=== PATIENT | female | born 2000 | race Caucasian/White ===

== ENCOUNTER 2023-05-13 13:10 | Outpatient (OUT) | payer BC, OTHER, SELFPAY ==
--- NOTE | 2023-05-13 13:11 | US_ITS ---
[address] [address] Patient Name: MARICARMEN NOLAN MRN: [id number] date: 2000 Sex: F Assigned Patient Location: [place] Current Patient Location: US Accession/Order Number: [id number] Exam Date: 05/13/2023 13:15 Report Date: 05/13/2023 14:08 At the request of: JHONNY HUBER Procedure: US OB transvaginal EXAMINATION: US OB transvaginal HISTORY: MISSED MENSES COMPARISON: No relevant comparison available. FINDINGS: Giraldo intrauterine gestation Gestational sac: 4.0 cm, 9 weeks 2 days CRL: 2.87 cm, 9 weeks 5 days Yolk sac: 0.46 cm Heart rate: 189 bpm Cervix: Closed, 4.2 cm The uterus is normal, retroverted The right ovary is normal. The left ovary is not visualized Clinical age: 9 weeks 3 days Clinical ABI: 12/13/2023 Ultrasound age: 9 weeks 5 days Ultrasound ABI: 12/11/2023 US/US OB transvaginal IMPRESSION: Viable giraldo intrauterine gestation measuring 9 weeks 5 days Electronically authenticated by: LAZARO FORRESTER Date: 05/13/2023 14:08
== END 2023-05-13 13:11 | disposition home or self-care (01) ==
PROVIDERS: PCP Student in an Organized Health Care Education/Training Program; Visit Provider Obstetrics & Gynecology
DX: Z34.91 Encounter for supervision of normal pregnancy, unspecified, first trimester (principal); Z3A.09 9 weeks gestation of pregnancy; N92.6 Irregular menstruation, unspecified
CPT/HCPCS: 76817

== ENCOUNTER 2023-05-31 13:23 | Outpatient (OUT) | payer BC, OTHER, SELFPAY ==
--- OUTSIDE RECORDS SUMMARY | 2023-05-31 13:28 | XMS_ITS | CCD ---
Author Name Unknown Address [address] [place] [address] Organization [facility] Care Team Providers Care Tool Polisher Name Role Phone CECILE, DR BARRY Admitting Unavailable CECILE, DR BARRY Attending Unavailable MITZY, DR LAZARO Nieves Consulting Unavailable REQUEST, DR FERNANDES LISTED Primary Care Unavaila ble CECILE, DR BARRY Consulting Unavailable CECILE, DR BARRY Admitting Unavailable CECILE, DR BARRY Attending Unavailable GÓMEZ, DR MILAN A Primary Care Unavailable CECILE, DR BARRY Consulting Unavailable CECILE, DR BARRY Admitting Unavailable CECILE, DR BARRY Attending Unavailable REQUEST, DR NONE LISTED Primary Care Unavaila ble CECILE, DR BARRY Consulting Unavailable ZIEBER, DR PATRICK Soni Consulting Unavailable CECILE, DR BARRY Admitting Unavailable CECILE, DR BARRY Attending Unavailable GÓMEZ, DR MILAN A Primary Care Unavailable CECILE, DR BARRY Consulting Unavailable CECILE, DR BARRY Admitting Unavailable CECILE, DR BARRY Attending Unavailable GÓMEZ, DR MILAN A Primary Care Unavailable CECILE, DR BARRY Consulting Unavailable CECILE, DR BARRY Admitting Unavailable CECILE, DR BARRY Attending Unavailable DALIA, DR MILAN A Primary Care Unavailable CECILE, DR BARRY Consulting Unavailable GÓMEZ, DR MILAN A Primary Care Unavailable CECILE, DR BARRY Admitting Unavailable CECILE, DR BARRY Attending Unavailable MITZY, DR LAZARO Nieves Consulting Unavailable CECILE, DR BARRY Consulting Unavailable HAY, DR BRUNNER Consulting Unavailable AGUBOSIM, RAVIN Consulting Unavailable CECILE, DR BARRY Admitting Unavailable CECILE, DR BARRY Attending Unavailable GÓMEZ, DR MILAN A Primary Care Unavailable CECILE, DR BARRY Consulting Unavailable JOSE CASTILLO Consulting Unavailable NARDINPATRICK [place] Consulting Unavailable JOYCELYN TORRES Consulting Unavaila ble CECILE, JHONNY Attending Unavailable Allergies Allergy Classification Reported Allergen(s) Allergy Type Date of Onset Reaction(s) Facility (1 source) Adhesive bandage Drug allergy (disorder) 08-21-2021 [facility] Repository Problems Active Problems Problem Classification Problem Date Documented Da te Episodic/Chronic Menstrual disorders (4 sources) Irregular menstruation, unspecified; Translations: [IRREGULAR MENSTRUATION UNSPECIFIED] Onset: 08-07-2021 Chronic Other female genital disorders (3 sources) Abnormal uterine and vaginal bleeding, unspecified; Translations: [ABNORMAL UTERINE VAGINAL BLEED UNS] Onset: 08-26-2021 Chronic Unclassified (1 source) CONTACT W/AND (SUSP) EXPOS COVID-19; Translations: [CONTACT W/AND (SUSP) EXPOS COVID-19] Onset: 10-17-2021 Past or Other Problems Problem Classification Problem Date Documented Date Episodic/Chronic Acute posthemorrhagic anemia (1 source) Acute posthemorrhagic anemia; Translations: [ACUTE POSTHEMORRHAGIC ANEMIA] Onset: 10-17-2021 Episodic Immunizations and screening for infectious disease (1 source) Contact with and (suspected) exposure to infections with a predominantly sexual mode of transmission; Translations: [CONTCT W EXPOS INFECT SEXUAL TRNSMS] Onset: 08-12-2021 Episodic Other complications of (4 sources) Missed ; Translations: [MISSED ] Onset: 08-22-2021 Episodic Other complications of (4 sources) with inconclusive viability, not applicable or unspecified; Translations: [PREG INCONCLUS VIABIL NA/UNS] Onset: 08-19-2021 Episodic Other liver diseases (4 sources) Unspecified jaundice; Translations: [UNSPECIFIED JAUNDICE] Onset: 08-29-2021 Episodic Other and delivery including normal (5 sources) Encounter for supervision of other normal , first trimester; Translations: [Encounter for supervision of normal , unspecified, first trimester] Onset: 08-05-2021 Episodic Other screening for suspected conditions (not mental disorders or infectious disease) (1 source) Encounter for screening for diabetes mellitus; Translations: [ENCOUNTER FOR SCREENING FOR DM] Onset: 08-12-2021 Episodic Postabortion complications (1 source) Delayed or excessive hemorrhage following ectopic and molar ; Translations: [DELAY/EXCESS HEM FLW ECTOP MOLAR PG] Onset: 10-17-2021 Episodic Residual codes; unclassified (1 source) 12 weeks gestation of ; Translations: [12 WEEKS GESTATION OF ] Onset: 10-01-2021 Episodic Residual codes; unclassified (1 source) 9 weeks gestation of ; Translations: [9 WEEKS GESTATION OF ] Onset: 08-05-2021 Episodic Results Test Name Value Interpretation Reference Range Facility FRESH FROZ PLASMAon 09-02-19 [facility] Unit Blood Type A Po s Unit Number [id number] Status Information Transfused Product ID FFP Product Code [id number] [facility] Comment on above: Performed By: #### R UBIGG #### [facility] [address] [place] [address] Dr. Amy Whitaker PRBC LEUKOREDUCEDon 09-02-19 ABO and Rh group Nom (Bld) Cross Match Result Compatible Unit Blood Type A Pos Unit Number [id number] Status Information Transfused Product ID Red Blood Cells Product Code [id number] Cross Match Result Compatible Unit Blood Type A Pos Unit Number [id number] Status Information Transfused Product ID Red Blood Cells Product Code [id number] [facility] Comment on above: Performed By: #### P RBC #### [facility] [address] [place] [address] Dr. Amy Whitaker PRBC LEUKOREDUCED Cross Match Result Compatible Unit Blood Type A Pos Unit Number [id number] Status Information Transfused Product ID Red Blood Cells Product Code [id number] [facility] Comment on above: Performed By: #### R UBIGG #### [facility] [address] [place] [address] Dr. Amy Whitaker BUNon 08-29-2021 Urea nitrogen [Mass/Vol] 10.0 mg/dL Normal 7.0-18.0 [facility] Comment on above: Performed By: #### R UBIGG #### [facility] [address] [place] [address] Dr. Amy Whitaker CBC AUTO DIFFon 08-29-2021 BASO # 0.0 103/ul Normal 0.0-0.1 [facility] Comment on above: Performed By: #### P T, PTT #### [facility] [address] [place] [address] Dr. Amy Whitaker Basophils/100 WBC (Bld) 0.6 % Normal 0.2-2.0 [facility] Comment on above: Performed By: #### P T, PTT #### [facility] [address] [place] [address] Dr. Amy Whitaker EO # 0.1 103/ul Normal 0.0-0.7 [facility] Comment on above: Performed By: #### P T, PTT #### [facility] [address] [place] [address] Dr. Amy Whitaker Eosinophils/100 WBC (Bld) 0.8 % Critically low 0.9-7.0 [facility] Comment on above: Performed By: #### P T, PTT #### [facility] [address] [place] [address] Dr. Amy Whitaker Erythrocyte distribution width (RBC) [Ratio] 13.6 % Normal 11.0-15.0 [facility] Comment on above: Performed By: #### P T, PTT #### [facility] [address] [place] [address] Dr. Amy Whitaker Hematocrit (Bld) [Volume fraction] 40.1 % Normal 36.0-48.0 [facility] Comment on above: Performed By: #### P T, PTT #### [facility] [address] [place] [address] Dr. Amy Whitaker Hemoglobin (Bld) [Mass/Vol] 13.0 g/dL Normal 12.0-16.0 [facility] Comment on above: Performed By: #### P T, PTT #### [facility] [address] [place] [address] Dr. Amy Whitaker IG # 0.03 10e3/ul Normal 0.00-0.03 [facility] Comment on above: Performed By: #### P T, PTT #### [facility] [address] [place] [address] Dr. Amy Whitaker IG % 0.4 % Normal 0.0-0.5 [facility] Comment on above: Performed By: #### P T, PTT #### [facility] [address] [place] [address] Dr. Amy Whitaker LYMPH # 1.9 103/ul Normal 1.2-3.8 [facility] Comment on above: Performed By: #### P T, PTT #### [facility] [address] [place] [address] Dr. Amy Whitaker Lymphocytes/100 WBC (Bld) 26.1 % Normal 20.5-60.0 [facility] Comment on above: Performed By: #### P T, PTT #### [facility] [address] [place] [address] Dr. Amy Whitaker MANUAL DIFF REQ NO Normal [facility] Comment on above: Performed By: #### P T, PTT #### [facility] [address] [place] [address] Dr. Amy Whitaker MCH (RBC) [Entitic mass] 29.5 pg Normal 26.7-34.0 [facility] Comment on above: Performed By: #### P T, PTT #### [facility] [address] [place] [address] Dr. Amy Whitaker MCHC (RBC) [Mass/Vol] 32.4 g/dL Normal 29.9-35.2 [facility] Comment on above: Performed By: #### P T, PTT #### [facility] [address] [place] [address] Dr. Amy Whitaker MCV (RBC) [Entitic vol] 90.9 fL Normal 81.0-99.0 [facility] Comment on above: Performed By: #### P T, PTT #### [facility] [address] [place] [address] Dr. Amy Whitaker MONO # 0.7 103/ul Normal 0.3-0.8 [facility] Comment on above: Performed By: #### P T, PTT #### [facility] [address] [place] [address] Dr. Amy Whitaker Monocytes/100 WBC (Bld) 9.4 % Normal 1.7-12.0 [facility] Comment on above: Performed By: #### P T, PTT #### [facility] [address] [place] [address] Dr. Amy Whitaker NEUT # 4.5 103/ul Normal 1.4-6.5 [facility] Comment on above: Performed By: #### P T, PTT #### [facility] [address] [place] [address] Dr. Amy Whitaker Neutrophils/100 WBC (Bld) 62.7 % Normal 43.0-75.0 [facility] Comment on above: Performed By: #### P T, PTT #### [facility] [address] [place] [address] Dr. Amy Whitaker Platelet mean volume (Bld) [Entitic vol] 9.7 fL Normal 9.5-13.5 [facility] Comment on above: Performed By: #### P T, PTT #### [facility] [address] [place] [address] Dr. Amy Whitaker PLT 308 103/ul Normal 150-450 [facility] Comment on above: Performed By: #### P T, PTT #### [facility] [address] [place] [address] Dr. Amy Whitaker RBC 4.41 106/ul Normal 4.20-5.40 [facility] Comment on above: Performed By: #### P T, PTT #### [facility] [address] [place] [address] Dr. Amy Whitaker WBC 7.2 103/ul Normal 4.0-11.0 [facility] Comment on above: Performed By: #### P T, PTT #### [facility] [address] [place] [address] Dr. Amy Whitaker CREATININEon 08-29-2021 Creatinine [Mass/Vol] 0.73 mg/dL Normal 0.55-1.02 [facility] Comment on above: Performed By: #### R UBIGG #### [facility] [address] [place] [address] Dr. Amy Whitaker EGFR-AF FINNISH >60 Normal >=60 [facility] Comment on above: Performed By: #### R UBIGG #### [facility] [address] [place] [address] Dr. Amy Whitaker EGFR-NON AF FINNISH >60 Normal >=60 [facility] Comment on above: Performed By: #### R UBIGG #### [facility] [address] [place] [address] Dr. Amy MASSEYOTon 08-29-2021 AST [Catalytic activity/Vol] 14 U/L Critically low 15-37 [facility] Comment on above: Performed By: #### R UBIGG #### [facility] [address] [place] [address] Dr. Amy Whitaker SGPTon 08-29-2021 ALT [Catalytic activity/Vol] 20 U/L Normal 14-59 [facility] Comment on above: Performed By: #### R UBIGG #### [facility] [address] [place] [address] Dr. Amy Whitaker CBC AUTO DIFFon 08-27-2021 BASO # 0.0 103/ul Normal 0.0-0.1 [facility] Comment on above: Performed By: #### C BC #### [facility] [address] [place] [address] Dr. Amy Whitaker Basophils/100 WBC (Bld) 0.2 % Normal 0.2-2.0 [facility] Comment on above: Performed By: #### C BC #### [facility] [address] [place] [address] Dr. Amy Whitaker EO # 0.0 103/ul Normal 0.0-0.7 [facility] Comment on above: Performed By: #### C BC #### [facility] [address] [place] [address] Dr. Amy Whitaker Eosinophils/100 WBC (Bld) 0.0 % Critically low 0.9-7.0 [facility] Comment on above: Performed By: #### C BC #### [facility] [address] [place] [address] Dr. Amy Whitaker Erythrocyte distribution width (RBC) [Ratio] 13.9 % Normal 11.0-15.0 [facility] Comment on above: Performed By: #### C BC #### [facility] [address] [place] [address] Dr. Amy Whitaker Hematocrit (Bld) [Volume fraction] 34.3 % Critically low 36.0-48.0 [facility] Comment on above: Performed By: #### C BC #### [facility] [address] [place] [address] Dr. Amy Whitaker Hemoglobin (Bld) [Mass/Vol] 11.2 g/dL Critically low 12.0-16.0 [facility] Comment on above: Result Comment: rece ived blood Performed By: #### C BC #### [facility] [address] [place] [address] Dr. Amy Whitaker IG # 0.02 10e3/ul Normal 0.00-0.03 [facility] Comment on above: Performed By: #### C BC #### [facility] [address] [place] [address] Dr. Amy Whitaker IG % 0.3 % Normal 0.0-0.5 [facility] Comment on above: Performed By: #### C BC #### [facility] [address] [place] [address] Dr. Amy Whitaker LYMPH # 0.8 103/ul Critically low 1.2-3.8 [facility] Comment on above: Performed By: #### C BC #### [facility] [address] [place] [address] Dr. Amy Whitaker Lymphocytes/100 WBC (Bld) 13.5 % Critically low 20.5-60.0 [facility] Comment on above: Performed By: #### C BC #### [facility] [address] [place] [address] Dr. Amy Whitaker MANUAL DIFF REQ NO Normal [facility] Comment on above: Performed By: #### C BC #### [facility] [address] [place] [address] Dr. Amy Whitaker MCH (RBC) [Entitic mass] 29.7 pg Normal 26.7-34.0 [facility] Comment on above: Performed By: #### C BC #### [facility] [address] [address] [address] Amy Whitaker MCHC (RBC) [Mass/Vol] 32.7 g/dL Normal 29.9-35.2 [facility] Comment on above: Performed By: #### C BC #### [facility] [address] [address] [address] Amy Whitaker MCV (RBC) [Entitic vol] 91.0 fL Normal 81.0-99.0 [facility] Comment on above: Performed By: #### C BC #### [facility] [address] [address] [address] Amy Whitaker MONO # 0.4 103/ul Normal 0.3-0.8 [facility] Comment on above: Performed By: #### C BC #### [facility] [address] [place] [address] Dr. Amy Whitaker Monocytes/100 WBC (Bld) 6.9 % Normal 1.7-12.0 [facility] Comment on above: Performed By: #### C BC #### [facility] [address] [place] [address] Dr. Amy Whitaker NEUT # 4.6 103/ul Normal 1.4-6.5 [facility] Comment on above: Performed By: #### C BC #### [facility] [address] [place] [address] Dr. Amy Whitaker Neutrophils/100 WBC (Bld) 79.1 % Critically high 43.0-75.0 [facility] Comment on above: Performed By: #### C BC #### [facility] [address] [address] [address] Amy Whitaker Platelet mean volume (Bld) [Entitic vol] 10.9 fL Normal 9.5-13.5 [facility] Comment on above: Performed By: #### C BC #### [facility] [address] [address] [address] Amy Whitaker PLT 174 103/ul Normal 150-450 [facility] Comment on above: Performed By: #### C BC #### [facility] [address] [address] [address] Amy Whitaker RBC 3.77 106/ul Critically low 4.20-5.40 [facility] Comment on above: Performed By: #### C BC #### [facility] [address] [address] [address] Amy Whitaker WBC 5.8 103/ul Normal 4.0-11.0 [facility] Comment on above: Performed By: #### C BC #### [facility] [address] [place] [address] Dr. Amy Whitaker CBC AUTO DIFFon 08-26-2021 BASO # 0.0 103/ul Normal 0.0-0.1 [facility] Comment on above: Performed By: #### C BC #### [facility] [address] [place] [address] Dr. Amy Whitaker Basophils/100 WBC (Bld) 0.2 % Normal 0.2-2.0 [facility] Comment on above: Performed By: #### C BC #### [facility] [address] [place] [address] Dr. Amy Whitaker EO # 0.0 103/ul Normal 0.0-0.7 [facility] Comment on above: Performed By: #### C BC #### [facility] [address] [place] [address] Dr. Amy Whitaker Eosinophils/100 WBC (Bld) 0.7 % Critically low 0.9-7.0 [facility] Comment on above: Performed By: #### C BC #### [facility] [address] [place] [address] Dr. Amy Whitaker Erythrocyte distribution width (RBC) [Ratio] 13.2 % Normal 11.0-15.0 [facility] Comment on above: Performed By: #### C BC #### [facility] [address] [place] [address] Dr. Amy Whitaker Hematocrit (Bld) [Volume fraction] 23.5 % Critically low 36.0-48.0 [facility] Comment on above: Performed By: #### C BC #### [facility] [address] [address] [address] Amy Whitaker Hemoglobin (Bld) [Mass/Vol] 7.7 g/dL Critically low 12.0-16.0 [facility] Comment on above: Performed By: #### C BC #### [facility] [address] [address] [address] Amy Whitaker IG # 0.02 10e3/ul Normal 0.00-0.03 [facility] Comment on above: Performed By: #### C BC #### [facility] [address] [place] [address] Dr. Amy Whitaker IG % 0.4 % Normal 0.0-0.5 [facility] Comment on above: Performed By: #### C BC #### [facility] [address] [place] [address] Dr. Amy Whitaker LYMPH # 1.0 103/ul Critically low 1.2-3.8 [facility] Comment on above: Performed By: #### C BC #### [facility] [address] [place] [address] Dr. Amy Whitaker Lymphocytes/100 WBC (Bld) 21.6 % Normal 20.5-60.0 [facility] Comment on above: Performed By: #### C BC #### [facility] [address] [place] [address] Dr. Amy Whitaker MANUAL DIFF REQ NO Normal [facility] Comment on above: Performed By: #### C BC #### [facility] [address] [place] [address] Dr. Amy Whitaker MCH (RBC) [Entitic mass] 30.0 pg Normal 26.7-34.0 [facility] Comment on above: Performed By: #### C BC #### [facility] [address] [place] [address] Dr. Amy Whitaker MCHC (RBC) [Mass/Vol] 32.8 g/dL Normal 29.9-35.2 [facility] Comment on above: Performed By: #### C BC #### [facility] [address] [address] [address] Amy Whitaker MCV (RBC) [Entitic vol] 91.4 fL Normal 81.0-99.0 [facility] Comment on above: Performed By: #### C BC #### [facility] [address] [address] [address] Amy Whitaker MONO # 0.4 103/ul Normal 0.3-0.8 [facility] Comment on above: Performed By: #### C BC #### [facility] [address] [address] [address] Amy Whitaker Monocytes/100 WBC (Bld) 7.8 % Normal 1.7-12.0 [facility] Comment on above: Performed By: #### C BC #### [facility] [address] [place] [address] Dr. Amy Whitaker NEUT # 3.1 103/ul Normal 1.4-6.5 [facility] Comment on above: Performed By: #### C BC #### [facility] [address] [place] [address] Dr. Amy Whitaker Neutrophils/100 WBC (Bld) 69.3 % Normal 43.0-75.0 [facility] Comment on above: Performed By: #### C BC #### [facility] [address] [place] [address] Dr. Amy Whitaker Platelet mean volume (Bld) [Entitic vol] 9.7 fL Normal 9.5-13.5 [facility] Comment on above: Performed By: #### C BC #### [facility] [address] [place] [address] Dr. Amy Whitaker PLT 154 103/ul Normal 150-450 [facility] Comment on above: Performed By: #### C BC #### [facility] [address] [address] [address] Amy Whitaker RBC 2.57 106/ul Critically low 4.20-5.40 [facility] Comment on above: Performed By: #### C BC #### [facility] [address] [place] [address] Dr. Amy Whitaker WBC 4.5 103/ul Normal 4.0-11.0 [facility] Comment on above: Performed By: #### C BC #### [facility] [address] [place] [address] Dr. Amy Whitaker CULTURE URINEon 08-26-2021 CULTURE URINE Culture Observations : NO GROWTH. Normal [facility] Comment on above: Performed By: #### U RCX #### [facility] [address] [place] [address] Dr. Amy Whitaker Covid-19 PCR ([facility]on 08-02 SARS-CoV-2 (COVID-19) RNA SHANNON+probe Ql (Unsp spec) Not detected Normal NOT DETECTED [facility] Comment on above: Result Comment: When diagnostic testing is negative, the possibility of a false negative should be considered in the context of a patient's recent exposures and the presence of clinical signs and symptoms consistent with SARS-CoV-2. This test is not yet approved or cleared by the [place] FDA. When there are no FDA-approved or cleared tests available, and other criteria are met, FDA can make tests available under an emergency access mechanism called an Emergency Use Authorization (EUA). The EUA for this test is supported by the [place] of Health and Human Service's declaration that circumstances exist to justify the emergency use of in vitro diagnostics for the detection and/or diagnosis of the virus that causes COVID-19. This EUA will remain in effect for the duration of the COVID-19 declaration justifying emergency of IVDs, unless it is terminated or revoked by the FDA (after which the test may no longer be used). Performed By: #### P T, PTT #### [facility] [address] [place] [address] Dr. Amy Whitaker ER URINE PROFILEon Bilirubin Ql (U) SMALL Abnormal NEGATIVE [facility] Comment on above: Performed By: #### P T, PTT #### [facility] [address] [place] [address] Dr. Amy Whitaker Clarity (U) SL CLOUDY Abnormal CLEAR [facility] Comment on above: Performed By: #### P T, PTT #### [facility] [address] [place] [address] Dr. Amy Whitaker Color (U) RED Abnormal YELLOW [facility] Comment on above: Performed By: #### P T, PTT #### [facility] [address] [place] [address] Dr. Amy SERRATO A micrscopic examination will be performed if indicated. Normal [facility] Comment on above: Performed By: #### P T, PTT #### [facility] [address] [place] [address] Dr. Amy Whitaker Glucose Ql (U) Negative Normal NEGATIVE [facility] Comment on above: Performed By: #### P T, PTT #### [facility] [address] [place] [address] Dr. Amy Whitaker Hemoglobin Ql (U) LARGE Abnormal NEGATIVE [facility] Comment on above: Performed By: #### P T, PTT #### [facility] [address] [place] [address] Dr. Amy Whitaker Ketones Ql (U) TRACE Abnormal NEGATIVE [facility] Comment on above: Performed By: #### P T, PTT #### [facility] [address] [place] [address] Dr. Amy Whitaker LEUKOCYTES LARGE Abnormal NEGATIVE [facility] Comment on above: Performed By: #### P T, PTT #### [facility] [address] [place] [address] Dr. Amy Whitaker Nitrite Ql (U) Positive Abnormal NEGATIVE [facility] Comment on above: Performed By: #### P T, PTT #### [facility] [address] [place] [address] Dr. Amy Whitaker pH (U) 8.0 [pH] Normal 5-9 [facility] Comment on above: Performed By: #### P T, PTT #### [facility] [address] [place] [address] Dr. Amy Whitaker Protein (U) [Mass/Vol] 100 mg/dL Abnormal NEGATIVE/ TRACE [facility] Comment on above: Performed By: #### P T, PTT #### [facility] [address] [place] [address] Dr. Amy Whitaker SPEC GRAVITY 1.015 Normal 1.005-<=1.025 [facility] Comment on above: Performed By: #### P T, PTT #### [facility] [address] [place] [address] Dr. Amy Whitaker UR MICRO IND INDICATED Normal [facility] Comment on above: Performed By: #### P T, PTT #### [facility] [address] [place] [address] Dr. Amy Whitaker Urobilinogen Qn (U) 1.0 {Neelima'U}/dL Normal 0.2 - 1. 0 [facility] Comment on above: Performed By: #### P T, PTT #### [facility] [address] [place] [address] Dr. Amy Whitaker PREG HCG QUALon 08-26-2021 , QUAL Positive Abnormal NEGATIVE [facility] Comment on above: Performed By: #### P REG #### [facility] [address] [place] [address] Dr. Amy Whitaker PROF 14(COMP METB)on 022 Albumin [Mass/Vol] 3.4 g/dL Normal 3.4-5.0 [facility] Comment on above: Performed By: #### P T, PTT #### [facility] [address] [place] [address] Dr. Amy Whitaker Albumin/Globulin [Mass ratio] 1.2 {ratio} Normal [facility] Comment on above: Performed By: #### P T, PTT #### [facility] [address] [place] [address] Dr. Amy Whitaker ALP [Catalytic activity/Vol] 47 U/L Normal 46-116 [facility] Comment on above: Performed By: #### P T, PTT #### [facility] [address] [place] [address] Dr. Amy Whitaker ALT [Catalytic activity/Vol] 14 U/L Normal 14-59 [facility] Comment on above: Performed By: #### P T, PTT #### [facility] [address] [address] [address] Amy Whitaker Anion gap [Moles/Vol] 10.8 mmol/L Normal [facility] Comment on above: Performed By: #### P T, PTT #### [facility] [address] [address] [address] Amy Whitaker AST [Catalytic activity/Vol] 9 U/L Critically low 15-37 [facility] Comment on above: Performed By: #### P T, PTT #### [facility] [address] [address] [address] Amy Whitaker Bilirubin [Mass/Vol] 0.7 mg/dL Normal 0.2-1.0 [facility] Comment on above: Performed By: #### P T, PTT #### [facility] [address] [place] [address] Dr. Amy Whitaker Calcium [Mass/Vol] 7.9 mg/dL Critically low 8.5-10.1 [facility] Comment on above: Performed By: #### P T, PTT #### [facility] [address] [address] [address] Amy Whitaker Chloride [Moles/Vol] 105 mmol/L Normal 98-107 [facility] Comment on above: Performed By: #### P T, PTT #### [facility] [address] [place] [address] Dr. Amy Whitaker CO2 [Moles/Vol] 27.0 mmol/L Normal 21.0-32.0 [facility] Comment on above: Performed By: #### P T, PTT #### [facility] [address] [address] [address] Amy Whitaker Creatinine [Mass/Vol] 0.51 mg/dL Critically low 0.55-1.02 [facility] Comment on above: Performed By: #### P T, PTT #### [facility] [address] [address] [address] Amy Whitaker EGFR-AF FINNISH >60 Normal >=60 [facility] Comment on above: Performed By: #### P T, PTT #### [facility] [address] [address] [address] mAy Whitaker EGFR-NON AF FINNISH >60 Normal >=60 [facility] Comment on above: Performed By: #### P T, PTT #### [facility] [address] [address] [address] Amy Whitaker Globulin (S) [Mass/Vol] 2.8 g/dL Normal [facility] Comment on above: Performed By: #### P T, PTT #### [facility] [address] [address] [address] Amy Whitaker Glucose [Mass/Vol] 98 mg/dL Normal 74-106 [facility] Comment on above: Performed By: #### P T, PTT #### [facility] [address] [place] [address] Dr. Amy Whitaker Potassium [Moles/Vol] 3.8 mmol/L Normal 3.5-5.1 [facility] Comment on above: Performed By: #### P T, PTT #### [facility] [address] [place] [address] Dr. Amy Whitaker Protein [Mass/Vol] 6.2 g/dL Normal 6.1-8.2 [facility] Comment on above: Performed By: #### P T, PTT #### [facility] [address] [place] [address] Dr. Amy Whitaker Sodium [Moles/Vol] 139 mmol/L Normal 136-145 [facility] Comment on above: Performed By: #### P T, PTT #### [facility] [address] [place] [address] Dr. Amy Whitaker Urea nitrogen [Mass/Vol] 7.0 mg/dL Normal 7.0-18.0 [facility] Comment on above: Performed By: #### P T, PTT #### [facility] [address] [place] [address] Dr. Amy Whitaker Urea nitrogen/Creatinine [Mass ratio] 13.7 mg/mg Normal [facility] Comment on above: Performed By: #### P T, PTT #### [facility] [address] [place] [address] Dr. Amy Whitaker PROTIMEon 08-26-2021 INR Coag (PPP) [Relative time] 1.01 {INR} Normal [facility] Comment on above: Performed By: #### P T, PTT #### [facility] [address] [place] [address] Dr. Amy Whitaker INR GUIDELINES SEE BELOW Normal [facility] Comment on above: Result Comment: DIVINA RED INR: 2.0 - 3.0 CONDITIONS NOT LISTED BELOW 2.5 - 3.5 FOR PROSTHETIC HEART VALVE REPLACEMENT 2.5 - 3.5 RECURRENT THROMBOSIS Performed By: #### P T, PTT #### [facility] [address] [place] [address] Dr. Amy Whitaker PT Coag (PPP) [Time] 10.9 s Normal 9.0-11.6 [facility] Comment on above: Performed By: #### P T, PTT #### [facility] [address] [place] [address] Dr. Amy Whitaker PTTon 08-26-2021 aPTT Coag (Bld) [Time] 23.4 s Normal 22.3-36.2 [facility] Comment on above: Performed By: #### P T, PTT #### [facility] [address] [place] [address] Dr. Amy Whitaker TYPE AND SCREENon 08-26-2021 TYPE AND SCREEN Negative Normal [facility] Comment on above: Performed By: #### T NS #### [facility] [address] [place] [address] Dr. Amy Whitaker URINE MICROSCOPIC ONLYon BACTERIA TRACE Abnormal NONE SEEN [facility] Comment on above: Performed By: #### P T, PTT #### [facility] [address] [place] [address] Dr. Amy Whitaker Bacteria identified Cx Nom (U) INDICATED Normal [facility] Comment on above: Performed By: #### P T, PTT #### [facility] [address] [place] [address] Dr. Amy Whitaker CAST NONE SEEN Normal NONE SEEN [facility] Comment on above: Performed By: #### P T, PTT #### [facility] [address] [place] [address] Dr. Amy Whitaker Crystals LM Nom (Urine sed) NONE SEEN Normal NONE SEEN [facility] Comment on above: Performed By: #### P T, PTT #### [facility] [address] [place] [address] Dr. Amy Whitaker Epithelial cells LM Ql (Urine sed) NONE SEEN Normal NONE SEEN /RARE [facility] Comment on above: Performed By: #### P T, PTT #### [facility] [address] [place] [address] Dr. Amy Whitaker MUCOUS NONE SEEN Normal NONE SEEN [facility] Comment on above: Performed By: #### P T, PTT #### [facility] [address] [place] [address] Dr. Amy Whitaker RBC (U) [#/Vol] /uL Abnormal 0-2 [facility] Comment on above: Performed By: #### P T, PTT #### [facility] [address] [place] [address] Dr. Amy Whitaker WBC 0-2 Abnormal NONE SEEN [facility] Comment on above: Performed By: #### P T, PTT #### [facility] [address] [place] [address] Dr. Amy Whitaker US PELVISon 08-26-2021 US PELVIS EXAMINATION: US PELVIS HISTORY: Abnormal vaginal bleeding COMPARISON: 08/22/2021 FINDINGS: The uterus is enlarged in size measuring 12.3 x 8.7 x 7.5 cm. Heterogeneous myometrium. These findings are consistent with the patient's state. The uterus is anteflexed. The endometrium is heterogeneous and hyperechogenic in appearance with no significant vascularity on color ultrasound. The endometrium measures 5.8 cm thick. The right ovary is normal in appearance measuring 2.6 x 1.6 x 1.7 cm. Normal color and Doppler flow. The left ovary is normal in appearance measuring 3.2 x 2.2 x 1.6 cm. Normal color and Doppler flow. Small amount of left-sided periadnexal free fluid, nonspecific IMPRESSION: Thickened heterogeneous hyperechogenic appearance of the endometrial cavity. Hemorrhage is favored. No ultrasound findings to suggest retained products of conception Electronically authenticated by: LAZARO FORRESTER Date: 2021-08-26 13:18 Normal [facility] US PELVISon 08-23-2021 US PELVIS EXAM: US PELVIS HISTORY: Fetus OR affected by spontaneous . Patient status post dilation and curettage. COMPARISON: Pelvic ultrasound TECHNIQUE: Transabdominal sonographic evaluation of the pelvis. FINDINGS: Preprocedural survey ultrasound images redemonstrate a single intrauterine gestation and placenta. Postprocedural images demonstrate heterogeneously hypoechoic debris expanding the endometrial canal, with absence of intrauterine gestation. Linear hyperechoic focus along the deep margin of the uterus, of uncertain etiology, and may be procedure related or artifactual. IMPRESSION: Limited pelvic ultrasound demonstrates absence of intrauterine gestation post dilation and curettage. No residual products are identified. Residual hypoechoic debris within the endometrial canal may represent blood products versus procedure related fluid. Electronically authenticated by: PATRICK VICENTE Date: 2021-08-23 12:13 Normal [facility] CBC AUTO DIFFon 08-22-2021 BASO # 0.0 103/ul Normal 0.0-0.1 [facility] Comment on above: Performed By: #### P T, PTT #### [facility] [address] [place] [address] Dr. Amy Whitaker Basophils/100 WBC (Bld) 0.4 % Normal 0.2-2.0 [facility] Comment on above: Performed By: #### P T, PTT #### [facility] [address] [place] [address] Dr. Amy Whitaker EO # 0.1 103/ul Normal 0.0-0.7 [facility] Comment on above: Performed By: #### P T, PTT #### [facility] [address] [place] [address] Dr. Amy Whitaker Eosinophils/100 WBC (Bld) 0.8 % Critically low 0.9-7.0 [facility] Comment on above: Performed By: #### P T, PTT #### [facility] [address] [place] [address] Dr. Amy Whitaker Erythrocyte distribution width (RBC) [Ratio] 12.4 % Normal 11.0-15.0 [facility] Comment on above: Performed By: #### P T, PTT #### [facility] [address] [place] [address] Dr. Amy Whitaker Hematocrit (Bld) [Volume fraction] 37.4 % Normal 36.0-48.0 [facility] Comment on above: Performed By: #### P T, PTT #### [facility] [address] [place] [address] Dr. Amy Whitaker Hemoglobin (Bld) [Mass/Vol] 12.6 g/dL Normal 12.0-16.0 [facility] Comment on above: Performed By: #### P T, PTT #### [facility] [address] [place] [address] Dr. Amy Whitaker IG # 0.04 10e3/ul Critically high 0.00-0.03 [facility] Comment on above: Performed By: #### P T, PTT #### [facility] [address] [place] [address] Dr. Amy Whitaker IG % 0.5 % Normal 0.0-0.5 [facility] Comment on above: Performed By: #### P T, PTT #### [facility] [address] [place] [address] Dr. Amy Whitaker LYMPH # 2.0 103/ul Normal 1.2-3.8 [facility] Comment on above: Performed By: #### P T, PTT #### [facility] [address] [place] [address] Dr. Amy Whitaker Lymphocytes/100 WBC (Bld) 27.2 % Normal 20.5-60.0 [facility] Comment on above: Performed By: #### P T, PTT #### [facility] [address] [place] [address] Dr. Amy Whitaker MANUAL DIFF REQ NO Normal [facility] Comment on above: Performed By: #### P T, PTT #### [facility] [address] [place] [address] Dr. Amy Whitaker MCH (RBC) [Entitic mass] 29.4 pg Normal 26.7-34.0 [facility] Comment on above: Performed By: #### P T, PTT #### [facility] [address] [place] [address] Dr. Amy Whitaker MCHC (RBC) [Mass/Vol] 33.7 g/dL Normal 29.9-35.2 [facility] Comment on above: Performed By: #### P T, PTT #### [facility] [address] [place] [address] Dr. Amy Whitaker MCV (RBC) [Entitic vol] 87.4 fL Normal 81.0-99.0 [facility] Comment on above: Performed By: #### P T, PTT #### [facility] [address] [place] [address] Dr. Amy Whitaker MONO # 0.7 103/ul Normal 0.3-0.8 [facility] Comment on above: Performed By: #### P T, PTT #### [facility] [address] [place] [address] Dr. Amy Whitaker Monocytes/100 WBC (Bld) 9.7 % Normal 1.7-12.0 [facility] Comment on above: Performed By: #### P T, PTT #### [facility] [address] [place] [address] Dr. Amy Whitaker NEUT # 4.6 103/ul Normal 1.4-6.5 [facility] Comment on above: Performed By: #### P T, PTT #### [facility] [address] [place] [address] Dr. Amy Whitaker Neutrophils/100 WBC (Bld) 61.4 % Normal 43.0-75.0 [facility] Comment on above: Performed By: #### P T, PTT #### [facility] [address] [place] [address] Dr. Amy Whitaker Platelet mean volume (Bld) [Entitic vol] 10.1 fL Normal 9.5-13.5 [facility] Comment on above: Performed By: #### P T, PTT #### [facility] [address] [address] [address] Amy Whitaker PLT 222 103/ul Normal 150-450 [facility] Comment on above: Performed By: #### P T, PTT #### [facility] [address] [address] [address] Amy Whitaker RBC 4.28 106/ul Normal 4.20-5.40 [facility] Comment on above: Performed By: #### P T, PTT #### [facility] [address] [address] [address] Amy Whitaker WBC 7.5 103/ul Normal 4.0-11.0 [facility] Comment on above: Performed By: #### P T, PTT #### [facility] [address] [place] [address] Dr. Amy Whitaker FIBRINOGENon 08-22-2021 FIBRINOGEN 261.0 mg/dl Normal 200.0-400.0 [facility] Comment on above: Performed By: #### P T, PTT #### [facility] [address] [place] [address] Dr. Amy Whitaker PREG QUANT HCGon 08-22-2021 HCG QUANT [id number] mIU/mL Normal [facility] Comment on above: Performed By: #### P REGQNT #### [facility] [address] [place] [address] Dr. Amy Whitaker HCG RANGE SEE BELOW Normal [facility] Comment on above: Result Comment: 5-50 0-1 WEEK 40-300 1-2 WEEKS 100-1,000 2-3 WEEKS 500-6,000 3-4 WEEKS 5,000-200,000 1-2 MONTHS 10,000-100,000 2-3 MONTHS 3,000-50,000 2ND TRIMESTER 1,000-50,000 3RD TRIMESTER Performed By: #### P REGQNT #### [facility] [address] [place] [address] Dr. Amy Whitaker PROTIMEon 08-22-2021 INR Coag (PPP) [Relative time] 1.06 {INR} Normal [facility] Comment on above: Performed By: #### P T, PTT #### [facility] [address] [place] [address] Dr. Amy Whitaker INR GUIDELINES SEE BELOW Normal [facility] Comment on above: Result Comment: DIV[place] RED INR: 2.0 - 3.0 CONDITIONS NOT LISTED BELOW 2.5 - 3.5 FOR PROSTHETIC HEART VALVE REPLACEMENT 2.5 - 3.5 RECURRENT THROMBOSIS Performed By: #### P T, PTT #### [facility] [address] [place] [address] Dr. Amy Whitaker PT Coag (PPP) [Time] 11.4 s Normal 9.0-11.6 [facility] Comment on above: Performed By: #### P T, PTT #### [facility] [address] [place] [address] Dr. Amy Whitaker PTTon 08-22-2021 aPTT Coag (Bld) [Time] 25.6 s Normal 22.3-36.2 [facility] Comment on above: Performed By: #### P T, PTT #### [facility] [address] [place] [address] Dr. Amy Whitaker Covid-19 PCR ([facility])on 08-02 SARS-CoV-2 (COVID-19) RNA SHANNON+probe Ql (Unsp spec) Not detected Normal NOT DETECTED [facility] Comment on above: Result Comment: When diagnostic testing is negative, the possibility of a false negative should be considered in the context of a patient's recent exposures and the presence of clinical signs and symptoms consistent with SARS-CoV-2. This test is not yet approved or cleared by the [place] FDA. When there are no FDA-approved or cleared tests available, and other criteria are met, FDA can make tests available under an emergency access mechanism called an Emergency Use Authorization (EUA). The EUA for this test is supported by the [place] of Health and Human Service's declaration that circumstances exist to justify the emergency use of in vitro diagnostics for the detection and/or diagnosis of the virus that causes COVID-19. This EUA will remain in effect for the duration of the COVID-19 declaration justifying emergency of IVDs, unless it is terminated or revoked by the FDA (after which the test may no longer be used). Performed By: #### P T, PTT #### [facility] [address] [address] [address] Amy Whitaker US PREG TVon 08-19-2021 US PREG TV EXAMINATION: US PREG TV HISTORY: Uncertain viability of COMPARISON: Ultrasound transvaginal 08/01/2021 FINDINGS: GESTATIONAL SAC: Present. POLE: Present with what appears to be encapsulated fluid or subcutaneous edema surrounding the head and neck. YOLK SAC: Not seen. CARDIAC: Absent. UTERUS: Normal size and appearance. OVARIES: Right: Not seen. Left: Normal. CERVIX: 4.4 cm in length and closed. CUL-DE-SAC: Normal. OTHER: None. AGE BY LMP: 12 weeks, 0 days ABI BY LMP: 03/03/2022 AGE BY US CRL: 10 weeks, 5 days ABI BY US CRL: 03/12/2022 IMPRESSION: 1. Intrauterine with no detectable heart rate and suspected cystic hygroma. Dr. Duggan was notified of these findings at the time of imaging by the correctional security officer. Electronically authenticated by: PATRICK KRAUSE Date: 2021-08-19 17:18 Normal [facility] HEP B SURFACE ANTIGEN SCREEN on 08-08-2021 HBsAg Screen Negative Normal Negative [facility] Comment on above: Performed By: #### P T, PTT #### [facility] [address] [address] [address] Amy Whitaker HEPATITIS C VIRUS AB W/ REFL EX QUANTon 08-08-2021 HCV AB <0.1 Normal 0.0-0.9 [facility] Comment on above: Performed By: #### P T, PTT #### [facility] [address] [address] [address] Amy Whitaker Interpretation: Comment Normal [facility] Comment on above: Result Comment: Nega tive Not infected with HCV, unless recent infection is suspected or other evidence exists to indicate HCV infection. Performed By: #### P T, PTT #### [facility] [address] [address] [address] Amy Whitaker HIV 1 AND 2 WITH REFLEXon HIV Screen 4th Generation wRfx Non-Reactive Normal Non Reactive [facility] Comment on above: Result Comment: HIV Negative HIV-1/HIV-2 antibodies and HIV-1 p24 antigen were NOT detected. There is no laboratory evidence of HIV infection. Performed By: #### P T, PTT #### [facility] [address] [place] [address] Dr. Amy Whitaker RPR QUANTon 08-08-2021 Rapid Plasma Reagin, Quant Non-Reactive Normal NonRea<1:1 [facility] [facility] Comment on above: Result Comment: Plea se Note: This test does not meet current guidelines for screening and diagnosis of syphilis. This test is intended for following treatment response in patients being treated for syphilis infection. To screen for syphilis infection, a reflex cascade that includes both RPR and a treponema-specific assay should be utilized, such as Treponema pallidum (Syphilis) Screening [place] (487130) or Rapid Plasma Reagin (RPR) Test With Reflex to Quantitative RPR and Confirmatory Treponema pallidum Antibodies (488483). Performed By: #### P T, PTT #### [facility] [address] [place] [address] Dr. Amy Whitaker RUBELLA AB IGGon 08-08-2021 Rubella Antibodies, IgG 1.68 index Normal Immune >0.99 [facility] Comment on above: Result Comment: Non- immune <0.90 Equivocal 0.90 - 0.99 Immune >0.99 Performed By: #### R UBIGG #### [facility] [address] [address] [address] Amy Whitaker CBC AUTO DIFFon 08-07-2021 BASO # 0.0 103/ul Normal 0.0-0.1 [facility] Comment on above: Performed By: #### P T, PTT #### [facility] [address] [place] [address] Dr. Amy Whitaker Basophils/100 WBC (Bld) 0.3 % Normal 0.2-2.0 [facility] Comment on above: Performed By: #### P T, PTT #### [facility] [address] [place] [address] Dr. Amy Whitaker EO # 0.0 103/ul Normal 0.0-0.7 [facility] Comment on above: Performed By: #### P T, PTT #### [facility] [address] [place] [address] Dr. Amy Whitaker Eosinophils/100 WBC (Bld) 0.3 % Critically low 0.9-7.0 [facility] Comment on above: Performed By: #### P T, PTT #### [facility] [address] [place] [address] Dr. Amy Whitaker Erythrocyte distribution width (RBC) [Ratio] 12.2 % Normal 11.0-15.0 [facility] Comment on above: Performed By: #### P T, PTT #### [facility] [address] [place] [address] Dr. Amy Whitaker Hematocrit (Bld) [Volume fraction] 38.5 % Normal 36.0-48.0 [facility] Comment on above: Performed By: #### P T, PTT #### [facility] [address] [place] [address] Dr. Amy Whitaker Hemoglobin (Bld) [Mass/Vol] 13.0 g/dL Normal 12.0-16.0 [facility] Comment on above: Performed By: #### P T, PTT #### [facility] [address] [place] [address] Dr. Amy Whitaker IG # 0.02 10e3/ul Normal 0.00-0.03 [facility] Comment on above: Performed By: #### P T, PTT #### [facility] [address] [place] [address] Dr. Amy Whitaker IG % 0.3 % Normal 0.0-0.5 [facility] Comment on above: Performed By: #### P T, PTT #### [facility] [address] [place] [address] Dr. Amy Whitaker LYMPH # 1.6 103/ul Normal 1.2-3.8 [facility] Comment on above: Performed By: #### P T, PTT #### [facility] [address] [place] [address] Dr. Amy Whitaker Lymphocytes/100 WBC (Bld) 20.2 % Critically low 20.5-60.0 [facility] Comment on above: Performed By: #### P T, PTT #### [facility] [address] [place] [address] Dr. Amy Whitaker MANUAL DIFF REQ NO Normal [facility] Comment on above: Performed By: #### P T, PTT #### [facility] [address] [place] [address] Dr. Amy Whitaker MCH (RBC) [Entitic mass] 29.3 pg Normal 26.7-34.0 [facility] Comment on above: Performed By: #### P T, PTT #### [facility] [address] [place] [address] Dr. Amy Whitaker MCHC (RBC) [Mass/Vol] 33.8 g/dL Normal 29.9-35.2 [facility] Comment on above: Performed By: #### P T, PTT #### [facility] [address] [place] [address] Dr. Amy Whitaker MCV (RBC) [Entitic vol] 86.7 fL Normal 81.0-99.0 [facility] Comment on above: Performed By: #### P T, PTT #### [facility] [address] [place] [address] Dr. Amy Whitaker MONO # 0.6 103/ul Normal 0.3-0.8 [facility] Comment on above: Performed By: #### P T, PTT #### [facility] [address] [place] [address] Dr. Amy Whitaker Monocytes/100 WBC (Bld) 8.0 % Normal 1.7-12.0 [facility] Comment on above: Performed By: #### P T, PTT #### [facility] [address] [place] [address] Dr. Amy Whitaker NEUT # 5.5 103/ul Normal 1.4-6.5 [facility] Comment on above: Performed By: #### P T, PTT #### [facility] [address] [address] [address] Amy Whitaker Neutrophils/100 WBC (Bld) 70.9 % Normal 43.0-75.0 [facility] Comment on above: Performed By: #### P T, PTT #### [facility] [address] [address] [address] Amy Whitaker Platelet mean volume (Bld) [Entitic vol] 10.1 fL Normal 9.5-13.5 [facility] Comment on above: Performed By: #### P T, PTT #### [facility] [address] [place] [address] Dr. Amy Whitaker PLT 217 103/ul Normal 150-450 [facility] Comment on above: Performed By: #### P T, PTT #### [facility] [address] [place] [address] Dr. Amy Whitaker RBC 4.44 106/ul Normal 4.20-5.40 [facility] Comment on above: Performed By: #### P T, PTT #### [facility] [address] [place] [address] Dr. Amy Whitaker WBC 7.7 103/ul Normal 4.0-11.0 [facility] Comment on above: Performed By: #### P T, PTT #### [facility] [address] [place] [address] Dr. Amy Whitaker CULTURE URINEon 08-07-2021 CULTURE URINE Culture Observations : MODERATE GROWTH OF MIXED GENITAL DINA. NO POTENTIAL PATHOGENS SEEN. Normal [facility] Comment on above: Performed By: #### R UBIGG #### [facility] [address] [place] [address] Dr. Amy Whitaker GLYCOHEMOGLOBIN A1Con 2021 ADA RECOMMENDATION ADA THERAPEUTIC TARGET 6.0 - 7.0 ACTION SUGGESTED > 7.0 Normal [facility] Comment on above: Performed By: #### C BC #### [facility] [address] [place] [address] Dr. Amy Whitaker Glucose [Mass/Vol] 108 mg/dL Normal [facility] Comment on above: Performed By: #### C BC #### [facility] [address] [address] [address] Amy Whitaker HbA1c (Bld) [Mass fraction] 5.4 % Normal <=6.0 [facility] Comment on above: Performed By: #### C BC #### [facility] [address] [address] [address] Amy Whitaker JONAS BOX TEST PT SEND OUTo n 08-07-2021 SENT TO REF LAB 08/07/2021 Normal [facility] Comment on above: Performed By: #### C BC #### [facility] [address] [address] [address] Amy Whitaker TYPE AND SCREENon 08-07-2021 TYPE AND SCREEN Negative Normal [facility] Comment on above: Performed By: #### T NS #### [facility] [address] [address] [address] Amy Whitaker US PREG TVon 08-01-2021 US PREG TV EXAMINATION: US PREG TV HISTORY: Missed period COMPARISON: No relevant comparison available. FINDINGS: Transvaginal images Giraldo intrauterine gestation Gestational sac: 3.56 cm, 8 weeks 5 days CRL: 2.35 cm, 9 weeks 0 days Yolk sac: 0.51 cm Heart rate: 182 bpm Cervix: Closed, 3.5 cm. Clinical age: 9 weeks 3 days Clinical ABI: 03/03/2022 Ultrasound age: 9 weeks 0 days Ultrasound ABI: 03/06/2022 IMPRESSION: Viable giraldo intrauterine gestation measuring 9 weeks 0 days Electronically authenticated by: LAZARO FORRESTER Date: 2021-08-01 16:12 Normal [facility] Encounters Encounter Date Encounter Type Care Provider Facility Start: 05-13-2023 End: 05-13-2023 ambulatory JHONNY DUGGAN Not Available Start: 03-15-2023 End: 03-15-2023 ambulatory JHONNY DUGGAN Not Available Start: 08-29-2021 End: 08-30-[address] JHONNY DUGGAN Facility:[facility] Start: 08-26-2021 End: 08-27-[address] BJORN GÓMEZ Facility:[facility] Start: 08-22-2021 Encounter for preprocedural laboratory examination DR JHONNY DUGGAN [facility] Start: 08-22-2021 End: 08-22-[address] JHONNY DUGGAN Facility:[facility] Start: 08-21-2021 End: 08-22-[address] JHONNY DUGGAN Facility:[facility] Start: 08-21-2021 End: 08-22-2021 Encounter for preprocedural laboratory examination DR JHONNY DUGGAN Facility:[facility] Start: 08-19-2021 End: 08-20-[address] JHONNY DUGGAN Facility:[facility] Start: 08-07-2021 End: 08-08-[address] JHONNY DUGGAN Facility:[facility] Start: 08-01-2021 End: 08-02-[address] JHONNY DUGGAN Facility:[facility] Payers Date Payer Category Payer Unknown [id number] 2022 Unknown [id number] 2022 Medicaid [id number] 2001 Unknown [id number] 2.16.84 [id number] 2001 Unknown [id number] 2.16.84 [id number] 2001 Unknown [id number] 2.16.84 [id number] 2001 Unknown [id number] 2.16.84 [id number] 2001 Unknown [id number] 2.16.84 [id number] 2001 Unknown [id number] 2.16.84 [id number] 2001 Unknown [id number] 2.16.84 [id number] 2001 Unknown [id number] 2.16.84 [id number] 2001 Unknown [id number] [id number]. [id number] 1959 Self-pay 1959 Unknown [id number] 1959 Unknown [id number] Unknown [id number] 2.16.84 [id number] Clinical Note 08-26-2021 Note Date & Type Note Facility 08-26-2021 Note EXAMINATION: US PELV IS HISTORY: Surgical procedure COMPARISON: 08/27/20192009 7:00 PM FINDINGS: Intraprocedural images from the [facility] Initial images demonstrate heterogeneous distended appearance of the endometrial cavity which measures up to 5.7 x 8.2 cm on axial image #4 Subsequent images demonstrate evacuation of the contents with anechoic appearance of the endometrial cavity measuring 4.0 x 1.4 cm on axial image 21 Final images 125 through 142 demonstrate no significant fluid or soft tissue within the endometrial cavity IMPRESSION: Intraprocedural images from a [facility] Electronically authenticated by: LAZARO FORRESTER Date: 2021-08-26 17:54 [facility] Discharge summary note 08-26-2021 Note Date & Type Note Facility 08-26-2021 Note DISCHARGE SUMMARY DISCHARGE DATE: 09/08/2021 HISTORY: Patient is a 21-year-old female who presented to the ER with vaginal bleeding, status post suction D AND C over one week ago. Ultrasound was performed which showed significant blood products in the patient's uterus; however, no evidence of retained products could be seen. Patient's hemoglobin had subsequently dropped. At that point, due to the nature of her bleeding and acute blood loss anemia, it was decided to take patient back to the OR for a suction D AND C, removal of clots, after patient was transfused with two units of blood products. HOSPITAL COURSE: As expected. Please see chart for full details. LABORATORY DATA: Please see chart. COMPLICATIONS: None. DISCHARGE CONDITION: Stable. CONSULTATION: Anesthesia. DISCHARGE INSTRUCTIONS: 1.Diet: Regular. 2.Medications: a. Motrin 800 one p.o. every 8 hours p.r.n. pain. b.Methergine 0.2 oral t.i.d. for three days. 3.Followup in one week. Restrictions: Pelvic rest for 6 weeks. No heavy lifting. May drive when pain free and no longer on narcotics. [facility] Signed and Approved by: DR JHONNY DUGGAN . 09/16/2021 10:47:00 [facility] Clinical Note 08-26-2021 Note Date & Type Note Facility 08-26-2021 Note The [place], [place] NAME: MARICARMEN NOLAN DATE OF : MEDICAL REC#: [id number] [facility]ILING HOUSE HAND[id number] DATE: 08/26/2021 11:13:00 PROFILE GRINDER TECHNICIAN DATE: 09/11/2021 21:00 DICTATING PHYSICIAN: JHONNY DUGGAN DICTATION DATE: 09/08/2021 08:00 OPERATIVE NOTE OPERATION DATE: 09/08/2021 PROCEDURE: Suction D AND C. PREOPERATIVE DIAGNOSIS: Vaginal bleeding, status post prior D AND C for missed . POSTOPERATIVE DIAGNOSIS: Vaginal bleeding, status post prior D AND C for missed . ANESTHESIA: General. SURGEON: Jhonny Duggan D.O. PICKING MACHINE OPERATOR: None. FINDINGS: No products of conception found. Cavity appeared to have significant amount of blood products. SPECIMEN: Blood products. BLOOD LOSS: 300 mL. PROCEDURE: The patient was taken back to the OR where she was given general anesthesia without difficulty. She was then placed in dorsal lithotomy position, prepped and draped in the normal sterile fashion. A weighted speculum was placed in the patient's vagina and the anterior lip of the cervix was identified and grasped with a single-tooth tenaculum. The patient was then gently dilated using Hegar dilators after we had sounded roughly to 11 cm. The suction curette was then tested. The suction curette was then placed in the patient's uterus and blood products were removed using an 8-[place] suction curette. Excellent hemostasis was noted. The patient tolerated the procedure well. Sponge, lap, and needle counts were correct x 2. All instruments were then removed from the patient's vagina. The patient was taken to the Recovery Room in stable condition. ?? Electronically Authenticated and Edited by: Jhonny Duggan DO on 09/16/2021 10:14 AM EDT [facility] Signed and Approved by: DR JHONNY DUGGAN . 09/16/2021 10:14:00 [facility] Clinical Note 08-22-2021 Note Date & Type Note Facility 08-22-2021 Note OPERATIVE NOTE OPERATION DATE:08/22/2021 PROCEDURE: Suction D AND C. PREOPERATIVE DIAGNOSIS: Missed POSTOPERATIVE DIAGNOSIS: Missed . ANESTHESIA: General. SURGEON: Jhonny Duggan D.O. PICKING MACHINE OPERATOR: None. BLOOD LOSS: 200 mL. URINE OUTPUT: Yellow and clear. FINDINGS: Products of conception. SPECIMEN: Products of conception. PROCEDURE NOTE: The patient was taken back to the OR where she was given general anesthesia without difficulty. She was then placed in dorsal lithotomy position, prepped and draped in the normal sterile fashion. A weighted speculum was placed in the patient's vagina and the anterior lip of the cervix was identified and grasped with a single-tooth tenaculum. The patient was then gently dilated using Hegar dilators after we had sounded roughly to 11 cm. The patient did have a suction device and after the suction device was tested, it was then placed in the patient's uterus and products of conception were removed using 9 cm suction curette. The patient tolerated the procedure well. Sponge, lap, and needle counts were correct x 2. All instruments were then removed from the patient's vagina. The patient was taken to the Recovery Room in stable condition. [facility] Signed and Approved by: DR JHONNY DUGGAN . 08/31/2021 19:44:00 [facility] Summary Purpose Family History No Family History Records FoundNo Family History Records Found Advance Directives No Advanced Directives Records FoundNo Advanced Directives Records Found Additional Source Comments INFORMATION SOURCE (unrecogn ized section and content) DATE CREATED AUTHOR 03/17/[address] [facility] DATE CREATED AUTHOR AUTHOR'S ORGANIZ ATION 05/14/2023 [facility] FOR RECORDS PERTAINING TO PATIENTS WHO ARE OR HAVE BEEN ENROLLED IN A CHEMICAL DEPENDENCY/SUBSTANCEABUSE PROGRAM, SOME INFORMATION MAY BE OMITTED. This clinical summary was aggregated from multiple sources. Caution should be exercised in using it in the provision of clinical care. This summary normalizes information from multiple sources, and as a consequence, information in this document may materially change the coding, format and clinical context of patient data. In addition, data may be omitted in some cases. CLINICAL DECISIONS SHOULD BE BASED ON THE PRIMARY CLINICAL RECORDS. [facility] [employer] [facility]. provides no warranty or guarantee of the accuracy or completeness of information in this document.
[2023-05-31 14:08] LABS: Basophils Percent Auto 0.2 % (0.2-2.0); Eosinophils Percent Auto 0.4 % (0.9-7.0); Hematocrit 35.7 % (36.0-48.0); Immature Granulocytes Abs Auto 0.03 10^3/uL (0.00-0.03); Immature Granulocytes Pct Auto 0.4 % (0.0-0.5); Lymphocytes Percent Auto 24.3 % (20.5-60.0); Mean Corpuscular HGB Conc 33.6 g/dL (29.9-35.2); Mean Corpuscular Hemoglobin 30.1 pg (26.7-34.0); Mean Corpuscular Volume 89.5 fL (81.0-99.0); Mean Platelet Volume 10.4 fL (9.5-13.5); Monocytes Absolute Auto 0.6 10^3/uL (0.3-0.8); Monocytes Percent Auto 7.4 % (1.7-12.0); Neutrophils Absolute Auto 5.6 10^3/uL (1.4-6.5); Neutrophils Percent Auto 67.3 % (43.0-75.0); Platelet Count 225 10^3/uL (150-450); Red Blood Count 3.99 10^6/uL (4.20-5.40); Red Cell Distribution Width 12.2 % (11.0-15.0); White Blood Count 8.3 10^3/uL (4.0-11.0)
[2023-05-31 15:07] LABS: Estimated Average Glucose 97 mg/dL
[2023-06-01 04:08] LABS: Rubella Antibodies, IgG 1.24 index (Immune >0.99)
[2023-06-01 05:08] LABS: HCV Ab Non Reactive (Non Reactive); HIV Ab/p24 Ag Screen Non Reactive (Non Reactive)
[2023-06-01 06:10] LABS: HBsAg Screen Negative (Negative)
[2023-06-01 12:09] LABS: Rapid Plasma Reagin, Quant Non Reactive titer (NonRea<1:1)
== END 2023-05-31 13:24 | disposition home or self-care (01) ==
PROVIDERS: PCP Student in an Organized Health Care Education/Training Program; Visit Provider Obstetrics & Gynecology
DX: N92.6 Irregular menstruation, unspecified (principal)
CPT/HCPCS: 36415; 83036; 85025; 86592; 86762; 86803; 86850; 86900; 86901; 87086; 87340; 87389

== ENCOUNTER 2023-06-15 15:48 | Outpatient (OUT) | payer BC, OTHER, SELFPAY ==
--- OUTSIDE RECORDS SUMMARY | 2023-06-15 15:58 | XMS_ITS | CCD ---
Author Name Unknown Address [address] [place] [address] Organization [facility] Care Team Providers Care Appeals Officer Name Role Phone CECILE, DR BARRY Admitting [...] CECILE, DR BARRY Attending Unavailable REQUEST, DR DOM LISTED Primary Care Unavaila ble CECILE, DR [...] Care Unavailable CECILE, DR BARRY Consulting Unavailable GMÓEZ, DR MILAN A Primary Care Unavailable CECILE, DR BARRY Admitting Unavailable CECILE, DR BARRY Attending Unavailable MITZY, DR LAZARO Nieves Consulting Unavailable CECILE, DR BARRY Consulting Unavailable HAY, DR BRUNNER Consulting Unavailable AGUBOSILuba, RAVIN Consulting Unavailable CECILE, DR BARRY Admitting Unavailable CECILE, DR BARRY Attending Unavailable GÓMEZ, DR MILAN A Primary Care Unavailable CECILE, DR BARRY Consulting Unavailable JOSE CASTILLO Consulting Unavailable PATRICK VICENTE Consulting Unavailable JOYCELYN TORRES Consulting Unavaila ble CECILE, JHONNY Attending Unavailable Allergies Allergy Classification Reported Allergen(s) Allergy Type Date of Onset Reaction(s) Facility (1 source) Adhesive bandage Drug allergy (disorder) 08-21-2021 [facility] Repository Problems Active Problems Problem Classification [...] Blood Type A Po s Unit Number [id number] Status Information Transfused Product ID FFP Product Code [id number] Normal [facility] Comment on above: Performed By: #### R UBIGG #### [facility] [address] [place] [address] Dr. Amy Whitaker PRBC LEUKOREDUCEDon 09-02-19 ABO and Rh group Nom (Bld) Cross Match Result Compatible Unit Blood Type A Pos Unit Number [id number] Status Information Transfused Product ID Red Blood Cells Product Code [id number] Cross Match Result Compatible Unit Blood Type A Pos Unit Number [id number] Status Information Transfused Product ID Red Blood Cells Product Code [id number] [facility] Comment on above: Performed By: #### P RBC #### [facility] [address] [place] [address] Dr. Amy Whitaker PRBC LEUKOREDUCED Cross Match Result Compatible Unit Blood Type A Pos Unit Number [id number] Status Information Transfused Product ID Red Blood Cells Product Code [id number] [facility] Comment on above: Performed By: #### R UBIGG #### [facility] [address] [place] [address] Dr. Amy Whitaker BUNon 08-29-2021 Urea nitrogen [Mass/Vol] 10.0 mg/dL Normal 7.0-18.0 [facility] Comment on above: Performed By: #### R UBIGG #### [facility] [address] [place] [address] Dr. Amy Whitaker CBC AUTO DIFFon 08-29-2021 BASO # 0.0 103/ul Normal 0.0-0.1 [facility] Comment on above: Performed By: #### P T, PTT #### [facility] [address] [place] [address] Dr. Amy Whitaker Basophils/100 WBC (Bld) 0.6 % Normal 0.2-2.0 [facility] Comment on above: Performed By: #### P T, PTT #### [facility] [address] [place] [address] Dr. Amy Whitaker EO # 0.1 103/ul Normal 0.0-0.7 [facility] Comment on above: Performed By: #### P T, PTT #### [facility] [address] [place] [address] Dr. Amy Whitaker Eosinophils/100 WBC (Bld) 0.8 % Critically low 0.9-7.0 [facility] Comment on above: Performed By: #### P T, PTT #### [facility] [address] [place] [address] Dr. Amy Whitaker Erythrocyte distribution width (RBC) [Ratio] 13.6 % Normal 11.0-15.0 [facility] Comment on above: Performed By: #### P T, PTT #### [facility] [address] [place] [address] Dr. Amy Whitaker Hematocrit (Bld) [Volume fraction] 40.1 % Normal 36.0-48.0 [facility] Comment on above: Performed By: #### P T, PTT #### [facility] [address] [place] [address] Dr. Amy Whitaker Hemoglobin (Bld) [Mass/Vol] 13.0 g/dL Normal 12.0-16.0 [facility] Comment on above: Performed By: #### P T, PTT #### [facility] [address] [place] [address] Dr. Amy Whitaker IG # 0.03 10e3/ul Normal 0.00-0.03 [facility] Comment on above: Performed By: #### P T, PTT #### [facility] [address] [place] [address] Dr. Amy Whitaker IG % 0.4 % Normal 0.0-0.5 [facility] Comment on above: Performed By: #### P T, PTT #### [facility] [address] [place] [address] Dr. Amy Whitaker LYMPH # 1.9 103/ul Normal 1.2-3.8 [facility] Comment on above: Performed By: #### P T, PTT #### [facility] [address] [place] [address] Dr. Amy Whitaker Lymphocytes/100 WBC (Bld) 26.1 % Normal 20.5-60.0 [facility] Comment on above: Performed By: #### P T, PTT #### [facility] [address] [place] [address] Dr. Amy Whitaker MANUAL DIFF REQ NO Normal [facility] Comment on above: Performed By: #### P T, PTT #### [facility] [address] [place] [address] Dr. Amy Whitaker MCH (RBC) [Entitic mass] 29.5 pg Normal 26.7-34.0 [facility] Comment on above: Performed By: #### P T, PTT #### [facility] [address] [place] [address] Dr. Amy Whitaker MCHC (RBC) [Mass/Vol] 32.4 g/dL Normal 29.9-35.2 [facility] Comment on above: Performed By: #### P T, PTT #### [facility] [address] [place] [address] Dr. Amy Whitaker MCV (RBC) [Entitic vol] 90.9 fL Normal 81.0-99.0 [facility] Comment on above: Performed By: #### P T, PTT #### [facility] [address] [place] [address] Dr. Amy Whitaker MONO # 0.7 103/ul Normal 0.3-0.8 [facility] Comment on above: Performed By: #### P T, PTT #### [facility] [address] [place] [address] Dr. Amy Whitaker Monocytes/100 WBC (Bld) 9.4 % Normal 1.7-12.0 [facility] Comment on above: Performed By: #### P T, PTT #### [facility] [address] [address] [address] Amy Whitaker NEUT # 4.5 103/ul Normal 1.4-6.5 [facility] Comment on above: Performed By: #### P T, PTT #### [facility] [address] [address] [address] Amy Whitaker Neutrophils/100 WBC (Bld) 62.7 % Normal 43.0-75.0 [facility] Comment on above: Performed By: #### P T, PTT #### [facility] [address] [place] [address] Dr. Amy Whitaker Platelet mean volume (Bld) [Entitic vol] 9.7 fL Normal 9.5-13.5 [facility] Comment on above: Performed By: #### P T, PTT #### [facility] [address] [place] [address] Dr. Amy Whitaker PLT 308 103/ul Normal 150-450 [facility] Comment on above: Performed By: #### P T, PTT #### [facility] [address] [place] [address] Dr. Amy Whitaker RBC 4.41 106/ul Normal 4.20-5.40 [facility] Comment on above: Performed By: #### P T, PTT #### [facility] [address] [place] [address] Dr. Amy Whitaker WBC 7.2 103/ul Normal 4.0-11.0 [facility] Comment on above: Performed By: #### P T, PTT #### [facility] [address] [place] [address] Dr. Amy Whitaker CREATININEon 08-29-2021 Creatinine [Mass/Vol] 0.73 mg/dL Normal 0.55-1.02 [facility] Comment on above: Performed By: #### R UBIGG #### [facility] [address] [place] [address] Dr. Amy Whitaker EGFR-AF IRISH >60 Normal >=60 [facility] Comment on above: Performed By: #### R UBIGG #### [facility] [address] [place] [address] Dr. Amy Whitaker EGFR-NON AF IRISH >60 Normal >=60 [facility] Comment on above: Performed By: #### R UBIGG #### [facility] [address] [place] [address] Dr. Amy MASSEYOTon 08-29-2021 AST [Catalytic activity/Vol] 14 U/L Critically low 15-37 [facility] Comment on above: Performed By: #### R UBIGG #### [facility] [address] [place] [address] Dr. Amy Whitaker SGPTon 08-29-2021 ALT [Catalytic activity/Vol] 20 U/L Normal 14-59 [facility] Comment on above: Performed By: #### R UBIGG #### [facility] [address] [place] [address] Dr. Amy Whitaker CBC AUTO DIFFon 08-27-2021 BASO # 0.0 103/ul Normal 0.0-0.1 [facility] Comment on above: Performed By: #### C BC #### [facility] [address] [place] [address] Dr. Amy Whitaker Basophils/100 WBC (Bld) 0.2 % Normal 0.2-2.0 [facility] Comment on above: Performed By: #### C BC #### [facility] [address] [place] [address] Dr. Amy Whitaker EO # 0.0 103/ul Normal 0.0-0.7 [facility] Comment on above: Performed By: #### C BC #### [facility] [address] [place] [address] Dr. Amy Whitaker Eosinophils/100 WBC (Bld) 0.0 % Critically low 0.9-7.0 [facility] Comment on above: Performed By: #### C BC #### [facility] [address] [place] [address] Dr. Amy Whitaker Erythrocyte distribution width (RBC) [Ratio] 13.9 % Normal 11.0-15.0 [facility] Comment on above: Performed By: #### C BC #### [facility] [address] [place] [address] Dr. Amy Whitaker Hematocrit (Bld) [Volume fraction] 34.3 % Critically low 36.0-48.0 [facility] Comment on above: Performed By: #### C BC #### [facility] [address] [place] [address] Dr. Amy Whitaker Hemoglobin (Bld) [Mass/Vol] 11.2 g/dL Critically low 12.0-16.0 [facility] Comment on above: Result Comment: rece ived blood Performed By: #### C BC #### [facility] [address] [place] [address] Dr. Amy Whitaker IG # 0.02 10e3/ul Normal 0.00-0.03 [facility] Comment on above: Performed By: #### C BC #### [facility] [address] [place] [address] Dr. Amy Whitaker IG % 0.3 % Normal 0.0-0.5 [facility] Comment on above: Performed By: #### C BC #### [facility] [address] [place] [address] Dr. Amy Whitaker LYMPH # 0.8 103/ul Critically low 1.2-3.8 [facility] Comment on above: Performed By: #### C BC #### [facility] [address] [place] [address] Dr. Amy Whitaker Lymphocytes/100 WBC (Bld) 13.5 % Critically low 20.5-60.0 [facility] Comment on above: Performed By: #### C BC #### [facility] [address] [place] [address] Dr. Amy Whitaker MANUAL DIFF REQ NO Normal [facility] Comment on above: Performed By: #### C BC #### [facility] [address] [place] [address] Dr. Amy Whitaker MCH (RBC) [Entitic mass] 29.7 pg Normal 26.7-34.0 [facility] Comment on above: Performed By: #### C BC #### [facility] [address] [address] [address] Amy Whitaker MCHC (RBC) [Mass/Vol] 32.7 g/dL Normal 29.9-35.2 [facility] Comment on above: Performed By: #### C BC #### [facility] [address] [address] [address] Amy Whitaker MCV (RBC) [Entitic vol] 91.0 fL Normal 81.0-99.0 [facility] Comment on above: Performed By: #### C BC #### [facility] [address] [place] [address] Dr. Amy Whitaker MONO # 0.4 103/ul Normal 0.3-0.8 [facility] Comment on above: Performed By: #### C BC #### [facility] [address] [place] [address] Dr. Amy Whitaker Monocytes/100 WBC (Bld) 6.9 % Normal 1.7-12.0 [facility] Comment on above: Performed By: #### C BC #### [facility] [address] [place] [address] Dr. Amy Whitaker NEUT # 4.6 103/ul Normal 1.4-6.5 [facility] Comment on above: Performed By: #### C BC #### [facility] [address] [place] [address] Dr. Amy Whitaker Neutrophils/100 WBC (Bld) 79.1 % Critically high 43.0-75.0 [facility] Comment on above: Performed By: #### C BC #### [facility] [address] [address] [address] Amy Whitaker Platelet mean volume (Bld) [Entitic vol] 10.9 fL Normal 9.5-13.5 [facility] Comment on above: Performed By: #### C BC #### [facility] [address] [address] [address] Amy Whitaker PLT 174 103/ul Normal 150-450 [facility] Comment on above: Performed By: #### C BC #### [facility] [address] [address] [address] Amy Whitaker RBC 3.77 106/ul Critically low 4.20-5.40 [facility] Comment on above: Performed By: #### C BC #### [facility] [address] [address] [address] Amy Whitaker WBC 5.8 103/ul Normal 4.0-11.0 [facility] Comment on above: Performed By: #### C BC #### [facility] [address] [place] [address] Dr. Amy Whitaker CBC AUTO DIFFon 08-26-2021 BASO # 0.0 103/ul Normal 0.0-0.1 [facility] Comment on above: Performed By: #### C BC #### [facility] [address] [place] [address] Dr. Amy Whitaker Basophils/100 WBC (Bld) 0.2 % Normal 0.2-2.0 [facility] Comment on above: Performed By: #### C BC #### [facility] [address] [place] [address] Dr. Amy Whitaker EO # 0.0 103/ul Normal 0.0-0.7 [facility] Comment on above: Performed By: #### C BC #### [facility] [address] [place] [address] Dr. Amy Whitaker Eosinophils/100 WBC (Bld) 0.7 % Critically low 0.9-7.0 [facility] Comment on above: Performed By: #### C BC #### [facility] [address] [place] [address] Dr. Amy Whitaker Erythrocyte distribution width (RBC) [Ratio] 13.2 % Normal 11.0-15.0 [facility] Comment on above: Performed By: #### C BC #### [facility] [address] [place] [address] Dr. Amy Whitaker Hematocrit (Bld) [Volume fraction] 23.5 % Critically low 36.0-48.0 [facility] Comment on above: Performed By: #### C BC #### [facility] [address] [address] [address] Amy Whitaker Hemoglobin (Bld) [Mass/Vol] 7.7 g/dL Critically low 12.0-16.0 [facility] Comment on above: Performed By: #### C BC #### [facility] [address] [address] [address] Amy Whitaker IG # 0.02 10e3/ul Normal 0.00-0.03 [facility] Comment on above: Performed By: #### C BC #### [facility] [address] [address] [address] Amy Whitaker IG % 0.4 % Normal 0.0-0.5 [facility] Comment on above: Performed By: #### C BC #### [facility] [address] [place] [address] Dr. Amy Whitaker LYMPH # 1.0 103/ul Critically low 1.2-3.8 [facility] Comment on above: Performed By: #### C BC #### [facility] [address] [place] [address] Dr. Amy Whitaker Lymphocytes/100 WBC (Bld) 21.6 % Normal 20.5-60.0 [facility] Comment on above: Performed By: #### C BC #### [facility] [address] [place] [address] Dr. Amy Whitaker MANUAL DIFF REQ NO Normal [facility] Comment on above: Performed By: #### C BC #### [facility] [address] [address] [address] Amy Whitaker MCH (RBC) [Entitic mass] 30.0 pg Normal 26.7-34.0 [facility] Comment on above: Performed By: #### C BC #### [facility] [address] [address] [address] Amy Whitaker MCHC (RBC) [Mass/Vol] 32.8 g/dL Normal 29.9-35.2 [facility] Comment on above: Performed By: #### C BC #### [facility] [address] [address] [address] Amy Whitaker MCV (RBC) [Entitic vol] 91.4 fL Normal 81.0-99.0 [facility] Comment on above: Performed By: #### C BC #### [facility] [address] [address] [address] Amy Whitaker MONO # 0.4 103/ul Normal 0.3-0.8 [facility] Comment on above: Performed By: #### C BC #### [facility] [address] [address] [address] Amy Whitaker Monocytes/100 WBC (Bld) 7.8 % Normal 1.7-12.0 [facility] Comment on above: Performed By: #### C BC #### [facility] [address] [place] [address] Dr. Amy Whitaker NEUT # 3.1 103/ul Normal 1.4-6.5 [facility] Comment on above: Performed By: #### C BC #### [facility] [address] [place] [address] Dr. Amy Whitaker Neutrophils/100 WBC (Bld) 69.3 % Normal 43.0-75.0 [facility] Comment on above: Performed By: #### C BC #### [facility] [address] [address] [address] Amy Whitaker Platelet mean volume (Bld) [Entitic vol] 9.7 fL Normal 9.5-13.5 [facility] Comment on above: Performed By: #### C BC #### [facility] [address] [place] [address] Dr. Amy Whitaker PLT 154 103/ul Normal 150-450 [facility] Comment on above: Performed By: #### C BC #### [facility] [address] [address] [address] Amy Whitaker RBC 2.57 106/ul Critically low 4.20-5.40 [facility] Comment on above: Performed By: #### C BC #### [facility] [address] [place] [address] Dr. Amy Whitaker WBC 4.5 103/ul Normal 4.0-11.0 [facility] Comment on above: Performed By: #### C BC #### [facility] [address] [place] [address] Dr. Amy Whitaker CULTURE URINEon 08-26-2021 CULTURE URINE Culture Observations : NO GROWTH. Normal [facility] Comment on above: Performed By: #### U RCX #### [facility] [address] [place] [address] Dr. Amy Whitaker Covid-19 PCR ([facility])on 08-02 SARS-CoV-2 (COVID-19) RNA SHANNON+probe Ql (Unsp spec) Not detected Normal NOT DETECTED [facility] Comment on above: Result Comment: When [...] for this test is supported by the [place] [employer] and Human Service's declaration that [...] Performed By: #### P T, PTT #### [facility] [address] [place] [address] Dr. Amy Whitaker ER URINE PROFILEon Bilirubin Ql (U) SMALL Abnormal NEGATIVE [facility] Comment on above: Performed By: #### P T, PTT #### [facility] [address] [place] [address] Dr. Amy Whitaker Clarity (U) SL CLOUDY Abnormal CLEAR [facility] Comment on above: Performed By: #### P T, PTT #### [facility] [address] [place] [address] Dr. Amy Whitaker Color (U) RED Abnormal YELLOW [facility] Comment on above: Performed By: #### P T, PTT #### [facility] [address] [place] [address] Dr. Amy SERRATO A micrscopic examination will be performed if indicated. Normal [facility] Comment on above: Performed By: #### P T, PTT #### [facility] [address] [place] [address] Dr. Amy Whitaker Glucose Ql (U) Negative Normal NEGATIVE [facility] Comment on above: Performed By: #### P T, PTT #### [facility] [address] [place] [address] Dr. Amy Whitaker Hemoglobin Ql (U) LARGE Abnormal NEGATIVE [facility] Comment on above: Performed By: #### P T, PTT #### [facility] [address] [place] [address] Dr. Amy Whitaker Ketones Ql (U) TRACE Abnormal NEGATIVE [facility] Comment on above: Performed By: #### P T, PTT #### [facility] [address] [place] [address] Dr. Amy Whitaker LEUKOCYTES LARGE Abnormal NEGATIVE [facility] Comment on above: Performed By: #### P T, PTT #### [facility] [address] [place] [address] Dr. Amy Whitaker Nitrite Ql (U) Positive Abnormal NEGATIVE [facility] Comment on above: Performed By: #### P T, PTT #### [facility] [address] [place] [address] Dr. Amy Whitaker pH (U) 8.0 [pH] Normal 5-9 [facility] Comment on above: Performed By: #### P T, PTT #### [facility] [address] [place] [address] Dr. Amy Whitaker Protein (U) [Mass/Vol] 100 mg/dL Abnormal NEGATIVE/ TRACE [facility] Comment on above: Performed By: #### P T, PTT #### [facility] [address] [place] [address] Dr. Amy Whitaker SPEC GRAVITY 1.015 Normal 1.005-<=1.025 [facility] Comment on above: Performed By: #### P T, PTT #### [facility] [address] [place] [address] Dr. Amy Whitaker UR MICRO IND INDICATED Normal [facility] Comment on above: Performed By: #### P T, PTT #### [facility] [facility] [address] [place] [address] Dr. Amy Whitaker Urobilinogen Qn (U) 1.0 {Neelima'U}/dL Normal 0.2 - 1. 0 [facility] Comment on above: Performed By: #### P T, PTT #### [facility] [address] [place] [address] Dr. Amy Whitaker PREG HCG QUALon 08-26-2021 , QUAL Positive Abnormal NEGATIVE [facility] Comment on above: Performed By: #### P REG #### [facility] [address] [place] [address] Dr. Amy Whitaker PROF 14(COMP METB)on 022 Albumin [Mass/Vol] 3.4 g/dL Normal 3.4-5.0 [facility] Comment on above: Performed By: #### P T, PTT #### [facility] [address] [place] [address] Dr. Amy Whitaker Albumin/Globulin [Mass ratio] 1.2 {ratio} Normal [facility] Comment on above: Performed By: #### P T, PTT #### [facility] [address] [place] [address] Dr. Amy Whitaker ALP [Catalytic activity/Vol] 47 U/L Normal 46-116 [facility] Comment on above: Performed By: #### P T, PTT #### [facility] [address] [place] [address] Dr. Amy Whitaker ALT [Catalytic activity/Vol] 14 U/L Normal 14-59 [facility] Comment on above: Performed By: #### P T, PTT #### [facility] [address] [address] [address] Amy Whitaker Anion gap [Moles/Vol] 10.8 mmol/L Normal [facility] Comment on above: Performed By: #### P T, PTT #### [facility] [address] [address] [address] Amy Whitaker AST [Catalytic activity/Vol] 9 U/L Critically low 15-37 [facility] Comment on above: Performed By: #### P T, PTT #### [facility] [address] [address] [address] Amy Whitaker Bilirubin [Mass/Vol] 0.7 mg/dL Normal 0.2-1.0 [facility] Comment on above: Performed By: #### P T, PTT #### [facility] [address] [address] [address] Amy Whitaker Calcium [Mass/Vol] 7.9 mg/dL Critically low 8.5-10.1 [facility] Comment on above: Performed By: #### P T, PTT #### [facility] [address] [address] [address] Amy Whitaker Chloride [Moles/Vol] 105 mmol/L Normal 98-107 [facility] Comment on above: Performed By: #### P T, PTT #### [facility] [address] [address] [address] Amy Whitaker CO2 [Moles/Vol] 27.0 mmol/L Normal 21.0-32.0 [facility] Comment on above: Performed By: #### P T, PTT #### [facility] [address] [address] [address] Amy Whitaker Creatinine [Mass/Vol] 0.51 mg/dL Critically low 0.55-1.02 [facility] Comment on above: Performed By: #### P T, PTT #### [facility] [address] [address] [address] Amy Whitaker EGFR-AF IRISH >60 Normal >=60 [facility] Comment on above: Performed By: #### P T, PTT #### [facility] [address] [address] [address] Amy Whitaker EGFR-NON AF IRISH >60 Normal >=60 [facility] Comment on above: Performed By: #### P T, PTT #### [facility] [address] [address] [address] Amy Whitaker Globulin (S) [Mass/Vol] 2.8 g/dL Normal [facility] Comment on above: Performed By: #### P T, PTT #### [facility] [address] [address] [address] Amy Whitaker Glucose [Mass/Vol] 98 mg/dL Normal 74-106 [facility] Comment on above: Performed By: #### P T, PTT #### [facility] [address] [place] [address] Dr. Amy Whitaker Potassium [Moles/Vol] 3.8 mmol/L Normal 3.5-5.1 [facility] Comment on above: Performed By: #### P T, PTT #### [facility] [address] [place] [address] Dr. Amy Whitaker Protein [Mass/Vol] 6.2 g/dL Normal 6.1-8.2 [facility] Comment on above: Performed By: #### P T, PTT #### [facility] [address] [place] [address] Dr. Amy Whitaker Sodium [Moles/Vol] 139 mmol/L Normal 136-145 [facility] Comment on above: Performed By: #### P T, PTT #### [facility] [address] [place] [address] Dr. Amy Whitaker Urea nitrogen [Mass/Vol] 7.0 mg/dL Normal 7.0-18.0 [facility] Comment on above: Performed By: #### P T, PTT #### [facility] [address] [place] [address] Dr. Amy Whitaker Urea nitrogen/Creatinine [Mass ratio] 13.7 mg/mg Normal [facility] Comment on above: Performed By: #### P T, PTT #### [facility] [address] [place] [address] Dr. Amy Whitaker PROTIMEon 08-26-2021 INR Coag (PPP) [Relative time] 1.01 {INR} Normal [facility] Comment on above: Performed By: #### P T, PTT #### [facility] [address] [place] [address] Dr. Amy Whitaker INR GUIDELINES SEE BELOW Normal [facility] Comment on above: Result Comment: DIVINA RED INR: 2.0 - 3.0 CONDITIONS NOT LISTED BELOW 2.5 - 3.5 FOR PROSTHETIC HEART VALVE REPLACEMENT 2.5 - 3.5 RECURRENT THROMBOSIS Performed By: #### P T, PTT #### [facility] [address] [place] [address] Dr. Amy Whitaker PT Coag (PPP) [Time] 10.9 s Normal 9.0-11.6 [facility] Comment on above: Performed By: #### P T, PTT #### [facility] [address] [place] [address] Dr. Amy Whitaker PTTon 08-26-2021 aPTT Coag (Bld) [Time] 23.4 s Normal 22.3-36.2 [facility] Comment on above: Performed By: #### P T, PTT #### [facility] [address] [place] [address] Dr. Amy Whitaker TYPE AND SCREENon 08-26-2021 TYPE AND SCREEN Negative Normal [facility] Comment on above: Performed By: #### T NS #### [facility] [address] [place] [address] Dr. Amy Whitaker URINE MICROSCOPIC ONLYon BACTERIA TRACE Abnormal NONE SEEN [facility] Comment on above: Performed By: #### P T, PTT #### [facility] [address] [place] [address] Dr. Amy Whitaker Bacteria identified Cx Nom (U) INDICATED Normal [facility] Comment on above: Performed By: #### P T, PTT #### [facility] [address] [place] [address] Dr. Amy Whitaker CAST NONE SEEN Normal NONE SEEN [facility] Comment on above: Performed By: #### P T, PTT #### [facility] [address] [place] [address] Dr. Amy Whitaker Crystals LM Nom (Urine sed) NONE SEEN Normal NONE SEEN [facility] Comment on above: Performed By: #### P T, PTT #### [facility] [address] [place] [address] Dr. Amy Whitaker Epithelial cells LM Ql (Urine sed) NONE SEEN Normal NONE SEEN /RARE [facility] Comment on above: Performed By: #### P T, PTT #### [facility] [address] [place] [address] Dr. Amy Whitaker MUCOUS NONE SEEN Normal NONE SEEN [facility] Comment on above: Performed By: #### P T, PTT #### [facility] [address] [place] [address] Dr. Amy Whitaker RBC (U) [#/Vol] /uL Abnormal 0-2 [facility] Comment on above: Performed By: #### P T, PTT #### [facility] [address] [place] [address] Dr. Aym Whitaker WBC 0-2 Abnormal NONE SEEN [facility] Comment on above: Performed By: #### P T, PTT #### [facility] [address] [place] [address] Dr. Amy Whitaker US PELVISon 08-26-2021 US [...] LAZARO FORRESTER Date: 2021-08-26 13:18 Normal [facility] US PELVISon 08-23-2021 US PELVIS EXAM: [...] PATRICK VICENTE Date: 2021-08-23 12:13 Normal [facility] CBC AUTO DIFFon 08-22-2021 BASO # 0.0 103/ul Normal 0.0-0.1 [facility] Comment on above: Performed By: #### P T, PTT #### [facility] [address] [place] [address] Dr. Amy Whitaker Basophils/100 WBC (Bld) 0.4 % Normal 0.2-2.0 [facility] Comment on above: Performed By: #### P T, PTT #### [facility] [address] [place] [address] Dr. Amy Whitaker EO # 0.1 103/ul Normal 0.0-0.7 [facility] Comment on above: Performed By: #### P T, PTT #### [facility] [address] [place] [address] Dr. Amy Whitaker Eosinophils/100 WBC (Bld) 0.8 % Critically low 0.9-7.0 [facility] Comment on above: Performed By: #### P T, PTT #### [facility] [address] [address] [address] Amy Whitaker Erythrocyte distribution width (RBC) [Ratio] 12.4 % Normal 11.0-15.0 [facility] Comment on above: Performed By: #### P T, PTT #### [facility] [address] [place] [address] Dr. Amy Whitaker Hematocrit (Bld) [Volume fraction] 37.4 % Normal 36.0-48.0 [facility] Comment on above: Performed By: #### P T, PTT #### [facility] [address] [place] [address] Dr. Amy Whitaker Hemoglobin (Bld) [Mass/Vol] 12.6 g/dL Normal 12.0-16.0 [facility] Comment on above: Performed By: #### P T, PTT #### [facility] [address] [place] [address] Dr. Amy Whitaker IG # 0.04 10e3/ul Critically high 0.00-0.03 [facility] Comment on above: Performed By: #### P T, PTT #### [facility] [address] [place] [address] Dr. Amy Whitaker IG % 0.5 % Normal 0.0-0.5 [facility] Comment on above: Performed By: #### P T, PTT #### [facility] [address] [place] [address] Dr. Amy Whitaker LYMPH # 2.0 103/ul Normal 1.2-3.8 [facility] Comment on above: Performed By: #### P T, PTT #### [facility] [address] [place] [address] Dr. Amy Whitaker Lymphocytes/100 WBC (Bld) 27.2 % Normal 20.5-60.0 [facility] Comment on above: Performed By: #### P T, PTT #### [facility] [address] [place] [address] Dr. Amy Whitaker MANUAL DIFF REQ NO Normal [facility] Comment on above: Performed By: #### P T, PTT #### [facility] [address] [place] [address] Dr. Amy Whitaker MCH (RBC) [Entitic mass] 29.4 pg Normal 26.7-34.0 [facility] Comment on above: Performed By: #### P T, PTT #### [facility] [address] [place] [address] Dr. Amy Whitaker MCHC (RBC) [Mass/Vol] 33.7 g/dL Normal 29.9-35.2 [facility] Comment on above: Performed By: #### P T, PTT #### [facility] [address] [place] [address] Dr. Amy Whitaker MCV (RBC) [Entitic vol] 87.4 fL Normal 81.0-99.0 [facility] Comment on above: Performed By: #### P T, PTT #### [facility] [address] [place] [address] Dr. Amy Whitaker MONO # 0.7 103/ul Normal 0.3-0.8 [facility] Comment on above: Performed By: #### P T, PTT #### [facility] [address] [place] [address] Dr. Amy Whitaker Monocytes/100 WBC (Bld) 9.7 % Normal 1.7-12.0 [facility] Comment on above: Performed By: #### P T, PTT #### [facility] [address] [place] [address] Dr. Amy Whitaker NEUT # 4.6 103/ul Normal 1.4-6.5 [facility] Comment on above: Performed By: #### P T, PTT #### [facility] [address] [place] [address] Dr. Amy Whitaker Neutrophils/100 WBC (Bld) 61.4 % Normal 43.0-75.0 [facility] Comment on above: Performed By: #### P T, PTT #### [facility] [address] [place] [address] Dr. Amy Whitaker Platelet mean volume (Bld) [Entitic vol] 10.1 fL Normal 9.5-13.5 [facility] Comment on above: Performed By: #### P T, PTT #### [facility] [address] [address] [address] Amy Whitaker PLT 222 103/ul Normal 150-450 [facility] Comment on above: Performed By: #### P T, PTT #### [facility] [address] [address] [address] Amy Whitaker RBC 4.28 106/ul Normal 4.20-5.40 [facility] Comment on above: Performed By: #### P T, PTT #### [facility] [address] [address] [address] Amy Whitaker WBC 7.5 103/ul Normal 4.0-11.0 [facility] Comment on above: Performed By: #### P T, PTT #### [facility] [address] [place] [address] Dr. Amy Whitaker FIBRINOGENon 08-22-2021 FIBRINOGEN 261.0 mg/dl Normal 200.0-400.0 [facility] Comment on above: Performed By: #### P T, PTT #### [facility] [address] [place] [address] Dr. Amy Whitaker PREG QUANT HCGon 08-22-2021 HCG QUANT [id number] mIU/mL Normal [facility] Comment on above: Performed By: #### P REGQNT #### [facility] [address] [place] [address] Dr. Amy Whitaker HCG RANGE SEE BELOW Normal [facility] Comment on above: Result Comment: 5-50 0-1 WEEK 40-300 1-2 WEEKS 100-1,000 2-3 WEEKS 500-6,000 3-4 WEEKS 5,000-200,000 1-2 MONTHS 10,000-100,000 2-3 MONTHS 3,000-50,000 2ND TRIMESTER 1,000-50,000 3RD TRIMESTER Performed By: #### P REGQNT #### [facility] [address] [place] [address] Dr. Amy Whitaker PROTIMEon 08-22-2021 INR Coag (PPP) [Relative time] 1.06 {INR} Normal [facility] Comment on above: Performed By: #### P T, PTT #### [facility] [address] [place] [address] Dr. Amy Whitaker INR GUIDELINES SEE BELOW Normal [facility] Comment on above: Result Comment: DIVINA RED INR: 2.0 - 3.0 CONDITIONS NOT LISTED BELOW 2.5 - 3.5 FOR PROSTHETIC HEART VALVE REPLACEMENT 2.5 - 3.5 RECURRENT THROMBOSIS Performed By: #### P T, PTT #### [facility] [address] [place] [address] Dr. Amy Whitaker PT Coag (PPP) [Time] 11.4 s Normal 9.0-11.6 [facility] Comment on above: Performed By: #### P T, PTT #### [facility] [address] [place] [address] Dr. Amy Whitaker PTTon 08-22-2021 aPTT Coag (Bld) [Time] 25.6 s Normal 22.3-36.2 [facility] Comment on above: Performed By: #### P T, PTT #### [facility] [address] [place] [address] Dr. Amy Whitaker Covid-19 PCR ([facility])on 08-02 SARS-CoV-2 (COVID-19) RNA SHANNON+probe Ql (Unsp spec) Not detected Normal NOT DETECTED [facility] Comment on above: Result Comment: When [...] for this test is supported by the [place] of [employer] and Human Service's declaration that [...] Performed By: #### P T, PTT #### [facility] [address] [address] [address] Amy Whitaker US PREG TVon 08-19-2021 [...] at the time of imaging by the team primary care physician. Electronically authenticated by: PATRICK KRAUSE Date: 2021-08-19 17:18 Normal [facility] HEP B SURFACE ANTIGEN SCREEN on 08-08-2021 HBsAg Screen Negative Normal Negative [facility] Comment on above: Performed By: #### P T, PTT #### [facility] [address] [address] [address] Amy Whitaker HEPATITIS C VIRUS AB W/ REFL EX QUANTon 08-08-2021 HCV AB <0.1 Normal 0.0-0.9 [facility] Comment on above: Performed By: #### P T, PTT #### [facility] [address] [address] [address] Amy Whitaker Interpretation: Comment Normal [facility] Comment on above: Result Comment: Nega tive Not infected with HCV, unless recent infection is suspected or other evidence exists to indicate HCV infection. Performed By: #### P T, PTT #### [facility] [address] [address] [address] Amy Whitaker HIV 1 AND 2 WITH REFLEXon HIV Screen 4th Generation wRfx Non-Reactive Normal Non Reactive [facility] Comment on above: Result Comment: HIV Negative HIV-1/HIV-2 antibodies and HIV-1 p24 antigen were NOT detected. There is no laboratory evidence of HIV infection. Performed By: #### P T, PTT #### [facility] [address] [place] [address] Dr. Amy Whitaker RPR QUANTon 08-08-2021 Rapid Plasma Reagin, Quant Non-Reactive Normal NonRea<1:1 [facility] Comment on above: Result Comment: Plea se Note: This test does not meet current guidelines for screening and diagnosis of syphilis. This test is intended for following treatment response in patients being treated for syphilis infection. To screen for syphilis infection, a reflex cascade that includes both RPR and a treponema-specific assay should be utilized, such as Treponema pallidum (Syphilis) Screening [place] (226431) or Rapid Plasma Reagin (RPR) Test With Reflex to Quantitative RPR and Confirmatory Treponema pallidum Antibodies (195323). Performed By: #### P T, PTT #### [facility] [address] [place] [address] Dr. Amy Whitaker RUBELLA AB IGGon 08-08-2021 Rubella Antibodies, IgG 1.68 index Normal Immune >0.99 [facility] Comment on above: Result Comment: Non- immune <0.90 Equivocal 0.90 - 0.99 Immune >0.99 Performed By: #### R UBIGG #### [facility] [address] [address] [address] Amy Whitaker CBC AUTO DIFFon 08-07-2021 BASO # 0.0 103/ul Normal 0.0-0.1 [facility] Comment on above: Performed By: #### P T, PTT #### [facility] [address] [place] [address] Dr. Amy Whitaker Basophils/100 WBC (Bld) 0.3 % Normal 0.2-2.0 [facility] Comment on above: Performed By: #### P T, PTT #### [facility] [address] [place] [address] Dr. Amy Whitaker EO # 0.0 103/ul Normal 0.0-0.7 [facility] Comment on above: Performed By: #### P T, PTT #### [facility] [address] [place] [address] Dr. Amy Whitaker Eosinophils/100 WBC (Bld) 0.3 % Critically low 0.9-7.0 [facility] Comment on above: Performed By: #### P T, PTT #### [facility] [address] [place] [address] Dr. Amy Whitaker Erythrocyte distribution width (RBC) [Ratio] 12.2 % Normal 11.0-15.0 [facility] Comment on above: Performed By: #### P T, PTT #### [facility] [address] [place] [address] Dr. Amy Whitaker Hematocrit (Bld) [Volume fraction] 38.5 % Normal 36.0-48.0 [facility] Comment on above: Performed By: #### P T, PTT #### [facility] [address] [place] [address] Dr. Amy Whitaker Hemoglobin (Bld) [Mass/Vol] 13.0 g/dL Normal 12.0-16.0 [facility] Comment on above: Performed By: #### P T, PTT #### [facility] [address] [place] [address] Dr. Amy Whitaker IG # 0.02 10e3/ul Normal 0.00-0.03 [facility] Comment on above: Performed By: #### P T, PTT #### [facility] [address] [place] [address] Dr. Amy Whitaker IG % 0.3 % Normal 0.0-0.5 [facility] Comment on above: Performed By: #### P T, PTT #### [facility] [address] [place] [address] Dr. Amy Whitaker LYMPH # 1.6 103/ul Normal 1.2-3.8 [facility] Comment on above: Performed By: #### P T, PTT #### [facility] [address] [place] [address] Dr. Amy Whitaker Lymphocytes/100 WBC (Bld) 20.2 % Critically low 20.5-60.0 [facility] Comment on above: Performed By: #### P T, PTT #### [facility] [address] [place] [address] Dr. Amy Whitaker MANUAL DIFF REQ NO Normal [facility] Comment on above: Performed By: #### P T, PTT #### [facility] [address] [place] [address] Dr. Amy Whitaker MCH (RBC) [Entitic mass] 29.3 pg Normal 26.7-34.0 [facility] Comment on above: Performed By: #### P T, PTT #### [facility] [address] [place] [address] Dr. Amy Whitaker MCHC (RBC) [Mass/Vol] 33.8 g/dL Normal 29.9-35.2 [facility] Comment on above: Performed By: #### P T, PTT #### [facility] [address] [place] [address] Dr. Amy Whitaker MCV (RBC) [Entitic vol] 86.7 fL Normal 81.0-99.0 [facility] Comment on above: Performed By: #### P T, PTT #### [facility] [address] [place] [address] Dr. Amy Whitaker MONO # 0.6 103/ul Normal 0.3-0.8 [facility] Comment on above: Performed By: #### P T, PTT #### [facility] [address] [place] [address] Dr. Amy Whitaker Monocytes/100 WBC (Bld) 8.0 % Normal 1.7-12.0 [facility] Comment on above: Performed By: #### P T, PTT #### [facility] [address] [place] [address] Dr. Amy Whitaker NEUT # 5.5 103/ul Normal 1.4-6.5 [facility] Comment on above: Performed By: #### P T, PTT #### [facility] [address] [address] [address] Amy Whitaker Neutrophils/100 WBC (Bld) 70.9 % Normal 43.0-75.0 [facility] Comment on above: Performed By: #### P T, PTT #### [facility] [address] [address] [address] Amy Whitaker Platelet mean volume (Bld) [Entitic vol] 10.1 fL Normal 9.5-13.5 [facility] Comment on above: Performed By: #### P T, PTT #### [facility] [address] [address] [address] Amy Whitaker PLT 217 103/ul Normal 150-450 [facility] Comment on above: Performed By: #### P T, PTT #### [facility] [address] [place] [address] Dr. Amy Whitaker RBC 4.44 106/ul Normal 4.20-5.40 [facility] Comment on above: Performed By: #### P T, PTT #### [facility] [address] [place] [address] Dr. Amy Whitaker WBC 7.7 103/ul Normal 4.0-11.0 [facility] Comment on above: Performed By: #### P T, PTT #### [facility] [address] [place] [address] Dr. Amy Whitaker CULTURE URINEon 08-07-2021 CULTURE URINE Culture Observations : MODERATE GROWTH OF MIXED GENITAL DINA. NO POTENTIAL PATHOGENS SEEN. Normal [facility] Comment on above: Performed By: #### R UBIGG #### [facility] [address] [place] [address] Dr. Amy Whitaker GLYCOHEMOGLOBIN A1Con 2021 ADA RECOMMENDATION ADA THERAPEUTIC TARGET 6.0 - 7.0 ACTION SUGGESTED > 7.0 Normal [facility] Comment on above: Performed By: #### C BC #### [facility] [address] [place] [address] Dr. Amy Whitaker Glucose [Mass/Vol] 108 mg/dL Normal [facility] Comment on above: Performed By: #### C BC #### [facility] [address] [address] [address] Amy Whitaker HbA1c (Bld) [Mass fraction] 5.4 % Normal <=6.0 [facility] Comment on above: Performed By: #### C BC #### [facility] [address] [address] [address] Amy Whitaker JONAS BOX TEST PT SEND OUTo n 08-07-2021 SENT TO REF LAB 08/07/2021 Normal [facility] Comment on above: Performed By: #### C BC #### [facility] [address] [address] [address] Amy Whitaker TYPE AND SCREENon 08-07-2021 TYPE AND SCREEN Negative Normal [facility] Comment on above: Performed By: #### T NS #### [facility] [address] [address] [address] Amy Whitaker US PREG TVon 08-01-2021 [...] by: LAZARO FORRESTER Date: 2021-08-01 16:12 Normal [facility] Encounters Encounter Date Encounter Type Care Provider Facility Start: 05-13-2023 End: 05-13-2023 ambulatory JHONNY DUGGAN Not Available Start: 03-15-2023 End: 03-15-2023 ambulatory JHONNY DUGGAN Not Available Start: 08-29-2021 End: 08-30-[address] JHONNY DUGGAN Facility:[facility] Start: 08-26-2021 End: 08-27-[address] BJORN GÓMEZ Facility:[facility] Start: 08-22-2021 Encounter for preprocedural laboratory examination DR JHONNY DUGGAN [facility] Start: 08-22-2021 End: 08-22-2021 ambulatory [...] Facility:[facility] Payers Date Payer Category Payer Unknown [id number] 2022 Unknown [id number] 2022 Medicaid [id number] 2001 Unknown [id number] 2.16.84 [id number] 2001 Unknown [id number] 2.16.84 [id number] 2001 Unknown [id number] 2.16.84 [id number] 2001 Unknown [id number] 2.16.84 [id number] 2001 Unknown [id number] 2.16.84 [id number] 2001 Unknown [id number] 2.16.84 [id number] 2001 Unknown [id number] 2.16.84 [id number] 2001 Unknown [id number] 2.16.84 [id number] 2001 Unknown [id number] 2.16.840. [id number] 1959 Self-pay 1959 Unknown [id number] 1959 Unknown [id number] Unknown [id number] 2.16.84 [id number] Clinical Note 08-26-2021 Note Date & Type Note Facility 08-26-2021 Note EXAMINATION: US PELV IS HISTORY: Surgical procedure COMPARISON: 08/27/20192009 7:00 PM FINDINGS: Intraprocedural images from the [facility] Initial images demonstrate heterogeneous distended appearance of [...] endometrial cavity IMPRESSION: Intraprocedural images from a [facility] Electronically authenticated by: LAZARO FORRESTER Date: 2021-08-26 17:54 [facility] Discharge summary note 08-26-2021 Note Date [...] pain free and no longer on narcotics. [facility] Signed and Approved by: DR JHONNY DUGGAN . 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 PREOPERATIVE DIAGNOSIS: Vaginal bleeding, status post prior D AND C for missed . POSTOPERATIVE DIAGNOSIS: Vaginal bleeding, status post prior D AND C for missed . ANESTHESIA: General. SURGEON: Jhonny Duggan D.O. FURNITURE DELIVERY DRIVER: None. FINDINGS: No products of conception found. [...] and blood products were removed using an 8-Sudanese suction curette. Excellent hemostasis was noted. The patient tolerated the procedure well. Sponge, lap, and needle counts were correct x 2. All instruments were then removed from the patient's vagina. The patient was taken to the Recovery Room in stable condition. ?? Electronically Authenticated and Edited by: Jhonny Duggan DO on 09/16/2021 10:14 AM EDT [facility] Signed and Approved by: DR JHONNY DUGGAN . 09/16/2021 10:14:00 [facility] Clinical Note 08-22-2021 Note Date & Type Note Facility 08-22-2021 Note OPERATIVE NOTE OPERATION DATE:08/22/2021 PROCEDURE: Suction D AND C. PREOPERATIVE DIAGNOSIS: Missed POSTOPERATIVE DIAGNOSIS: Missed . ANESTHESIA: General. SURGEON: Jhonny Duggan D.O. FURNITURE DELIVERY DRIVER: None. BLOOD LOSS: 200 mL. URINE OUTPUT: [...] to the Recovery Room in stable condition. [facility] Signed and Approved by: DR JHONNY DUGGAN . 08/31/2021 19:44:00 [facility] Summary Purpose Family History No Family History Records FoundNo Family History Records Found Advance Directives No Advanced Directives Records FoundNo Advanced Directives Records Found Additional Source Comments INFORMATION SOURCE (unrecogn ized section and content) DATE CREATED AUTHOR 03/17/2022 [facility] DATE CREATED AUTHOR AUTHOR'S ORGANIZ ATION 05/14/2023 [facility] FOR RECORDS PERTAINING TO PATIENTS WHO [...] BE BASED ON THE PRIMARY CLINICAL RECORDS. [employer] [facility]. provides no warranty or guarantee of the accuracy or completeness of information in this document.
== END 2023-06-15 15:49 | disposition home or self-care (01) ==
LOC: LAB 15:50
PROVIDERS: PCP Student in an Organized Health Care Education/Training Program; Visit Provider Obstetrics & Gynecology
DX: Z34.80 Encounter for supervision of other normal pregnancy, unspecified trimester (principal)
CPT/HCPCS: 36415

== ENCOUNTER 2023-06-15 21:24 | Outpatient (REF) | payer BC, OTHER, SELFPAY ==
--- OUTSIDE RECORDS SUMMARY | 2023-06-15 21:28 | XMS_ITS | CCD ---
Author Name Unknown Address [address] [place] [address] Organization [facility] Care Team Providers Care Risk Advisor Name Role Phone CECILE, DR BARRY Admitting Unavailable CECILE, DR BARRY Attending Unavailable MIZTY, DR LAZARO [employer] Unavailable REQUEST, DR [...] Adhesive bandage Drug allergy (disorder) 08-21-2021 [facility] Repository Problems Active Problems Problem Classification [...] Blood Type A Po s Unit Number [id number] Status Information Transfused Product ID FFP Product Code [id number] Normal [facility] Comment on above: Performed By: #### R UBIGG #### [facility] [address] [place] [address] Dr. Amy Whitaker PRBC LEUKOREDUCEDon 09-02-19 ABO and Rh group Nom (Bld) Cross Match Result Compatible Unit Blood Type A Pos Unit Number [id number] Status Information Transfused Product ID Red Blood Cells Product Code [id number] Cross Match Result Compatible Unit Blood Type A Pos Unit Number [id number] Status Information Transfused Product ID Red Blood Cells Product Code [id number] [facility] Comment on above: Performed By: #### P RBC #### [facility] [address] [place] [address] Dr. Amy Whitaker PRBC LEUKOREDUCED Cross Match Result Compatible Unit Blood Type A Pos Unit Number [id number] Status Information Transfused Product ID Red Blood Cells Product Code [id number] [facility] Comment on above: Performed By: #### R UBIGG #### [facility] [address] [place] [address] Dr. Amy Whitaker BUNon 08-29-2021 Urea nitrogen [Mass/Vol] 10.0 mg/dL Normal 7.0-18.0 [facility] Comment on above: Performed By: #### R UBIGG #### [facility] [address] [place] [address] Dr. Amy Whitaker CBC AUTO DIFFon 08-29-2021 BASO # 0.0 103/ul Normal 0.0-0.1 [facility] Comment on above: Performed By: #### P T, PTT #### [facility] [address] [place] [address] Dr. Amy Whitaker Basophils/100 WBC (Bld) 0.6 % Normal 0.2-2.0 [facility] Comment on above: Performed By: #### P T, PTT #### [facility] [address] [place] [address] Dr. Amy Whitaker EO # 0.1 103/ul Normal 0.0-0.7 [facility] Comment on above: Performed By: #### P T, PTT #### [facility] [address] [place] [address] Dr. Amy Whitaker Eosinophils/100 WBC (Bld) 0.8 % Critically low 0.9-7.0 [facility] Comment on above: Performed By: #### P T, PTT #### [facility] [address] [place] [address] Dr. Amy Whitaker Erythrocyte distribution width (RBC) [Ratio] 13.6 % Normal 11.0-15.0 [facility] Comment on above: Performed By: #### P T, PTT #### [facility] [address] [place] [address] Dr. Amy Whitaker Hematocrit (Bld) [Volume fraction] 40.1 % Normal 36.0-48.0 [facility] Comment on above: Performed By: #### P T, PTT #### [facility] [address] [place] [address] Dr. Amy Whitaker Hemoglobin (Bld) [Mass/Vol] 13.0 g/dL Normal 12.0-16.0 [facility] Comment on above: Performed By: #### P T, PTT #### [facility] [address] [place] [address] Dr. Amy Whitaker IG # 0.03 10e3/ul Normal 0.00-0.03 [facility] Comment on above: Performed By: #### P T, PTT #### [facility] [address] [place] [address] Dr. Amy Whitaker IG % 0.4 % Normal 0.0-0.5 [facility] Comment on above: Performed By: #### P T, PTT #### [facility] [address] [place] [address] Dr. Amy Whitaker LYMPH # 1.9 103/ul Normal 1.2-3.8 [facility] Comment on above: Performed By: #### P T, PTT #### [facility] [address] [place] [address] Dr. Amy Whitaker Lymphocytes/100 WBC (Bld) 26.1 % Normal 20.5-60.0 [facility] Comment on above: Performed By: #### P T, PTT #### [facility] [address] [place] [address] Dr. Amy Whitaker MANUAL DIFF REQ NO Normal [facility] Comment on above: Performed By: #### P T, PTT #### [facility] [address] [place] [address] Dr. Amy Whitaker MCH (RBC) [Entitic mass] 29.5 pg Normal 26.7-34.0 [facility] Comment on above: Performed By: #### P T, PTT #### [facility] [address] [place] [address] Dr. Amy Whitaker MCHC (RBC) [Mass/Vol] 32.4 g/dL Normal 29.9-35.2 [facility] Comment on above: Performed By: #### P T, PTT #### [facility] [address] [place] [address] Dr. Amy Whitaker MCV (RBC) [Entitic vol] 90.9 fL Normal 81.0-99.0 [facility] Comment on above: Performed By: #### P T, PTT #### [facility] [address] [place] [address] Dr. Amy Whitaker MONO # 0.7 103/ul Normal 0.3-0.8 [facility] Comment on above: Performed By: #### P T, PTT #### [facility] [address] [place] [address] Dr. Amy Whitaker Monocytes/100 WBC (Bld) 9.4 % Normal 1.7-12.0 [facility] Comment on above: Performed By: #### P T, PTT #### [facility] [address] [address] [address] Amy Whitaker NEUT # 4.5 103/ul Normal 1.4-6.5 [facility] Comment on above: Performed By: #### P T, PTT #### [facility] [address] [address] [address] Amy Whitaker Neutrophils/100 WBC (Bld) 62.7 % Normal 43.0-75.0 [facility] Comment on above: Performed By: #### P T, PTT #### [facility] [address] [place] [address] Dr. Amy Whitaker Platelet mean volume (Bld) [Entitic vol] 9.7 fL Normal 9.5-13.5 [facility] Comment on above: Performed By: #### P T, PTT #### [facility] [address] [place] [address] Dr. Amy Whitaker PLT 308 103/ul Normal 150-450 [facility] Comment on above: Performed By: #### P T, PTT #### [facility] [address] [place] [address] Dr. Amy Whitaker RBC 4.41 106/ul Normal 4.20-5.40 [facility] Comment on above: Performed By: #### P T, PTT #### [facility] [address] [place] [address] Dr. Amy Whitaker WBC 7.2 103/ul Normal 4.0-11.0 [facility] Comment on above: Performed By: #### P T, PTT #### [facility] [address] [place] [address] Dr. Amy Whitaker CREATININEon 08-29-2021 Creatinine [Mass/Vol] 0.73 mg/dL Normal 0.55-1.02 [facility] Comment on above: Performed By: #### R UBIGG #### [facility] [address] [place] [address] Dr. Amy Whitaker EGFR-AF SAMMARINESE >60 Normal >=60 [facility] Comment on above: Performed By: #### R UBIGG #### [facility] [address] [place] [address] Dr. Amy Whitaker EGFR-NON AF SAMMARINESE >60 Normal >=60 [facility] Comment on above: Performed By: #### R UBIGG #### [facility] [address] [place] [address] Dr. Amy MASSEYOTon 08-29-2021 AST [Catalytic activity/Vol] 14 U/L Critically low 15-37 [facility] Comment on above: Performed By: #### R UBIGG #### [facility] [address] [place] [address] Dr. Amy Whitaker SGPTon 08-29-2021 ALT [Catalytic activity/Vol] 20 U/L Normal 14-59 [facility] Comment on above: Performed By: #### R UBIGG #### [facility] [address] [place] [address] Dr. Amy Whitaker CBC AUTO DIFFon 08-27-2021 BASO # 0.0 103/ul Normal 0.0-0.1 [facility] Comment on above: Performed By: #### C BC #### [facility] [address] [place] [address] Dr. Amy Whitaker Basophils/100 WBC (Bld) 0.2 % Normal 0.2-2.0 [facility] Comment on above: Performed By: #### C BC #### [facility] [address] [place] [address] Dr. Amy Whitaker EO # 0.0 103/ul Normal 0.0-0.7 [facility] Comment on above: Performed By: #### C BC #### [facility] [address] [place] [address] Dr. Amy Whitaker Eosinophils/100 WBC (Bld) 0.0 % Critically low 0.9-7.0 [facility] Comment on above: Performed By: #### C BC #### [facility] [address] [place] [address] Dr. Amy Whitaker Erythrocyte distribution width (RBC) [Ratio] 13.9 % Normal 11.0-15.0 [facility] Comment on above: Performed By: #### C BC #### [facility] [address] [place] [address] Dr. Amy Whitaker Hematocrit (Bld) [Volume fraction] 34.3 % Critically low 36.0-48.0 [facility] Comment on above: Performed By: #### C BC #### [facility] [address] [place] [address] Dr. Amy Whitaker Hemoglobin (Bld) [Mass/Vol] 11.2 g/dL Critically low 12.0-16.0 [facility] Comment on above: Result Comment: rece ived blood Performed By: #### C BC #### [facility] [address] [place] [address] Dr. Amy Whitaker IG # 0.02 10e3/ul Normal 0.00-0.03 [facility] Comment on above: Performed By: #### C BC #### [facility] [address] [place] [address] Dr. Amy Whitaker IG % 0.3 % Normal 0.0-0.5 [facility] Comment on above: Performed By: #### C BC #### [facility] [address] [place] [address] Dr. Amy Whitaker LYMPH # 0.8 103/ul Critically low 1.2-3.8 [facility] Comment on above: Performed By: #### C BC #### [facility] [address] [place] [address] Dr. Amy Whitaker Lymphocytes/100 WBC (Bld) 13.5 % Critically low 20.5-60.0 [facility] Comment on above: Performed By: #### C BC #### [facility] [address] [place] [address] Dr. Amy Whitaker MANUAL DIFF REQ NO Normal [facility] Comment on above: Performed By: #### C BC #### [facility] [address] [place] [address] Dr. Amy Whitaker MCH (RBC) [Entitic mass] 29.7 pg Normal 26.7-34.0 [facility] Comment on above: Performed By: #### C BC #### [facility] [address] [address] [address] Amy Whitaker MCHC (RBC) [Mass/Vol] 32.7 g/dL Normal 29.9-35.2 [facility] Comment on above: Performed By: #### C BC #### [facility] [address] [address] [address] Amy Whitaker MCV (RBC) [Entitic vol] 91.0 fL Normal 81.0-99.0 [facility] Comment on above: Performed By: #### C BC #### [facility] [address] [place] [address] Dr. Amy Whitaker MONO # 0.4 103/ul Normal 0.3-0.8 [facility] Comment on above: Performed By: #### C BC #### [facility] [address] [place] [address] Dr. Amy Whitaker Monocytes/100 WBC (Bld) 6.9 % Normal 1.7-12.0 [facility] Comment on above: Performed By: #### C BC #### [facility] [address] [place] [address] Dr. Amy Whitaker NEUT # 4.6 103/ul Normal 1.4-6.5 [facility] Comment on above: Performed By: #### C BC #### [facility] [address] [place] [address] Dr. Amy Whitaker Neutrophils/100 WBC (Bld) 79.1 % Critically high 43.0-75.0 [facility] Comment on above: Performed By: #### C BC #### [facility] [address] [address] [address] Amy Whitaker Platelet mean volume (Bld) [Entitic vol] 10.9 fL Normal 9.5-13.5 [facility] Comment on above: Performed By: #### C BC #### [facility] [address] [address] [address] Amy Whitaker PLT 174 103/ul Normal 150-450 [facility] Comment on above: Performed By: #### C BC #### [facility] [address] [address] [address] Amy Whitaker RBC 3.77 106/ul Critically low 4.20-5.40 [facility] Comment on above: Performed By: #### C BC #### [facility] [address] [address] [address] Amy Whitaker WBC 5.8 103/ul Normal 4.0-11.0 [facility] Comment on above: Performed By: #### C BC #### [facility] [address] [place] [address] Dr. Amy Whitaker CBC AUTO DIFFon 08-26-2021 BASO # 0.0 103/ul Normal 0.0-0.1 [facility] Comment on above: Performed By: #### C BC #### [facility] [address] [place] [address] Dr. Amy Whitaker Basophils/100 WBC (Bld) 0.2 % Normal 0.2-2.0 [facility] Comment on above: Performed By: #### C BC #### [facility] [address] [place] [address] Dr. Amy Whitaker EO # 0.0 103/ul Normal 0.0-0.7 [facility] Comment on above: Performed By: #### C BC #### [facility] [address] [place] [address] Dr. Amy Whitaker Eosinophils/100 WBC (Bld) 0.7 % Critically low 0.9-7.0 [facility] Comment on above: Performed By: #### C BC #### [facility] [address] [place] [address] Dr. Amy Whitaker Erythrocyte distribution width (RBC) [Ratio] 13.2 % Normal 11.0-15.0 [facility] Comment on above: Performed By: #### C BC #### [facility] [address] [place] [address] Dr. Amy Whitaker Hematocrit (Bld) [Volume fraction] 23.5 % Critically low 36.0-48.0 [facility] Comment on above: Performed By: #### C BC #### [facility] [address] [address] [address] Amy Whitaker Hemoglobin (Bld) [Mass/Vol] 7.7 g/dL Critically low 12.0-16.0 [facility] Comment on above: Performed By: #### C BC #### [facility] [address] [address] [address] Amy Whitaker IG # 0.02 10e3/ul Normal 0.00-0.03 [facility] Comment on above: Performed By: #### C BC #### [facility] [address] [address] [address] Amy Whitaker IG % 0.4 % Normal 0.0-0.5 [facility] Comment on above: Performed By: #### C BC #### [facility] [address] [place] [address] Dr. Amy Whitaker LYMPH # 1.0 103/ul Critically low 1.2-3.8 [facility] Comment on above: Performed By: #### C BC #### [facility] [address] [place] [address] Dr. Amy Whitaker Lymphocytes/100 WBC (Bld) 21.6 % Normal 20.5-60.0 [facility] Comment on above: Performed By: #### C BC #### [facility] [address] [place] [address] Dr. Amy Whitaker MANUAL DIFF REQ NO Normal [facility] Comment on above: Performed By: #### C BC #### [facility] [address] [address] [address] Amy Whitaker MCH (RBC) [Entitic mass] 30.0 pg Normal 26.7-34.0 [facility] Comment on above: Performed By: #### C BC #### [facility] [address] [address] [address] Amy Whitaker MCHC (RBC) [Mass/Vol] 32.8 g/dL Normal 29.9-35.2 [facility] Comment on above: Performed By: #### C BC #### [facility] [address] [address] [address] Amy Whitaker MCV (RBC) [Entitic vol] 91.4 fL Normal 81.0-99.0 [facility] Comment on above: Performed By: #### C BC #### [facility] [address] [address] [address] Amy Whitaker MONO # 0.4 103/ul Normal 0.3-0.8 [facility] Comment on above: Performed By: #### C BC #### [facility] [address] [address] [address] Amy Whitaker Monocytes/100 WBC (Bld) 7.8 % Normal 1.7-12.0 [facility] Comment on above: Performed By: #### C BC #### [facility] [address] [place] [address] Dr. Amy Whitaker NEUT # 3.1 103/ul Normal 1.4-6.5 [facility] Comment on above: Performed By: #### C BC #### [facility] [address] [place] [address] Dr. Amy Whitaker Neutrophils/100 WBC (Bld) 69.3 % Normal 43.0-75.0 [facility] Comment on above: Performed By: #### C BC #### [facility] [address] [address] [address] Amy Whitaker Platelet mean volume (Bld) [Entitic vol] 9.7 fL Normal 9.5-13.5 [facility] Comment on above: Performed By: #### C BC #### [facility] [address] [place] [address] Dr. Amy Whitaker PLT 154 103/ul Normal 150-450 [facility] Comment on above: Performed By: #### C BC #### [facility] [address] [address] [address] Amy Whitaker RBC 2.57 106/ul Critically low 4.20-5.40 [facility] Comment on above: Performed By: #### C BC #### [facility] [address] [place] [address] Dr. Amy Whitaker WBC 4.5 103/ul Normal 4.0-11.0 [facility] Comment on above: Performed By: #### C BC #### [facility] [address] [place] [address] Dr. Amy Whitaker CULTURE URINEon 08-26-2021 CULTURE URINE Culture Observations : NO GROWTH. Normal [facility] Comment on above: Performed By: #### U RCX #### [facility] [address] [place] [address] Dr. Amy Whitaker Covid-19 PCR ([facility])on 08-02 SARS-CoV-2 (COVID-19) RNA SHANNON+probe Ql (Unsp spec) Not detected Normal NOT DETECTED [facility] Comment on above: Result Comment: When [...] for this test is supported by the [place] of [employer] and Human Service's declaration that [...] Performed By: #### P T, PTT #### [facility] [address] [place] [address] Dr. Amy Whitaker ER URINE PROFILEon Bilirubin Ql (U) SMALL Abnormal NEGATIVE [facility] Comment on above: Performed By: #### P T, PTT #### [facility] [address] [place] [address] Dr. Amy Whitaker Clarity (U) SL CLOUDY Abnormal CLEAR [facility] Comment on above: Performed By: #### P T, PTT #### [facility] [address] [place] [address] Dr. Amy Whitaker Color (U) RED Abnormal YELLOW [facility] Comment on above: Performed By: #### P T, PTT #### [facility] [address] [place] [address] Dr. Amy SERRATO A micrscopic examination will be performed if indicated. Normal [facility] Comment on above: Performed By: #### P T, PTT #### [facility] [address] [place] [address] Dr. Amy Whitaker Glucose Ql (U) Negative Normal NEGATIVE [facility] Comment on above: Performed By: #### P T, PTT #### [facility] [address] [place] [address] Dr. Amy Whitaker Hemoglobin Ql (U) LARGE Abnormal NEGATIVE [facility] Comment on above: Performed By: #### P T, PTT #### [facility] [address] [place] [address] Dr. Amy Whitaker Ketones Ql (U) TRACE Abnormal NEGATIVE [facility] Comment on above: Performed By: #### P T, PTT #### [facility] [address] [place] [address] Dr. Amy Whitaker LEUKOCYTES LARGE Abnormal NEGATIVE [facility] Comment on above: Performed By: #### P T, PTT #### [facility] [address] [place] [address] Dr. Amy Whitaker Nitrite Ql (U) Positive Abnormal NEGATIVE [facility] Comment on above: Performed By: #### P T, PTT #### [facility] [address] [place] [address] Dr. Amy Whitaker pH (U) 8.0 [pH] Normal 5-9 [facility] Comment on above: Performed By: #### P T, PTT #### [facility] [address] [place] [address] Dr. Amy Whitaker Protein (U) [Mass/Vol] 100 mg/dL Abnormal NEGATIVE/ TRACE [facility] Comment on above: Performed By: #### P T, PTT #### [facility] [address] [place] [address] Dr. Amy Whitaker SPEC GRAVITY 1.015 Normal 1.005-<=1.025 [facility] Comment on above: Performed By: #### P T, PTT #### [facility] [address] [place] [address] Dr. Amy Whitaker UR MICRO IND INDICATED Normal [facility] Comment on above: Performed By: #### P T, PTT #### [facility] [address] [place] [address] Dr. Amy Whitaker Urobilinogen Qn (U) 1.0 {Neelima'U}/dL Normal 0.2 - 1. 0 [facility] Comment on above: Performed By: #### P T, PTT #### [facility] [address] [place] [address] Dr. Amy Whitaker PREG HCG QUALon 08-26-2021 , QUAL Positive Abnormal NEGATIVE [facility] Comment on above: Performed By: #### P REG #### [facility] [address] [place] [address] Dr. Amy Whitaker PROF 14(COMP METB)on 022 Albumin [Mass/Vol] 3.4 g/dL Normal 3.4-5.0 [facility] Comment on above: Performed By: #### P T, PTT #### [facility] [address] [place] [address] Dr. Amy Whitaker Albumin/Globulin [Mass ratio] 1.2 {ratio} Normal [facility] Comment on above: Performed By: #### P T, PTT #### [facility] [address] [place] [address] Dr. Amy Whitaker ALP [Catalytic activity/Vol] 47 U/L Normal 46-116 [facility] Comment on above: Performed By: #### P T, PTT #### [facility] [address] [place] [address] Dr. Amy Whitaker ALT [Catalytic activity/Vol] 14 U/L Normal 14-59 [facility] Comment on above: Performed By: #### P T, PTT #### [facility] [address] [address] [address] Amy Whitaker Anion gap [Moles/Vol] 10.8 mmol/L Normal [facility] Comment on above: Performed By: #### P T, PTT #### [facility] [address] [address] [address] Amy Whitaker AST [Catalytic activity/Vol] 9 U/L Critically low 15-37 [facility] Comment on above: Performed By: #### P T, PTT #### [facility] [address] [address] [address] Amy Whitaker Bilirubin [Mass/Vol] 0.7 mg/dL Normal 0.2-1.0 [facility] Comment on above: Performed By: #### P T, PTT #### [facility] [address] [address] [address] Amy Whitaker Calcium [Mass/Vol] 7.9 mg/dL Critically low 8.5-10.1 [facility] Comment on above: Performed By: #### P T, PTT #### [facility] [address] [address] [address] Amy Whitaker Chloride [Moles/Vol] 105 mmol/L Normal 98-107 [facility] Comment on above: Performed By: #### P T, PTT #### [facility] [address] [address] [address] Amy Whitaker CO2 [Moles/Vol] 27.0 mmol/L Normal 21.0-32.0 [facility] Comment on above: Performed By: #### P T, PTT #### [facility] [address] [address] [address] Amy Whitaker Creatinine [Mass/Vol] 0.51 mg/dL Critically low 0.55-1.02 [facility] Comment on above: Performed By: #### P T, PTT #### [facility] [address] [address] [address] Amy Whitaker EGFR-AF SAMMARINESE >60 Normal >=60 [facility] Comment on above: Performed By: #### P T, PTT #### [facility] [address] [address] [address] Amy Whitaker EGFR-NON AF SAMMARINESE >60 Normal >=60 [facility] Comment on above: Performed By: #### P T, PTT #### [facility] [address] [address] [address] Amy Whitaker Globulin (S) [Mass/Vol] 2.8 g/dL Normal [facility] Comment on above: Performed By: #### P T, PTT #### [facility] [address] [address] [address] Amy Whitaker Glucose [Mass/Vol] 98 mg/dL Normal 74-106 [facility] Comment on above: Performed By: #### P T, PTT #### [facility] [address] [place] [address] Dr. Amy Whitaker Potassium [Moles/Vol] 3.8 mmol/L Normal 3.5-5.1 [facility] Comment on above: Performed By: #### P T, PTT #### [facility] [address] [place] [address] Dr. Amy Whitaker Protein [Mass/Vol] 6.2 g/dL Normal 6.1-8.2 [facility] Comment on above: Performed By: #### P T, PTT #### [facility] [address] [place] [address] Dr. Amy Whitaker Sodium [Moles/Vol] 139 mmol/L Normal 136-145 [facility] Comment on above: Performed By: #### P T, PTT #### [facility] [address] [place] [address] Dr. Amy Whitaker Urea nitrogen [Mass/Vol] 7.0 mg/dL Normal 7.0-18.0 [facility] Comment on above: Performed By: #### P T, PTT #### [facility] [address] [place] [address] Dr. Amy Whitaker Urea nitrogen/Creatinine [Mass ratio] 13.7 mg/mg Normal [facility] Comment on above: Performed By: #### P T, PTT #### [facility] [address] [place] [address] Dr. Amy Whitaker PROTIMEon 08-26-2021 INR Coag (PPP) [Relative time] 1.01 {INR} Normal [facility] Comment on above: Performed By: #### P T, PTT #### [facility] [address] [place] [address] Dr. Amy Whitaker INR GUIDELINES SEE BELOW Normal The [facility] Comment on above: Result Comment: DIVINA RED INR: 2.0 - 3.0 CONDITIONS NOT LISTED BELOW 2.5 - 3.5 FOR PROSTHETIC HEART VALVE REPLACEMENT 2.5 - 3.5 RECURRENT THROMBOSIS Performed By: #### P T, PTT #### [facility] [address] [place] [address] Dr. Amy Whitaker PT Coag (PPP) [Time] 10.9 s Normal 9.0-11.6 [facility] Comment on above: Performed By: #### P T, PTT #### [facility] [address] [place] [address] Dr. Amy Whitaker PTTon 08-26-2021 aPTT Coag (Bld) [Time] 23.4 s Normal 22.3-36.2 [facility] Comment on above: Performed By: #### P T, PTT #### [facility] [address] [place] [address] Dr. Amy Whitaker TYPE AND SCREENon 08-26-2021 TYPE AND SCREEN Negative Normal [facility] Comment on above: Performed By: #### T NS #### [facility] [address] [place] [address] Dr. Amy Whitaker URINE MICROSCOPIC ONLYon BACTERIA TRACE Abnormal NONE SEEN [facility] Comment on above: Performed By: #### P T, PTT #### [facility] [address] [place] [address] Dr. Amy Whitaker Bacteria identified Cx Nom (U) INDICATED Normal [facility] Comment on above: Performed By: #### P T, PTT #### [facility] [address] [place] [address] Dr. Amy Whitaker CAST NONE SEEN Normal NONE SEEN [facility] Comment on above: Performed By: #### P T, PTT #### [facility] [address] [place] [address] Dr. Amy Whitaker Crystals LM Nom (Urine sed) NONE SEEN Normal NONE SEEN [facility] Comment on above: Performed By: #### P T, PTT #### [facility] [address] [place] [address] Dr. Amy Whitaker Epithelial cells LM Ql (Urine sed) NONE SEEN Normal NONE SEEN /RARE [facility] Comment on above: Performed By: #### P T, PTT #### [facility] [address] [place] [address] Dr. Amy Whitaker MUCOUS NONE SEEN Normal NONE SEEN [facility] Comment on above: Performed By: #### P T, PTT #### [facility] [address] [place] [address] Dr. Amy Whitaker RBC (U) [#/Vol] /uL Abnormal 0-2 [facility] Comment on above: Performed By: #### P T, PTT #### [facility] [address] [place] [address] Dr. Amy Whitaker WBC 0-2 Abnormal NONE SEEN [facility] Comment on above: Performed By: #### P T, PTT #### [facility] [address] [place] [address] Dr. Amy Whitaker US PELVISon 08-26-2021 US [...] LAZARO FORRESTER Date: 2021-08-26 13:18 Normal [facility] US PELVISon 08-23-2021 US PELVIS EXAM: [...] PATRICK VICENTE Date: 2021-08-23 12:13 Normal [facility] CBC AUTO DIFFon 08-22-2021 BASO # 0.0 103/ul Normal 0.0-0.1 [facility] Comment on above: Performed By: #### P T, PTT #### [facility] [address] [place] [address] Dr. Amy Whitaker Basophils/100 WBC (Bld) 0.4 % Normal 0.2-2.0 [facility] Comment on above: Performed By: #### P T, PTT #### [facility] [address] [place] [address] Dr. Amy Whitaker EO # 0.1 103/ul Normal 0.0-0.7 [facility] Comment on above: Performed By: #### P T, PTT #### [facility] [address] [place] [address] Dr. Amy Whitaker Eosinophils/100 WBC (Bld) 0.8 % Critically low 0.9-7.0 [facility] Comment on above: Performed By: #### P T, PTT #### [facility] [address] [address] [address] Amy Whitaker Erythrocyte distribution width (RBC) [Ratio] 12.4 % Normal 11.0-15.0 [facility] Comment on above: Performed By: #### P T, PTT #### [facility] [address] [place] [address] Dr. Amy Whitaker Hematocrit (Bld) [Volume fraction] 37.4 % Normal 36.0-48.0 [facility] Comment on above: Performed By: #### P T, PTT #### [facility] [address] [place] [address] Dr. Amy Whitaker Hemoglobin (Bld) [Mass/Vol] 12.6 g/dL Normal 12.0-16.0 [facility] Comment on above: Performed By: #### P T, PTT #### [facility] [address] [place] [address] Dr. Amy Whitaker IG # 0.04 10e3/ul Critically high 0.00-0.03 [facility] Comment on above: Performed By: #### P T, PTT #### [facility] [address] [place] [address] Dr. Amy Whitaker IG % 0.5 % Normal 0.0-0.5 [facility] Comment on above: Performed By: #### P T, PTT #### [facility] [address] [place] [address] Dr. Amy Whitaker LYMPH # 2.0 103/ul Normal 1.2-3.8 [facility] Comment on above: Performed By: #### P T, PTT #### [facility] [address] [place] [address] Dr. Amy Whitaker Lymphocytes/100 WBC (Bld) 27.2 % Normal 20.5-60.0 [facility] Comment on above: Performed By: #### P T, PTT #### [facility] [address] [place] [address] Dr. Amy Whitaker MANUAL DIFF REQ NO Normal [facility] Comment on above: Performed By: #### P T, PTT #### [facility] [address] [place] [address] Dr. Amy Whitaker MCH (RBC) [Entitic mass] 29.4 pg Normal 26.7-34.0 [facility] Comment on above: Performed By: #### P T, PTT #### [facility] [address] [place] [address] Dr. Amy Whitaker MCHC (RBC) [Mass/Vol] 33.7 g/dL Normal 29.9-35.2 [facility] Comment on above: Performed By: #### P T, PTT #### [facility] [address] [place] [address] Dr. Amy Whitaker MCV (RBC) [Entitic vol] 87.4 fL Normal 81.0-99.0 [facility] Comment on above: Performed By: #### P T, PTT #### [facility] [address] [place] [address] Dr. Amy Whitaker MONO # 0.7 103/ul Normal 0.3-0.8 [facility] Comment on above: Performed By: #### P T, PTT #### [facility] [address] [place] [address] Dr. Amy Whitaker Monocytes/100 WBC (Bld) 9.7 % Normal 1.7-12.0 [facility] Comment on above: Performed By: #### P T, PTT #### [facility] [address] [place] [address] Dr. Amy Whitaker NEUT # 4.6 103/ul Normal 1.4-6.5 [facility] Comment on above: Performed By: #### P T, PTT #### [facility] [address] [place] [address] Dr. Amy Whitaker Neutrophils/100 WBC (Bld) 61.4 % Normal 43.0-75.0 [facility] Comment on above: Performed By: #### P T, PTT #### [facility] [address] [place] [address] Dr. Amy Whitaker Platelet mean volume (Bld) [Entitic vol] 10.1 fL Normal 9.5-13.5 [facility] Comment on above: Performed By: #### P T, PTT #### [facility] [address] [address] [address] Amy Whitaker PLT 222 103/ul Normal 150-450 [facility] Comment on above: Performed By: #### P T, PTT #### [facility] [address] [address] [address] Amy Whitaker RBC 4.28 106/ul Normal 4.20-5.40 [facility] Comment on above: Performed By: #### P T, PTT #### [facility] [address] [address] [address] Amy Whitaker WBC 7.5 103/ul Normal 4.0-11.0 [facility] Comment on above: Performed By: #### P T, PTT #### [facility] [address] [place] [address] Dr. Amy Whitaker FIBRINOGENon 08-22-2021 FIBRINOGEN 261.0 mg/dl Normal 200.0-400.0 [facility] Comment on above: Performed By: #### P T, PTT #### [facility] [address] [place] [address] Dr. Amy Whitaker PREG QUANT HCGon 08-22-2021 HCG QUANT 101722 mIU/mL Normal The [facility] Comment on above: Performed By: #### P REGQNT #### [facility] [address] [place] [address] Dr. Amy Whitaker HCG RANGE SEE BELOW Normal [facility] Comment on above: Result Comment: 5-50 0-1 WEEK 40-300 1-2 WEEKS 100-1,000 2-3 WEEKS 500-6,000 3-4 WEEKS 5,000-200,000 1-2 MONTHS 10,000-100,000 2-3 MONTHS 3,000-50,000 2ND TRIMESTER 1,000-50,000 3RD TRIMESTER Performed By: #### P REGQNT #### [facility] [address] [place] [address] Dr. Amy Whitaker PROTIMEon 08-22-2021 INR Coag (PPP) [Relative time] 1.06 {INR} Normal [facility] Comment on above: Performed By: #### P T, PTT #### [facility] [address] [place] [address] Dr. Amy Whitaker INR GUIDELINES SEE BELOW Normal [facility] Comment on above: Result Comment: DIVINA RED INR: 2.0 - 3.0 CONDITIONS NOT LISTED BELOW 2.5 - 3.5 FOR PROSTHETIC HEART VALVE REPLACEMENT 2.5 - 3.5 RECURRENT THROMBOSIS Performed By: #### P T, PTT #### [facility] [address] [place] [address] Dr. Amy Whitaker PT Coag (PPP) [Time] 11.4 s Normal 9.0-11.6 [facility] Comment on above: Performed By: #### P T, PTT #### [facility] [address] [place] [address] Dr. Amy Whitaker PTTon 08-22-2021 aPTT Coag (Bld) [Time] 25.6 s Normal 22.3-36.2 [facility] Comment on above: Performed By: #### P T, PTT #### [facility] [address] [place] [address] Dr. Amy Whitaker Covid-19 PCR ([facility])on 08-02 SARS-CoV-2 (COVID-19) RNA SHANNON+probe Ql (Unsp spec) Not detected Normal NOT DETECTED [facility] Comment on above: Result Comment: When [...] for this test is supported by the [place] of Health and Human Service's declaration that [...] Performed By: #### P T, PTT #### [facility] [address] [address] [address] Amy Whitaker US PREG TVon 08-19-2021 [...] at the time of imaging by the barrel brander. Electronically authenticated by: PATRICK KRAUSE Date: 2021-08-19 17:18 Normal [facility] HEP B SURFACE ANTIGEN SCREEN on 08-08-2021 HBsAg Screen Negative Normal Negative [facility] Comment on above: Performed By: #### P T, PTT #### [facility] [address] [address] [address] Amy Whitaker HEPATITIS C VIRUS AB W/ REFL EX QUANTon 08-08-2021 HCV AB <0.1 Normal 0.0-0.9 [facility] Comment on above: Performed By: #### P T, PTT #### [facility] [address] [address] [address] Amy Whitaker Interpretation: Comment Normal [facility] Comment on above: Result Comment: Nega tive Not infected with HCV, unless recent infection is suspected or other evidence exists to indicate HCV infection. Performed By: #### P T, PTT #### [facility] [address] [address] [address] Amy Whitaker HIV 1 AND 2 WITH REFLEXon HIV Screen 4th Generation wRfx Non-Reactive Normal Non Reactive [facility] Comment on above: Result Comment: HIV Negative HIV-1/HIV-2 antibodies and HIV-1 p24 antigen were NOT detected. There is no laboratory evidence of HIV infection. Performed By: #### P T, PTT #### [facility] [address] [place] [address] Dr. Amy Whitaker RPR QUANTon 08-08-2021 Rapid Plasma Reagin, Quant Non-Reactive Normal NonRea<1:1 [facility] Comment on above: Result Comment: Plea se Note: This test does not meet current guidelines for screening and diagnosis of syphilis. This test is intended for following treatment response in patients being treated for syphilis infection. To screen for syphilis infection, a reflex cascade that includes both RPR and a treponema-specific assay should be utilized, such as Treponema pallidum (Syphilis) Screening [place] (884344) or Rapid Plasma Reagin (RPR) Test With Reflex to Quantitative RPR and Confirmatory Treponema pallidum Antibodies (123897). Performed By: #### P T, PTT #### [facility] [address] [place] [address] Dr. Amy Whitaker RUBELLA AB IGGon 08-08-2021 Rubella Antibodies, IgG 1.68 index Normal Immune >0.99 [facility] Comment on above: Result Comment: Non- immune <0.90 Equivocal 0.90 - 0.99 Immune >0.99 Performed By: #### R UBIGG #### [facility] [address] [address] [address] Amy Whitaker CBC AUTO DIFFon 08-07-2021 BASO # 0.0 103/ul Normal 0.0-0.1 [facility] Comment on above: Performed By: #### P T, PTT #### [facility] [address] [place] [address] Dr. Amy Whitaker Basophils/100 WBC (Bld) 0.3 % Normal 0.2-2.0 [facility] Comment on above: Performed By: #### P T, PTT #### [facility] [address] [place] [address] Dr. Amy Whitaker EO # 0.0 103/ul Normal 0.0-0.7 [facility] Comment on above: Performed By: #### P T, PTT #### [facility] [address] [place] [address] Dr. Amy Whitaker Eosinophils/100 WBC (Bld) 0.3 % Critically low 0.9-7.0 [facility] Comment on above: Performed By: #### P T, PTT #### [facility] [address] [place] [address] Dr. Amy Whitaker Erythrocyte distribution width (RBC) [Ratio] 12.2 % Normal 11.0-15.0 [facility] Comment on above: Performed By: #### P T, PTT #### [facility] [address] [place] [address] Dr. Amy Whitaker Hematocrit (Bld) [Volume fraction] 38.5 % Normal 36.0-48.0 [facility] Comment on above: Performed By: #### P T, PTT #### [facility] [address] [place] [address] Dr. Amy Whitaker Hemoglobin (Bld) [Mass/Vol] 13.0 g/dL Normal 12.0-16.0 [facility] Comment on above: Performed By: #### P T, PTT #### [facility] [address] [place] [address] Dr. Amy Whitaker IG # 0.02 10e3/ul Normal 0.00-0.03 [facility] Comment on above: Performed By: #### P T, PTT #### [facility] [address] [place] [address] Dr. Amy Whitaker IG % 0.3 % Normal 0.0-0.5 [facility] Comment on above: Performed By: #### P T, PTT #### [facility] [address] [place] [address] Dr. Amy Whitaker LYMPH # 1.6 103/ul Normal 1.2-3.8 [facility] Comment on above: Performed By: #### P T, PTT #### [facility] [address] [place] [address] Dr. Amy Whitaker Lymphocytes/100 WBC (Bld) 20.2 % Critically low 20.5-60.0 [facility] Comment on above: Performed By: #### P T, PTT #### [facility] [address] [place] [address] Dr. Amy Whitaker MANUAL DIFF REQ NO Normal [facility] Comment on above: Performed By: #### P T, PTT #### [facility] [address] [place] [address] Dr. Amy Whitaker MCH (RBC) [Entitic mass] 29.3 pg Normal 26.7-34.0 [facility] Comment on above: Performed By: #### P T, PTT #### [facility] [address] [place] [address] Dr. Amy Whitaker MCHC (RBC) [Mass/Vol] 33.8 g/dL Normal 29.9-35.2 [facility] Comment on above: Performed By: #### P T, PTT #### [facility] [address] [place] [address] Dr. Amy Whitaker MCV (RBC) [Entitic vol] 86.7 fL Normal 81.0-99.0 [facility] Comment on above: Performed By: #### P T, PTT #### [facility] [address] [place] [address] Dr. Amy Whitaker MONO # 0.6 103/ul Normal 0.3-0.8 [facility] Comment on above: Performed By: #### P T, PTT #### [facility] [address] [place] [address] Dr. Amy Whitaker Monocytes/100 WBC (Bld) 8.0 % Normal 1.7-12.0 [facility] Comment on above: Performed By: #### P T, PTT #### [facility] [address] [place] [address] Dr. Amy Whitaker NEUT # 5.5 103/ul Normal 1.4-6.5 [facility] Comment on above: Performed By: #### P T, PTT #### [facility] [address] [address] [address] Amy Whitaker Neutrophils/100 WBC (Bld) 70.9 % Normal 43.0-75.0 [facility] Comment on above: Performed By: #### P T, PTT #### [facility] [address] [address] [address] Amy Whitaker Platelet mean volume (Bld) [Entitic vol] 10.1 fL Normal 9.5-13.5 [facility] Comment on above: Performed By: #### P T, PTT #### [facility] [address] [address] [address] Amy Whitaker PLT 217 103/ul Normal 150-450 [facility] Comment on above: Performed By: #### P T, PTT #### [facility] [address] [place] [address] Dr. Amy Whitaker RBC 4.44 106/ul Normal 4.20-5.40 [facility] Comment on above: Performed By: #### P T, PTT #### [facility] [address] [place] [address] Dr. Amy Whitaker WBC 7.7 103/ul Normal 4.0-11.0 [facility] Comment on above: Performed By: #### P T, PTT #### [facility] [address] [place] [address] Dr. Amy Whitaker CULTURE URINEon 08-07-2021 CULTURE URINE Culture Observations : MODERATE GROWTH OF MIXED GENITAL DINA. NO POTENTIAL PATHOGENS SEEN. Normal [facility] Comment on above: Performed By: #### R UBIGG #### [facility] [address] [place] [address] Dr. Amy Whitaker GLYCOHEMOGLOBIN A1Con 2021 ADA RECOMMENDATION ADA THERAPEUTIC TARGET 6.0 - 7.0 ACTION SUGGESTED > 7.0 Normal [facility] Comment on above: Performed By: #### C BC #### [facility] [address] [place] [address] Dr. Amy Whitaker Glucose [Mass/Vol] 108 mg/dL Normal [facility] Comment on above: Performed By: #### C BC #### [facility] [address] [address] [address] Amy Whitaker HbA1c (Bld) [Mass fraction] 5.4 % Normal <=6.0 [facility] Comment on above: Performed By: #### C BC #### [facility] [address] [address] [address] Amy Whitaker JONAS BOX TEST PT SEND OUTo n 08-07-2021 SENT TO REF LAB 08/07/2021 Normal [facility] Comment on above: Performed By: #### C BC #### [facility] [address] [address] [address] Amy Whitaker TYPE AND SCREENon 08-07-2021 TYPE AND SCREEN Negative Normal [facility] Comment on above: Performed By: #### T NS #### [facility] [address] [address] [address] Amy Whitaker US PREG TVon 08-01-2021 [...] by: LAZARO FORRESTER Date: 2021-08-01 16:12 Normal [facility] Encounters Encounter Date Encounter Type Care Provider Facility Start: 05-13-2023 End: 05-13-2023 ambulatory JHONNY DUGGAN Not Available Start: 03-15-2023 End: 03-15-2023 ambulatory JHONNY DUGGAN Not Available Start: 08-29-2021 End: 08-30-[address] JHONNY DUGGAN Facility:[facility] Start: 08-26-2021 End: 08-27-[address] BJORN GÓMEZ Facility:[facility] Start: 08-22-2021 Encounter for preprocedural laboratory examination DR JHONNY DUGGAN [facility] Start: 08-22-2021 End: 08-22-2021 ambulatory [...] Facility:[facility] Payers Date Payer Category Payer Unknown [id number] 2022 Unknown [id number] 2022 Medicaid [id number] 2001 Unknown [id number] 2.16.84 [id number] 2001 Unknown [id number] 2.16.84 [id number] 2001 Unknown [id number] 2.16.84 [id number] 2001 Unknown [id number] 2.16.84 [id number] 2001 Unknown [id number] 2.16.84 [id number] 2001 Unknown [id number] 2.16.84 [id number] 2001 Unknown [id number] 2.16.84 [id number] 2001 Unknown [id number] 2.16.84 [id number] 2001 Unknown [id number] [id number]. [id number] 1959 Self-pay 1959 Unknown [id number] 1959 Unknown [id number] Unknown [id number] 2.16.84 [id number] Clinical Note 08-26-2021 Note Date & Type Note Facility 08-26-2021 Note EXAMINATION: US PELV IS HISTORY: Surgical procedure COMPARISON: 08/27/20192009 7:00 PM FINDINGS: Intraprocedural images from the [facility] Initial images demonstrate heterogeneous distended appearance of [...] endometrial cavity IMPRESSION: Intraprocedural images from a [facility] Electronically authenticated by: LAZARO FORRESTER Date: 2021-08-26 17:54 [facility] Discharge summary note 08-26-2021 Note Date [...] pain free and no longer on narcotics. [facility] Signed and Approved by: DR JHONNY DUGGAN . 09/16/2021 10:47:00 [facility] Clinical Note 08-26-2021 Note Date & Type Note Facility 08-26-2021 Note [facility] [place], [place] NAME: MARICARMEN NOLAN DATE OF : MEDICAL REC#: [id number] MANAGER PROTEIN[facility] [address] [facility] DATE: 08/26/2021 11:13:00 SLIP COVER SEWER DATE: 09/11/2021 21:00 DICTATING PHYSICIAN: JHONNY DUGGAN DICTATION DATE: 09/08/2021 08:00 OPERATIVE NOTE OPERATION DATE: 09/08/2021 PROCEDURE: Suction D AND C. PREOPERATIVE DIAGNOSIS: Vaginal bleeding, status post prior D AND C for missed . POSTOPERATIVE DIAGNOSIS: Vaginal bleeding, status post prior D AND C for missed . ANESTHESIA: General. SURGEON: Jhonny Duggan D.O. POLICY MANAGER: None. FINDINGS: No products of conception found. [...] and blood products were removed using an 8-Greek suction curette. Excellent hemostasis was noted. The patient tolerated the procedure well. Sponge, lap, and needle counts were correct x 2. All instruments were then removed from the patient's vagina. The patient was taken to the Recovery Room in stable condition. ?? Electronically Authenticated and Edited by: Jhonny Duggan DO on 09/16/2021 10:14 AM EDT [facility] Signed and Approved by: DR JHONNY DUGGAN . 09/16/2021 10:14:00 [facility] Clinical Note 08-22-2021 Note Date & Type Note Facility 08-22-2021 Note OPERATIVE NOTE OPERATION DATE:08/22/2021 PROCEDURE: Suction D AND C. PREOPERATIVE DIAGNOSIS: Missed POSTOPERATIVE DIAGNOSIS: Missed . ANESTHESIA: General. SURGEON: Jhonny Duggan D.O. POLICY MANAGER: None. BLOOD LOSS: 200 mL. URINE OUTPUT: [...] to the Recovery Room in stable condition. [facility] Signed and Approved by: DR JHONNY DUGGAN . 08/31/2021 19:44:00 [facility] Summary Purpose Family History No Family History Records FoundNo Family History Records Found Advance Directives No Advanced Directives Records FoundNo Advanced Directives Records Found Additional Source Comments INFORMATION SOURCE (unrecogn ized section and content) DATE CREATED AUTHOR 03/17/2022 [facility] DATE CREATED AUTHOR AUTHOR'S ORGANIZ ATION 05/14/2023 [facility] FOR RECORDS PERTAINING TO PATIENTS WHO [...] BE BASED ON THE PRIMARY CLINICAL RECORDS. [employer] [facility]. provides no warranty or guarantee of the accuracy or completeness of information in this document.
[2023-06-21 17:07] LABS: Age Gdln ACOG Testing Note (.); IGP, rfx Aptima HPV ASCU Note (.)
== END 2023-06-15 21:25 | disposition home or self-care (01) ==
LOC: LAB 21:24
PROVIDERS: PCP Student in an Organized Health Care Education/Training Program; Visit Provider Obstetrics & Gynecology
DX: Z01.419 Encounter for gynecological examination (general) (routine) without abnormal findings (principal)
CPT/HCPCS: G0145

== ENCOUNTER 2023-07-29 14:47 | Outpatient (OUT) | payer BC, OTHER, SELFPAY ==
--- NOTE | 2023-07-29 14:50 | US_ITS ---
[address] [address] Patient Name: MARICARMEN NOLAN MRN: [id number] date: 2000 Sex: F Assigned Patient Location: [facility] Current Patient Location: [facility] Accession/Order Number: [id number] Exam Date: 07/29/2023 14:50 Report Date: 07/29/2023 15:57 At the request of: JHONNY HUBER Procedure: US OB cervical length EXAMINATION: US OB anatomy, US OB cervical length HISTORY: ANATOMY COMPARISON: No relevant comparison available. TECHNIQUE: Transabdominal sonographic examination was performed for obstetrical and evaluation. FINDINGS: Number: 1 Heart Rate: 144.0 bpm H.B. /min Amniotic Fluid Volume: Subjectively normal position: Breech presentation, longitudinal lie Placental Location: Anterior. Grade 1. Placental edge is 6.7 cm from the internal os Cervix Length: 4.1 cm , closed Normal anatomy: Lateral ventricles, cerebellum, posterior fossa, nose, lips, orbits, four-chamber heart, RVOT, LVOT, diaphragm, stomach, kidneys, abdominal cord insertion, bladder, umbilical arteries, three-vessel cord, spine, extremities BIOMETRY: BPD: 5.0 cm 21 weeks 1 days , 77% HC: 18.4 cm 20 weeks 6 days, 59% AC: 16.6 cm 21 weeks 4 days, 81% FL: 3.4 cm 20 weeks 4 days , 48% EFW:401.8 grams; 14 ounces, 83% FL/AC: 20.4 FL/BPD: 67.6 HC/AC: 1.1 GESTATIONAL AGE: Age by EDC: 20 weeks 3 days Age by current US: 21 weeks 0 days ABI by current US: 12/09/2023 ABI by EDC: 12/13/2023 US/US OB cervical length IMPRESSION: Normal anatomy scan Closed cervix measuring 4.1 cm normal *Reference: [employer] Practice Guideline for the performance of Obstetric Ultrasound Examinations, January 31, 2007. Electronically authenticated by: LAZARO FORRESTER Date: 07/29/2023 15:57
--- NOTE | 2023-07-29 14:50 | US_ITS ---
[address] [address] Patient Name: MARICARMEN NOLAN MRN: [id number] date: 2000 Sex: F Assigned Patient Location: [facility] Current Patient Location: [facility] Accession/Order Number: [id number] Exam Date: 07/29/2023 14:50 Report Date: 07/29/2023 15:57 At the request of: JHONNY HUBER Procedure: US OB anatomy EXAMINATION: US OB anatomy, US OB cervical length HISTORY: ANATOMY COMPARISON: No relevant comparison available. TECHNIQUE: Transabdominal sonographic examination was performed for obstetrical and evaluation. FINDINGS: Number: 1 Heart Rate: 144.0 bpm H.B. /min Amniotic Fluid Volume: Subjectively normal position: Breech presentation, longitudinal lie Placental Location: Anterior. Grade 1. Placental edge is 6.7 cm from the internal os Cervix Length: 4.1 cm , closed Normal anatomy: Lateral ventricles, cerebellum, posterior fossa, nose, lips, orbits, four-chamber heart, RVOT, LVOT, diaphragm, stomach, kidneys, abdominal cord insertion, bladder, umbilical arteries, three-vessel cord, spine, extremities BIOMETRY: BPD: 5.0 cm 21 weeks 1 days , 77% HC: 18.4 cm 20 weeks 6 days, 59% AC: 16.6 cm 21 weeks 4 days, 81% FL: 3.4 cm 20 weeks 4 days , 48% EFW:401.8 grams; 14 ounces, 83% FL/AC: 20.4 FL/BPD: 67.6 HC/AC: 1.1 GESTATIONAL AGE: Age by EDC: 20 weeks 3 days Age by current US: 21 weeks 0 days ABI by current US: 12/09/2023 ABI by EDC: 12/13/2023 US/US OB anatomy IMPRESSION: Normal anatomy scan Closed cervix measuring 4.1 cm normal *Reference: [facility] Practice Guideline for the performance of Obstetric Ultrasound Examinations, January 31, 2007. Electronically authenticated by: LAZARO FORRESTER Date: 07/29/2023 15:57
== END 2023-07-29 14:48 | disposition home or self-care (01) ==
LOC: NOMS 14:47
PROVIDERS: PCP Student in an Organized Health Care Education/Training Program; Visit Provider Obstetrics & Gynecology
DX: Z36.89 Encounter for other specified antenatal screening (principal); Z3A.21 21 weeks gestation of pregnancy
CPT/HCPCS: 76805; 76817

== ENCOUNTER 2023-09-13 14:30 | Outpatient (OUT) | payer BC, OTHER, SELFPAY ==
[2023-09-13 15:49] LABS: Estimated Average Glucose 94 mg/dL; Glycohemoglobin A1C 4.9 % (4.5-6.2)
== END 2023-09-13 14:31 | disposition home or self-care (01) ==
LOC: LAB 14:31
PROVIDERS: PCP Student in an Organized Health Care Education/Training Program; Visit Provider Physician Assistant
DX: Z34.93 Encounter for supervision of normal pregnancy, unspecified, third trimester (principal); Z3A.27 27 weeks gestation of pregnancy
CPT/HCPCS: 36415; 83036

== ENCOUNTER 2023-10-26 11:00 | Outpatient (OUT) | payer BC, OTHER, SELFPAY ==
--- NOTE | 2023-10-26 11:02 | US_ITS ---
[address] [address] Patient Name: MARICARMEN NOLAN MRN: [id number] date: 2000 Sex: F Assigned Patient Location: [facility] Current Patient Location: [facility] Accession/Order Number: [id number] Exam Date: 10/26/2023 11:02 Report Date: 10/26/2023 11:37 At the request of: KARISHMA PIERRE Procedure: US OB growth EXAMINATION: US OB growth HISTORY: LARGE FOR GESTATIONAL AGE COMPARISON: 07/29/2023 FINDINGS: Heart Rate: 138 bpm Amniotic Fluid Volume: 10.7 cm. Largest fluid pocket 3.7 cm Number: 1 Position: Cephalic presentation, longitudinal lie BIOMETRY: BPD: 8.37 cm cm; 236 Day; 60.80 %% HC: 31.51 cm cm; 248 Day; 71.40 %% AC: 31.37 cm cm; 247 Day; 95.50 %% FL: 6.68 cm cm; 241 Day; 71.80 %% EFW: 2446.18 g; 5 lbs. 10 oz. 89.40 % FL/AC: 21.29 FL/BPD: 79.81 HC/AC: 1 GESTATIONAL AGE: Age by EDC: 33 weeks 1 day ABI by EDC: 2023-12-13 Age by US: 34 weeks 5 days ABI by US: 2023-12-02 US/US OB growth IMPRESSION: Normal interval growth Electronically authenticated by: LAZARO FORRESTER Date: 10/26/2023 11:37
--- OUTSIDE RECORDS SUMMARY | 2023-10-26 11:07 | XMS_ITS | CCD ---
Author Organization [facility] Care Team Providers Care Warp Hauler Name Role Phone URBAN, DR BARRY Admitting Unavailable URBAN, DR BARRY Attending Unavailable MITZY, DR LAZARO Nieves Consulting Unavailable REQUEST, NONE LISTED Primary Care Unavaila ble URBAN, DR BARRY Consulting Unavailable URBAN, DR BARRY Admitting Unavailable URBAN, DR BARRY Attending Unavailable GÓMEZ, DR MILAN A Primary Care Unavailable URBAN, DR BARRY Consulting Unavailable URBAN, DR BARRY Admitting Unavailable URBAN, DR BARRY Attending Unavailable REQUEST, DR NONE LISTED Primary Care Unavaila ble URBAN, DR BARRY Consulting Unavailable ZIEBER, DR PATRICK Soni Consulting Unavailable URBAN, DR BARRY Admitting Unavailable URBAN, DR BARRY Attending Unavailable GÓMEZ, DR MILAN A Primary Care Unavailable URBAN, DR BARRY Consulting Unavailable URBAN, DR BARRY Admitting Unavailable URBAN, DR BARRY Attending Unavailable GÓMEZ, DR MILAN A Primary Care Unavailable URBAN, DR BARRY Consulting Unavailable URBAN, DR BARRY Admitting Unavailable URBAN, DR BARRY Attending Unavailable DALIA, DR BJORN Ospina Primary Care Unavailable URBAN, DR BARRY Consulting Unavailable DALIA, DR BJORN Ospina Primary Care Unavailable URBAN, DR BARRY Admitting Unavailable URBAN, DR BARRY Attending Unavailable MITZY, DR LAZARO Nieves Consulting Unavailable URBAN, DR BARRY Consulting Unavailable HAY, DR BRUNNER Consulting Unavailable AGUBOSIMRAVIN Consulting Unavailable URBAN, DR BARRY Admitting Unavailable URBAN, DR BARRY Attending Unavailable GÓMEZ, DR MILAN A Primary Care Unavailable URBAN, DR BARRY Consulting Unavailable JOSE CASTILLO Consulting Unavailable PATRICK VICENTE Consulting Unavailable JOYCELYN TORRES Consulting Unavaila vinny Duff MD, Catrachita Verduzco Primary Care Provider JHONNY DUGGAN Attending Unavailable ELHAM PIERRE Attending Unavailable URBAN, JHONNY Attending Unavailable ELHAM PIERRE Attending Unavailable JHONNY DUGGAN Attending Unavailable JHONNY DUGGAN Attending Unavailable JHONNY DUGGAN Attending Unavailable Allergies Allergy Classification Reported Allergen(s) Allergy Type Date of Onset Reaction(s) Facility (1 source) Adhesive bandage Drug allergy (disorder) 08-21-2021 The [facility] Repository Problems Active Problems Problem Classification Problem Date Documented Date Episodic/Chronic Immunizations and screening for infectious disease (3 sources) Contact with and (suspected) exposure to infections with a predominantly sexual mode of transmission; Translations: [Exposure to sexually transmissible disorder] Onset: 08-12-2021 06-07-2023 Episodic Menstrual disorders (4 sources) Irregular menstruation, unspecified; Translations: [IRREGULAR MENSTRUATION UNSPECIFIED] Onset: 08-07-2021 Chronic Other female genital disorders (3 sources) Abnormal uterine and vaginal bleeding, unspecified; Translations: [ABNORMAL UTERINE VAGINAL BLEED UNS] Onset: 08-26-2021 Chronic Other female genital disorders (2 sources) Vaginal discharge; Translations: [Other specified noninflammatory disorders of vagina] 06-07-2023 Episodic Other and delivery including normal (7 sources) Encounter for supervision of other normal , first trimester; Translations: [Encounter for supervision of normal , unspecified, first trimester] Onset: 08-05-2021 Episodic Unclassified (1 source) CONTACT W/AND (SUSP) EXPOS COVID-19; Translations: [CONTACT W/AND (SUSP) EXPOS COVID-19] Onset: 10-17-2021 Unclassified (3 sources) OB Reminders Onset: 05-28-2023 05-28-2023 Past or Other Problems Problem Classification Problem Date Documented Date Episodic/Chronic Acute posthemorrhagic anemia (1 source) Acute posthemorrhagic anemia; Translations: [ACUTE POSTHEMORRHAGIC ANEMIA] Onset: 10-17-2021 Episodic Other complications of (4 sources) Missed ; Translations: [MISSED ] Onset: 08-22-2021 Episodic Other complications of (4 sources) with inconclusive viability, not applicable or unspecified; Translations: [PREG INCONCLUS VIABIL NA/UNS] Onset: 08-19-2021 Episodic Other liver diseases (4 sources) Unspecified jaundice; Translations: [UNSPECIFIED JAUNDICE] Onset: 08-29-2021 Episodic Other screening for suspected conditions (not [...] WEEKS GESTATION OF ] Onset: 08-05-2021 Episodic NEGATED: Highlighted row has been ruled out!Unclassified (3 sources) No known active problems 03-02-2023 Results Test Name Value Interpretation Reference Range Facility [facility] BOX TEST SENT OUTon 06-03 BOX TEST SENT OUT 06/15/23 [facility] e Urinalysis macro (dipstick) panel (U)on 06-15-2023 Bilirubin, UA Negative Negative - 4(70) +++ mg/dL [facility] Blood, UA Negative Negative - 50 Alexander/mcL [facility] Clarity, UA Clear [facility] re Color, UA Yellow [facility] e Glucose, UA Negative Negative - 1999(110) ++++ mg/dL [facility] Interpretation and review of laboratory results Abnormal [facility] Ketones, UA Negative Negative - 160(16) ++++ mg/dL [facility] Leukocytes, UA Trace Negative - 500+++ Shawn/mcL [facility] Nitrite, UA Negative Negative - Positive [facility] pH, UA 7.0 5 - 9 [facility] e Protein, UA Negative Negative - 1999(20) ++++ mg/dL [facility] Spec Grav, UA 1.015 1 - 1.03 [facility] Urobilinogen, UA 0.2 0.2 - 12 mg/dL [facility] Health[facility] e FRESH FROZ PLASMAon 09-02-19 22 FRESH FROZ PLASMA Unit Blood Type A Pos Unit Number [id number] Status Information Transfused Product ID FFP Product Code [id number] [facility] Comment on above: Performed By: #### R UBIGG #### [facility] [address] [place] [address] Dr. Amy Whitaker PRBC LEUKOREDUCEDon 09-02-19 ABO and Rh group Nom (Bld) Cross Match Result Compatible Unit Blood Type A Pos Unit Number [id number] Status Information Transfused Product ID Red Blood Cells Product Code [id number] Cross Match Result Compatible Unit Blood Type A Pos Unit Number [id number] Status Information Transfused Product ID Red Blood Cells Product Code [id number] Normal [facility] Comment on above: Performed By: #### P RBC #### [facility] [address] [place] [address] Dr. Amy Whitaker PRBC LEUKOREDUCED Cross Match Result Compatible Unit Blood Type A Pos Unit Number [id number] Status Information Transfused Product ID Red Blood Cells Product Code [id number] Normal [facility] Comment on above: Performed By: #### R UBIGG #### [facility] [address] [place] [address] Dr. Amy Whitaker BUNon 08-29-2021 Urea nitrogen [Mass/Vol] 10.0 mg/dL Normal 7.0-18.0 [facility] Comment on above: Performed By: #### R UBIGG #### [facility] [address] [place] [address] Dr. Amy Whitaker CBC AUTO DIFFon 08-29-2021 BASO # 0.0 103/ul Normal 0.0-0.1 [facility] Comment on above: Performed By: #### P T, PTT #### [facility] [address] [place] [address] Dr. Amy Whitaker Basophils/100 WBC (Bld) 0.6 % Normal 0.2-2.0 [facility] Comment on above: Performed By: #### P T, PTT #### [facility] [address] [place] [address] Dr. Amy Whitaker EO # 0.1 103/ul Normal 0.0-0.7 [facility] Comment on above: Performed By: #### P T, PTT #### [facility] [address] [place] [address] Dr. Amy Whitaker Eosinophils/100 WBC (Bld) 0.8 % Critically low 0.9-7.0 [facility] Comment on above: Performed By: #### P T, PTT #### [facility] [address] [place] [address] Dr. Amy Whitaker Erythrocyte distribution width (RBC) [Ratio] 13.6 % Normal 11.0-15.0 [facility] Comment on above: Performed By: #### P T, PTT #### [facility] [address] [place] [address] Dr. Amy Whitaker Hematocrit (Bld) [Volume fraction] 40.1 % Normal 36.0-48.0 [facility] Comment on above: Performed By: #### P T, PTT #### [facility] [address] [place] [address] Dr. Amy Whitaker Hemoglobin (Bld) [Mass/Vol] 13.0 g/dL Normal 12.0-16.0 [facility] Comment on above: Performed By: #### P T, PTT #### [facility] [address] [place] [address] Dr. Amy Whitaker IG # 0.03 10e3/ul Normal 0.00-0.03 [facility] Comment on above: Performed By: #### P T, PTT #### [facility] [address] [place] [address] Dr. Amy Whitaker IG % 0.4 % Normal 0.0-0.5 [facility] Comment on above: Performed By: #### P T, PTT #### [facility] [address] [place] [address] Dr. Amy Whitaker LYMPH # 1.9 103/ul Normal 1.2-3.8 [facility] Comment on above: Performed By: #### P T, PTT #### [facility] [address] [place] [address] Dr. Amy Whitaker Lymphocytes/100 WBC (Bld) 26.1 % Normal 20.5-60.0 [facility] Comment on above: Performed By: #### P T, PTT #### [facility] [address] [place] [address] Dr. Amy Whitaker MANUAL DIFF REQ NO Normal [facility] Comment on above: Performed By: #### P T, PTT #### [facility] [address] [place] [address] Dr. Amy Whitaker MCH (RBC) [Entitic mass] 29.5 pg Normal 26.7-34.0 [facility] Comment on above: Performed By: #### P T, PTT #### [facility] [address] [place] [address] Dr. Amy Whitaker MCHC (RBC) [Mass/Vol] 32.4 g/dL Normal 29.9-35.2 [facility] Comment on above: Performed By: #### P T, PTT #### [facility] [address] [place] [address] Dr. Amy Whitaker MCV (RBC) [Entitic vol] 90.9 fL Normal 81.0-99.0 [facility] Comment on above: Performed By: #### P T, PTT #### [facility] [address] [place] [address] Dr. Amy Whitaker MONO # 0.7 103/ul Normal 0.3-0.8 [facility] Comment on above: Performed By: #### P T, PTT #### [facility] [address] [place] [address] Dr. Amy Whitaker Monocytes/100 WBC (Bld) 9.4 % Normal 1.7-12.0 [facility] Comment on above: Performed By: #### P T, PTT #### [facility] [address] [place] [address] Dr. Amy Whitaker NEUT # 4.5 103/ul Normal 1.4-6.5 [facility] Comment on above: Performed By: #### P T, PTT #### [facility] [address] [place] [address] Dr. Amy Whitaker Neutrophils/100 WBC (Bld) 62.7 % Normal 43.0-75.0 [facility] Comment on above: Performed By: #### P T, PTT #### [facility] [address] [address] [address] Amy Whitaker Platelet mean volume (Bld) [Entitic vol] 9.7 fL Normal 9.5-13.5 [facility] Comment on above: Performed By: #### P T, PTT #### [facility] [address] [place] [address] Dr. Amy Whitaker PLT 308 103/ul Normal 150-450 [facility] Comment on above: Performed By: #### P T, PTT #### [facility] [address] [place] [address] Dr. Amy Whitaker RBC 4.41 106/ul Normal 4.20-5.40 [facility] Comment on above: Performed By: #### P T, PTT #### [facility] [address] [place] [address] Dr. Amy Whitaker WBC 7.2 103/ul Normal 4.0-11.0 [facility] Comment on above: Performed By: #### P T, PTT #### [facility] [address] [place] [address] Dr. Amy Whitaker CREATININEon 08-29-2021 Creatinine [Mass/Vol] 0.73 mg/dL Normal 0.55-1.02 [facility] Comment on above: Performed By: #### R UBIGG #### [facility] [address] [place] [address] Dr. Amy Whitaker EGFR-AF KITTITIAN >60 Normal >=60 [facility] Comment on above: Performed By: #### R UBIGG #### [facility] [address] [place] [address] Dr. Amy Whitaker EGFR-NON AF KITTITIAN >60 Normal >=60 [facility] Comment on above: Performed By: #### R UBIGG #### [facility] [address] [place] [address] Dr. Amy Whitaker SGOTon 08-29-2021 AST [Catalytic activity/Vol] 14 U/L Critically low 15-37 The [facility] Comment on above: Performed By: #### R UBIGG #### [facility] [address] [place] [address] Dr. Amy Whitaker SGPTon 08-29-2021 ALT [Catalytic activity/Vol] 20 U/L Normal 14-59 [facility] Comment on above: Performed By: #### R UBIGG #### [facility] [address] [place] [address] Dr. Amy Whitaker CBC AUTO DIFFon 08-27-2021 BASO # 0.0 103/ul Normal 0.0-0.1 [facility] Comment on above: Performed By: #### C BC #### [facility] [address] [place] [address] Dr. Amy Whitaker Basophils/100 WBC (Bld) 0.2 % Normal 0.2-2.0 [facility] Comment on above: Performed By: #### C BC #### [facility] [address] [place] [address] Dr. Amy Whitaker EO # 0.0 103/ul Normal 0.0-0.7 [facility] Comment on above: Performed By: #### C BC #### [facility] [address] [place] [address] Dr. Amy Whitaker Eosinophils/100 WBC (Bld) 0.0 % Critically low 0.9-7.0 [facility] Comment on above: Performed By: #### C BC #### [facility] [address] [place] [address] Dr. Amy Whitaker Erythrocyte distribution width (RBC) [Ratio] 13.9 % Normal 11.0-15.0 [facility] Comment on above: Performed By: #### C BC #### [facility] [address] [place] [address] Dr. Amy Whitaker Hematocrit (Bld) [Volume fraction] 34.3 % Critically low 36.0-48.0 [facility] Comment on above: Performed By: #### C BC #### [facility] [address] [place] [address] Dr. Amy Whitaker Hemoglobin (Bld) [Mass/Vol] 11.2 g/dL Critically low 12.0-16.0 [facility] Comment on above: Result Comment: rece ived blood Performed By: #### C BC #### [facility] [address] [place] [address] Dr. Amy Whitaker IG # 0.02 10e3/ul Normal 0.00-0.03 [facility] Comment on above: Performed By: #### C BC #### [facility] [address] [place] [address] Dr. Amy Whitaker IG % 0.3 % Normal 0.0-0.5 [facility] Comment on above: Performed By: #### C BC #### [facility] [address] [place] [address] Dr. Amy Whitaker LYMPH # 0.8 103/ul Critically low 1.2-3.8 [facility] Comment on above: Performed By: #### C BC #### [facility] [address] [place] [address] Dr. Amy Whitaker Lymphocytes/100 WBC (Bld) 13.5 % Critically low 20.5-60.0 [facility] Comment on above: Performed By: #### C BC #### [facility] [address] [place] [address] Dr. Amy Whitaker MANUAL DIFF REQ NO Normal [facility] Comment on above: Performed By: #### C BC #### [facility] [address] [place] [address] Dr. Amy Whitaker MCH (RBC) [Entitic mass] 29.7 pg Normal 26.7-34.0 [facility] Comment on above: Performed By: #### C BC #### [facility] [address] [place] [address] Dr. Amy Whitaker MCHC (RBC) [Mass/Vol] 32.7 g/dL Normal 29.9-35.2 [facility] Comment on above: Performed By: #### C BC #### [facility] [address] [place] [address] Dr. Amy Whitaker MCV (RBC) [Entitic vol] 91.0 fL Normal 81.0-99.0 [facility] Comment on above: Performed By: #### C BC #### [facility] [address] [place] [address] Dr. Amy Whitaker MONO # 0.4 103/ul Normal 0.3-0.8 [facility] Comment on above: Performed By: #### C BC #### [facility] [address] [place] [address] Dr. Amy Whitaker Monocytes/100 WBC (Bld) 6.9 % Normal 1.7-12.0 [facility] Comment on above: Performed By: #### C BC #### [facility] [address] [place] [address] Dr. Amy Whitaker NEUT # 4.6 103/ul Normal 1.4-6.5 [facility] Comment on above: Performed By: #### C BC #### [facility] [address] [place] [address] Dr. Amy Whitaker Neutrophils/100 WBC (Bld) 79.1 % Critically high 43.0-75.0 [facility] Comment on above: Performed By: #### C BC #### [facility] [address] [place] [address] Dr. Amy Whitaker Platelet mean volume (Bld) [Entitic vol] 10.9 fL Normal 9.5-13.5 [facility] Comment on above: Performed By: #### C BC #### [facility] [address] [place] [address] Dr. Amy Whitaker PLT 174 103/ul Normal 150-450 [facility] Comment on above: Performed By: #### C BC #### [facility] [address] [place] [address] Dr. Amy Whitaker RBC 3.77 106/ul Critically low 4.20-5.40 [facility] Comment on above: Performed By: #### C BC #### [facility] [address] [place] [address] Dr. Amy Whitaker WBC 5.8 103/ul Normal 4.0-11.0 [facility] Comment on above: Performed By: #### C BC #### [facility] [address] [place] [address] Dr. Amy Whitaker CBC AUTO DIFFon 08-26-2021 BASO # 0.0 103/ul Normal 0.0-0.1 [facility] Comment on above: Performed By: #### C BC #### [facility] [address] [place] [address] Dr. Amy Whitaker Basophils/100 WBC (Bld) 0.2 % Normal 0.2-2.0 [facility] Comment on above: Performed By: #### C BC #### [facility] [address] [place] [address] Dr. Amy Whitaker EO # 0.0 103/ul Normal 0.0-0.7 [facility] Comment on above: Performed By: #### C BC #### [facility] [address] [place] [address] Dr. Amy Whitaker Eosinophils/100 WBC (Bld) 0.7 % Critically low 0.9-7.0 [facility] Comment on above: Performed By: #### C BC #### [facility] [address] [place] [address] Dr. Amy Whitaker Erythrocyte distribution width (RBC) [Ratio] 13.2 % Normal 11.0-15.0 [facility] Comment on above: Performed By: #### C BC #### [facility] [address] [place] [address] Dr. Amy Whitaker Hematocrit (Bld) [Volume fraction] 23.5 % Critically low 36.0-48.0 [facility] Comment on above: Performed By: #### C BC #### [facility] [address] [place] [address] Dr. Amy Whitaker Hemoglobin (Bld) [Mass/Vol] 7.7 g/dL Critically low 12.0-16.0 [facility] Comment on above: Performed By: #### C BC #### [facility] [address] [place] [address] Dr. Amy Whitaker IG # 0.02 10e3/ul Normal 0.00-0.03 [facility] Comment on above: Performed By: #### C BC #### [facility] [address] [place] [address] Dr. Amy Whitaker IG % 0.4 % Normal 0.0-0.5 [facility] Comment on above: Performed By: #### C BC #### [facility] [address] [place] [address] Dr. Amy Whitaker LYMPH # 1.0 103/ul Critically low 1.2-3.8 [facility] Comment on above: Performed By: #### C BC #### [facility] [address] [place] [address] Dr. Amy Whitaker Lymphocytes/100 WBC (Bld) 21.6 % Normal 20.5-60.0 [facility] Comment on above: Performed By: #### C BC #### [facility] [address] [place] [address] Dr. Amy Whitaker MANUAL DIFF REQ NO Normal [facility] Comment on above: Performed By: #### C BC #### [facility] [address] [place] [address] Dr. Amy Whitaker MCH (RBC) [Entitic mass] 30.0 pg Normal 26.7-34.0 [facility] Comment on above: Performed By: #### C BC #### [facility] [address] [place] [address] Dr. Amy Whitaker MCHC (RBC) [Mass/Vol] 32.8 g/dL Normal 29.9-35.2 [facility] Comment on above: Performed By: #### C BC #### [facility] [address] [place] [address] Dr. Amy Whitaker MCV (RBC) [Entitic vol] 91.4 fL Normal 81.0-99.0 [facility] Comment on above: Performed By: #### C BC #### [facility] [address] [place] [address] Dr. Amy Whitaker MONO # 0.4 103/ul Normal 0.3-0.8 [facility] Comment on above: Performed By: #### C BC #### [facility] [address] [address] [address] Amy Whitaker Monocytes/100 WBC (Bld) 7.8 % Normal 1.7-12.0 [facility] Comment on above: Performed By: #### C BC #### [facility] [address] [address] [address] Amy Whitaker NEUT # 3.1 103/ul Normal 1.4-6.5 [facility] Comment on above: Performed By: #### C BC #### [facility] [address] [address] [address] Amy Whitaker Neutrophils/100 WBC (Bld) 69.3 % Normal 43.0-75.0 [facility] Comment on above: Performed By: #### C BC #### [facility] [address] [place] [address] Dr. Amy Whitaker Platelet mean volume (Bld) [Entitic vol] 9.7 fL Normal 9.5-13.5 [facility] Comment on above: Performed By: #### C BC #### [facility] [address] [place] [address] Dr. Amy Whitaker PLT 154 103/ul Normal 150-450 [facility] Comment on above: Performed By: #### C BC #### [facility] [address] [place] [address] Dr. Amy Whitaker RBC 2.57 106/ul Critically low 4.20-5.40 [facility] Comment on above: Performed By: #### C BC #### [facility] [address] [place] [address] Dr. Amy Whitaker WBC 4.5 103/ul Normal 4.0-11.0 [facility] Comment on above: Performed By: #### C BC #### [facility] [address] [place] [address] Dr. Amy Whitaker CULTURE URINEon 08-26-2021 CULTURE URINE Culture Observations: NO GROWTH. Normal [facility] Comment on above: Performed By: #### U RCX #### [facility] [address] [place] [address] Dr. Amy Whitaker Covid-19 PCR (CVDTB)on 08-02 SARS-CoV-2 (COVID-19) RNA SHANNON+probe Ql (Unsp spec) Not detected Normal NOT DETECTED [facility] Comment on above: Result Comment: When diagnostic [...] for this test is supported by the Painter [employer] of Health and Human Service's declaration that [...] Performed By: #### P T, PTT #### [facility] [address] [place] [address] Dr. Amy Whitaker ER URINE PROFILEon Bilirubin Ql (U) SMALL Abnormal NEGATIVE [facility] Comment on above: Performed By: #### P T, PTT #### [facility] [address] [place] [address] Dr. Amy Whitaker Clarity (U) SL CLOUDY Abnormal CLEAR [facility] Comment on above: Performed By: #### P T, PTT #### [facility] [address] [place] [address] Dr. Amy Whitaker Color (U) RED Abnormal YELLOW The [facility] Comment on above: Performed By: #### P T, PTT #### [facility] [address] [place] [address] Dr. Amy Whitaker ERUAHD A micrscopic examination will be performed if indicated. Normal The [facility] Comment on above: Performed By: #### P T, PTT #### [facility] [address] [place] [address] Dr. Amy Whitaker Glucose Ql (U) Negative Normal NEGATIVE The [facility] Comment on above: Performed By: #### P T, PTT #### [facility] [address] [place] [address] Dr. Amy Whitaker Hemoglobin Ql (U) LARGE Abnormal NEGATIVE The [facility] Comment on above: Performed By: #### P T, PTT #### [facility] [address] [place] [address] Dr. Amy Whitaker Ketones Ql (U) TRACE Abnormal NEGATIVE The [facility] Comment on above: Performed By: #### P T, PTT #### [facility] [address] [place] [address] Dr. Amy Whitaker LEUKOCYTES LARGE Abnormal NEGATIVE [facility] Comment on above: Performed By: #### P T, PTT #### [facility] [address] [place] [address] Dr. Amy Whitaker Nitrite Ql (U) Positive Abnormal NEGATIVE The [facility] Comment on above: Performed By: #### P T, PTT #### [facility] [address] [place] [address] Dr. Amy Whitaker pH (U) 8.0 [pH] Normal 5-9 [facility] Comment on above: Performed By: #### P T, PTT #### [facility] [address] [place] [address] Dr. Amy Whitaker Protein (U) [Mass/Vol] 100 mg/dL Abnormal NEGATIVE/ TRACE The [facility] Comment on above: Performed By: #### P T, PTT #### [facility] [address] [place] [address] Dr. Amy Whitaker SPEC GRAVITY 1.015 Normal 1.005-<=1.025 The [facility] Comment on above: Performed By: #### P T, PTT #### [facility] [address] [place] [address] Dr. Amy Whitaker UR MICRO IND INDICATED Normal [facility] Comment on above: Performed By: #### P T, PTT #### [facility] [address] [place] [address] Dr. Amy Whitaker Urobilinogen Qn (U) 1.0 {Neelima'U}/dL Normal 0.2 - 1. 0 [facility] Comment on above: Performed By: #### P T, PTT #### [facility] [address] [place] [address] Dr. Amy Whitaker PREG HCG QUALon 08-26-2021 , QUAL Positive Abnormal NEGATIVE [facility] Comment on above: Performed By: #### P REG #### [facility] [address] [place] [address] Dr. Amy Whitaker PROF 14(COMP METB)on 022 Albumin [Mass/Vol] 3.4 g/dL Normal 3.4-5.0 [facility] Comment on above: Performed By: #### P T, PTT #### [facility] [address] [place] [address] Dr. Amy Whitaker Albumin/Globulin [Mass ratio] 1.2 {ratio} Normal [facility] Comment on above: Performed By: #### P T, PTT #### [facility] [address] [place] [address] Dr. Amy Whitaker ALP [Catalytic activity/Vol] 47 U/L Normal 46-116 [facility] Comment on above: Performed By: #### P T, PTT #### [facility] [address] [place] [address] Dr. Amy Whitaker ALT [Catalytic activity/Vol] 14 U/L Normal 14-59 [facility] Comment on above: Performed By: #### P T, PTT #### [facility] [address] [place] [address] Dr. Amy Whitaker Anion gap [Moles/Vol] 10.8 mmol/L Normal [facility] Comment on above: Performed By: #### P T, PTT #### [facility] [address] [place] [address] Dr. Amy Whitaker AST [Catalytic activity/Vol] 9 U/L Critically low 15-37 [facility] Comment on above: Performed By: #### P T, PTT #### [facility] [address] [address] [address] Amy Whitaker Bilirubin [Mass/Vol] 0.7 mg/dL Normal 0.2-1.0 [facility] Comment on above: Performed By: #### P T, PTT #### [facility] [address] [place] [address] Dr. Amy Whitaker Calcium [Mass/Vol] 7.9 mg/dL Critically low 8.5-10.1 Th e [facility] Comment on above: Performed By: #### P T, PTT #### [facility] [address] [place] [address] Dr. Amy Whitaker Chloride [Moles/Vol] 105 mmol/L Normal 98-107 [facility] Comment on above: Performed By: #### P T, PTT #### [facility] [address] [place] [address] Dr. Amy Whitaker CO2 [Moles/Vol] 27.0 mmol/L Normal 21.0-32.0 [facility] Comment on above: Performed By: #### P T, PTT #### [facility] [address] [place] [address] Dr. Amy Whitaker Creatinine [Mass/Vol] 0.51 mg/dL Critically low 0.55-1.02 [facility] Comment on above: Performed By: #### P T, PTT #### [facility] [address] [place] [address] Dr. Amy Whitaker EGFR-AF KITTITIAN >60 Normal >=60 The [facility] Comment on above: Performed By: #### P T, PTT #### [facility] [address] [place] [address] Dr. Amy Whitaker EGFR-NON AF KITTITIAN >60 Normal >=60 [facility] Comment on above: Performed By: #### P T, PTT #### [facility] [address] [place] [address] Dr. Amy Whitaker Globulin (S) [Mass/Vol] 2.8 g/dL Normal [facility] Comment on above: Performed By: #### P T, PTT #### [facility] [address] [address] [address] Amy Whitaker Glucose [Mass/Vol] 98 mg/dL Normal 74-106 [facility] Comment on above: Performed By: #### P T, PTT #### [facility] [address] [address] [address] Amy Whitaker Potassium [Moles/Vol] 3.8 mmol/L Normal 3.5-5.1 [facility] Comment on above: Performed By: #### P T, PTT #### [facility] [address] [address] [address] Amy Whitaker Protein [Mass/Vol] 6.2 g/dL Normal 6.1-8.2 [facility] Comment on above: Performed By: #### P T, PTT #### [facility] [address] [address] [address] Amy Whitakre Sodium [Moles/Vol] 139 mmol/L Normal 136-145 [facility] Comment on above: Performed By: #### P T, PTT #### [facility] [address] [address] [address] Amy Whitaker Urea nitrogen [Mass/Vol] 7.0 mg/dL Normal 7.0-18.0 [facility] Comment on above: Performed By: #### P T, PTT #### [facility] [address] [address] [address] Amy Whitaker Urea nitrogen/Creatinine [Mass ratio] 13.7 mg/mg Normal [facility] Comment on above: Performed By: #### P T, PTT #### [facility] [address] [address] [address] Amy Whitaker PROTIMEon 08-26-2021 INR Coag (PPP) [Relative time] 1.01 {INR} Normal [facility] Comment on above: Performed By: #### P T, PTT #### [facility] [address] [address] [address] Amy Whitaker INR GUIDELINES SEE BELOW Normal [facility] Comment on above: Result Comment: DIVINA RED INR: 2.0 - 3.0 CONDITIONS NOT LISTED BELOW 2.5 - 3.5 FOR PROSTHETIC HEART VALVE REPLACEMENT 2.5 - 3.5 RECURRENT THROMBOSIS Performed By: #### P T, PTT #### [facility] [address] [place] [address] Dr. Amy Whitaker PT Coag (PPP) [Time] 10.9 s Normal 9.0-11.6 The [facility] Comment on above: Performed By: #### P T, PTT #### [facility] [address] [place] [address] Dr. Amy Whitaker PTTon 08-26-2021 aPTT Coag (Bld) [Time] 23.4 s Normal 22.3-36.2 The [facility] Comment on above: Performed By: #### P T, PTT #### [facility] [address] [place] [address] Dr. Amy Whitaker TYPE AND SCREENon 08-26-2021 TYPE AND SCREEN Negative Normal The [facility] Comment on above: Performed By: #### T NS #### [facility] [address] [place] [address] Dr. Amy Whitaker URINE MICROSCOPIC ONLYon BACTERIA TRACE Abnormal NONE SEEN The [facility] Comment on above: Performed By: #### P T, PTT #### [facility] [address] [place] [address] Dr. Amy Whitaker Bacteria identified Cx Nom (U) INDICATED Normal The [facility] Comment on above: Performed By: #### P T, PTT #### [facility] [address] [place] [address] Dr. Amy Whitaker CAST NONE SEEN Normal NONE SEEN [facility] Comment on above: Performed By: #### P T, PTT #### [facility] [address] [place] [address] Dr. Amy Whitaker Crystals LM Nom (Urine sed) NONE SEEN Normal NONE SEEN The [facility] Comment on above: Performed By: #### P T, PTT #### [facility] [address] [place] [address] Dr. Amy Whitaker Epithelial cells LM Ql (Urine sed) NONE SEEN Normal NONE SEEN /RARE The [facility] Comment on above: Performed By: #### P T, PTT #### [facility] [address] [place] [address] Dr. Amy Whitaker MUCOUS NONE SEEN Normal NONE SEEN The [facility] Comment on above: Performed By: #### P T, PTT #### [facility] [address] [place] [address] Dr. Amy Whitaker RBC (U) [#/Vol] /uL Abnormal 0-2 [facility] Comment on above: Performed By: #### P T, PTT #### [facility] [address] [place] [address] Dr. Amy Whitaker WBC 0-2 Abnormal NONE SEEN The [facility] Comment on above: Performed By: #### P T, PTT #### [facility] [address] [place] [address] Dr. Amy Whitaker US PELVISon 08-26-2021 US [...] LAZARO FORRESTER Date: 2021-08-26 13:18 Normal The [facility] US PELVISon 08-23-2021 US PELVIS EXAM: US [...] PATRICK VICENTE Date: 2021-08-23 12:13 Normal The [facility] CBC AUTO DIFFon 08-22-2021 BASO # 0.0 103/ul Normal 0.0-0.1 The [facility] Comment on above: Performed By: #### P T, PTT #### [facility] [address] [address] [address] Amy Whitaker Basophils/100 WBC (Bld) 0.4 % Normal 0.2-2.0 [facility] Comment on above: Performed By: #### P T, PTT #### [facility] [address] [address] [address] Amy Whitaker EO # 0.1 103/ul Normal 0.0-0.7 The [facility] Comment on above: Performed By: #### P T, PTT #### [facility] [address] [address] [address] Amy Whitaker Eosinophils/100 WBC (Bld) 0.8 % Critically low 0.9-7.0 The [facility] Comment on above: Performed By: #### P T, PTT #### [facility] [address] [address] [address] Amy Whitaker Erythrocyte distribution width (RBC) [Ratio] 12.4 % Normal 11.0-15.0 The [facility] Comment on above: Performed By: #### P T, PTT #### [facility] [address] [address] [address] Amy Whitaker Hematocrit (Bld) [Volume fraction] 37.4 % Normal 36.0-48.0 [facility] Comment on above: Performed By: #### P T, PTT #### [facility] [address] [address] [address] Amy Whitaker Hemoglobin (Bld) [Mass/Vol] 12.6 g/dL Normal 12.0-16.0 [facility] Comment on above: Performed By: #### P T, PTT #### [facility] [address] [address] [address] Amy Whitaker IG # 0.04 10e3/ul Critically high 0.00-0.03 [facility] Comment on above: Performed By: #### P T, PTT #### [facility] [address] [address] [address] Amy Whitaker IG % 0.5 % Normal 0.0-0.5 [facility] Comment on above: Performed By: #### P T, PTT #### [facility] [address] [place] [address] Dr. Amy Whitaker LYMPH # 2.0 103/ul Normal 1.2-3.8 [facility] Comment on above: Performed By: #### P T, PTT #### [facility] [address] [address] [address] Amy Whitaker Lymphocytes/100 WBC (Bld) 27.2 % Normal 20.5-60.0 [facility] Comment on above: Performed By: #### P T, PTT #### [facility] [address] [address] [address] Amy Whitaker MANUAL DIFF REQ NO Normal [facility] Comment on above: Performed By: #### P T, PTT #### [facility] [address] [address] [address] Amy Whitaker MCH (RBC) [Entitic mass] 29.4 pg Normal 26.7-34.0 [facility] Comment on above: Performed By: #### P T, PTT #### [facility] [address] [address] [address] Amy Whitaker MCHC (RBC) [Mass/Vol] 33.7 g/dL Normal 29.9-35.2 [facility] Comment on above: Performed By: #### P T, PTT #### [facility] [address] [address] [address] Amy Whitaker MCV (RBC) [Entitic vol] 87.4 fL Normal 81.0-99.0 [facility] Comment on above: Performed By: #### P T, PTT #### [facility] [address] [place] [address] Dr. Amy Whitaker MONO # 0.7 103/ul Normal 0.3-0.8 [facility] Comment on above: Performed By: #### P T, PTT #### [facility] [address] [place] [address] Dr. Amy Whitaker Monocytes/100 WBC (Bld) 9.7 % Normal 1.7-12.0 [facility] Comment on above: Performed By: #### P T, PTT #### [facility] [address] [place] [address] Dr. Amy Whitaker NEUT # 4.6 103/ul Normal 1.4-6.5 [facility] Comment on above: Performed By: #### P T, PTT #### [facility] [address] [place] [address] Dr. Amy Whitaker Neutrophils/100 WBC (Bld) 61.4 % Normal 43.0-75.0 [facility] Comment on above: Performed By: #### P T, PTT #### [facility] [address] [place] [address] Dr. Amy Whitaker Platelet mean volume (Bld) [Entitic vol] 10.1 fL Normal 9.5-13.5 The [facility] Comment on above: Performed By: #### P T, PTT #### [facility] [address] [place] [address] Dr. Amy Whitaker PLT 222 103/ul Normal 150-450 The [facility] Comment on above: Performed By: #### P T, PTT #### [facility] [address] [place] [address] Dr. Amy Whitaker RBC 4.28 106/ul Normal 4.20-5.40 The [facility] Comment on above: Performed By: #### P T, PTT #### [facility] [address] [address] [address] Amy Whitaker WBC 7.5 103/ul Normal 4.0-11.0 [facility] Comment on above: Performed By: #### P T, PTT #### [facility] [address] [place] [address] Dr. Amy Whitaker FIBRINOGENon 08-22-2021 FIBRINOGEN 261.0 mg/dl Normal 200.0-400.0 [facility] Comment on above: Performed By: #### P T, PTT #### [facility] [address] [place] [address] Dr. Amy Whitaker PREG QUANT HCGon 08-22-2021 HCG QUANT [id number] mIU/mL Normal [facility] Comment on above: Performed By: #### P REGQNT #### [facility] [address] [place] [address] Dr. Amy Whitaker HCG RANGE SEE BELOW Normal [facility] Comment on above: Result Comment: 5-50 0-1 WEEK 40-300 1-2 WEEKS 100-1,000 2-3 WEEKS 500-6,000 3-4 WEEKS 5,000-200,000 1-2 MONTHS 10,000-100,000 2-3 MONTHS 3,000-50,000 2ND TRIMESTER 1,000-50,000 3RD TRIMESTER Performed By: #### P REGQNT #### [facility] [address] [place] [address] Dr. Amy Whitaker PROTIMEon 08-22-2021 INR Coag (PPP) [Relative time] 1.06 {INR} Normal [facility] Comment on above: Performed By: #### P T, PTT #### [facility] [address] [place] [address] Dr. Amy Whitaker INR GUIDELINES SEE BELOW Normal The [facility] Comment on above: Result Comment: DIVINA RED INR: 2.0 - 3.0 CONDITIONS NOT LISTED BELOW 2.5 - 3.5 FOR PROSTHETIC HEART VALVE REPLACEMENT 2.5 - 3.5 RECURRENT THROMBOSIS Performed By: #### P T, PTT #### [facility] [address] [address] [address] Amy Whitaker PT Coag (PPP) [Time] 11.4 s Normal 9.0-11.6 The [facility] Comment on above: Performed By: #### P T, PTT #### [facility] [address] [address] [address] Amy Whitaker PTTon 08-22-2021 aPTT Coag (Bld) [Time] 25.6 s Normal 22.3-36.2 The [facility] Comment on above: Performed By: #### P T, PTT #### [facility] [address] [place] [address] Dr. Amy Whitaker Covid-19 PCR ([facility])on 08-02 SARS-CoV-2 (COVID-19) RNA SHANNON+probe Ql (Unsp spec) Not detected Normal NOT DETECTED The [facility] Comment on above: Result Comment: When diagnostic [...] for this test is supported by the Painter Decorator of Health and Human Service's declaration that [...] Performed By: #### P T, PTT #### [facility] [address] [place] [address] Dr. Amy Whitaker US PREG TVon 08-19-2021 [...] at the time of imaging by the clay puddler. Electronically authenticated by: PATIRCK KRAUSE Date: 2021-08-19 17:18 Normal The [facility] HEP B SURFACE ANTIGEN SCREEN on 08-08-2021 HBsAg Screen Negative Normal Negative The [facility] Comment on above: Performed By: #### P T, PTT #### [facility] [address] [place] [address] Dr. Amy Whitaker HEPATITIS C VIRUS AB W/ REFL EX QUANTon 08-08-2021 HCV AB <0.1 Normal 0.0-0.9 [facility] Comment on above: Performed By: #### P T, PTT #### [facility] [address] [place] [address] Dr. Amy Whitaker Interpretation: Comment Normal The [facility] Comment on above: Result Comment: Nega tive Not infected with HCV, unless recent infection is suspected or other evidence exists to indicate HCV infection. Performed By: #### P T, PTT #### [facility] [address] [place] [address] Dr. Amy Whitaker HIV 1 AND 2 WITH REFLEXon HIV Screen 4th Generation wRfx Non-Reactive Normal Non Reactive The [facility] Comment on above: Result Comment: HIV Negative HIV-1/HIV-2 antibodies and HIV-1 p24 antigen were NOT detected. There is no laboratory evidence of HIV infection. Performed By: #### P T, PTT #### [facility] [address] [place] [address] Dr. Amy Whitaker RPR QUANTon 08-08-2021 Rapid Plasma Reagin, Quant Non-Reactive Normal NonRea<1:1 The [facility] Comment on above: Result Comment: Plejuan castellanos Note: This test does not meet current guidelines for screening and diagnosis of syphilis. This test is intended for following treatment response in patients being treated for syphilis infection. To screen for syphilis infection, a reflex cascade that includes both RPR and a treponema-specific assay should be utilized, such as Treponema pallidum (Syphilis) Screening [place] (090546) or Rapid Plasma Reagin (RPR) Test With Reflex to Quantitative RPR and Confirmatory Treponema pallidum Antibodies (162445). Performed By: #### P T, PTT #### [facility] [address] [place] [address] Dr. Amy Whitaker RUBELLA AB IGGon 08-08-2021 Rubella Antibodies, IgG 1.68 index Normal Immune >0.99 [facility] Comment on above: Result Comment: Non- immune <0.90 Equivocal 0.90 - 0.99 Immune >0.99 Performed By: #### R UBIGG #### [facility] [address] [place] [address] Dr. Amy Whitaker CBC AUTO DIFFon 08-07-2021 BASO # 0.0 103/ul Normal 0.0-0.1 [facility] Comment on above: Performed By: #### P T, PTT #### [facility] [address] [place] [address] Dr. Amy Whitaker Basophils/100 WBC (Bld) 0.3 % Normal 0.2-2.0 The [facility] Comment on above: Performed By: #### P T, PTT #### [facility] [address] [place] [address] Dr. Amy Whitaker EO # 0.0 103/ul Normal 0.0-0.7 The [facility] Comment on above: Performed By: #### P T, PTT #### [facility] [address] [place] [address] Dr. Amy Whitaker Eosinophils/100 WBC (Bld) 0.3 % Critically low 0.9-7.0 The [facility] Comment on above: Performed By: #### P T, PTT #### [facility] [address] [place] [address] Dr. Amy Whitaker Erythrocyte distribution width (RBC) [Ratio] 12.2 % Normal 11.0-15.0 [facility] Comment on above: Performed By: #### P T, PTT #### [facility] [address] [place] [address] Dr. Amy Whitaker Hematocrit (Bld) [Volume fraction] 38.5 % Normal 36.0-48.0 [facility] Comment on above: Performed By: #### P T, PTT #### [facility] [address] [place] [address] Dr. Amy Whitaker Hemoglobin (Bld) [Mass/Vol] 13.0 g/dL Normal 12.0-16.0 [facility] Comment on above: Performed By: #### P T, PTT #### [facility] [address] [place] [address] Dr. Amy Whitaker IG # 0.02 10e3/ul Normal 0.00-0.03 [facility] Comment on above: Performed By: #### P T, PTT #### [facility] [address] [place] [address] Dr. Amy Whitaker IG % 0.3 % Normal 0.0-0.5 [facility] Comment on above: Performed By: #### P T, PTT #### [facility] [address] [place] [address] Dr. Amy Whitaker LYMPH # 1.6 103/ul Normal 1.2-3.8 [facility] Comment on above: Performed By: #### P T, PTT #### [facility] [address] [place] [address] Dr. Amy Whitaker Lymphocytes/100 WBC (Bld) 20.2 % Critically low 20.5-60.0 [facility] Comment on above: Performed By: #### P T, PTT #### [facility] [address] [place] [address] Dr. Amy Whitaker MANUAL DIFF REQ NO Normal [facility] Comment on above: Performed By: #### P T, PTT #### [facility] [address] [place] [address] Dr. Amy Whitaker MCH (RBC) [Entitic mass] 29.3 pg Normal 26.7-34.0 [facility] Comment on above: Performed By: #### P T, PTT #### [facility] [address] [place] [address] Dr. Amy Whitaker MCHC (RBC) [Mass/Vol] 33.8 g/dL Normal 29.9-35.2 The [facility] Comment on above: Performed By: #### P T, PTT #### [facility] [address] [place] [address] Dr. Amy Whitaker MCV (RBC) [Entitic vol] 86.7 fL Normal 81.0-99.0 [facility] Comment on above: Performed By: #### P T, PTT #### [facility] [address] [place] [address] Dr. Amy Whitaker MONO # 0.6 103/ul Normal 0.3-0.8 [facility] Comment on above: Performed By: #### P T, PTT #### [facility] [address] [place] [address] Dr. Amy Whitaker Monocytes/100 WBC (Bld) 8.0 % Normal 1.7-12.0 [facility] Comment on above: Performed By: #### P T, PTT #### [facility] [address] [place] [address] Dr. Amy Whitaker NEUT # 5.5 103/ul Normal 1.4-6.5 The [facility] Comment on above: Performed By: #### P T, PTT #### [facility] [address] [place] [address] Dr. Amy Whitaker Neutrophils/100 WBC (Bld) 70.9 % Normal 43.0-75.0 The [facility] Comment on above: Performed By: #### P T, PTT #### [facility] [address] [place] [address] Dr. Amy Whitaker Platelet mean volume (Bld) [Entitic vol] 10.1 fL Normal 9.5-13.5 [facility] Comment on above: Performed By: #### P T, PTT #### [facility] [address] [place] [address] Dr. Amy Whitaker PLT 217 103/ul Normal 150-450 [facility] Comment on above: Performed By: #### P T, PTT #### [facility] [address] [address] [address] Amy Whitaker RBC 4.44 106/ul Normal 4.20-5.40 [facility] Comment on above: Performed By: #### P T, PTT #### [facility] [address] [place] [address] Dr. mAy Whitaker WBC 7.7 103/ul Normal 4.0-11.0 [facility] Comment on above: Performed By: #### P T, PTT #### [facility] [address] [place] [address] Dr. Amy Whitaker CULTURE URINEon 08-07-2021 CULTURE URINE Culture Observations: MODERATE GROWTH OF MIXED GENITAL DINA. NO POTENTIAL PATHOGENS SEEN. Normal [facility] Comment on above: Performed By: #### R UBIGG #### [facility] [address] [place] [address] Dr. Amy Whitaker GLYCOHEMOGLOBIN A1Con 2021 ADA RECOMMENDATION ADA THERAPEUTIC TARGET 6.0 - 7.0 ACTION SUGGESTED > 7.0 Normal [facility] Comment on above: Performed By: #### C BC #### [facility] [address] [place] [address] Dr. Amy Whitaker Glucose [Mass/Vol] 108 mg/dL Normal [facility] Comment on above: Performed By: #### C BC #### [facility] [address] [place] [address] Dr. Amy Whitaker HbA1c (Bld) [Mass fraction] 5.4 % Normal <=6.0 [facility] Comment on above: Performed By: #### C BC #### [facility] [address] [place] [address] Dr. Amy Whitaker JONAS BOX TEST PT SEND OUTo n 08-07-2021 SENT TO REF LAB 08/07/2021 Normal The [facility] Comment on above: Performed By: #### C BC #### [facility] [address] [place] [address] Dr. Amy Whitaker TYPE AND SCREENon 08-07-2021 TYPE AND SCREEN Negative Normal [facility] Comment on above: Performed By: #### T NS #### [facility] [address] [place] [address] Dr. Amy Whitaker US PREG TVon 08-01-2021 [...] by: LAZARO FORRESTER Date: 2021-08-01 16:12 Normal The [facility] Vital Signs Date Time Vital Sign Value Performing Clinician Paul arias 06-15-2023 14:45-0500 Body mass index (BMI) [Ratio] 19.18 kg/m2 Jhonny Urban DO Work Phone: [facility] 06-15-2023 14:45-0500 Body weight 58.06 kg Jhonny Urban DO Work Phone: [facility] 06-15-2023 14:45-0500 Diastolic blood pressure 68 mm[Hg] Jhonny Urban DO Work Phone: [facility] 06-15-2023 14:45-0500 Systolic blood pressure 114 mm[Hg] Jhonny Urban DO Work Phone: [facility] Encounters Encounter Date Encounter Type Care Provider Facility Start: 10-12-2023 End: 10-12-2023 ambulatory JHONNY URBAN Not Available Start: 09-28-2023 End: 09-28-2023 ambulatory JHONNY URBAN Not Available Start: 09-13-2023 End: 09-13-2023 ambulatory ELHAM PIERRE Not Available Start: 08-10-2023 End: 08-10-2023 ambulatory JHONNY URBAN Not Available Start: 07-14-2023 End: 07-14-2023 ambulatory ELHAM PIERRE Not Available Start: 06-15-2023 End: 06-15-2023 Patient encounter procedure Jhonny Urban DO Work Phone: [facility] Work Phone: Start: 06-15-2023 End: 06-15-2023 Periodic preventive med est patient 18-39 yrs Jhonny Urban DO Work Phone: [facility] Comment on above: Well woman exam with routine gynecological exam; Second trimester ; Vaginal discharge; STD exposure Start: 06-15-2023 End: 06-15-2023 ambulatory JHONNY URBAN Not Available Start: 06-15-2023 Clinisync Result Encounter Jhonny Urban DO Work Phone: [facility] Unsolicited Start: 06-15-2023 Clinisync Result Encounter Jhonny Urban DO Work Phone: [facility] Unsolicited Start: 05-13-2023 End: 05-13-2023 ambulatory JHONNY LIRAO Not Available Start: 03-15-2023 End: 03-15-2023 ambulatory JHONNY LIRAO Not Available Start: 08-29-2021 End: 08-30-[address] JHONNY DUGGAN Facility:[facility] Start: 08-26-2021 End: 08-27-[address] BJORN GÓMEZ Facility:[facility] Start: 08-22-2021 Encounter for preprocedural laboratory examination DR JHONNY DUGGAN [facility] Start: 08-22-2021 End: 08-22-[address] JHONNY DUGGAN Facility:[facility] Start: 08-21-2021 End: 08-22-[address] JHONNY DUGGAN Facility:[facility] Start: 08-21-2021 End: 08-22-2021 Encounter for preprocedural laboratory examination DR JHONNY DUGGAN Facility:[facility] Start: 08-19-2021 End: 08-20-[address] JHONNY DUGGAN Facility:[facility] Start: 08-07-2021 End: 08-08-[address] JHONNY DUGGAN Facility:[facility] Start: 08-01-2021 End: 08-02-[address] JHONNY UDGGAN Facility:[facility] Procedures Date Procedure Procedure Detail Performing Clinician Start: 06-15-2023 [facility] BOX TEST SENT OUT Lisandra Duggan DO Work Phone: Start: 06-15-2023 Urnls dip stick/tabl et rgnt non-auto w/o micrscp Jhonny Duggan DO Work Phone: Plan of Treatment Date Care Activity Detail Author Start: 07-14-2023 End: 07-14-2023 Patient encounter procedure 07/14/2023 1:30 PM EDT Routine [facility] [address] [place] [id number] Elham Pierre PA [address] [place] [address] [facility] Start: 06-15-2023 End: 08-14-2023 Alpha fetoprotein, maternal Alpha fetoprotein, maternal Lab Routine Second trimester Expected: 06/15/2023 (Approximate), Expires: 08/14/2023 [facility] Comment on above: Expected: 06/15/2023 (Approximate), Expires: 08/14/2023 Start: 01-01-2023 Influenza vaccination Influenza Vacc ine (#1) [facility] CHLAMYDIA TRACHOMATI S (GENITO/STI) CHLAMYDIA TRACHOMATIS (GENITO/STI) Lab Routine STD exposure Ordered: 06/15/2023 [facility] Comment on above: Ordered: 06/15/2023 Cytology Cervical or vaginal smear or scraping study Pap Smear Pathology and Cytology Routine Well woman exam with routine gynecological exam Ordered: 06/15/2023 [facility] Work Phone: Comment on above: Ordered: 06/15/2023 Neisseria gonorrhoea e DNA [Presence] in Unspecified specimen by SHANNON with probe detection Neisseria gonorrhea DNA probe, direct Lab Routine STD exposure Ordered: 06/15/2023 [facility] Comment on above: Ordered: 06/15/2023 SURESWAB(R) ADVANCED VAGINITIS PLUS, TMA SURESWAB(R) ADVANCED VAGINITIS PLUS, TMA Pathology and Cytology Routine Vaginal discharge Ordered: 06/15/2023 [facility] Comment on above: Ordered: 06/15/2023 Immunizations Immunization Date Immunization Notes Care Provider Jen peng 03-08-2020 influenza virus vacc ine, unspecified formulation Jhonnynikita Lirao DO Work Phone: [facility] Payers Date Payer Category Payer Unknown BCBS BCBS xxxxxx [id number] 2022-Present [phone] [address] [place] [address] [id number] 2022 Unknown [id number] 2022 Unknown [id number] 2022 Medicaid [employer] [place] [id number] 2022-Present [address] [place] [address] [id number] 2019 Medicaid [id number] 2001 Unknown [id number] 2001 Unknown [id number] [id number] 2001 Unknown [id number] 2.16.840.1.800417.3.579.2.593 2001 Unknown [id number] 2.16.840.1.213491.3.579.2.593 2001 Unknown [id number] 2.16.840.1.079966.3.579.2.593 2001 Unknown [id number] 2.16.840.1.814809.3.579.2.593 2001 Unknown [id number] 2.16.840.1.900211.3.579.2.593 2001 Unknown [id number] 2.16.840.1.054901.3.579.2.1259 2001 Unknown [id number] 2.16.840.1.094397.3.579.2.1259 2001 Unknown [id number] 2.16.840.1.523688.3.579.2.1259 2001 Unknown [id number] 2.16.840.1.016275.3.579.2.1259 2001 Unknown [id number] 2.16.840.1.132077.3.579.2.1259 2001 Unknown [id number] 2.16.840.1.302980.3.579.2.1259 2001 Unknown [id number] 2.16.840.1.925739.3.579.2.1259 2001 Unknown [id number] 2.16.840.1.877799.3.579.2.1259 1959 Self-pay 1959 Unknown [id number] 1959 Unknown [id number] Unknown [id number] [id number] Social History Date Type Detail Facility Start: 03-02-2023 Tobacco smoking stat [facility] Never smoked tobacco [facility] Start: 03-02-2023 Tobacco use and exposure Smokeless t obacco non-user [facility] Start: 06-15-2023 Alcohol intake Current drinke r of alcohol (finding) [facility] Start: 03-02-2023 End: 06-15-2023 Alcohol intake [facility] Start: 03-02-2023 Tobacco use panel [facility] Start: 03-22-2023 [facility] Start: 2001 Sex Assigned At Not on file [facility] Goals Date Patient Goal Desired Activity /State Personal health goal History of Present illness Narrative 06-15-2023 Luna Corrigan, MACHINE TOOL ELECTRICIAN - 06/15/2023 2:40 PM EST Note Date & Type Note Facility 06-15-2023 History of Presen t illness Narrative Reason for Appointment: Patient ID: Maricarmen Jennings is a 23 y.o. female who presents for Routine Visit Patient presents today for Annual Exam, STD Check, and Return OB appointment. Current Medications: currently has no medications in their medication list. Medical History: Active Ambulatory Problems Diagnosis Date Noted No Active Ambulatory Problems Resolved Ambulatory Problems Diagnosis Date Noted No Resolved Ambulatory Problems No Additional Past Medical History No family history on file. Social History Tobacco Use Smoking status: Never Smokeless tobacco: Never Vaping Use Vaping Use: Every day Substance Use Topics Alcohol use: Yes Alcohol/week: 18.0 standard drinks of alcohol Types: 18 Cans of beer per week Drug use: Not on file Past Surgical History: Procedure Laterality Date ADENOIDECTOMY DILATION AND CURETTAGE OF UTERUS No Known Allergies Review of Systems: Review of Systems Constitutional: Negative. HENT: Negative. Eyes: Negative. Respiratory: Negative. Cardiovascular: Negative. Gastrointestinal: Negative. Genitourinary: Negative. Musculoskeletal: Negative. Skin: Negative. Neurological: Negative. All other systems reviewed and are negative. Hematological: Negative. Endocrine: Negative. Allergic/Immunologic: Negative. Objective Physical Exam Constitutional: Appearance: Normal appearance. She is well-developed. Genitourinary: Vulva normal. Breasts: Breasts are soft. Right: Normal. Left: Normal. Cardiovascular: Rate and Rhythm: Normal rate and regular rhythm. Pulmonary: Effort: Pulmonary effort is normal. Breath sounds: Normal breath sounds. Abdominal: General: Bowel sounds are normal. There is no distension. Palpations: Abdomen is soft. Tenderness: There is no abdominal tenderness. There is no guarding or rebound. Musculoskeletal: General: No swelling. Normal range of motion. Right lower leg: No edema. Left lower leg: No edema. Neurological: Mental Status: She is alert and oriented to person, place, and time. Skin: General: Skin is warm and dry. Psychiatric: Mood and Affect: Mood normal. Behavior: Behavior normal. Vitals and nursing note reviewed. Exam conducted with a one piece expansion maker hand present. Vitals: Estimated body mass index is 19.18 kg/m as calculated from the following: Height as of 23: 5' 8.5 . Weight as of this encounter: 128 lb. BP: 114/68 Patient's last menstrual period was 03/08/2023. Assessment/Plan Encounter Diagnoses Name Primary? Well woman exam with routine gynecological exam Second trimester Vaginal discharge STD exposure Patient presents today for an annual exam/routine obstetrics appointment. Patient is currently 14w1d . Patient is doing well and states she has no complaints. Pap/cultures was obtained without difficulty and patient was given msAFP order to have obtained. Follow Up: Patient is to return to our office in 4 weeks for routine OB appointment Documented by Luna Corrigan LPN on behalf of: Jhonny Duggan DO documented in this encounter [facility] Clinical Note 08-26-2021 Note Date & Type Note Facility 08-26-2021 Note EXAMINATION: US PELV IS HISTORY: Surgical procedure COMPARISON: 08/27/20192009 7:00 PM FINDINGS: Intraprocedural images from the [facility] Initial images demonstrate heterogeneous distended appearance [...] endometrial cavity IMPRESSION: Intraprocedural images from a [facility] Electronically authenticated by: LAZARO FORRESTER Date: 2021-08-26 17:54 The [facility] Discharge summary note 08-26-2021 Note Date & [...] pain free and no longer on narcotics. [facility] Signed and Approved by: DR JHONNY DUGGAN . 09/16/2021 10:47:00 The [facility] Clinical Note 08-26-2021 Note Date & Type Note Facility 08-26-2021 Note The [place], [place] NAME: MARICARMEN JENNINGS DATE OF : MEDICAL REC#: [id number] CIRCULATING PROCESS INSPECTOR: [address] [facility], TRANSADMIT DATE: 08/26/2021 11:13:00 AUTOMOTIVE DRIVABILITY TECHNICIAN DATE: 09/11/2021 21:00 DICTATING PHYSICIAN: JHONNY DUGGAN DICTATION DATE: 09/08/2021 08:00 OPERATIVE NOTE OPERATION DATE: 09/08/2021 PROCEDURE: Suction D AND C. PREOPERATIVE DIAGNOSIS: Vaginal bleeding, status post prior D AND C for missed . POSTOPERATIVE DIAGNOSIS: Vaginal bleeding, status post prior D AND C for missed . ANESTHESIA: General. SURGEON: Jhonny Duggan D.O. PROFILE SAW SETUP OPERATOR: None. FINDINGS: No products of conception [...] and blood products were removed using an 8-Ecuadorean suction curette. Excellent hemostasis was noted. The patient tolerated the procedure well. Sponge, lap, and needle counts were correct x 2. All instruments were then removed from the patient's vagina. The patient was taken to the Recovery Room in stable condition. ?? Electronically Authenticated and Edited by: Jhonny Duggan DO on 09/16/2021 10:14 AM EDT [facility] Signed and Approved by: DR JHONNY DUGGAN . 09/16/2021 10:14:00 [facility] Clinical Note 08-22-2021 Note Date & Type Note Facility 08-22-2021 Note OPERATIVE NOTE OPERATION DATE:08/22/2021 PROCEDURE: Suction D AND C. PREOPERATIVE DIAGNOSIS: Missed POSTOPERATIVE DIAGNOSIS: Missed . ANESTHESIA: General. SURGEON: Jhonny Duggan D.O. PROFILE SAW SETUP OPERATOR: None. BLOOD LOSS: 200 mL. URINE [...] to the Recovery Room in stable condition. [facility] Signed and Approved by: DR JHONNY DUGGAN . 08/31/2021 19:44:00 [facility] Evaluation note Note Date & Type Note Facility Evaluation note Diagnosis Well woman exam with routine gynecological exam Routine gynecological examination Second trimester state, incidental Vaginal discharge Leukorrhea, not specified as infective STD exposure documented in this encounter [facility] Summary Purpose Family History No Family History Records FoundNo Family History Records Found Advance Directives No Advanced Directives Records FoundNo Advanced Directives Records Found Additional Source Comments INFORMATION SOURCE (unrecogn ized section and content) DATE CREATED AUTHOR 03/17/2022 [facility] DATE CREATED AUTHOR AUTHOR'S ORGANIZ ATION 10/12/2023 [facility] EPIC Reason for Visit (unrecogniz ed section and content) Reason Comments Routine Visit Care Teams (unrecognized sec tion and content) Warp Hauler Relationship Specialty Start Date End Date Catrachita Duff MD [address] [place] [address] PCP - General Family Medicine 03/01/23 Warp Hauler Relationship Specialty Start Date End Date Catrachita Duff MD [address] [place] [address] PCP - General Family Medicine 03/01/23 FOR RECORDS PERTAINING TO PATIENTS WHO ARE [...] BE BASED ON THE PRIMARY CLINICAL RECORDS. [facility] [employer] provides no warranty or guarantee of the accuracy or completeness of information in this document.
== END 2023-10-26 11:01 | disposition home or self-care (01) ==
LOC: NOMS 11:00
PROVIDERS: PCP Student in an Organized Health Care Education/Training Program; Visit Provider Physician Assistant
DX: O36.63X0 Maternal care for excessive fetal growth, third trimester, not applicable or unspecified (principal); Z3A.34 34 weeks gestation of pregnancy
CPT/HCPCS: 76816

== ENCOUNTER 2023-11-16 19:17 | Outpatient (REF) | payer BC, OTHER, SELFPAY | END 2023-11-16 19:18 | disposition home or self-care (01) | LOC: LAB 19:17 | PROVIDERS: PCP Student in an Organized Health Care Education/Training Program; Visit Provider Obstetrics & Gynecology | DX: Z34.93 Encounter for supervision of normal pregnancy, unspecified, third trimester (principal) | CPT/HCPCS: 36415; 87081; 87150 ==

== ENCOUNTER 2023-11-23 00:13 | Observation (INO) | payer BC, OTHER, SELFPAY ==
--- OUTSIDE RECORDS SUMMARY | 2023-11-23 00:17 | XMS_ITS | CCD ---
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 Urinalysis macro (dipstick) panel (U)on 06-15-2023 Bilirubin, UA Negative Negative - 4(70) +++ mg/dL [facility] Blood, UA Negative Negative - 50 Alexander/mcL [facility] Clarity, UA Clear [facility] re Color, UA Yellow [facility] e Glucose, UA Negative Negative - 1999(110) ++++ mg/dL [facility] Interpretation and review of laboratory results Abnormal [facility] Ketones, UA Negative Negative - 160(16) ++++ mg/dL [facility] Leukocytes, UA Trace Negative - 500+++ Shawn/mcL [facility] Nitrite, UA Negative Negative - Positive [facility] pH, UA 7.0 5 - 9 [facility], [facility]A Negative Negative - 1999(20) ++++ mg/dL [facility] Spec Grav, UA 1.015 1 - 1.03 [facility] Urobilinogen, UA 0.2 0.2 - 12 mg/dL [facility] FRESH FROZ PLASMAon 09-02-19 22 FRESH FROZ PLASMA Unit Blood Type A Pos Unit Number [id number] Status Information Transfused Product ID FFP Product Code [id number] Normal [facility] Comment on above: Performed By: #### R UBIGG #### [facility] [address] [place] [address] Dr. Amy Whitaker PRBC LEUKOREDUCEDon 09-02-19 ABO and Rh group Nom (Bld) Cross Match Result Compatible Unit Blood Type A Pos Unit Number [id number] Status Information Transfused Product ID Red Blood Cells Product Code [id number] Cross Match Result Compatible Unit Blood Type A Pos Unit Number [id number] Status Information Transfused Product ID Red Blood Cells Product Code [id number] Normal [facility] Comment on above: Performed By: #### P RBC #### [facility] [address] [place] [address] Dr. Amy Whitaker PRBC LEUKOREDUCED Cross Match Result Compatible Unit Blood Type A Pos Unit Number [id number] Status Information Transfused Product ID Red Blood Cells Product Code [id number] [facility] Comment on above: Performed By: #### R UBIGG #### [facility] [address] [place] [address] Dr. Amy Whitaker BUNon 08-29-2021 Urea nitrogen [Mass/Vol] 10.0 mg/dL Normal 7.0-18.0 [facility] Comment on above: Performed By: #### R UBIGG #### [facility] [address] [place] [address] Dr. Amy Whitaker CBC AUTO DIFFon 08-29-2021 BASO # 0.0 103/ul Normal 0.0-0.1 [facility] Comment on above: Performed By: #### P T, PTT #### [facility] [address] [place] [address] Dr. Amy Whitaker Basophils/100 WBC (Bld) 0.6 % Normal 0.2-2.0 [facility] Comment on above: Performed By: #### P T, PTT #### [facility] [address] [place] [address] Dr. Amy Whitaker EO # 0.1 103/ul Normal 0.0-0.7 [facility] Comment on above: Performed By: #### P T, PTT #### [facility] [address] [place] [address] Dr. Amy Whitaker Eosinophils/100 WBC (Bld) 0.8 % Critically low 0.9-7.0 [facility] Comment on above: Performed By: #### P T, PTT #### [facility] [address] [place] [address] Dr. Amy Whitaker Erythrocyte distribution width (RBC) [Ratio] 13.6 % Normal 11.0-15.0 [facility] Comment on above: Performed By: #### P T, PTT #### [facility] [address] [place] [address] Dr. Amy Whitaker Hematocrit (Bld) [Volume fraction] 40.1 % Normal 36.0-48.0 [facility] Comment on above: Performed By: #### P T, PTT #### [facility] [address] [place] [address] Dr. Amy Whitaker Hemoglobin (Bld) [Mass/Vol] 13.0 g/dL Normal 12.0-16.0 [facility] Comment on above: Performed By: #### P T, PTT #### [facility] [address] [place] [address] Dr. Amy Whitaker IG # 0.03 10e3/ul Normal 0.00-0.03 [facility] Comment on above: Performed By: #### P T, PTT #### [facility] [address] [place] [address] Dr. Amy Whitaker IG % 0.4 % Normal 0.0-0.5 [facility] Comment on above: Performed By: #### P T, PTT #### [facility] [address] [place] [address] Dr. Amy Whitaker LYMPH # 1.9 103/ul Normal 1.2-3.8 [facility] Comment on above: Performed By: #### P T, PTT #### [facility] [address] [place] [address] Dr. Amy Whitaker Lymphocytes/100 WBC (Bld) 26.1 % Normal 20.5-60.0 [facility] Comment on above: Performed By: #### P T, PTT #### [facility] [address] [place] [address] Dr. Amy Whitaker MANUAL DIFF REQ NO Normal [facility] Comment on above: Performed By: #### P T, PTT #### [facility] [address] [place] [address] Dr. Amy Whitaker MCH (RBC) [Entitic mass] 29.5 pg Normal 26.7-34.0 [facility] Comment on above: Performed By: #### P T, PTT #### [facility] [address] [place] [address] Dr. Amy Whitaker MCHC (RBC) [Mass/Vol] 32.4 g/dL Normal 29.9-35.2 [facility] Comment on above: Performed By: #### P T, PTT #### [facility] [address] [place] [address] Dr. Amy Whitaker MCV (RBC) [Entitic vol] 90.9 fL Normal 81.0-99.0 [facility] Comment on above: Performed By: #### P T, PTT #### [facility] [address] [place] [address] Dr. Amy Whitaker MONO # 0.7 103/ul Normal 0.3-0.8 [facility] Comment on above: Performed By: #### P T, PTT #### [facility] [address] [place] [address] Dr. Amy Whitaker Monocytes/100 WBC (Bld) 9.4 % Normal 1.7-12.0 [facility] Comment on above: Performed By: #### P T, PTT #### [facility] [address] [place] [address] Dr. Amy Whitaker NEUT # 4.5 103/ul Normal 1.4-6.5 [facility] Comment on above: Performed By: #### P T, PTT #### [facility] [address] [place] [address] Dr. Amy Whitaker Neutrophils/100 WBC (Bld) 62.7 % Normal 43.0-75.0 [facility] Comment on above: Performed By: #### P T, PTT #### [facility] [address] [place] [address] Dr. Amy Whitaker Platelet mean volume (Bld) [Entitic vol] 9.7 fL Normal 9.5-13.5 [facility] Comment on above: Performed By: #### P T, PTT #### [facility] [address] [place] [address] Dr. Amy Whitaker PLT 308 103/ul Normal 150-450 [facility] Comment on above: Performed By: #### P T, PTT #### [facility] [address] [place] [address] Dr. Amy Whitaker RBC 4.41 106/ul Normal 4.20-5.40 [facility] Comment on above: Performed By: #### P T, PTT #### [facility] [address] [place] [address] Dr. Amy Whitaker WBC 7.2 103/ul Normal 4.0-11.0 [facility] Comment on above: Performed By: #### P T, PTT #### [facility] [address] [place] [address] Dr. Amy Whitaker CREATININEon 08-29-2021 Creatinine [Mass/Vol] 0.73 mg/dL Normal 0.55-1.02 [facility] Comment on above: Performed By: #### R UBIGG #### [facility] [address] [place] [address] Dr. Amy Whitaker EGFR-AF [place] >60 Normal >=60 The [facility] Comment on above: Performed By: #### R UBIGG #### [facility] [address] [place] [address] Dr. Amy Whitaker EGFR-NON AF [place] >60 Normal >=60 [facility] Comment on above: Performed By: #### R UBIGG #### [facility] [address] [place] [address] Dr. Amy Whitaker SGOTon 08-29-2021 AST [Catalytic activity/Vol] 14 U/L Critically low 15-37 [facility] Comment on above: Performed By: #### R UBIGG #### [facility] [address] [place] [address] Dr. Amy Whitaker SGPTon 08-29-2021 ALT [Catalytic activity/Vol] 20 U/L Normal 14-59 [facility] Comment on above: Performed By: #### R UBIGG #### [facility] [address] [place] [address] Dr. Amy Whitaker CBC AUTO DIFFon 08-27-2021 BASO # 0.0 103/ul Normal 0.0-0.1 [facility] Comment on above: Performed By: #### C BC #### [facility] [address] [place] [address] Dr. Amy Whitaker Basophils/100 WBC (Bld) 0.2 % Normal 0.2-2.0 [facility] Comment on above: Performed By: #### C BC #### [facility] [address] [place] [address] Dr. Amy Whitaker EO # 0.0 103/ul Normal 0.0-0.7 [facility] Comment on above: Performed By: #### C BC #### [facility] [address] [place] [address] Dr. Amy Whitaker Eosinophils/100 WBC (Bld) 0.0 % Critically low 0.9-7.0 [facility] Comment on above: Performed By: #### C BC #### [facility] [address] [place] [address] Dr. Amy Whitaker Erythrocyte distribution width (RBC) [Ratio] 13.9 % Normal 11.0-15.0 [facility] Comment on above: Performed By: #### C BC #### [facility] [address] [place] [address] Dr. Amy Whitaker Hematocrit (Bld) [Volume fraction] 34.3 % Critically low 36.0-48.0 [facility] Comment on above: Performed By: #### C BC #### [facility] [address] [place] [address] Dr. Amy Whitaker Hemoglobin (Bld) [Mass/Vol] 11.2 g/dL Critically low 12.0-16.0 [facility] Comment on above: Result Comment: rece ived blood Performed By: #### C BC #### [facility] [address] [address] [address] Amy Whitaker IG # 0.02 10e3/ul Normal 0.00-0.03 [facility] Comment on above: Performed By: #### C BC #### [facility] [address] [place] [address] Dr. Amy Whitaker IG % 0.3 % Normal 0.0-0.5 [facility] Comment on above: Performed By: #### C BC #### [facility] [address] [place] [address] Dr. Amy Whitaker LYMPH # 0.8 103/ul Critically low 1.2-3.8 [facility] Comment on above: Performed By: #### C BC #### [facility] [address] [place] [address] Dr. Amy Whitaker Lymphocytes/100 WBC (Bld) 13.5 % Critically low 20.5-60.0 [facility] Comment on above: Performed By: #### C BC #### [facility] [address] [place] [address] Dr. Amy Whitaker MANUAL DIFF REQ NO Normal [facility] Comment on above: Performed By: #### C BC #### [facility] [address] [place] [address] Dr. Amy Whitaker MCH (RBC) [Entitic mass] 29.7 pg Normal 26.7-34.0 [facility] Comment on above: Performed By: #### C BC #### [facility] [address] [place] [address] Dr. Amy Whitaker MCHC (RBC) [Mass/Vol] 32.7 g/dL Normal 29.9-35.2 [facility] Comment on above: Performed By: #### C BC #### [facility] [address] [place] [address] Dr. Amy Whitaker MCV (RBC) [Entitic vol] 91.0 fL Normal 81.0-99.0 [facility] Comment on above: Performed By: #### C BC #### [facility] [address] [place] [address] Dr. Amy Whitaker MONO # 0.4 103/ul Normal 0.3-0.8 [facility] Comment on above: Performed By: #### C BC #### [facility] [address] [place] [address] Dr. Amy Whitaker Monocytes/100 WBC (Bld) 6.9 % Normal 1.7-12.0 [facility] Comment on above: Performed By: #### C BC #### [facility] [address] [place] [address] Dr. Amy Whitaker NEUT # 4.6 103/ul Normal 1.4-6.5 [facility] Comment on above: Performed By: #### C BC #### [facility] [address] [place] [address] Dr. Amy Whitaker Neutrophils/100 WBC (Bld) 79.1 % Critically high 43.0-75.0 [facility] Comment on above: Performed By: #### C BC #### [facility] [address] [place] [address] Dr. Amy Whitaker Platelet mean volume (Bld) [Entitic vol] 10.9 fL Normal 9.5-13.5 [facility] Comment on above: Performed By: #### C BC #### [facility] [address] [place] [address] Dr. Amy Whitaker PLT 174 103/ul Normal 150-450 [facility] Comment on above: Performed By: #### C BC #### [facility] [address] [place] [address] Dr. Amy Whitaker RBC 3.77 106/ul Critically low 4.20-5.40 [facility] Comment on above: Performed By: #### C BC #### [facility] [address] [place] [address] Dr. Amy Whitaker WBC 5.8 103/ul Normal 4.0-11.0 [facility] Comment on above: Performed By: #### C BC #### [facility] [address] [place] [address] Dr. Amy Whitaker CBC AUTO DIFFon 08-26-2021 BASO # 0.0 103/ul Normal 0.0-0.1 [facility] Comment on above: Performed By: #### C BC #### [facility] [address] [place] [address] Dr. Amy Whitaker Basophils/100 WBC (Bld) 0.2 % Normal 0.2-2.0 [facility] Comment on above: Performed By: #### C BC #### [facility] [address] [place] [address] Dr. Amy Whitaker EO # 0.0 103/ul Normal 0.0-0.7 [facility] Comment on above: Performed By: #### C BC #### [facility] [address] [place] [address] Dr. Amy Whitaker Eosinophils/100 WBC (Bld) 0.7 % Critically low 0.9-7.0 [facility] Comment on above: Performed By: #### C BC #### [facility] [address] [place] [address] Dr. Amy Whitaker Erythrocyte distribution width (RBC) [Ratio] 13.2 % Normal 11.0-15.0 [facility] Comment on above: Performed By: #### C BC #### [facility] [address] [place] [address] Dr. Amy Whitaker Hematocrit (Bld) [Volume fraction] 23.5 % Critically low 36.0-48.0 [facility] Comment on above: Performed By: #### C BC #### [facility] [address] [place] [address] Dr. Amy Whitaker Hemoglobin (Bld) [Mass/Vol] 7.7 g/dL Critically low 12.0-16.0 [facility] Comment on above: Performed By: #### C BC #### [facility] [address] [place] [address] Dr. Amy Whitaker IG # 0.02 10e3/ul Normal 0.00-0.03 [facility] Comment on above: Performed By: #### C BC #### [facility] [address] [place] [address] Dr. Amy Whitaker IG % 0.4 % Normal 0.0-0.5 [facility] Comment on above: Performed By: #### C BC #### [facility] [address] [place] [address] Dr. Amy Whitaker LYMPH # 1.0 103/ul Critically low 1.2-3.8 [facility] Comment on above: Performed By: #### C BC #### [facility] [address] [place] [address] Dr. Amy Whitaker Lymphocytes/100 WBC (Bld) 21.6 % Normal 20.5-60.0 [facility] Comment on above: Performed By: #### C BC #### [facility] [address] [place] [address] Dr. Amy Whitaker MANUAL DIFF REQ NO Normal [facility] Comment on above: Performed By: #### C BC #### [facility] [address] [place] [address] Dr. Amy Whitaker MCH (RBC) [Entitic mass] 30.0 pg Normal 26.7-34.0 [facility] Comment on above: Performed By: #### C BC #### [facility] [address] [place] [address] Dr. Amy Whitaker MCHC (RBC) [Mass/Vol] 32.8 g/dL Normal 29.9-35.2 [facility] Comment on above: Performed By: #### C BC #### [facility] [address] [place] [address] Dr. Amy Whitaker MCV (RBC) [Entitic vol] 91.4 fL Normal 81.0-99.0 [facility] Comment on above: Performed By: #### C BC #### [facility] [address] [place] [address] Dr. Amy Whitaker MONO # 0.4 103/ul Normal 0.3-0.8 [facility] Comment on above: Performed By: #### C BC #### [facility] [address] [place] [address] Dr. Amy Whitaker Monocytes/100 WBC (Bld) 7.8 % Normal 1.7-12.0 [facility] Comment on above: Performed By: #### C BC #### [facility] [address] [place] [address] Dr. Amy Whitaker NEUT # 3.1 103/ul Normal 1.4-6.5 [facility] Comment on above: Performed By: #### C BC #### [facility] [address] [place] [address] Dr. Amy Whitaker Neutrophils/100 WBC (Bld) 69.3 % Normal 43.0-75.0 [facility] Comment on above: Performed By: #### C BC #### [facility] [address] [place] [address] Dr. Amy Whitaker Platelet mean volume (Bld) [Entitic vol] 9.7 fL Normal 9.5-13.5 [facility] Comment on above: Performed By: #### C BC #### [facility] [address] [place] [address] Dr. Amy Whitaker PLT 154 103/ul Normal 150-450 [facility] Comment on above: Performed By: #### C BC #### [facility] [address] [place] [address] Dr. Amy Whitaker RBC 2.57 106/ul Critically low 4.20-5.40 [facility] Comment on above: Performed By: #### C BC #### [facility] [address] [place] [address] Dr. Amy Whitaker WBC 4.5 103/ul Normal 4.0-11.0 [facility] Comment on above: Performed By: #### C BC #### [facility] [address] [place] [address] Dr. Amy Whitaker CULTURE URINEon 08-26-2021 CULTURE URINE Culture Observations: NO GROWTH. Normal [facility] Comment on above: Performed By: #### U RCX #### [facility] [address] [place] [address] Dr. Amy Whitaker [facility] SARS-CoV-2 (COVID-19) RNA SHANNON+probe Ql (Unsp spec) Not detected Normal NOT DETECTED [facility] Comment on above: Result Comment: When diagnostic [...] for this test is supported by the [place] of Health and Human Service's declaration that [...] Performed By: #### P T, PTT #### [facility] [address] [place] [address] Dr. Amy Whitaker ER URINE PROFILEon Bilirubin Ql (U) SMALL Abnormal NEGATIVE The [facility] Comment on above: Performed By: #### P T, PTT #### [facility] [address] [place] [address] Dr. Amy Whitaker Clarity (U) SL CLOUDY Abnormal CLEAR [facility] Comment on above: Performed By: #### P T, PTT #### [facility] [address] [place] [address] Dr. Amy Whitaker Color (U) RED Abnormal YELLOW [facility] Comment on above: Performed By: #### P T, PTT #### [facility] [address] [place] [address] Dr. Amy Whitaker ERUAHD A micrscopic examination will be performed if indicated. Normal [facility] Comment on above: Performed By: #### P T, PTT #### [facility] [address] [address] [address] Amy Whitaker Glucose Ql (U) Negative Normal NEGATIVE [facility] Comment on above: Performed By: #### P T, PTT #### [facility] [address] [place] [address] Dr. Amy Whitaker Hemoglobin Ql (U) LARGE Abnormal NEGATIVE [facility] Comment on above: Performed By: #### P T, PTT #### [facility] [address] [address] [address] Amy Whitaker Ketones Ql (U) TRACE Abnormal NEGATIVE [facility] Comment on above: Performed By: #### P T, PTT #### [facility] [address] [place] [address] Dr. Amy Whitaker LEUKOCYTES LARGE Abnormal NEGATIVE [facility] Comment on above: Performed By: #### P T, PTT #### [facility] [address] [place] [address] Dr. Amy Whitaker Nitrite Ql (U) Positive Abnormal NEGATIVE [facility] Comment on above: Performed By: #### P T, PTT #### [facility] [address] [place] [address] Dr. Amy Whitaker pH (U) 8.0 [pH] Normal 5-9 [facility] Comment on above: Performed By: #### P T, PTT #### [facility] [address] [place] [address] Dr. Amy Whitaker Protein (U) [Mass/Vol] 100 mg/dL Abnormal NEGATIVE/ TRACE [facility] Comment on above: Performed By: #### P T, PTT #### [facility] [address] [place] [address] Dr. Amy Whitaker SPEC GRAVITY 1.015 Normal 1.005-<=1.025 [facility] Comment on above: Performed By: #### P T, PTT #### [facility] [address] [place] [address] Dr. Amy Whitaker UR MICRO IND INDICATED Normal [facility] Comment on above: Performed By: #### P T, PTT #### [facility] [address] [place] [address] Dr. Amy Whitaker Urobilinogen Qn (U) 1.0 {Neelima'U}/dL Normal 0.2 - 1. 0 [facility] Comment on above: Performed By: #### P T, PTT #### [facility] [address] [place] [address] Dr. Amy Whitaker PREG HCG QUALon 08-26-2021 , QUAL Positive Abnormal NEGATIVE [facility] Comment on above: Performed By: #### P REG #### [facility] [address] [place] [address] Dr. Amy Whitaker PROF 14(COMP METB)on 022 Albumin [Mass/Vol] 3.4 g/dL Normal 3.4-5.0 [facility] Comment on above: Performed By: #### P T, PTT #### [facility] [address] [place] [address] Dr. Amy Whitaker Albumin/Globulin [Mass ratio] 1.2 {ratio} Normal [facility] Comment on above: Performed By: #### P T, PTT #### [facility] [address] [place] [address] Dr. Amy Whitaker ALP [Catalytic activity/Vol] 47 U/L Normal 46-116 [facility] Comment on above: Performed By: #### P T, PTT #### [facility] [address] [place] [address] Dr. Amy Whitaker ALT [Catalytic activity/Vol] 14 U/L Normal 14-59 [facility] Comment on above: Performed By: #### P T, PTT #### [facility] [address] [place] [address] Dr. Amy Whitaker Anion gap [Moles/Vol] 10.8 mmol/L Normal [facility] Comment on above: Performed By: #### P T, PTT #### [facility] [address] [place] [address] Dr. Amy Whitaker AST [Catalytic activity/Vol] 9 U/L Critically low 15-37 [facility] Comment on above: Performed By: #### P T, PTT #### [facility] [address] [place] [address] Dr. Amy Whitaker Bilirubin [Mass/Vol] 0.7 mg/dL Normal 0.2-1.0 [facility] Comment on above: Performed By: #### P T, PTT #### [facility] [address] [place] [address] Dr. Amy Whitaker Calcium [Mass/Vol] 7.9 mg/dL Critically low 8.5-10.1 Th e [facility] Comment on above: Performed By: #### P T, PTT #### [facility] [address] [place] [address] Dr. Amy Whitaker Chloride [Moles/Vol] 105 mmol/L Normal 98-107 [facility] Comment on above: Performed By: #### P T, PTT #### [facility] [address] [place] [address] Dr. Amy Whitaker CO2 [Moles/Vol] 27.0 mmol/L Normal 21.0-32.0 [facility] Comment on above: Performed By: #### P T, PTT #### [facility] [address] [place] [address] Dr. Amy Whitaker Creatinine [Mass/Vol] 0.51 mg/dL Critically low 0.55-1.02 [facility] Comment on above: Performed By: #### P T, PTT #### [facility] [address] [place] [address] Dr. Amy Whitaker EGFR-AF [place]ORE[place] >60 Normal >=60 The [facility] Comment on above: Performed By: #### P T, PTT #### [facility] [address] [place] [address] Dr. Amy Whitaker EGFR-NON AF [place] >60 Normal >=60 [facility] Comment on above: Performed By: #### P T, PTT #### [facility] [address] [place] [address] Dr. Amy Whitaker Globulin (S) [Mass/Vol] 2.8 g/dL Normal [facility] Comment on above: Performed By: #### P T, PTT #### [facility] [address] [address] [address] Amy Whitaker Glucose [Mass/Vol] 98 mg/dL Normal 74-106 [facility] Comment on above: Performed By: #### P T, PTT #### [facility] [address] [address] [address] Amy Whitaker Potassium [Moles/Vol] 3.8 mmol/L Normal 3.5-5.1 [facility] Comment on above: Performed By: #### P T, PTT #### [facility] [address] [place] [address] Dr. Amy Whitaker Protein [Mass/Vol] 6.2 g/dL Normal 6.1-8.2 [facility] Comment on above: Performed By: #### P T, PTT #### [facility] [address] [place] [address] Dr. Amy Whitaker Sodium [Moles/Vol] 139 mmol/L Normal 136-145 [facility] Comment on above: Performed By: #### P T, PTT #### [facility] [address] [place] [address] Dr. Amy Whitaker Urea nitrogen [Mass/Vol] 7.0 mg/dL Normal 7.0-18.0 [facility] Comment on above: Performed By: #### P T, PTT #### [facility] [address] [place] [address] Dr. Amy Whitaker Urea nitrogen/Creatinine [Mass ratio] 13.7 mg/mg Normal [facility] Comment on above: Performed By: #### P T, PTT #### [facility] [address] [place] [address] Dr. Amy Whitaker PROTIMEon 08-26-2021 INR Coag (PPP) [Relative time] 1.01 {INR} Normal [facility] Comment on above: Performed By: #### P T, PTT #### [facility] [address] [place] [address] Dr. Amy Whitaker INR GUIDELINES SEE BELOW Normal [facility] Comment on above: Result Comment: DIVINA RED INR: 2.0 - 3.0 CONDITIONS NOT LISTED BELOW 2.5 - 3.5 FOR PROSTHETIC HEART VALVE REPLACEMENT 2.5 - 3.5 RECURRENT THROMBOSIS Performed By: #### P T, PTT #### [facility] [address] [place] [address] Dr. Amy Whitaker PT Coag (PPP) [Time] 10.9 s Normal 9.0-11.6 [facility] Comment on above: Performed By: #### P T, PTT #### [facility] [address] [place] [address] Dr. Amy Whitaker PTTon 08-26-2021 aPTT Coag (Bld) [Time] 23.4 s Normal 22.3-36.2 [facility] Comment on above: Performed By: #### P T, PTT #### [facility] [address] [place] [address] Dr. Amy Whitaker TYPE AND SCREENon 08-26-2021 TYPE AND SCREEN Negative Normal [facility] Comment on above: Performed By: #### T NS #### [facility] [address] [place] [address] Dr. Amy Whitaker URINE MICROSCOPIC ONLYon BACTERIA TRACE Abnormal NONE SEEN [facility] Comment on above: Performed By: #### P T, PTT #### [facility] [address] [place] [address] Dr. Amy Whitaker Bacteria identified Cx Nom (U) INDICATED Normal [facility] Comment on above: Performed By: #### P T, PTT #### [facility] [address] [place] [address] Dr. Amy Whitaker CAST NONE SEEN Normal NONE SEEN The [facility] Comment on above: Performed By: #### P T, PTT #### [facility] [address] [place] [address] Dr. Amy Whitaker Crystals LM Nom (Urine sed) NONE SEEN Normal NONE SEEN [facility] Comment on above: Performed By: #### P T, PTT #### [facility] [address] [place] [address] Dr. Amy Whitaker Epithelial cells LM Ql (Urine sed) NONE SEEN Normal NONE SEEN /RARE [facility] Comment on above: Performed By: #### P T, PTT #### [facility] [address] [place] [address] Dr. Amy Whitaker MUCOUS NONE SEEN Normal NONE SEEN The [facility] Comment on above: Performed By: #### P T, PTT #### [facility] [address] [place] [address] Dr. Amy Whitaker RBC (U) [#/Vol] /uL Abnormal 0-2 [facility] Comment on above: Performed By: #### P T, PTT #### [facility] [address] [place] [address] Dr. Amy Whitaker WBC 0-2 Abnormal NONE SEEN The [facility] Comment on above: Performed By: #### P T, PTT #### [facility] [address] [place] [address] Dr. Amy Whitaker US PELVISon 08-26-2021 US [...] LAZARO FORRESTER Date: 2021-08-26 13:18 Normal [facility] US PELVISon 08-23-2021 US PELVIS EXAM: US [...] PATRICK VICENTE Date: 2021-08-23 12:13 Normal [facility] CBC AUTO DIFFon 08-22-2021 BASO # 0.0 103/ul Normal 0.0-0.1 [facility] Comment on above: Performed By: #### P T, PTT #### [facility] [address] [address] [address] Amy Whitaker Basophils/100 WBC (Bld) 0.4 % Normal 0.2-2.0 [facility] Comment on above: Performed By: #### P T, PTT #### [facility] [address] [address] [address] Amy Whitaker EO # 0.1 103/ul Normal 0.0-0.7 [facility] Comment on above: Performed By: #### P T, PTT #### [facility] [address] [address] [address] Amy Whitaker Eosinophils/100 WBC (Bld) 0.8 % Critically low 0.9-7.0 [facility] Comment on above: Performed By: #### P T, PTT #### [facility] [address] [address] [address] Amy Whitaker Erythrocyte distribution width (RBC) [Ratio] 12.4 % Normal 11.0-15.0 [facility] Comment on above: Performed By: #### P T, PTT #### [facility] [address] [address] [address] Amy Whitaker Hematocrit (Bld) [Volume fraction] 37.4 % Normal 36.0-48.0 [facility] Comment on above: Performed By: #### P T, PTT #### [facility] [address] [place] [address] Dr. Amy Whitaker Hemoglobin (Bld) [Mass/Vol] 12.6 g/dL Normal 12.0-16.0 [facility] Comment on above: Performed By: #### P T, PTT #### [facility] [address] [place] [address] Dr. Amy Whitaker IG # 0.04 10e3/ul Critically high 0.00-0.03 [facility] Comment on above: Performed By: #### P T, PTT #### [facility] [address] [place] [address] Dr. Amy Whitaker IG % 0.5 % Normal 0.0-0.5 [facility] Comment on above: Performed By: #### P T, PTT #### [facility] [address] [place] [address] Dr. Amy Whitaker LYMPH # 2.0 103/ul Normal 1.2-3.8 [facility] Comment on above: Performed By: #### P T, PTT #### [facility] [address] [place] [address] Dr. Amy Whitaker Lymphocytes/100 WBC (Bld) 27.2 % Normal 20.5-60.0 [facility] Comment on above: Performed By: #### P T, PTT #### [facility] [address] [place] [address] Dr. Amy Whitaker MANUAL DIFF REQ NO Normal [facility] Comment on above: Performed By: #### P T, PTT #### [facility] [address] [place] [address] Dr. Amy Whitaker MCH (RBC) [Entitic mass] 29.4 pg Normal 26.7-34.0 [facility] Comment on above: Performed By: #### P T, PTT #### [facility] [address] [place] [address] Dr. Amy Whitaker MCHC (RBC) [Mass/Vol] 33.7 g/dL Normal 29.9-35.2 [facility] Comment on above: Performed By: #### P T, PTT #### [facility] [address] [place] [address] Dr. Amy Whitaker MCV (RBC) [Entitic vol] 87.4 fL Normal 81.0-99.0 [facility] Comment on above: Performed By: #### P T, PTT #### [facility] [address] [place] [address] Dr. Amy Whitaker MONO # 0.7 103/ul Normal 0.3-0.8 [facility] Comment on above: Performed By: #### P T, PTT #### [facility] [address] [place] [address] Dr. Amy Whitaker Monocytes/100 WBC (Bld) 9.7 % Normal 1.7-12.0 [facility] Comment on above: Performed By: #### P T, PTT #### [facility] [address] [place] [address] Dr. Amy Whitaker NEUT # 4.6 103/ul Normal 1.4-6.5 [facility] Comment on above: Performed By: #### P T, PTT #### [facility] [address] [place] [address] Dr. Amy Whitaker Neutrophils/100 WBC (Bld) 61.4 % Normal 43.0-75.0 [facility] Comment on above: Performed By: #### P T, PTT #### [facility] [address] [place] [address] Dr. Amy Whitaker Platelet mean volume (Bld) [Entitic vol] 10.1 fL Normal 9.5-13.5 [facility] Comment on above: Performed By: #### P T, PTT #### [facility] [address] [place] [address] Dr. Amy Whitaker PLT 222 103/ul Normal 150-450 [facility] Comment on above: Performed By: #### P T, PTT #### [facility] [address] [place] [address] Dr. Amy Whitaker RBC 4.28 106/ul Normal 4.20-5.40 [facility] Comment on above: Performed By: #### P T, PTT #### [facility] [address] [place] [address] Dr. Amy Whitaker WBC 7.5 103/ul Normal 4.0-11.0 [facility] Comment on above: Performed By: #### P T, PTT #### [facility] [address] [place] [address] Dr. Amy Whitaker FIBRINOGENon 08-22-2021 FIBRINOGEN 261.0 mg/dl Normal 200.0-400.0 [facility] Comment on above: Performed By: #### P T, PTT #### [facility] [address] [place] [address] Dr. Amy Whitaker PREG QUANT HCGon 08-22-2021 HCG QUANT [id number] mIU/mL Normal [facility] Comment on above: Performed By: #### P REGQNT #### [facility] [address] [place] [address] Dr. Amy Whitaker HCG RANGE SEE BELOW Normal [facility] Comment on above: Result Comment: 5-50 0-1 WEEK 40-300 1-2 WEEKS 100-1,000 2-3 WEEKS 500-6,000 3-4 WEEKS 5,000-200,000 1-2 MONTHS 10,000-100,000 2-3 MONTHS 3,000-50,000 2ND TRIMESTER 1,000-50,000 3RD TRIMESTER Performed By: #### P REGQNT #### [facility] [address] [place] [address] Dr. Amy Whitaker PROTIMEon 08-22-2021 INR Coag (PPP) [Relative time] 1.06 {INR} Normal [facility] Comment on above: Performed By: #### P T, PTT #### [facility] [address] [place] [address] Dr. Amy Whitaker INR GUIDELINES SEE BELOW Normal [facility] Comment on above: Result Comment: DIV[place] RED INR: 2.0 - 3.0 CONDITIONS NOT LISTED BELOW 2.5 - 3.5 FOR PROSTHETIC HEART VALVE REPLACEMENT 2.5 - 3.5 RECURRENT THROMBOSIS Performed By: #### P T, PTT #### [facility] [address] [place] [address] Dr. Amy Whitaker PT Coag (PPP) [Time] 11.4 s Normal 9.0-11.6 [facility] Comment on above: Performed By: #### P T, PTT #### [facility] [address] [place] [address] Dr. Amy Whitaker PTTon 08-22-2021 aPTT Coag (Bld) [Time] 25.6 s Normal 22.3-36.2 [facility] Comment on above: Performed By: #### P T, PTT #### [facility] [address] [place] [address] Dr. Amy Whitaker Covid-19 PCR ([facility])on 08-02 SARS-CoV-2 (COVID-19) RNA SHANNON+probe Ql (Unsp spec) Not detected Normal NOT DETECTED [facility] Comment on above: Result Comment: When diagnostic [...] for this test is supported by the [place] of Health and Human Service's declaration that [...] Performed By: #### P T, PTT #### [facility] [address] [place] [address] Dr. Amy Whitaker US PREG TVon 08-19-2021 [...] at the time of imaging by the distribution collection operator. Electronically authenticated by: PATRICK KRAUSE Date: 2021-08-19 17:18 Normal [facility] HEP B SURFACE ANTIGEN SCREEN on 08-08-2021 HBsAg Screen Negative Normal Negative [facility] Comment on above: Performed By: #### P T, PTT #### [facility] [address] [place] [address] Dr. Amy Whitaker HEPATITIS C VIRUS AB W/ REFL EX QUANTon 08-08-2021 HCV AB <0.1 Normal 0.0-0.9 [facility] Comment on above: Performed By: #### P T, PTT #### [facility] [address] [place] [address] Dr. Amy Whitaker Interpretation: Comment Normal [facility] Comment on above: Result Comment: Nega tive Not infected with HCV, unless recent infection is suspected or other evidence exists to indicate HCV infection. Performed By: #### P T, PTT #### [facility] [address] [place] [address] Dr. Amy Whitaker HIV 1 AND 2 WITH REFLEXon HIV Screen 4th Generation wRfx Non-Reactive Normal Non Reactive [facility] Comment on above: Result Comment: HIV Negative HIV-1/HIV-2 antibodies and HIV-1 p24 antigen were NOT detected. There is no laboratory evidence of HIV infection. Performed By: #### P T, PTT #### [facility] [address] [place] [address] Dr. Amy Whitaker RPR QUANTon 08-08-2021 Rapid Plasma Reagin, Quant Non-Reactive Normal NonRea<1:1 [facility] Comment on above: Result Comment: Emili castellanos Note: This test does not meet current guidelines for screening and diagnosis of syphilis. This test is intended for following treatment response in patients being treated for syphilis infection. To screen for syphilis infection, a reflex cascade that includes both RPR and a treponema-specific assay should be utilized, such as Treponema pallidum (Syphilis) Screening [place] (812320) or Rapid Plasma Reagin (RPR) Test With Reflex to Quantitative RPR and Confirmatory Treponema pallidum Antibodies (382769). Performed By: #### P T, PTT #### [facility] [address] [place] [address] Dr. Amy Whitaker RUBELLA AB IGGon 08-08-2021 Rubella Antibodies, IgG 1.68 index Normal Immune >0.99 [facility] Comment on above: Result Comment: Non- immune <0.90 Equivocal 0.90 - 0.99 Immune >0.99 Performed By: #### R UBIGG #### [facility] [address] [place] [address] Dr. Amy Whitaker CBC AUTO DIFFon 08-07-2021 BASO # 0.0 103/ul Normal 0.0-0.1 [facility] Comment on above: Performed By: #### P T, PTT #### [facility] [address] [place] [address] Dr. Amy Whitaker Basophils/100 WBC (Bld) 0.3 % Normal 0.2-2.0 [facility] Comment on above: Performed By: #### P T, PTT #### [facility] [address] [place] [address] Dr. Amy Whitaker EO # 0.0 103/ul Normal 0.0-0.7 [facility] Comment on above: Performed By: #### P T, PTT #### [facility] [address] [place] [address] Dr. Amy Whitaker Eosinophils/100 WBC (Bld) 0.3 % Critically low 0.9-7.0 [facility] Comment on above: Performed By: #### P T, PTT #### [facility] [address] [place] [address] Dr. Amy Whitaker Erythrocyte distribution width (RBC) [Ratio] 12.2 % Normal 11.0-15.0 [facility] Comment on above: Performed By: #### P T, PTT #### [facility] [address] [place] [address] Dr. Amy Whitaker Hematocrit (Bld) [Volume fraction] 38.5 % Normal 36.0-48.0 [facility] Comment on above: Performed By: #### P T, PTT #### [facility] [address] [place] [address] Dr. Amy Whitaker Hemoglobin (Bld) [Mass/Vol] 13.0 g/dL Normal 12.0-16.0 [facility] Comment on above: Performed By: #### P T, PTT #### [facility] [address] [place] [address] Dr. Amy Whitaker IG # 0.02 10e3/ul Normal 0.00-0.03 [facility] Comment on above: Performed By: #### P T, PTT #### [facility] [address] [place] [address] Dr. Amy Whitaker IG % 0.3 % Normal 0.0-0.5 [facility] Comment on above: Performed By: #### P T, PTT #### [facility] [address] [place] [address] Dr. Amy Whitaker LYMPH # 1.6 103/ul Normal 1.2-3.8 [facility] Comment on above: Performed By: #### P T, PTT #### [facility] [address] [place] [address] Dr. Amy Whitaker Lymphocytes/100 WBC (Bld) 20.2 % Critically low 20.5-60.0 [facility] Comment on above: Performed By: #### P T, PTT #### [facility] [address] [place] [address] Dr. Amy Whitaker MANUAL DIFF REQ NO Normal [facility] Comment on above: Performed By: #### P T, PTT #### [facility] [address] [place] [address] Dr. Amy Whitaker MCH (RBC) [Entitic mass] 29.3 pg Normal 26.7-34.0 [facility] Comment on above: Performed By: #### P T, PTT #### [facility] [address] [place] [address] Dr. Amy Whitaker MCHC (RBC) [Mass/Vol] 33.8 g/dL Normal 29.9-35.2 [facility] Comment on above: Performed By: #### P T, PTT #### [facility] [address] [place] [address] Dr. Amy Whitaker MCV (RBC) [Entitic vol] 86.7 fL Normal 81.0-99.0 [facility] Comment on above: Performed By: #### P T, PTT #### [facility] [address] [place] [address] Dr. Amy Whitaker MONO # 0.6 103/ul Normal 0.3-0.8 [facility] Comment on above: Performed By: #### P T, PTT #### [facility] [address] [place] [address] Dr. Amy Whitaker Monocytes/100 WBC (Bld) 8.0 % Normal 1.7-12.0 [facility] Comment on above: Performed By: #### P T, PTT #### [facility] [address] [place] [address] Dr. Amy Whitaker NEUT # 5.5 103/ul Normal 1.4-6.5 [facility] Comment on above: Performed By: #### P T, PTT #### [facility] [address] [place] [address] Dr. Amy Whitaker Neutrophils/100 WBC (Bld) 70.9 % Normal 43.0-75.0 [facility] Comment on above: Performed By: #### P T, PTT #### [facility] [address] [place] [address] Dr. Amy Whitaker Platelet mean volume (Bld) [Entitic vol] 10.1 fL Normal 9.5-13.5 [facility] Comment on above: Performed By: #### P T, PTT #### [facility] [address] [place] [address] Dr. Amy Whitaker PLT 217 103/ul Normal 150-450 [facility] Comment on above: Performed By: #### P T, PTT #### [facility] [address] [place] [address] Dr. Amy Whitaker RBC 4.44 106/ul Normal 4.20-5.40 [facility] Comment on above: Performed By: #### P T, PTT #### [facility] [address] [place] [address] Dr. Amy Whitaker WBC 7.7 103/ul Normal 4.0-11.0 [facility] Comment on above: Performed By: #### P T, PTT #### [facility] [address] [place] [address] Dr. Amy Whitaker CULTURE URINEon 08-07-2021 CULTURE URINE Culture Observations: MODERATE GROWTH OF MIXED GENITAL DINA. NO POTENTIAL PATHOGENS SEEN. Normal [facility] Comment on above: Performed By: #### R UBIGG #### [facility] [address] [place] [address] Dr. Amy Whitaker GLYCOHEMOGLOBIN A1Con 2021 ADA RECOMMENDATION ADA THERAPEUTIC TARGET 6.0 - 7.0 ACTION SUGGESTED > 7.0 Normal [facility] Comment on above: Performed By: #### C BC #### [facility] [address] [place] [address] Dr. Amy Whitaker Glucose [Mass/Vol] 108 mg/dL Normal [facility] Comment on above: Performed By: #### C BC #### [facility] [address] [place] [address] Dr. Amy Whitaker HbA1c (Bld) [Mass fraction] 5.4 % Normal <=6.0 [facility] Comment on above: Performed By: #### C BC #### [facility] [address] [place] [address] Dr. Amy Whitaker JONAS BOX TEST PT SEND OUTo n 08-07-2021 SENT TO REF LAB 08/07/2021 Normal [facility] Comment on above: Performed By: #### C BC #### [facility] [address] [address] [address] Amy Whitaker TYPE AND SCREENon 08-07-2021 TYPE AND SCREEN Negative Normal [facility] Comment on above: Performed By: #### T NS #### [facility] [address] [address] [address] Amy Whitaker US PREG TVon 08-01-2021 [...] LAZARO FORRESTER Date: 2021-08-01 16:12 Normal [facility] Vital Signs Date Time Vital Sign Value Performing Clinician Paul raias 06-15-2023 14:45-0500 Body mass index (BMI) [Ratio] 19.18 kg/m2 Jhonny Urban DO Work Phone: [facility] 06-15-2023 14:45-0500 Body weight 58.06 kg Jhonny Urban DO Work Phone: [facility] 06-15-2023 14:45-0500 Diastolic blood pressure 68 mm[Hg] Jhonny Urban DO Work Phone: [facility] 06-15-2023 14:45-0500 Systolic blood pressure 114 mm[Hg] Jhonny Urban DO Work Phone: [facility] Healthcare Encounters Encounter Date Encounter Type Care Provider Facility Start: 10-26-2023 End: 10-26-2023 ambulatory JHONNY DGUGAN Not Available Start: 10-12-2023 End: 10-12-2023 ambulatory JHONNY HOLTZIO Not Available Start: 09-28-2023 End: 09-28-2023 ambulatory [...] Unsolicited Start: 05-13-2023 End: 05-13-2023 ambulatory JHONNY URBAN Not Available Start: 03-15-2023 End: 03-15-2023 ambulatory JHONNY URBAN Not Available Start: 08-29-2021 End: 08-30-[address] JHONNY DUGGAN Facility:[facility] Start: 08-26-2021 End: 08-27-[address] BJORN GÓMEZ Facility:[facility] Start: 08-22-2021 Encounter for preprocedural laboratory examination DR JHONNY DUGGAN [facility] Start: 08-22-2021 End: 08-22-[address] JHONNY DUGGAN Facility:[facility] Start: 08-21-2021 End: 08-22-[address] JHONNY DUGGAN Facility:[facility] Start: 08-21-2021 End: 08-22-2021 Encounter for preprocedural laboratory examination DR JHONNY DUGGAN Facility:[facility] Start: 08-19-2021 End: 08-20-[address] JHONNY DUGGAN Facility:[facility] Start: 08-07-2021 End: 08-08-[address] JHONNY DUGGAN Facility:[facility] Start: 08-01-2021 End: 08-02-[address] JHONNY DUGGAN Facility:[facility] Procedures Date Procedure Procedure Detail Performing Clinician Start: 06-15-2023 TB BOX TEST SENT OUT Lisandra Duggan DO Work Phone: Start: 06-15-2023 Urnls dip stick/tabl et rgnt non-auto w/o micrscp Jhonny Duggan DO Work Phone: Plan of Treatment Date Care Activity Detail Author Start: 07-14-2023 End: 07-14-2023 Patient encounter procedure 07/14/2023 1:30 PM EDT Routine [facility] [address] [id number] Elham Pierre PA [address] [place] [address] [facility] Start: 06-15-2023 End: 08-14-2023 Alpha fetoprotein, maternal Alpha fetoprotein, maternal Lab Routine Second trimester Expected: 06/15/2023 (Approximate), Expires: 08/14/2023 [facility] Comment on above: Expected: 06/15/2023 (Approximate), Expires: 08/14/2023 Start: 01-01-2023 Influenza vaccination Influenza Vacc ine (#1) [facility] CHLAMYDIA TRACHOMATI S (GENITO/STI) CHLAMYDIA TRACHOMATIS (GENITO/STI) Lab Routine STD exposure Ordered: 06/15/2023 [facility] Comment on above: Ordered: 06/15/2023 Cytology Cervical or vaginal smear or scraping study Pap Smear Pathology and Cytology Routine Well woman exam with routine gynecological exam Ordered: 06/15/2023 [facility] Work Phone: Comment on above: Ordered: 06/15/2023 Neisseria gonorrhoea e DNA [Presence] in Unspecified specimen by SHANNON with probe detection Neisseria gonorrhea DNA probe, direct Lab Routine STD exposure Ordered: 06/15/2023 [facility] Comment on above: Ordered: 06/15/2023 SURESWAB(R) ADVANCED VAGINITIS PLUS, TMA SURESWAB(R) ADVANCED VAGINITIS PLUS, TMA Pathology and Cytology Routine Vaginal discharge Ordered: 06/15/2023 [facility] Comment on above: Ordered: 06/15/2023 Immunizations Immunization Date Immunization Notes Care Provider Fa cility 03-08-2020 influenza virus vacc ine, unspecified formulation Jhonny Duggan DO Work Phone: [facility] Healthcare Payers Date Payer Category Payer Unknown BCBS BCBS xxxxxx [id number] 2022-Present [phone] [address] [place] [address] [id number] 2022 Unknown [id number] 2022 Unknown [id number] 2022 Medicaid [employer] [facility] A[facility] [employer] [place] [id number] 2022-Present [address] [place] [address] [id number] 2019 Medicaid [id number] 2001 Unknown [id number] 2001 Unknown [id number] 2.16.840.1.031288.3.579.2.593 2001 Unknown [id number] 2.16.840.1.910774.3.579.2.593 2001 Unknown [id number] 2.16.840.1.406524.3.579.2.593 2001 Unknown [id number] 2.16.840.1.768168.3.579.2.593 2001 Unknown [id number] 2.16.840.1.991180.3.579.2.593 2001 Unknown [id number] 2.16.840.1.250451.3.579.2.593 2001 Unknown [id number] 2.16.840.1.422034.3.579.2.1259 2001 Unknown [id number] 2.16.840.1.049281.3.579.2.1259 2001 Unknown [id number] 2.16.840.1.367654.3.579.2.1259 2001 Unknown [id number] 2.16.840.1.463862.3.579.2.1259 2001 Unknown [id number] 2.16.840.1.003810.3.579.2.1259 2001 Unknown [id number] 2.16.840.1.069073.3.579.2.1259 2001 Unknown [id number] 2.16.840.1.802410.3.579.2.1259 2001 Unknown [id number] 2.16.840.1.764869.3.579.2.1259 2001 Unknown [id number] 2.16.840.1.027660.3.579.2.1259 1959 Self-pay 1959 Unknown [id number] 1959 Unknown [id number] Unknown [id number] [id number] Social History Date Type Detail Facility Start: 03-02-2023 Tobacco smoking stat [facility] Never smoked tobacco [facility] Start: 03-02-2023 Tobacco use and exposure Smokeless t obacco non-user [facility] Start: 06-15-2023 Alcohol intake Current drinke r of alcohol (finding) [facility] Start: 03-02-2023 End: 06-15-2023 Alcohol intake [facility] Start: 03-02-2023 Tobacco use panel [facility] Start: 03-22-2023 [facility] Start: 2000 Sex Assigned At Not on file [facility] Goals Date Patient Goal Desired Activity /State Personal health goal History of Present illness Narrative 06-15-2023 Luna Corrigan, DATA ANALYTICS SPECIALIST - 06/15/2023 2:40 PM EST Note Date [...] nursing note reviewed. Exam conducted with a quality assurance monitor body present. Vitals: Estimated body mass index is 19.18 kg/m as calculated from the following: Height as of 03/02/23: 5' 8.5 . Weight as of this [...] obtained without difficulty and patient was given [facility] order to have obtained. Follow Up: Patient is to return to our office in 4 weeks for routine OB appointment Documented by Luna Corrigan LPN on behalf of: Jhonny Duggan DO documented in this encounter [facility] Clinical Note 08-26-2021 Note Date & Type Note Facility 08-26-2021 Note EXAMINATION: US PELV IS HISTORY: Surgical procedure COMPARISON: 08/27/20192009 7:00 PM FINDINGS: Intraprocedural images from the [facility] Initial images demonstrate heterogeneous distended appearance [...] endometrial cavity IMPRESSION: Intraprocedural images from a [facility] Electronically authenticated by: LAZARO FORRESTER Date: 2021-08-26 17:54 [facility] Discharge summary note 08-26-2021 Note Date & [...] pain free and no longer on narcotics. [facility] Signed and Approved by: DR JHONNY DUGGAN . 09/16/2021 10:47:00 [facility] Clinical Note 08-26-2021 Note Date & Type Note Facility 08-26-2021 Note The [place], [place] NAME: MARICARMEN JENNINGS DATE OF : MEDICAL REC#: [id number] KEYCASE ASSEMBLER: [id number], TRANS[facility]MIT DATE: 08/26/2021 11:13:00 [employer]EP FARM MANAGER DATE: 09/11/2021 21:00 DICTATING PHYSICIAN: JHONNY DUGGAN DICTATION DATE: 09/08/2021 08:00 OPERATIVE NOTE OPERATION DATE: 09/08/2021 PROCEDURE: Suction D AND C. PREOPERATIVE DIAGNOSIS: Vaginal bleeding, status post prior D AND C for missed . POSTOPERATIVE DIAGNOSIS: Vaginal bleeding, status post prior D AND C for missed . ANESTHESIA: General. SURGEON: Jhonny Duggan D.O. AUTO SERVICER: None. FINDINGS: No products of conception found. [...] and blood products were removed using an 8-Faroese suction curette. Excellent hemostasis was noted. The patient tolerated the procedure well. Sponge, lap, and needle counts were correct x 2. All instruments were then removed from the patient's vagina. The patient was taken to the Recovery Room in stable condition. ?? Electronically Authenticated and Edited by: Jhonny Duggan DO on 09/16/2021 10:14 AM EDT [facility] Signed and Approved by: DR JHONNY DUGGAN . 09/16/2021 10:14:00 [facility] Clinical Note 08-22-2021 Note Date & Type Note Facility 08-22-2021 Note OPERATIVE NOTE OPERATION DATE:08/22/2021 PROCEDURE: Suction D AND C. PREOPERATIVE DIAGNOSIS: Missed POSTOPERATIVE DIAGNOSIS: Missed . ANESTHESIA: General. SURGEON: Jhonny Duggan D.O. AUTO SERVICER: None. BLOOD LOSS: 200 mL. URINE OUTPUT: [...] to the Recovery Room in stable condition. [facility] Signed and Approved by: DR JHONNY DUGGAN . 08/31/2021 19:44:00 [facility] Evaluation note Note Date & Type Note [...] and content) DATE CREATED AUTHOR 03/17/2022 [facility] DATE CREATED AUTHOR AUTHOR'S ORGANIZ ATION 10/27/2023 [facility] dical Specialists EPIC Reason for Visit (unrecogniz ed section and content) Reason Comments Routine Visit Care Teams (unrecognized sec tion and content) Bead Machine Operator Relationship Specialty Start Date End Date Catrachita Duff MD [address] [place] [address] PCP - General Family Medicine 03/01/23 Bead Machine Operator Relationship Specialty Start Date End Date Catrachita Duff MD [address] [place] [address] PCP - General Family Medicine 03/01/23 FOR [...] BE BASED ON THE PRIMARY CLINICAL RECORDS. [facility] [employer] [facility]. provides no warranty or guarantee of the accuracy or completeness of information in this document.
[2023-11-23 00:24] VITALS: BP 128/70; PULSE 95; TEMP 36.1
[2023-11-23 01:04] LABS: Amnisure NEGATIVE (NEGATIVE); Internal Control Within Normal Limits
[2023-11-23 01:12] LABS: Bilirubin Urine NEGATIVE (NEGATIVE); Blood Urine NEGATIVE (NEGATIVE); Clarity Urine CLEAR (CLEAR); Color Urine LT. YELLOW (YELLOW); Glucose Urine UA NEGATIVE (NEGATIVE); Ketones Urine NEGATIVE (NEGATIVE); Leukocyte Esterase Urine SMALL (NEGATIVE); Nitrite Urine NEGATIVE (NEGATIVE); Protein Urine NEGATIVE (NEG/TRACE)
[2023-11-23 01:13] LABS: Urine Microscopic Indicated YES
[2023-11-23 01:18] LABS: Bacteria Urine MODERATE #/HPF (NONE SEEN); Cast Seen? NONE SEEN #/LPF (NONE SEEN); Crystals Seen? None Seen #/HPF (None Seen); Mucus Urine NONE SEEN (NONE SEEN); RBC Urine 0-2 #/HPF (0-2); Squamous Epithelial Cell Urine MODERATE #/LPF (NONE/RARE); Urine Culture Indicated YES
== END 2023-11-23 01:30 | disposition home or self-care (01) ==
PROVIDERS: Admitting Provider Obstetrics & Gynecology; PCP Student in an Organized Health Care Education/Training Program; Visit Provider Obstetrics & Gynecology
DX: O47.1 False labor at or after 37 completed weeks of gestation (principal); Z3A.37 37 weeks gestation of pregnancy
CPT/HCPCS: 59025; 81001; 84112; 87086; G0378; G0379

== ENCOUNTER 2023-11-30 10:55 | Outpatient (OUT) | payer BC, OTHER, SELFPAY ==
--- NOTE | 2023-11-30 10:58 | US_ITS ---
[address] [address] Patient Name: MARICARMEN NOLAN MRN: [id number] date: 2000 Sex: F Assigned Patient Location: [facility] Current Patient Location: [facility] Accession/Order Number: [id number] Exam Date: 11/30/2023 10:58 Report Date: 11/30/2023 12:25 At the request of: JHONNY HUBER Procedure: US OB growth EXAMINATION: US OB growth HISTORY: LARGE FOR GESTATIONAL AGE COMPARISON: 10/26/2023 FINDINGS: Limited evaluation due to size and position Heart Rate: 145 bpm Amniotic Fluid Volume: 10.6 cm. The largest fluid pocket 3.5 cm Number: 1 Position: Cephalic presentation, longitudinal lie BIOMETRY: BPD: 9.08 cm; 36 weeks 6 days; 37.80 % HC: 32.50 cm; 36 weeks 6 days; 8.30 % AC: 35 cm; 38 weeks 6 days; 85.30 % FL: 7.08 cm; 36 weeks 2 days; 12.20 % EFW: 3366.52 g; 55 %, 7 lbs. 5 oz. FL/AC: 20.23 FL/BPD: 77.97 HC/AC: 0.93 GESTATIONAL AGE: Age by EDC: 38 weeks 1 day ABI by EDC: 2023-12-13 Age by US: 36 weeks 4 days ABI by US: 2023-12-24 US/US OB growth IMPRESSION: Normal interval growth Electronically authenticated by: LAZARO FORRESTER Date: 11/30/2023 12:25
== END 2023-11-30 10:56 | disposition home or self-care (01) ==
LOC: NOMS 10:55
PROVIDERS: PCP Student in an Organized Health Care Education/Training Program; Visit Provider Obstetrics & Gynecology
DX: O36.63X0 Maternal care for excessive fetal growth, third trimester, not applicable or unspecified (principal); Z3A.36 36 weeks gestation of pregnancy
CPT/HCPCS: 76816

== ENCOUNTER 2023-12-09 20:50 | Inpatient (IN) | payer BC, OTHER, SELFPAY ==
[2023-12-09] VITALS (36 sets, daily range): BP systolic 112–143; BP diastolic 56–81; PULSE 70–173
--- OUTSIDE RECORDS SUMMARY | 2023-12-09 20:15 | XMS_ITS | CCD ---
Author Organization 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 Name Role Phone URBAN, DR BARRY Admitting [...] Primary Care Provider JHONNY DUGGAN Attending Unavailable GABBY, ELHAM Attending Unavailable URBAN, JHONNY Attending Unavailable GABBY, ELHAM Attending Unavailable URBAN, JHONNY Attending Unavailable URBAN, JHONNY Attending Unavailable URBAN, JHONNY Attending Unavailable URBAN, JHONNY Attending Unavailable URBAN, JHONNY Attending Unavailable GABBY, ELHAM Attending Unavailable GABBY, ELHAM Attending Unavailable URBAN, JHONNY Attending Unavailable URBAN, JHONNY Attending Unavailable Allergies Allergy Classification Reported Allergen(s) Allergy Type Date of Onset Reaction(s) Facility (1 source) Adhesive bandage Drug allergy (disorder) 08-21-2021 [facility] Repository Problems Active Problems Problem Classification Problem [...] Results Test Name Value Interpretation Reference Range [facility] BOX TEST SENT OUTon 06-03 BOX TEST SENT OUT 06/15/23 [facility] Urinalysis macro (dipstick) panel (U)on 06-15-2023 Bilirubin, UA Negative Negative - 4(70) +++ mg/dL [facility] Blood, UA Negative Negative - 50 Alexander/mcL [facility] Clarity, UA Clear [facility] re Color, UA Yellow [facility] Glucose, UA Negative Negative - 1999(110) ++++ mg/dL [facility] Interpretation and review of laboratory results Abnormal [facility] Ketones, UA Negative Negative - 160(16) ++++ mg/dL [facility] Leukocytes, UA Trace Negative - 500+++ Shawn/mcL [facility] Nitrite, UA Negative Negative - Positive [facility] pH, UA 7.0 5 - 9 [facility] Protein, UA Negative Negative - 1999(20) ++++ mg/dL [facility] Spec Grav, UA 1.015 1 - 1.03 [facility] Urobilinogen, UA 0.2 0.2 - 12 mg/[facility] FRESH FROZ PLASMAon 09-02-19 22 FRESH FROZ PLASMA Unit Blood Type A Pos Unit Number [id number] Status Information Transfused Product ID FFP Product Code [id number] Normal [facility] Comment on above: Performed By: #### R UBIGG #### [facility] Laboratory [address] [place] [address] Dr. Amy Whitaker PRBC LEUKOREDUCEDon 09-02-19 22 ABO and Rh group Nom (Bld) Cross Match Result Compatible Unit Blood Type A Pos Unit Number [id number] Status Information Transfused Product ID Red Blood Cells Product Code [id number] Cross Match Result Compatible Unit Blood Type A Pos Unit Number [id number] Status Information Transfused Product ID Red Blood Cells Product Code [id number] [facility] Comment on above: Performed By: #### P RBC #### [facility] Laboratory [address] [place] [address] Dr. Amy Whitaker PRBC LEUKOREDUCED Cross Match Result Compatible Unit Blood Type A Pos Unit Number [id number] Status Information Transfused Product ID Red Blood Cells Product Code [id number] [facility] Comment on above: Performed By: #### R UBIGG #### [facility] Laboratory [address] [place] [address] Dr. Amy Whitaker BUNon 08-29-2021 Urea nitrogen [Mass/Vol] 10.0 mg/dL Normal 7.0-18.0 [facility] Comment on above: Performed By: #### R UBIGG #### [facility] Laboratory [address] [place] [address] Dr. Amy Whitaker CBC AUTO DIFFon 08-29-2021 BASO # 0.0 103/ul Normal 0.0-0.1 [facility] Comment on above: Performed By: #### P T, PTT #### [facility] Laboratory [address] [place] [address] Dr. Amy Whitaker Basophils/100 WBC (Bld) 0.6 % Normal 0.2-2.0 [facility] Comment on above: Performed By: #### P T, PTT #### [facility] [address] [place] [address] Dr. Amy Whitaker EO # 0.1 103/ul Normal 0.0-0.7 [facility] Comment on above: Performed By: #### P T, PTT #### [facility] [address] [place] [address] Dr. Amy Whitaker Eosinophils/100 WBC (Bld) 0.8 % Critically low 0.9-7.0 [facility] Comment on above: Performed By: #### P T, PTT #### [facility] [address] [place] [address] Dr. Amy Whitaker Erythrocyte distribution width (RBC) [Ratio] 13.6 % Normal 11.0-15.0 [facility] Comment on above: Performed By: #### P T, PTT #### [facility] [address] [place] [address] Dr. Amy Whitaker Hematocrit (Bld) [Volume fraction] 40.1 % Normal 36.0-48.0 [facility] Comment on above: Performed By: #### P T, PTT #### [facility] Laboratory [address] [place] [address] Dr. Amy Whitaker Hemoglobin (Bld) [Mass/Vol] 13.0 g/dL Normal 12.0-16.0 [facility] Comment on above: Performed By: #### P T, PTT #### [facility] Laboratory [address] [place] [address] Dr. Amy Whitaker IG # 0.03 10e3/ul Normal 0.00-0.03 [facility] Comment on above: Performed By: #### P T, PTT #### [facility] [address] [place] [address] Dr. Amy Whitaker IG % 0.4 % Normal 0.0-0.5 [facility] Comment on above: Performed By: #### P T, PTT #### [facility] [address] [place] [address] Dr. Amy Whitaker LYMPH # 1.9 103/ul Normal 1.2-3.8 [facility] Comment on above: Performed By: #### P T, PTT #### [facility] [address] [place] [address] Dr. Amy Whitaker Lymphocytes/100 WBC (Bld) 26.1 % Normal 20.5-60.0 [facility] Comment on above: Performed By: #### P T, PTT #### [facility] [address] [place] [address] Dr. Amy Whitaker MANUAL DIFF REQ NO Normal [facility] Comment on above: Performed By: #### P T, PTT #### [facility] [address] [place] [address] Dr. Amy Whitaker MCH (RBC) [Entitic mass] 29.5 pg Normal 26.7-34.0 [facility] Comment on above: Performed By: #### P T, PTT #### [facility] [address] [place] [address] Dr. Amy Whitaker MCHC (RBC) [Mass/Vol] 32.4 g/dL Normal 29.9-35.2 [facility] Comment on above: Performed By: #### P T, PTT #### [facility] [address] [place] [address] Dr. Amy Whitaker MCV (RBC) [Entitic vol] 90.9 fL Normal 81.0-99.0 [facility] Comment on above: Performed By: #### P T, PTT #### [facility] [address] [place] [address] Dr. Amy Whitaker MONO # 0.7 103/ul Normal 0.3-0.8 [facility] Comment on above: Performed By: #### P T, PTT #### [facility] [address] [place] [address] Dr. Amy Whitaker Monocytes/100 WBC (Bld) 9.4 % Normal 1.7-12.0 [facility] Comment on above: Performed By: #### P T, PTT #### [facility] [address] [place] [address] Dr. Amy Whitaker NEUT # 4.5 103/ul Normal 1.4-6.5 [facility] Comment on above: Performed By: #### P T, PTT #### [facility] [address] [address] [address] Amy Whitaker Neutrophils/100 WBC (Bld) 62.7 % Normal 43.0-75.0 [facility] Comment on above: Performed By: #### P T, PTT #### [facility] [address] [place] [address] Dr. Amy Whitaker Platelet mean volume (Bld) [Entitic vol] 9.7 fL Normal 9.5-13.5 [facility] Comment on above: Performed By: #### P T, PTT #### [facility] [address] [place] [address] Dr. Amy Whitaker PLT 308 103/ul Normal 150-450 [facility] Comment on above: Performed By: #### P T, PTT #### [facility] [address] [place] [address] Dr. Amy Whitaker RBC 4.41 106/ul Normal 4.20-5.40 [facility] Comment on above: Performed By: #### P T, PTT #### [facility] [address] [place] [address] Dr. Amy Whitaker WBC 7.2 103/ul Normal 4.0-11.0 [facility] Comment on above: Performed By: #### P T, PTT #### [facility] [address] [place] [address] Dr. Amy Whitaker CREATININEon 08-29-2021 Creatinine [Mass/Vol] 0.73 mg/dL Normal 0.55-1.02 [facility] Comment on above: Performed By: #### R UBIGG #### [facility] [address] [place] [address] Dr. Amy Whitaker EGFR-AF CZECH >60 Normal >=60 [facility] Comment on above: Performed By: #### R UBIGG #### [facility] [address] [place] [address] Dr. Amy Whitaker EGFR-NON AF CZECH >60 Normal >=60 [facility] Comment on above: Performed By: #### R UBIGG #### [facility] [address] [place] [address] Dr. Amy Whitaker SGOTon 08-29-2021 AST [Catalytic activity/Vol] 14 U/L Critically low 15-37 [facility] Comment on above: Performed By: #### R UBIGG #### [facility] [address] [place] [address] Dr. Amy Whitaker SGPTon 08-29-2021 ALT [Catalytic activity/Vol] 20 U/L Normal 14-59 [facility] Comment on above: Performed By: #### R UBIGG #### [facility] [address] [place] [address] Dr. Amy Whitaker CBC AUTO DIFFon 08-27-2021 BASO # 0.0 103/ul Normal 0.0-0.1 [facility] Comment on above: Performed By: #### C BC #### [facility] [address] [place] [address] Dr. Amy Whitaker Basophils/100 WBC (Bld) 0.2 % Normal 0.2-2.0 [facility] Comment on above: Performed By: #### C BC #### [facility] [address] [place] [address] Dr. Amy Whitaker EO # 0.0 103/ul Normal 0.0-0.7 [facility] Comment on above: Performed By: #### C BC #### [facility] [address] [place] [address] Dr. Amy Whitaker Eosinophils/100 WBC (Bld) 0.0 % Critically low 0.9-7.0 [facility] Comment on above: Performed By: #### C BC #### [facility] [address] [place] [address] Dr. Amy Whitaker Erythrocyte distribution width (RBC) [Ratio] 13.9 % Normal 11.0-15.0 [facility] Comment on above: Performed By: #### C BC #### [facility] [address] [place] [address] Dr. Amy Whitaker Hematocrit (Bld) [Volume fraction] 34.3 % Critically low 36.0-48.0 [facility] Comment on above: Performed By: #### C BC #### [facility] [address] [address] [address] Amy Whitaker Hemoglobin (Bld) [Mass/Vol] 11.2 g/dL Critically low 12.0-16.0 [facility] Comment on above: Result Comment: rece ived blood Performed By: #### C BC #### [facility] [address] [place] [address] Dr. Amy Whitaker IG # 0.02 10e3/ul Normal 0.00-0.03 [facility] Comment on above: Performed By: #### C BC #### [facility] [address] [place] [address] Dr. Amy Whitaker IG % 0.3 % Normal 0.0-0.5 [facility] Comment on above: Performed By: #### C BC #### [facility] [address] [place] [address] Dr. Amy Whitaker LYMPH # 0.8 103/ul Critically low 1.2-3.8 [facility] Comment on above: Performed By: #### C BC #### [facility] [address] [place] [address] Dr. Amy Whitkaer Lymphocytes/100 WBC (Bld) 13.5 % Critically low 20.5-60.0 [facility] Comment on above: Performed By: #### C BC #### [facility] [address] [place] [address] Dr. Amy Whitaker MANUAL DIFF REQ NO Normal [facility] Comment on above: Performed By: #### C BC #### [facility] [address] [place] [address] Dr. Amy Whitaker MCH (RBC) [Entitic mass] 29.7 pg Normal 26.7-34.0 [facility] Comment on above: Performed By: #### C BC #### [facility] [address] [place] [address] Dr. Amy Whitaker MCHC (RBC) [Mass/Vol] 32.7 g/dL Normal 29.9-35.2 [facility] Comment on above: Performed By: #### C BC #### [facility] [address] [address] [address] Amy Whitaker MCV (RBC) [Entitic vol] 91.0 fL Normal 81.0-99.0 [facility] Comment on above: Performed By: #### C BC #### [facility] [address] [address] [address] Amy Whitaker MONO # 0.4 103/ul Normal 0.3-0.8 [facility] Comment on above: Performed By: #### C BC #### [facility] [address] [address] [address] Amy Whitaker Monocytes/100 WBC (Bld) 6.9 % Normal 1.7-12.0 [facility] Comment on above: Performed By: #### C BC #### [facility] [address] [address] [address] Amy Whitaker NEUT # 4.6 103/ul Normal 1.4-6.5 [facility] Comment on above: Performed By: #### C BC #### [facility] [address] [address] [address] Amy Whitaker Neutrophils/100 WBC (Bld) 79.1 % Critically high 43.0-75.0 [facility] Comment on above: Performed By: #### C BC #### [facility] [address] [address] [address] Amy Whitaker Platelet mean volume (Bld) [Entitic vol] 10.9 fL Normal 9.5-13.5 [facility] Comment on above: Performed By: #### C BC #### [facility] [address] [address] [address] Amy Whitaker PLT 174 103/ul Normal 150-450 [facility] Comment on above: Performed By: #### C BC #### [facility] [address] [id number] Amy Whitaker RBC 3.77 106/ul Critically low 4.20-5.40 [facility] Comment on above: Performed By: #### C BC #### [facility] [address] [address] [address] Amy Whitaker WBC 5.8 103/ul Normal 4.0-11.0 [facility] Comment on above: Performed By: #### C BC #### [facility] [address] [address] [address] Amy Whitaker CBC AUTO DIFFon 08-26-2021 BASO # 0.0 103/ul Normal 0.0-0.1 [facility] Comment on above: Performed By: #### C BC #### [facility] [address] [place] [address] Dr. Amy Whitaker Basophils/100 WBC (Bld) 0.2 % Normal 0.2-2.0 [facility] Comment on above: Performed By: #### C BC #### [facility] [address] [place] [address] Dr. Amy Whitaker EO # 0.0 103/ul Normal 0.0-0.7 [facility] Comment on above: Performed By: #### C BC #### [facility] [address] [place] [address] Dr. Amy Whitaker Eosinophils/100 WBC (Bld) 0.7 % Critically low 0.9-7.0 [facility] Comment on above: Performed By: #### C BC #### [facility] [address] [place] [address] Dr. Amy Whitaker Erythrocyte distribution width (RBC) [Ratio] 13.2 % Normal 11.0-15.0 [facility] Comment on above: Performed By: #### C BC #### [facility] [address] [place] [address] Dr. Amy Whitaker Hematocrit (Bld) [Volume fraction] 23.5 % Critically low 36.0-48.0 [facility] Comment on above: Performed By: #### C BC #### [facility] [address] [place] [address] Dr. Amy Whitaker Hemoglobin (Bld) [Mass/Vol] 7.7 g/dL Critically low 12.0-16.0 [facility] Comment on above: Performed By: #### C BC #### [facility] [address] [place] [address] Dr. Amy Whitaker IG # 0.02 10e3/ul Normal 0.00-0.03 [facility] Comment on above: Performed By: #### C BC #### [facility] [address] [place] [address] Dr. Amy Whitaker IG % 0.4 % Normal 0.0-0.5 [facility] Comment on above: Performed By: #### C BC #### [facility] [address] [place] [address] Dr. Amy Whitaker LYMPH # 1.0 103/ul Critically low 1.2-3.8 [facility] Comment on above: Performed By: #### C BC #### [facility] [address] [place] [address] Dr. Amy Whitaker Lymphocytes/100 WBC (Bld) 21.6 % Normal 20.5-60.0 [facility] Comment on above: Performed By: #### C BC #### [facility] [address] [place] [address] Dr. Amy Whitaker MANUAL DIFF REQ NO Normal [facility] Comment on above: Performed By: #### C BC #### [facility] [address] [place] [address] Dr. Amy Whitaker MCH (RBC) [Entitic mass] 30.0 pg Normal 26.7-34.0 [facility] Comment on above: Performed By: #### C BC #### [facility] [address] [place] [address] Dr. Amy Whitaker MCHC (RBC) [Mass/Vol] 32.8 g/dL Normal 29.9-35.2 [facility] Comment on above: Performed By: #### C BC #### [facility] [address] [place] [address] Dr. Amy Whitaker MCV (RBC) [Entitic vol] 91.4 fL Normal 81.0-99.0 [facility] Comment on above: Performed By: #### C BC #### [facility] [address] [place] [address] Dr. Amy Whitaker MONO # 0.4 103/ul Normal 0.3-0.8 [facility] Comment on above: Performed By: #### C BC #### [facility] [address] [address] [address] Amy Whitaker Monocytes/100 WBC (Bld) 7.8 % Normal 1.7-12.0 [facility] Comment on above: Performed By: #### C BC #### [facility] [address] [place] [address] Dr. Amy Whitaker NEUT # 3.1 103/ul Normal 1.4-6.5 [facility] Comment on above: Performed By: #### C BC #### [facility] [address] [place] [address] Dr. Amy Whitaker Neutrophils/100 WBC (Bld) 69.3 % Normal 43.0-75.0 [facility] Comment on above: Performed By: #### C BC #### [facility] [address] [place] [address] Dr. Amy Whitaker Platelet mean volume (Bld) [Entitic vol] 9.7 fL Normal 9.5-13.5 [facility] Comment on above: Performed By: #### C BC #### [facility] [address] [place] [address] Dr. Amy Whitaker PLT 154 103/ul Normal 150-450 [facility] Comment on above: Performed By: #### C BC #### [facility] [address] [place] [address] Dr. Amy Whitaker RBC 2.57 106/ul Critically low 4.20-5.40 [facility] Comment on above: Performed By: #### C BC #### [facility] [address] [place] [address] Dr. Amy Whitaker WBC 4.5 103/ul Normal 4.0-11.0 [facility] Comment on above: Performed By: #### C BC #### [facility] [address] [place] [address] Dr. Amy Whitaker CULTURE URINEon 08-26-2021 CULTURE URINE Culture Observations: NO GROWTH. Normal The [facility] [place] Comment on above: Performed By: #### U RCX #### [facility] [place] Laboratory [address] [place] [address] Dr. Amy Whitaker [facility]02 SARS-CoV-2 (COVID-19) RNA SHANNON+probe Ql (Unsp spec) Not detected Normal NOT DETECTED The [facility] [place] Comment on above: Result Comment: When diagnostic [...] for this test is supported by the [place] of Health and Human Service's declaration that [...] #### P T, PTT #### [facility] [place] [facility] [address] [place] [address] Dr. Amy Whitaker ER URINE PROFILEon Bilirubin Ql (U) SMALL Abnormal NEGATIVE The [facility] Comment on above: Performed By: #### P T, PTT #### [facility] [place] [facility] [address] [place] [address] Dr. Amy Whitaker Clarity (U) SL CLOUDY Abnormal CLEAR The [facility] [place] Comment on above: Performed By: #### P T, PTT #### [facility] [place] [facility] [address] [place] [address] Dr. Amy Whitaker Color (U) RED Abnormal YELLOW The [facility] [place] Comment on above: Performed By: #### P T, PTT #### [facility] [place] [facility] [address] [place] [address] Dr. Amy SERRATO A micrscopic examination will be performed if indicated. Normal The [facility] [place] Comment on above: Performed By: #### P T, PTT #### [facility] [place] [facility] [address] [place] [address] Dr. Amy Whitaker Glucose Ql (U) Negative Normal NEGATIVE The [facility] Comment on above: Performed By: #### P T, PTT #### [facility] [place] [facility] [address] [address] [address] Amy Whitaker Hemoglobin Ql (U) LARGE Abnormal NEGATIVE The [facility] Comment on above: Performed By: #### P T, PTT #### [facility] [place] [facility] [address] [place] [address] Dr. Amy Whitaker Ketones Ql (U) TRACE Abnormal NEGATIVE The [facility] Comment on above: Performed By: #### P T, PTT #### [facility] [place] [facility] [address] [place] [address] Dr. Amy Whitaker LEUKOCYTES LARGE Abnormal NEGATIVE The [facility] [place] Comment on above: Performed By: #### P T, PTT #### [facility] [place] [facility] [address] [place] [address] Dr. Amy Whitaker Nitrite Ql (U) Positive Abnormal NEGATIVE The [facility] Comment on above: Performed By: #### P T, PTT #### [facility] [place] [facility] [address] [place] [address] Dr. Amy Whitaker pH (U) 8.0 [pH] Normal 5-9 The [facility] [place] Comment on above: Performed By: #### P T, PTT #### [facility] [place] [facility] [address] [place] [address] Dr. Amy Whitaker Protein (U) [Mass/Vol] 100 mg/dL Abnormal NEGATIVE/ TRACE The [facility] [place] Comment on above: Performed By: #### P T, PTT #### [facility] [place] [facility] [address] [place] [address] Dr. Amy Whitaker SPEC GRAVITY 1.015 Normal 1.005-<=1.025 The [facility] Comment on above: Performed By: #### P T, PTT #### [facility] [place] [facility] [address] [place] [address] Dr. Amy Whitaker UR MICRO IND INDICATED Normal [facility] Comment on above: Performed By: #### P T, PTT #### [facility] [place] [facility] [address] [place] [address] Dr. Amy Whitaker Urobilinogen Qn (U) 1.0 {Neelima'U}/dL Normal 0.2 - 1. 0 [facility] Comment on above: Performed By: #### P T, PTT #### [facility] [place] [facility] [address] [place] [address] Dr. Amy Whitaker PREG HCG QUALon 08-26-2021 , QUAL Positive Abnormal NEGATIVE [facility] Comment on above: Performed By: #### P REG #### [facility] [place] [facility] [address] [place] [address] Dr. Amy Whitaker PROF 14(COMP METB)on 022 Albumin [Mass/Vol] 3.4 g/dL Normal 3.4-5.0 [facility] Comment on above: Performed By: #### P T, PTT #### [facility] [place] [facility] [address] [place] [address] Dr. Amy Whitaker Albumin/Globulin [Mass ratio] 1.2 {ratio} Normal [facility] Comment on above: Performed By: #### P T, PTT #### [facility] [place] [facility] [address] [place] [address] Dr. Amy Whitaker ALP [Catalytic activity/Vol] 47 U/L Normal 46-116 The [facility] [place] Comment on above: Performed By: #### P T, PTT #### [facility] [place] [facility] [address] [place] [address] Dr. Amy Whitaker ALT [Catalytic activity/Vol] 14 U/L Normal 14-59 [facility] Comment on above: Performed By: #### P T, PTT #### [facility] [place] [facility] [address] [place] [address] Dr. Amy Whitaker Anion gap [Moles/Vol] 10.8 mmol/L Normal [facility] Comment on above: Performed By: #### P T, PTT #### [facility] [place] [facility] [address] [address] [address] Amy Whitaker AST [Catalytic activity/Vol] 9 U/L Critically low 15-37 [facility] Comment on above: Performed By: #### P T, PTT #### [facility] [place] [facility] [address] [address] [address] Amy Whitaker Bilirubin [Mass/Vol] 0.7 mg/dL Normal 0.2-1.0 [facility] Comment on above: Performed By: #### P T, PTT #### [facility] [place] [facility] [address] [address] [address] Amy Whitaker Calcium [Mass/Vol] 7.9 mg/dL Critically low 8.5-10.1 [facility] Comment on above: Performed By: #### P T, PTT #### [facility] [place] [facility] [address] [place] [address] Dr. Amy Whitaker Chloride [Moles/Vol] 105 mmol/L Normal 98-107 [facility] Comment on above: Performed By: #### P T, PTT #### [facility] [place] [facility] [address] [place] [address] Dr. Amy Whitaker CO2 [Moles/Vol] 27.0 mmol/L Normal 21.0-32.0 [facility] Comment on above: Performed By: #### P T, PTT #### [facility] [place] [facility] [address] [place] [address] Dr. Amy Whitaker Creatinine [Mass/Vol] 0.51 mg/dL Critically low 0.55-1.02 [facility] Comment on above: Performed By: #### P T, PTT #### [facility] [place] [facility] [address] [place] [address] Dr. Amy Whitaker EGFR-AF CZECH >60 Normal >=60 The [facility] Comment on above: Performed By: #### P T, PTT #### [facility] [place] [facility] [address] [address] [address] Amy Whitaker EGFR-NON AF CZECH >60 Normal >=60 The [facility] [place] Comment on above: Performed By: #### P T, PTT #### [facility] [place] [facility] [address] [address] [address] Amy Whitaker Globulin (S) [Mass/Vol] 2.8 g/dL Normal [facility] Comment on above: Performed By: #### P T, PTT #### [facility] [place] [facility] [address] [place] [address] Dr. Amy Whitaker Glucose [Mass/Vol] 98 mg/dL Normal 74-106 [facility] Comment on above: Performed By: #### P T, PTT #### [facility] [place] [facility] [address] [place] [address] Dr. Amy Whitaker Potassium [Moles/Vol] 3.8 mmol/L Normal 3.5-5.1 [facility] Comment on above: Performed By: #### P T, PTT #### [facility] [place] [facility] [address] [place] [address] Dr. Amy Whitaker Protein [Mass/Vol] 6.2 g/dL Normal 6.1-8.2 The [facility] Comment on above: Performed By: #### P T, PTT #### [facility] [place] [facility] [address] [place] [address] Dr. Amy Whitaker Sodium [Moles/Vol] 139 mmol/L Normal 136-145 [facility] Comment on above: Performed By: #### P T, PTT #### [facility] [place] [facility] [address] [place] [address] Dr. Amy Whitaker Urea nitrogen [Mass/Vol] 7.0 mg/dL Normal 7.0-18.0 [facility] Comment on above: Performed By: #### P T, PTT #### [facility] [place] [facility] [address] [place] [address] Dr. Amy Whitaker Urea nitrogen/Creatinine [Mass ratio] 13.7 mg/mg Normal [facility] Comment on above: Performed By: #### P T, PTT #### [facility] [place] [facility] [address] [place] [address] Dr. Amy Whitaker PROTIMEon 08-26-2021 INR Coag (PPP) [Relative time] 1.01 {INR} Normal [facility] Comment on above: Performed By: #### P T, PTT #### [facility] [place] [facility] [address] [place] [address] Dr. Amy Whitaker INR GUIDELINES SEE BELOW Normal The [facility] Comment on above: Result Comment: DIVINA RED INR: 2.0 - 3.0 CONDITIONS NOT LISTED BELOW 2.5 - 3.5 FOR PROSTHETIC HEART VALVE REPLACEMENT 2.5 - 3.5 RECURRENT THROMBOSIS Performed By: #### P T, PTT #### [facility] [place] [facility] [address] [place] [address] Dr. Amy Whitaker PT Coag (PPP) [Time] 10.9 s Normal 9.0-11.6 The [facility] [place] Comment on above: Performed By: #### P T, PTT #### [facility] [place] [facility] [address] [place] [address] Dr. Amy Whitaker PTTon 08-26-2021 aPTT Coag (Bld) [Time] 23.4 s Normal 22.3-36.2 The [facility] [place] Comment on above: Performed By: #### P T, PTT #### [facility] [place] [facility] [address] [place] [address] Dr. Amy Whitaker TYPE AND SCREENon 08-26-2021 TYPE AND SCREEN Negative Normal [facility] Comment on above: Performed By: #### T NS #### [facility] [place] [facility] [address] [place] [address] Dr. Amy Whitaker URINE MICROSCOPIC ONLYon BACTERIA TRACE Abnormal NONE SEEN The [facility] [place] Comment on above: Performed By: #### P T, PTT #### [facility] [place] [facility] [address] [place] [address] Dr. Amy Whitaker Bacteria identified Cx Nom (U) INDICATED Normal The [facility] [place] Comment on above: Performed By: #### P T, PTT #### [facility] [place] [facility] [address] [place] [address] Dr. Amy Whitaker CAST NONE SEEN Normal NONE SEEN [facility] Comment on above: Performed By: #### P T, PTT #### [facility] [place] [facility] [address] [place] [address] Dr. Amy Whitaker Crystals LM Nom (Urine sed) NONE SEEN Normal NONE SEEN The [facility] [place] Comment on above: Performed By: #### P T, PTT #### [facility] [place] [facility] [address] [place] [address] Dr. Amy Whitaker Epithelial cells LM Ql (Urine sed) NONE SEEN Normal NONE SEEN /RARE The [facility] [place] Comment on above: Performed By: #### P T, PTT #### [facility] [place] [facility] [address] [place] [address] Dr. Amy Whitaker MUCOUS NONE SEEN Normal NONE SEEN The [facility] [place] Comment on above: Performed By: #### P T, PTT #### [facility] [place] [facility] [address] [place] [address] Dr. Amy Whitaker RBC (U) [#/Vol] /uL Abnormal 0-2 [facility] Comment on above: Performed By: #### P T, PTT #### [facility] [place] [facility] [address] [place] [address] Dr. Amy Whitaker WBC 0-2 Abnormal NONE SEEN The [facility] [place] Comment on above: Performed By: #### P T, PTT #### [facility] [place] [facility] [address] [place] [address] Dr. Amy Whitaker US PELVISon 08-26-2021 US [...] Date: 2021-08-26 13:18 Normal The [facility] [place] US PELVISon 08-23-2021 US PELVIS EXAM: US [...] Date: 2021-08-23 12:13 Normal The [facility] [place] CBC AUTO DIFFon 08-22-2021 BASO # 0.0 103/ul Normal 0.0-0.1 [facility] Comment on above: Performed By: #### P T, PTT #### [facility] [place] [facility] [address] [address] [address] Amy Whitaker Basophils/100 WBC (Bld) 0.4 % Normal 0.2-2.0 [facility] Comment on above: Performed By: #### P T, PTT #### [facility] [place] [facility] [address] [place] [address] Dr. Amy Whitaker EO # 0.1 103/ul Normal 0.0-0.7 [facility] [place] Comment on above: Performed By: #### P T, PTT #### [facility] [place] [facility] [address] [place] [address] Dr. Amy Whitaker Eosinophils/100 WBC (Bld) 0.8 % Critically low 0.9-7.0 [facility] [place] Comment on above: Performed By: #### P T, PTT #### [facility] [place] [facility] [address] [place] [address] Dr. Amy Whitaker Erythrocyte distribution width (RBC) [Ratio] 12.4 % Normal 11.0-15.0 [facility] Comment on above: Performed By: #### P T, PTT #### [facility] [place] [facility] [address] [place] [address] Dr. Amy Whitaker Hematocrit (Bld) [Volume fraction] 37.4 % Normal 36.0-48.0 [facility] Comment on above: Performed By: #### P T, PTT #### [facility] [place] [facility] [address] [place] [address] Dr. Amy Whitaker Hemoglobin (Bld) [Mass/Vol] 12.6 g/dL Normal 12.0-16.0 [facility] Comment on above: Performed By: #### P T, PTT #### [facility] [place] [facility] [address] [place] [address] Dr. Amy Whitaker IG # 0.04 10e3/ul Critically high 0.00-0.03 [facility] Comment on above: Performed By: #### P T, PTT #### [facility] [place] [facility] [address] [place] [address] Dr. Amy Whitaker IG % 0.5 % Normal 0.0-0.5 [facility] Comment on above: Performed By: #### P T, PTT #### [facility] [address] [place] [address] Dr. Amy Whitaker LYMPH # 2.0 103/ul Normal 1.2-3.8 [facility] Comment on above: Performed By: #### P T, PTT #### [facility] [place] [facility] [address] [place] [address] Dr. Amy Whitaker Lymphocytes/100 WBC (Bld) 27.2 % Normal 20.5-60.0 [facility] Comment on above: Performed By: #### P T, PTT #### [facility] [place] [facility] [address] [place] [address] Dr. Amy Whitaker MANUAL DIFF REQ NO Normal [facility] Comment on above: Performed By: #### P T, PTT #### [facility] [place] [facility] [address] [place] [address] Dr. Amy Whitaker MCH (RBC) [Entitic mass] 29.4 pg Normal 26.7-34.0 [facility] Comment on above: Performed By: #### P T, PTT #### [facility] [place] [facility] [address] [place] [address] Dr. Amy Whitaker MCHC (RBC) [Mass/Vol] 33.7 g/dL Normal 29.9-35.2 [facility] [place] Comment on above: Performed By: #### P T, PTT #### [facility] [place] [facility] [address] [place] [address] Dr. Amy Whitaker MCV (RBC) [Entitic vol] 87.4 fL Normal 81.0-99.0 [facility] [place] Comment on above: Performed By: #### P T, PTT #### [facility] [place] [facility] [address] [place] [address] Dr. Amy Whitaker MONO # 0.7 103/ul Normal 0.3-0.8 The [facility] [place] Comment on above: Performed By: #### P T, PTT #### [facility] [place] [facility] [address] [place] [address] Dr. Amy Whitaker Monocytes/100 WBC (Bld) 9.7 % Normal 1.7-12.0 [facility] Comment on above: Performed By: #### P T, PTT #### [facility] [place] [facility] [address] [place] [address] Dr. Amy Whitaker NEUT # 4.6 103/ul Normal 1.4-6.5 [facility] Comment on above: Performed By: #### P T, PTT #### [facility] [place] [facility] [address] [place] [address] Dr. Amy Whitaker Neutrophils/100 WBC (Bld) 61.4 % Normal 43.0-75.0 [facility] [place] Comment on above: Performed By: #### P T, PTT #### [facility] [place] [facility] [address] [place] [address] Dr. Amy Whitaker Platelet mean volume (Bld) [Entitic vol] 10.1 fL Normal 9.5-13.5 [facility] [place] Comment on above: Performed By: #### P T, PTT #### [facility] [place] [facility] [address] [place] [address] Dr. Amy Whitaker PLT 222 103/ul Normal 150-450 [facility] [place] Comment on above: Performed By: #### P T, PTT #### [facility] [place] [facility] [address] [address] [address] Amy Whitaker RBC 4.28 106/ul Normal 4.20-5.40 [facility] [place] Comment on above: Performed By: #### P T, PTT #### [facility] [place] [facility] [address] [address] [address] Amy Whitaker WBC 7.5 103/ul Normal 4.0-11.0 [facility] [place] Comment on above: Performed By: #### P T, PTT #### [facility] [place] [facility] [address] [address] [address] Amy Whitaker FIBRINOGENon 08-22-2021 FIBRINOGEN 261.0 mg/dl Normal 200.0-400.0 [facility] Comment on above: Performed By: #### P T, PTT #### [facility] [place] [facility] [address] [place] [address] Dr. Amy Whitaker PREG QUANT HCGon 08-22-2021 HCG QUANT [id number] mIU/mL Normal [facility] Comment on above: Performed By: #### P REGQNT #### [facility] [place] [facility] [address] [place] [address] Dr. Amy Whitaker HCG RANGE SEE BELOW Normal [facility] Comment on above: Result Comment: 5-50 0-1 WEEK 40-300 1-2 WEEKS 100-1,000 2-3 WEEKS 500-6,000 3-4 WEEKS 5,000-200,000 1-2 MONTHS 10,000-100,000 2-3 MONTHS 3,000-50,000 2ND TRIMESTER 1,000-50,000 3RD TRIMESTER Performed By: #### P REGQNT #### [facility] [place] [facility] [address] [place] [address] Dr. Amy Whitaker PROTIMEon 08-22-2021 INR Coag (PPP) [Relative time] 1.06 {INR} Normal [facility] [place] Comment on above: Performed By: #### P T, PTT #### [facility] [place] [facility] [address] [place] [address] Dr. Amy Whitaker INR GUIDELINES SEE BELOW Normal The [facility] Comment on above: Result Comment: DIVINA RED INR: 2.0 - 3.0 CONDITIONS NOT LISTED BELOW 2.5 - 3.5 FOR PROSTHETIC HEART VALVE REPLACEMENT 2.5 - 3.5 RECURRENT THROMBOSIS Performed By: #### P T, PTT #### [facility] [place] [facility] [address] [place] [address] Dr. Amy Whitaker PT Coag (PPP) [Time] 11.4 s Normal 9.0-11.6 [facility] [place] Comment on above: Performed By: #### P T, PTT #### [facility] [facility] [address] [place] [address] Dr. Amy Whitaker PTTon 08-22-2021 aPTT Coag (Bld) [Time] 25.6 s Normal 22.3-36.2 [facility] [place] Comment on above: Performed By: #### P T, PTT #### [facility] [place] [facility] [address] [place] [address] Dr. Amy Whitaker [facility]-02 SARS-CoV-2 (COVID-19) RNA SHANNON+probe Ql (Unsp spec) Not detected Normal NOT DETECTED The [facility] Comment on above: Result Comment: When diagnostic [...] for this test is supported by the [employer] of Health and Human Service's declaration that [...] #### P T, PTT #### [facility] [place] [facility] [address] [place] [address] Dr. Amy Whitaker US PREG TVon 08-19-2021 [...] at the time of imaging by the lead ruby on rails developer. Electronically authenticated by: PATRICK KRAUSE Date: 2021-08-19 17:18 Normal [facility] [place] HEP B SURFACE ANTIGEN SCREEN on 08-08-2021 HBsAg Screen Negative Normal Negative [facility] Comment on above: Performed By: #### P T, PTT #### [facility] [place] [facility] [address] [address] [address] Amy Whitaker HEPATITIS C VIRUS AB W/ REFL EX QUANTon 08-08-2021 HCV AB <0.1 Normal 0.0-0.9 [facility] Comment on above: Performed By: #### P T, PTT #### [facility] [address] [address] [address] Amy Whitaker Interpretation: Comment Normal [facility] Comment on above: Result Comment: Nega tive Not infected with HCV, unless recent infection is suspected or other evidence exists to indicate HCV infection. Performed By: #### P T, PTT #### [facility] [address] [address] [address] Amy Whitaker HIV 1 AND 2 WITH REFLEXon HIV Screen 4th Generation wRfx Non-Reactive Normal Non Reactive [facility] Comment on above: Result Comment: HIV Negative HIV-1/HIV-2 antibodies and HIV-1 p24 antigen were NOT detected. There is no laboratory evidence of HIV infection. Performed By: #### P T, PTT #### [facility] [address] [place] [address] Dr. Amy Whitaker RPR QUANTon 08-08-2021 Rapid Plasma Reagin, Quant Non-Reactive Normal NonRea<1:1 [facility] Comment on above: Result Comment: Plea se Note: This test does not meet current guidelines for screening and diagnosis of syphilis. This test is intended for following treatment response in patients being treated for syphilis infection. To screen for syphilis infection, a reflex cascade that includes both RPR and a treponema-specific assay should be utilized, such as Treponema pallidum (Syphilis) Screening King (419251) or Rapid Plasma Reagin (RPR) Test With Reflex to Quantitative RPR and Confirmatory Treponema pallidum Antibodies (980273). Performed By: #### P T, PTT #### [facility] [address] [place] [address] Dr. Amy Whitaker RUBELLA AB IGGon 08-08-2021 Rubella Antibodies, IgG 1.68 index Normal Immune >0.99 [facility] Comment on above: Result Comment: Non- immune <0.90 Equivocal 0.90 - 0.99 Immune >0.99 Performed By: #### R UBIGG #### [facility] [address] [place] [address] Dr. Amy Whitaker CBC AUTO DIFFon 08-07-2021 BASO # 0.0 103/ul Normal 0.0-0.1 [facility] Comment on above: Performed By: #### P T, PTT #### [facility] [address] [place] [address] Dr. Amy Whitaker Basophils/100 WBC (Bld) 0.3 % Normal 0.2-2.0 [facility] Comment on above: Performed By: #### P T, PTT #### [facility] [address] [place] [address] Dr. Amy Whitaker EO # 0.0 103/ul Normal 0.0-0.7 [facility] Comment on above: Performed By: #### P T, PTT #### [facility] [address] [place] [address] Dr. Amy Whitaker Eosinophils/100 WBC (Bld) 0.3 % Critically low 0.9-7.0 [facility] Comment on above: Performed By: #### P T, PTT #### [facility] [address] [place] [address] Dr. Amy Whitaker Erythrocyte distribution width (RBC) [Ratio] 12.2 % Normal 11.0-15.0 [facility] Comment on above: Performed By: #### P T, PTT #### [facility] [address] [place] [address] Dr. Amy Whitaker Hematocrit (Bld) [Volume fraction] 38.5 % Normal 36.0-48.0 [facility] Comment on above: Performed By: #### P T, PTT #### [facility] [address] [place] [address] Dr. Amy Whitaker Hemoglobin (Bld) [Mass/Vol] 13.0 g/dL Normal 12.0-16.0 [facility] Comment on above: Performed By: #### P T, PTT #### [facility] [address] [place] [address] Dr. Amy Whitaker IG # 0.02 10e3/ul Normal 0.00-0.03 [facility] Comment on above: Performed By: #### P T, PTT #### [facility] [address] [place] [address] Dr. Amy Whitaker IG % 0.3 % Normal 0.0-0.5 [facility] Comment on above: Performed By: #### P T, PTT #### [facility] [address] [place] [address] Dr. Amy Whitaker LYMPH # 1.6 103/ul Normal 1.2-3.8 [facility] Comment on above: Performed By: #### P T, PTT #### [facility] [address] [place] [address] Dr. Amy Whitaker Lymphocytes/100 WBC (Bld) 20.2 % Critically low 20.5-60.0 [facility] Comment on above: Performed By: #### P T, PTT #### [facility] [address] [place] [address] Dr. Amy Whitaker MANUAL DIFF REQ NO Normal [facility] Comment on above: Performed By: #### P T, PTT #### [facility] [address] [place] [address] Dr. Amy Whitaker MCH (RBC) [Entitic mass] 29.3 pg Normal 26.7-34.0 [facility] Comment on above: Performed By: #### P T, PTT #### [facility] [address] [place] [address] Dr. Amy Whitaker MCHC (RBC) [Mass/Vol] 33.8 g/dL Normal 29.9-35.2 [facility] Comment on above: Performed By: #### P T, PTT #### [facility] [address] [place] [address] Dr. Amy Whitaker MCV (RBC) [Entitic vol] 86.7 fL Normal 81.0-99.0 [facility] Comment on above: Performed By: #### P T, PTT #### [facility] [address] [place] [address] Dr. Amy Whitaker MONO # 0.6 103/ul Normal 0.3-0.8 [facility] Comment on above: Performed By: #### P T, PTT #### [facility] [address] [place] [address] Dr. Amy Whitaker Monocytes/100 WBC (Bld) 8.0 % Normal 1.7-12.0 [facility] Comment on above: Performed By: #### P T, PTT #### [facility] [address] [place] [address] Dr. Amy Whitaker NEUT # 5.5 103/ul Normal 1.4-6.5 [facility] Comment on above: Performed By: #### P T, PTT #### [facility] [address] [place] [address] Dr. Amy Whitaker Neutrophils/100 WBC (Bld) 70.9 % Normal 43.0-75.0 [facility] Comment on above: Performed By: #### P T, PTT #### [facility] [address] [address] [address] Amy Whitaker Platelet mean volume (Bld) [Entitic vol] 10.1 fL Normal 9.5-13.5 [facility] Comment on above: Performed By: #### P T, PTT #### [facility] [address] [address] [address] Amy Whitaker PLT 217 103/ul Normal 150-450 [facility] Comment on above: Performed By: #### P T, PTT #### [facility] [address] [address] [address] Amy Whitaker RBC 4.44 106/ul Normal 4.20-5.40 [facility] Comment on above: Performed By: #### P T, PTT #### [facility] [address] [place] [address] Dr. Amy Whitaker WBC 7.7 103/ul Normal 4.0-11.0 [facility] Comment on above: Performed By: #### P T, PTT #### [facility] [address] [place] [address] Dr. Amy Whitaker CULTURE URINEon 08-07-2021 CULTURE URINE Culture Observations: MODERATE GROWTH OF MIXED GENITAL DINA. NO POTENTIAL PATHOGENS SEEN. Normal [facility] Comment on above: Performed By: #### R UBIGG #### [facility] [address] [place] [address] Dr. Amy Whitaker GLYCOHEMOGLOBIN A1Con 2021 ADA RECOMMENDATION ADA THERAPEUTIC TARGET 6.0 - 7.0 ACTION SUGGESTED > 7.0 Normal [facility] Comment on above: Performed By: #### C BC #### [facility] [address] [address] [address] Amy Whitaker Glucose [Mass/Vol] 108 mg/dL Normal [facility] Comment on above: Performed By: #### C BC #### [facility] [address] [place] [address] Dr. Amy Whitaker HbA1c (Bld) [Mass fraction] 5.4 % Normal <=6.0 [facility] Comment on above: Performed By: #### C BC #### [facility] [address] [address] [address] Amy Whitaker JONAS BOX TEST PT SEND OUTo n 08-07-2021 SENT TO REF LAB 08/07/2021 Normal [facility] Comment on above: Performed By: #### C BC #### [facility] [address] [address] [address] Amy Whitaker TYPE AND SCREENon 08-07-2021 TYPE AND SCREEN Negative Normal [facility] Comment on above: Performed By: #### T NS #### [facility] [address] [address] [address] Amy Whitaker US PREG TVon 08-01-2021 [...] by: LAZARO FORRESTER Date: 2021-08-01 16:12 Normal [facility] Vital Signs Date Time Vital Sign Value Performing Clinician Paul arias 06-15-2023 14:45-0500 Body mass index (BMI) [Ratio] 19.18 kg/m2 Limbo DO Work Phone: [facility] 06-15-2023 14:45-0500 Body weight 58.06 kg Jhonny Urban DO Work Phone: [facility] 06-15-2023 14:45-0500 Diastolic blood pressure 68 mm[Hg] Jhonny UrbanWAPA Work Phone: [facility] 06-15-2023 14:45-0500 Systolic blood pressure 114 mm[Hg] JhonnyYesVideo Work Phone: [facility] Encounters Encounter Date Encounter Type Care Provider Facility Start: 12-07-2023 End: 12-07-2023 ambulatory JHONNY URBAN Not Available Start: 11-30-2023 End: 11-30-2023 ambulatory ELHAM GABBY Not Available Start: 11-23-2023 End: 11-23-2023 ambulatory ELHAM GABBY Not Available Start: 11-16-2023 End: 11-16-2023 ambulatory JHONNY URBAN Not Available Start: 11-09-2023 End: 11-09-2023 ambulatory JHONNY URBAN Not Available Start: 10-26-2023 End: 10-26-2023 ambulatory JHONNY URBAN Not Available Start: 10-12-2023 End: 10-12-2023 ambulatory JHONNY URBAN Not Available Start: 09-28-2023 End: 09-28-2023 ambulatory JHONNY URBAN Not Available Start: 09-13-2023 End: 09-13-2023 ambulatory ELHAM GABBY Not Available Start: 08-10-2023 End: 08-10-2023 ambulatory JHONNY URBAN Not Available Start: 07-14-2023 End: 07-14-2023 ambulatory ELHAM GABBY Not Available Start: 06-15-2023 End: 06-15-2023 Patient [...] for preprocedural laboratory examination DR JHONNY DUGGAN [facility] Start: 08-22-2021 End: 08-22-[address] JHONNY [...] procedure 07/14/2023 1:30 PM EDT Routine [facility] [address] [place] [id number] Elham Murillo PA [address] [place] [address] [facility] Start: 06-15-2023 End: 08-14-2023 Alpha fetoprotein, maternal Alpha fetoprotein, maternal Lab Routine Second trimester Expected: 06/15/2023 (Approximate), Expires: 08/14/2023 [facility] Comment on above: Expected: 06/15/2023 (Approximate), Expires: 08/14/2023 Start: 01-01-2023 Influenza vaccination Influenza Vacc ine (#1) [facility] CHLAMYDIA TRACHOMATI S (GENITO/STI) CHLAMYDIA TRACHOMATIS (GENITO/STI) Lab Routine STD exposure Ordered: 06/15/2023 [facility] Comment on above: Ordered: 06/15/2023 Cytology Cervical or vaginal smear or scraping study Pap Smear Pathology and Cytology Routine Well woman exam with routine gynecological exam Ordered: 06/15/2023 [facility] Work Phone: Comment on above: Ordered: 06/15/2023 Neisseria gonorrhoea e DNA [Presence] in Unspecified specimen by SHANNON with probe detection Neisseria gonorrhea DNA probe, direct Lab Routine STD exposure Ordered: 06/15/2023 [facility] Comment on above: Ordered: 06/15/2023 SURESWAB(R) ADVANCED VAGINITIS PLUS, TMA SURESWAB(R) ADVANCED VAGINITIS PLUS, TMA Pathology and Cytology Routine Vaginal discharge Ordered: 06/15/2023 [facility] Comment on above: Ordered: 06/15/2023 Immunizations Immunization Date Immunization Notes Care Provider Jen peng 03-08-2020 influenza virus vacc ine, unspecified formulation Jhonny Duggan DO Work Phone: [facility] Payers Date Payer Category Payer Unknown BCBS BCBS [id number] [id number] 2022-Present [phone] [address] [place] [address] [id number] 2022 Unknown [id number] 2022 Unknown [id number] 2022 Medicaid [employer] [place] [id number] 2022-Present [address] [place] [address] [id number] 2019 Medicaid [id number] 2001 Unknown [id number] 2.16.840.1.711913.3.579.2.593 2001 Unknown [id number] 2.16.840.1.667073.3.579.2.593 2001 Unknown [id number] 2.16.840.1.173663.3.579.2.593 2001 Unknown [id number] 2.16.840.1.192026.3.579.2.593 2001 Unknown [id number] 2.16.840.1.459416.3.579.2.593 2001 Unknown [id number] 2.16.840.1.094959.3.579.2.593 2001 Unknown [id number] 2.16.840.1.673327.3.579.2.593 2001 Unknown [id number] 2.16.840.1.490934.3.579.2.1259 2001 Unknown [id number] 2.16.840.1.775380.3.579.2.1259 2001 Unknown [id number] 2.16.840.1.586436.3.579.2.1259 2001 Unknown [id number] 2.16.840.1.488920.3.579.2.1259 2001 Unknown [id number] 2.16.840.1.578670.3.579.2.1259 2001 Unknown [id number] 2.16.840.1.579082.3.579.2.1259 2001 Unknown [id number] 2.16.840.1.658406.3.579.2.1259 2001 Unknown [id number] 2.16.840.1.606475.3.579.2.1259 2001 Unknown [id number] 2.16.840.1.815403.3.579.2.1259 2001 Unknown [id number] 2.16.840.1.758591.3.579.2.1259 2001 Unknown [id number] 2.16.840.1.659437.3.579.2.1259 2001 Unknown [id number] 2.16.840.1.934814.3.579.2.1259 2001 Unknown [id number] 2.16.840.1.496126.3.579.2.1259 2001 Unknown [id number] 2.16.840.1.787030.3.579.2.1259 1959 Self-pay 1959 Unknown [id number] 1959 Unknown [id number] Unknown [id number] 2.16.840.1.007197.3.579.2.593 Social History Date Type Detail Facility Start: 03-02-2023 Tobacco smoking stat [facility] Never smoked tobacco [facility] [...] History of Present illness Narrative 06-15-2023 Luna Corrigan LPN - 06/15/2023 2:40 PM EST Note Date [...] nursing note reviewed. Exam conducted with a dairy cattle farm worker present. Vitals: Estimated body mass index is [...] obtained without difficulty [facility]. Follow Up: Patient is to return to our office in 4 weeks for routine OB appointment Documented by Luna Corrigan LPN on behalf of: Jhonny Duggan DO documented in this encounter [facility] Clinical Note 08-26-2021 Note Date & Type Note Facility 08-26-2021 Note EXAMINATION: US PELV IS HISTORY: Surgical procedure COMPARISON: 08/27/20192009 7:00 PM FINDINGS: Intraprocedural images from the [facility] Initial images demonstrate heterogeneous distended appearance of [...] endometrial cavity IMPRESSION: Intraprocedural images from a [facility] Electronically authenticated by: LAZARO FORRESTER Date: 2021-08-26 17:54 [facility] Discharge summary note 08-26-2021 Note Date & [...] pain free and no longer on narcotics. [facility] Signed and Approved by: DR JHONNY DUGGAN . 09/16/2021 10:47:00 [facility] Clinical Note 08-26-2021 Note Date & Type Note Facility 08-26-2021 Note [place], [place] NAME: MARICARMEN JENNINGS DATE OF : MEDICAL REC#: [id number] SHAKE SAWYER: [id number] [facility], TRANS[facility]MIT DATE: 08/26/2021 11:13:00 HUMAN RESOURCES ASSISTANT MANAGER DATE: 09/11/2021 21:00 DICTATING PHYSICIAN: JHONNY DUGGAN DICTATION DATE: 09/08/2021 08:00 OPERATIVE NOTE OPERATION DATE: 09/08/2021 PROCEDURE: Suction D AND C. PREOPERATIVE DIAGNOSIS: Vaginal bleeding, status post prior D AND C for missed . POSTOPERATIVE DIAGNOSIS: Vaginal bleeding, status post prior D AND C for missed . ANESTHESIA: General. SURGEON: Jhonny Duggan D.O. [employer] MAKE UP HELPER: None. FINDINGS: No products of conception found. [...] and blood products were removed using an 8-Congolese suction curette. Excellent hemostasis was noted. The patient tolerated the procedure well. Sponge, lap, and needle counts were correct x 2. All instruments were then removed from the patient's vagina. The patient was taken to the Recovery Room in stable condition. ?? Electronically Authenticated and Edited by: Jhonny Duggan DO on 09/16/2021 10:14 AM EDT IF Signed and Approved by: DR JHONNY DUGGAN . 09/16/2021 10:14:00 [facility] Clinical Note 08-22-2021 Note Date & Type Note Facility 08-22-2021 Note OPERATIVE NOTE OPERATION DATE:08/22/2021 PROCEDURE: Suction D AND C. PREOPERATIVE DIAGNOSIS: Missed POSTOPERATIVE DIAGNOSIS: Missed . ANESTHESIA: General. SURGEON: Jhonny Duggan D.O. [employer] MAKE UP HELPER: None. BLOOD LOSS: 200 mL. URINE OUTPUT: [...] to the Recovery Room in stable condition. [facility] Signed and Approved by: DR JHONNY DUGGAN . 08/31/2021 19:44:00 [facility] Evaluation note Note Date & Type Note [...] and content) DATE CREATED AUTHOR 03/17/2022 [facility] DATE CREATED AUTHOR AUTHOR'S ORGANIZ ATION 12/09/2023 [facility] EPIC Reason for Visit (unrecogniz ed section and content) Reason Comments Routine Visit Care Teams (unrecognized sec tion and content) Sheet Metal Erector Relationship Specialty Start Date End Date Catrachita Duff MD [address] [place] [address] PCP - General Family Medicine 03/01/23 Sheet Metal Erector Relationship Specialty Start Date End Date Catrachita Duff MD [address] [place] [address] PCP - General Family Medicine 03/01/23 FOR [...] BE BASED ON THE PRIMARY CLINICAL RECORDS. [facility]. provides no warranty or guarantee of the accuracy or completeness of information in this document.
--- OUTSIDE RECORDS SUMMARY | 2023-12-09 20:57 | XMS_ITS | CCD ---
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 Role Phone URBAN, DR BARRY Admitting [...] Adhesive bandage Drug allergy (disorder) 08-21-2021 [facility] Repository Problems Active Problems Problem Classification Problem [...] Results Test Name Value Interpretation Reference Range [facility] BOX TEST SENT OUTon 06-03 BOX TEST SENT OUT 06/15/23 [facility] e Urinalysis macro (dipstick) panel (U)on 06-15-2023 Bilirubin, UA Negative Negative - 4(70) +++ mg/dL [facility] Blood, UA Negative Negative - 50 Alexander/mcL [facility] Clarity, UA Clear [facility] re Color, UA Yellow [facility] Glucose, UA Negative Negative - 1999(110) ++++ mg/dL [facility] Interpretation and review of laboratory results Abnormal [facility] Ketones, UA Negative Negative - 160(16) ++++ mg/dL [facility] Leukocytes, UA Trace Negative - 500+++ Shawn/mcL [facility] Nitrite, UA Negative Negative - Positive [facility] pH, UA 7.0 5 - 9 [facility] e Protein, UA Negative Negative - 1999(20) ++++ mg/dL [facility] Spec Grav, UA 1.015 1 - 1.03 [facility] Urobilinogen, UA 0.2 0.2 - 12 mg/dL [facility] [place] [facility] FRESH FROZ PLASMAon 09-02-19 22 FRESH FROZ PLASMA Unit Blood Type A Pos Unit Number [id number] Status Information Transfused Product ID FFP Product Code [id number] Normal [facility] Comment on above: Performed By: #### R UBIGG #### [facility] [address] [place] [address] Dr. Amy Whitaker PRBC LEUKOREDUCEDon 09-02-19 22 ABO and Rh group Nom (Bld) Cross Match Result Compatible Unit Blood Type A Pos Unit Number [id number] Status Information Transfused Product ID Red Blood Cells Product Code [id number] Cross Match Result Compatible Unit Blood Type A Pos Unit Number [id number] Status Information Transfused Product ID Red Blood Cells Product Code [id number] [facility] Comment on above: Performed By: #### P RBC #### [facility] [address] [place] [address] Dr. Amy Whitaker PRBC LEUKOREDUCED Cross Match Result Compatible Unit Blood Type A Pos Unit Number [id number] Status Information Transfused Product ID Red Blood Cells Product Code [id number] [facility] Comment on above: Performed By: #### R UBIGG #### [facility] [address] [place] [address] Dr. Amy Whitaker BUNon 08-29-2021 Urea nitrogen [Mass/Vol] 10.0 mg/dL Normal 7.0-18.0 [facility] Comment on above: Performed By: #### R UBIGG #### [facility] [address] [place] [address] Dr. Amy Whitaker CBC AUTO DIFFon 08-29-2021 BASO # 0.0 103/ul Normal 0.0-0.1 [facility] Comment on above: Performed By: #### P T, PTT #### [facility] [address] [place] [address] Dr. Amy Whitaker Basophils/100 WBC (Bld) 0.6 % Normal 0.2-2.0 [facility] Comment on above: Performed By: #### P T, PTT #### [facility] [address] [place] [address] Dr. Amy Whitaker EO # 0.1 103/ul Normal 0.0-0.7 [facility] Comment on above: Performed By: #### P T, PTT #### [facility] [address] [place] [address] Dr. Amy Whitaker Eosinophils/100 WBC (Bld) 0.8 % Critically low 0.9-7.0 [facility] Comment on above: Performed By: #### P T, PTT #### [facility] [address] [place] [address] Dr. Amy Whitaker Erythrocyte distribution width (RBC) [Ratio] 13.6 % Normal 11.0-15.0 [facility] Comment on above: Performed By: #### P T, PTT #### [facility] [address] [place] [address] Dr. Amy Whitaker Hematocrit (Bld) [Volume fraction] 40.1 % Normal 36.0-48.0 [facility] Comment on above: Performed By: #### P T, PTT #### [facility] [address] [place] [address] Dr. Amy Whitaker Hemoglobin (Bld) [Mass/Vol] 13.0 g/dL Normal 12.0-16.0 [facility] Comment on above: Performed By: #### P T, PTT #### [facility] [address] [place] [address] Dr. Amy Whitaker IG # 0.03 10e3/ul Normal 0.00-0.03 [facility] Comment on above: Performed By: #### P T, PTT #### [facility] [address] [place] [address] Dr. Amy Whitaker IG % 0.4 % Normal 0.0-0.5 [facility] Comment on above: Performed By: #### P T, PTT #### [facility] [address] [place] [address] Dr. Amy Whitaker LYMPH # 1.9 103/ul Normal 1.2-3.8 [facility] Comment on above: Performed By: #### P T, PTT #### [facility] [address] [place] [address] Dr. Amy Whitaker Lymphocytes/100 WBC (Bld) 26.1 % Normal 20.5-60.0 [facility] Comment on above: Performed By: #### P T, PTT #### [facility] [address] [place] [address] Dr. Amy Whitaker MANUAL DIFF REQ NO Normal [facility] Comment on above: Performed By: #### P T, PTT #### [facility] [address] [place] [address] Dr. Amy Whitaker MCH (RBC) [Entitic mass] 29.5 pg Normal 26.7-34.0 [facility] Comment on above: Performed By: #### P T, PTT #### [facility] [address] [place] [address] Dr. Amy Whitaker MCHC (RBC) [Mass/Vol] 32.4 g/dL Normal 29.9-35.2 [facility] Comment on above: Performed By: #### P T, PTT #### [facility] [address] [place] [address] Dr. Amy Whitaker MCV (RBC) [Entitic vol] 90.9 fL Normal 81.0-99.0 [facility] Comment on above: Performed By: #### P T, PTT #### [facility] [address] [place] [address] Dr. Amy Whitaker MONO # 0.7 103/ul Normal 0.3-0.8 [facility] Comment on above: Performed By: #### P T, PTT #### [facility] [address] [place] [address] Dr. Amy Whitaker Monocytes/100 WBC (Bld) 9.4 % Normal 1.7-12.0 [facility] Comment on above: Performed By: #### P T, PTT #### [facility] [address] [place] [address] Dr. Amy Whitaker NEUT # 4.5 103/ul Normal 1.4-6.5 [facility] Comment on above: Performed By: #### P T, PTT #### [facility] [address] [address] [address] Amy Whitaker Neutrophils/100 WBC (Bld) 62.7 % Normal 43.0-75.0 [facility] Comment on above: Performed By: #### P T, PTT #### [facility] [address] [place] [address] Dr. Amy Whitaker Platelet mean volume (Bld) [Entitic vol] 9.7 fL Normal 9.5-13.5 [facility] Comment on above: Performed By: #### P T, PTT #### [facility] [address] [place] [address] Dr. Amy Whitaker PLT 308 103/ul Normal 150-450 [facility] Comment on above: Performed By: #### P T, PTT #### [facility] [address] [place] [address] Dr. Amy Whitaker RBC 4.41 106/ul Normal 4.20-5.40 [facility] Comment on above: Performed By: #### P T, PTT #### [facility] [address] [place] [address] Dr. Amy Whitaker WBC 7.2 103/ul Normal 4.0-11.0 [facility] Comment on above: Performed By: #### P T, PTT #### [facility] [address] [place] [address] Dr. Amy Whitaker CREATININEon 08-29-2021 Creatinine [Mass/Vol] 0.73 mg/dL Normal 0.55-1.02 [facility] Comment on above: Performed By: #### R UBIGG #### [facility] [address] [place] [address] Dr. Amy Whitaker EGFR-AF EQUATORIAL GUINEAN >60 Normal >=60 [facility] Comment on above: Performed By: #### R UBIGG #### [facility] [address] [place] [address] Dr. Amy Whitaker EGFR-NON AF EQUATORIAL GUINEAN >60 Normal >=60 [facility] Comment on above: Performed By: #### R UBIGG #### [facility] [address] [place] [address] Dr. Amy Whitaker SGOTon 08-29-2021 AST [Catalytic activity/Vol] 14 U/L Critically low 15-37 [facility] Comment on above: Performed By: #### R UBIGG #### [facility] [address] [place] [address] Dr. Amy Whitaker SGPTon 08-29-2021 ALT [Catalytic activity/Vol] 20 U/L Normal 14-59 [facility] Comment on above: Performed By: #### R UBIGG #### [facility] [address] [place] [address] Dr. Amy Whitaker CBC AUTO DIFFon 08-27-2021 BASO # 0.0 103/ul Normal 0.0-0.1 [facility] Comment on above: Performed By: #### C BC #### [facility] [address] [place] [address] Dr. Amy Whitaker Basophils/100 WBC (Bld) 0.2 % Normal 0.2-2.0 [facility] Comment on above: Performed By: #### C BC #### [facility] [address] [place] [address] Dr. Amy Whitaker EO # 0.0 103/ul Normal 0.0-0.7 [facility] Comment on above: Performed By: #### C BC #### [facility] [address] [place] [address] Dr. Amy Whitaker Eosinophils/100 WBC (Bld) 0.0 % Critically low 0.9-7.0 [facility] Comment on above: Performed By: #### C BC #### [facility] [address] [place] [address] Dr. Amy Whitaker Erythrocyte distribution width (RBC) [Ratio] 13.9 % Normal 11.0-15.0 [facility] Comment on above: Performed By: #### C BC #### [facility] [address] [place] [address] Dr. Amy Whitaker Hematocrit (Bld) [Volume fraction] 34.3 % Critically low 36.0-48.0 [facility] Comment on above: Performed By: #### C BC #### [facility] [address] [address] [address] Amy Whitaker Hemoglobin (Bld) [Mass/Vol] 11.2 g/dL Critically low 12.0-16.0 [facility] Comment on above: Result Comment: rece ived blood Performed By: #### C BC #### [facility] [address] [place] [address] Dr. Amy Whitaker IG # 0.02 10e3/ul Normal 0.00-0.03 [facility] Comment on above: Performed By: #### C BC #### [facility] [address] [place] [address] Dr. Amy Whitaker IG % 0.3 % Normal 0.0-0.5 [facility] Comment on above: Performed By: #### C BC #### [facility] [address] [place] [address] Dr. Amy Whitaker LYMPH # 0.8 103/ul Critically low 1.2-3.8 [facility] Comment on above: Performed By: #### C BC #### [facility] [address] [place] [address] Dr. Amy Whitaker Lymphocytes/100 WBC (Bld) 13.5 % Critically low 20.5-60.0 [facility] Comment on above: Performed By: #### C BC #### [facility] [address] [place] [address] Dr. Amy Whitaker MANUAL DIFF REQ NO Normal [facility] Comment on above: Performed By: #### C BC #### [facility] [address] [place] [address] Dr. Amy Whitaker MCH (RBC) [Entitic mass] 29.7 pg Normal 26.7-34.0 [facility] Comment on above: Performed By: #### C BC #### [facility] [address] [place] [address] Dr. Amy Whitaker MCHC (RBC) [Mass/Vol] 32.7 g/dL Normal 29.9-35.2 [facility] Comment on above: Performed By: #### C BC #### [facility] [address] [address] [address] Amy Whitaker MCV (RBC) [Entitic vol] 91.0 fL Normal 81.0-99.0 [facility] Comment on above: Performed By: #### C BC #### [facility] [address] [address] [address] Amy Whitaker MONO # 0.4 103/ul Normal 0.3-0.8 [facility] Comment on above: Performed By: #### C BC #### [facility] [address] [address] [address] Amy Whitaker Monocytes/100 WBC (Bld) 6.9 % Normal 1.7-12.0 [facility] Comment on above: Performed By: #### C BC #### [facility] [address] [address] [address] Amy Whitaker NEUT # 4.6 103/ul Normal 1.4-6.5 [facility] Comment on above: Performed By: #### C BC #### [facility] [address] [address] [address] Amy Whitaker Neutrophils/100 WBC (Bld) 79.1 % Critically high 43.0-75.0 [facility] Comment on above: Performed By: #### C BC #### [facility] [address] [address] [address] Amy Whitaker Platelet mean volume (Bld) [Entitic vol] 10.9 fL Normal 9.5-13.5 [facility] Comment on above: Performed By: #### C BC #### [facility] [address] [address] [address] Amy Whitaker PLT 174 103/ul Normal 150-450 [facility] Comment on above: Performed By: #### C BC #### [facility] [id number] Amy Whitaker RBC 3.77 106/ul Critically low 4.20-5.40 [facility] Comment on above: Performed By: #### C BC #### [facility] [address] [address] [address] Amy Whitaker WBC 5.8 103/ul Normal 4.0-11.0 [facility] Comment on above: Performed By: #### C BC #### [facility] [address] [address] [address] Amy Whitaker CBC AUTO DIFFon 08-26-2021 BASO # 0.0 103/ul Normal 0.0-0.1 [facility] Comment on above: Performed By: #### C BC #### [facility] [address] [place] [address] Dr. Amy Whitaker Basophils/100 WBC (Bld) 0.2 % Normal 0.2-2.0 [facility] Comment on above: Performed By: #### C BC #### [facility] [address] [place] [address] Dr. Amy Whitaker EO # 0.0 103/ul Normal 0.0-0.7 [facility] Comment on above: Performed By: #### C BC #### [facility] [address] [place] [address] Dr. Amy Whitaker Eosinophils/100 WBC (Bld) 0.7 % Critically low 0.9-7.0 [facility] Comment on above: Performed By: #### C BC #### [facility] [address] [place] [address] Dr. Amy Whitaker Erythrocyte distribution width (RBC) [Ratio] 13.2 % Normal 11.0-15.0 [facility] Comment on above: Performed By: #### C BC #### [facility] [address] [place] [address] Dr. Amy Whitaker Hematocrit (Bld) [Volume fraction] 23.5 % Critically low 36.0-48.0 [facility] Comment on above: Performed By: #### C BC #### [facility] [address] [place] [address] Dr. Amy Whitaker Hemoglobin (Bld) [Mass/Vol] 7.7 g/dL Critically low 12.0-16.0 [facility] Comment on above: Performed By: #### C BC #### [facility] [address] [place] [address] Dr. Amy Whitaker IG # 0.02 10e3/ul Normal 0.00-0.03 [facility] Comment on above: Performed By: #### C BC #### [facility] [address] [place] [address] Dr. Amy Whitaker IG % 0.4 % Normal 0.0-0.5 [facility] Comment on above: Performed By: #### C BC #### [facility] [address] [place] [address] Dr. Amy Whitaker LYMPH # 1.0 103/ul Critically low 1.2-3.8 [facility] Comment on above: Performed By: #### C BC #### [facility] [address] [place] [address] Dr. Amy Whitaker Lymphocytes/100 WBC (Bld) 21.6 % Normal 20.5-60.0 [facility] Comment on above: Performed By: #### C BC #### [facility] [address] [place] [address] Dr. Amy Whitaker MANUAL DIFF REQ NO Normal [facility] Comment on above: Performed By: #### C BC #### [facility] [address] [place] [address] Dr. Amy Whitaker MCH (RBC) [Entitic mass] 30.0 pg Normal 26.7-34.0 [facility] Comment on above: Performed By: #### C BC #### [facility] [address] [place] [address] Dr. Amy Whitaker MCHC (RBC) [Mass/Vol] 32.8 g/dL Normal 29.9-35.2 [facility] Comment on above: Performed By: #### C BC #### [facility] [address] [place] [address] Dr. Amy Whitaker MCV (RBC) [Entitic vol] 91.4 fL Normal 81.0-99.0 [facility] Comment on above: Performed By: #### C BC #### [facility] [address] [place] [address] Dr. Amy Whitaker MONO # 0.4 103/ul Normal 0.3-0.8 [facility] Comment on above: Performed By: #### C BC #### [facility] [address] [address] [address] Amy Whitaker Monocytes/100 WBC (Bld) 7.8 % Normal 1.7-12.0 [facility] Comment on above: Performed By: #### C BC #### [facility] [address] [place] [address] Dr. Amy Whitaker NEUT # 3.1 103/ul Normal 1.4-6.5 [facility] Comment on above: Performed By: #### C BC #### [facility] [address] [place] [address] Dr. Amy Whitaker Neutrophils/100 WBC (Bld) 69.3 % Normal 43.0-75.0 [facility] Comment on above: Performed By: #### C BC #### [facility] [address] [place] [address] Dr. Amy Whitaker Platelet mean volume (Bld) [Entitic vol] 9.7 fL Normal 9.5-13.5 [facility] Comment on above: Performed By: #### C BC #### [facility] [address] [place] [address] Dr. Amy Whitaker PLT 154 103/ul Normal 150-450 [facility] Comment on above: Performed By: #### C BC #### [facility] [address] [place] [address] Dr. Amy Whitaker RBC 2.57 106/ul Critically low 4.20-5.40 [facility] Comment on above: Performed By: #### C BC #### [facility] [address] [place] [address] Dr. Amy Whitaker WBC 4.5 103/ul Normal 4.0-11.0 [facility] Comment on above: Performed By: #### C BC #### [facility] [address] [place] [address] Dr. Amy Whitaker CULTURE URINEon 08-26-2021 CULTURE URINE Culture Observations: NO GROWTH. Normal [facility] Comment on above: Performed By: #### U RCX #### [facility] [address] [place] [address] Dr. Amy Whitaker [facility] SARS-CoV-2 (COVID-19) RNA SHANNON+probe Ql (Unsp spec) Not detected Normal NOT DETECTED [facility] Comment on above: Result Comment: When diagnostic [...] for this test is supported by the [place] of [employer] and Human Service's declaration that [...] Performed By: #### P T, PTT #### [facility] [address] [place] [address] Dr. Amy Whitaker ER URINE PROFILEon Bilirubin Ql (U) SMALL Abnormal NEGATIVE [facility] Comment on above: Performed By: #### P T, PTT #### [facility] [address] [place] [address] Dr. Amy Whitaker Clarity (U) SL CLOUDY Abnormal CLEAR [facility] Comment on above: Performed By: #### P T, PTT #### [facility] [address] [place] [address] Dr. Amy Whitaker Color (U) RED Abnormal YELLOW [facility] Comment on above: Performed By: #### P T, PTT #### [facility] [address] [place] [address] Dr. Amy SERRATO A micrscopic examination will be performed if indicated. Normal [facility] Comment on above: Performed By: #### P T, PTT #### [facility] [address] [place] [address] Dr. Amy Whitaker Glucose Ql (U) Negative Normal NEGATIVE [facility] Comment on above: Performed By: #### P T, PTT #### [facility] [address] [address] [address] Amy Whitaker Hemoglobin Ql (U) LARGE Abnormal NEGATIVE [facility] Comment on above: Performed By: #### P T, PTT #### [facility] [address] [place] [address] Dr. Amy Whitaker Ketones Ql (U) TRACE Abnormal NEGATIVE [facility] Comment on above: Performed By: #### P T, PTT #### [facility] [address] [place] [address] Dr. Amy Whitaker LEUKOCYTES LARGE Abnormal NEGATIVE [facility] Comment on above: Performed By: #### P T, PTT #### [facility] [address] [place] [address] Dr. Amy Whitaker Nitrite Ql (U) Positive Abnormal NEGATIVE [facility] Comment on above: Performed By: #### P T, PTT #### [facility] [address] [place] [address] Dr. Amy Whitaker pH (U) 8.0 [pH] Normal 5-9 [facility] Comment on above: Performed By: #### P T, PTT #### [facility] [address] [place] [address] Dr. Amy Whitaker Protein (U) [Mass/Vol] 100 mg/dL Abnormal NEGATIVE/ TRACE [facility] Comment on above: Performed By: #### P T, PTT #### [facility] [address] [place] [address] Dr. Amy Whitaker SPEC GRAVITY 1.015 Normal 1.005-<=1.025 [facility] Comment on above: Performed By: #### P T, PTT #### [facility] [address] [place] [address] Dr. Amy Whitaker UR MICRO IND INDICATED Normal [facility] Comment on above: Performed By: #### P T, PTT #### [facility] [address] [place] [address] Dr. Amy Whitaker Urobilinogen Qn (U) 1.0 {Neelima'U}/dL Normal 0.2 - 1. 0 [facility] Comment on above: Performed By: #### P T, PTT #### [facility] [address] [place] [address] Dr. Amy Whitaker PREG HCG QUALon 08-26-2021 , QUAL Positive Abnormal NEGATIVE [facility] Comment on above: Performed By: #### P REG #### [facility] [address] [place] [address] Dr. Amy Whitaker PROF 14(COMP METB)on 022 Albumin [Mass/Vol] 3.4 g/dL Normal 3.4-5.0 [facility] Comment on above: Performed By: #### P T, PTT #### [facility] [address] [place] [address] Dr. Amy Whitaker Albumin/Globulin [Mass ratio] 1.2 {ratio} Normal [facility] Comment on above: Performed By: #### P T, PTT #### [facility] [address] [place] [address] Dr. Amy Whitaker ALP [Catalytic activity/Vol] 47 U/L Normal 46-116 [facility] Comment on above: Performed By: #### P T, PTT #### [facility] [address] [place] [address] Dr. Amy Whitaker ALT [Catalytic activity/Vol] 14 U/L Normal 14-59 [facility] Comment on above: Performed By: #### P T, PTT #### [facility] [address] [place] [address] Dr. Amy Whitaker Anion gap [Moles/Vol] 10.8 mmol/L Normal [facility] Comment on above: Performed By: #### P T, PTT #### [facility] [address] [address] [address] Amy Whitaker AST [Catalytic activity/Vol] 9 U/L Critically low 15-37 [facility] Comment on above: Performed By: #### P T, PTT #### [facility] [address] [address] [address] Amy Whitaker Bilirubin [Mass/Vol] 0.7 mg/dL Normal 0.2-1.0 [facility] Comment on above: Performed By: #### P T, PTT #### [facility] [address] [address] [address] Amy Whitaker Calcium [Mass/Vol] 7.9 mg/dL Critically low 8.5-10.1 Th [facility] Comment on above: Performed By: #### P T, PTT #### [facility] [address] [place] [address] Dr. Amy Whitaker Chloride [Moles/Vol] 105 mmol/L Normal 98-107 [facility] Comment on above: Performed By: #### P T, PTT #### [facility] [address] [place] [address] Dr. Amy Whitaker CO2 [Moles/Vol] 27.0 mmol/L Normal 21.0-32.0 [facility] Comment on above: Performed By: #### P T, PTT #### [facility] [address] [place] [address] Dr. Amy Whitaker Creatinine [Mass/Vol] 0.51 mg/dL Critically low 0.55-1.02 [facility] Comment on above: Performed By: #### P T, PTT #### [facility] [address] [place] [address] Dr. Amy Whitaker EGFR-AF EQUATORIAL GUINEAN >60 Normal >=60 [facility] Comment on above: Performed By: #### P T, PTT #### [facility] [address] [address] [address] Amy Whitaker EGFR-NON AF EQUATORIAL GUINEAN >60 Normal >=60 [facility] Comment on above: Performed By: #### P T, PTT #### [facility] [address] [address] [address] Amy Whitaker Globulin (S) [Mass/Vol] 2.8 g/dL Normal [facility] Comment on above: Performed By: #### P T, PTT #### [facility] [address] [place] [address] Dr. Amy Whitaker Glucose [Mass/Vol] 98 mg/dL Normal 74-[address] [facility] Comment on above: Performed By: #### P T, PTT #### [facility] [address] [place] [address] Dr. Amy Whitaker Potassium [Moles/Vol] 3.8 mmol/L Normal 3.5-5.1 [facility] Comment on above: Performed By: #### P T, PTT #### [facility] [address] [place] [address] Dr. Amy Whitaker Protein [Mass/Vol] 6.2 g/dL Normal 6.1-8.[address] [facility] Comment on above: Performed By: #### P T, PTT #### [facility] [address] [place] [address] Dr. Amy Whitaker Sodium [Moles/Vol] 139 mmol/L Normal 136-145 [facility] Comment on above: Performed By: #### P T, PTT #### [facility] [address] [place] [address] Dr. Amy Whitaker Urea nitrogen [Mass/Vol] 7.0 mg/dL Normal 7.0-18.0 [facility] Comment on above: Performed By: #### P T, PTT #### [facility] [address] [place] [address] Dr. Amy Whitaker Urea nitrogen/Creatinine [Mass ratio] 13.7 mg/mg Normal [facility] Comment on above: Performed By: #### P T, PTT #### [facility] [address] [place] [address] Dr. Amy Whitaker PROTIMEon 08-26-2021 INR Coag (PPP) [Relative time] 1.01 {INR} Normal [facility] Comment on above: Performed By: #### P T, PTT #### [facility] [address] [place] [address] Dr. Amy Whitaker INR GUIDELINES SEE BELOW Normal [facility] Comment on above: Result Comment: DIVINA RED INR: 2.0 - 3.0 CONDITIONS NOT LISTED BELOW 2.5 - 3.5 FOR PROSTHETIC HEART VALVE REPLACEMENT 2.5 - 3.5 RECURRENT THROMBOSIS Performed By: #### P T, PTT #### [facility] [address] [place] [address] Dr. Amy Whitaker PT Coag (PPP) [Time] 10.9 s Normal 9.0-11.6 [facility] Comment on above: Performed By: #### P T, PTT #### [facility] [address] [place] [address] Dr. Amy Whitaker PTTon 08-26-2021 aPTT Coag (Bld) [Time] 23.4 s Normal 22.3-36.2 [facility] Comment on above: Performed By: #### P T, PTT #### [facility] [address] [place] [address] Dr. Amy Whitaker TYPE AND SCREENon 08-26-2021 TYPE AND SCREEN Negative Normal [facility] Comment on above: Performed By: #### T NS #### [facility] [address] [place] [address] Dr. Amy Whitaker URINE MICROSCOPIC ONLYon BACTERIA TRACE Abnormal NONE SEEN [facility] Comment on above: Performed By: #### P T, PTT #### [facility] [address] [place] [address] Dr. Amy Whitaker Bacteria identified Cx Nom (U) INDICATED Normal [facility] Comment on above: Performed By: #### P T, PTT #### [facility] [address] [place] [address] Dr. Amy Whitaker CAST NONE SEEN Normal NONE SEEN [facility] Comment on above: Performed By: #### P T, PTT #### [facility] [address] [place] [address] Dr. Amy Whitaker Crystals LM Nom (Urine sed) NONE SEEN Normal NONE SEEN [facility] Comment on above: Performed By: #### P T, PTT #### [facility] [address] [place] [address] Dr. Amy Whitaker Epithelial cells LM Ql (Urine sed) NONE SEEN Normal NONE SEEN /RARE [facility] Comment on above: Performed By: #### P T, PTT #### [facility] [address] [place] [address] Dr. Amy Whitaker MUCOUS NONE SEEN Normal NONE SEEN [facility] Comment on above: Performed By: #### P T, PTT #### [facility] [address] [place] [address] Dr. Amy Whitaker RBC (U) [#/Vol] /uL Abnormal 0-2 [facility] Comment on above: Performed By: #### P T, PTT #### [facility] [address] [place] [address] Dr. Amy Whitaker WBC 0-2 Abnormal NONE SEEN [facility] Comment on above: Performed By: #### P T, PTT #### [facility] [address] [place] [address] Dr. Amy Whitaker US PELVISon 08-26-2021 US [...] LAZARO FORRESTER Date: 2021-08-26 13:18 Normal [facility] US PELVISon 08-23-2021 US PELVIS EXAM: US [...] PATRICK VICENTE Date: 2021-08-23 12:13 Normal [facility] CBC AUTO DIFFon 08-22-2021 BASO # 0.0 103/ul Normal 0.0-0.1 [facility] Comment on above: Performed By: #### P T, PTT #### [facility] [address] [address] [address] Amy Whitaker Basophils/100 WBC (Bld) 0.4 % Normal 0.2-2.0 [facility] Comment on above: Performed By: #### P T, PTT #### [facility] [address] [place] [address] Dr. Amy Whitaker EO # 0.1 103/ul Normal 0.0-0.7 [facility] Comment on above: Performed By: #### P T, PTT #### [facility] [address] [place] [address] Dr. Amy Whitaker Eosinophils/100 WBC (Bld) 0.8 % Critically low 0.9-7.0 [facility] Comment on above: Performed By: #### P T, PTT #### [facility] [address] [place] [address] Dr. Amy Whitaker Erythrocyte distribution width (RBC) [Ratio] 12.4 % Normal 11.0-15.0 [facility] Comment on above: Performed By: #### P T, PTT #### [facility] [address] [place] [address] Dr. Amy Whitaker Hematocrit (Bld) [Volume fraction] 37.4 % Normal 36.0-48.0 [facility] Comment on above: Performed By: #### P T, PTT #### [facility] [address] [place] [address] Dr. Amy Whitaker Hemoglobin (Bld) [Mass/Vol] 12.6 g/dL Normal 12.0-16.0 [facility] Comment on above: Performed By: #### P T, PTT #### [facility] [address] [place] [address] Dr. Amy Whitaker IG # 0.04 10e3/ul Critically high 0.00-0.03 [facility] Comment on above: Performed By: #### P T, PTT #### [facility] [address] [place] [address] Dr. Amy Whitaker IG % 0.5 % Normal 0.0-0.5 [facility] Comment on above: Performed By: #### P T, PTT #### [facility] [address] [place] [address] Dr. Amy Whitaker LYMPH # 2.0 103/ul Normal 1.2-3.8 [facility] Comment on above: Performed By: #### P T, PTT #### [facility] [address] [place] [address] Dr. Amy Whitaker Lymphocytes/100 WBC (Bld) 27.2 % Normal 20.5-60.0 [facility] Comment on above: Performed By: #### P T, PTT #### [facility] [address] [place] [address] Dr. Amy Whitaker MANUAL DIFF REQ NO Normal [facility] Comment on above: Performed By: #### P T, PTT #### [facility] [address] [place] [address] Dr. Amy Whitaker MCH (RBC) [Entitic mass] 29.4 pg Normal 26.7-34.0 [facility] Comment on above: Performed By: #### P T, PTT #### [facility] [address] [place] [address] Dr. Amy Whitaker MCHC (RBC) [Mass/Vol] 33.7 g/dL Normal 29.9-35.2 [facility] Comment on above: Performed By: #### P T, PTT #### [facility] [address] [place] [address] Dr. Amy Whitaker MCV (RBC) [Entitic vol] 87.4 fL Normal 81.0-99.0 [facility] Comment on above: Performed By: #### P T, PTT #### [facility] [address] [place] [address] Dr. Amy Whitaker MONO # 0.7 103/ul Normal 0.3-0.8 [facility] Comment on above: Performed By: #### P T, PTT #### [facility] [address] [place] [address] Dr. Amy Whitaker Monocytes/100 WBC (Bld) 9.7 % Normal 1.7-12.0 [facility] Comment on above: Performed By: #### P T, PTT #### [facility] [address] [place] [address] Dr. Amy Whitaker NEUT # 4.6 103/ul Normal 1.4-6.5 [facility] Comment on above: Performed By: #### P T, PTT #### [facility] [address] [place] [address] Dr. Amy Whitaker Neutrophils/100 WBC (Bld) 61.4 % Normal 43.0-75.0 [facility] Comment on above: Performed By: #### P T, PTT #### [facility] [address] [place] [address] Dr. Amy Whitaker Platelet mean volume (Bld) [Entitic vol] 10.1 fL Normal 9.5-13.5 [facility] Comment on above: Performed By: #### P T, PTT #### [facility] [address] [place] [address] Dr. Amy Whitaker PLT 222 103/ul Normal 150-450 [facility] Comment on above: Performed By: #### P T, PTT #### [facility] [address] [address] [address] Amy Whitaker RBC 4.28 106/ul Normal 4.20-5.40 [facility] Comment on above: Performed By: #### P T, PTT #### [facility] [address] [address] [address] Amy Whitaker WBC 7.5 103/ul Normal 4.0-11.0 [facility] Comment on above: Performed By: #### P T, PTT #### [facility] [address] [address] [address] Amy Whitaker FIBRINOGENon 08-22-2021 FIBRINOGEN 261.0 mg/dl Normal 200.0-400.0 [facility] Comment on above: Performed By: #### P T, PTT #### [facility] [address] [place] [address] Dr. Amy Whitaker PREG QUANT HCGon 08-22-2021 HCG QUANT [id number] mIU/mL Normal [facility] Comment on above: Performed By: #### P REGQNT #### [facility] [address] [place] [address] Dr. Amy Whitaker HCG RANGE SEE BELOW Normal [facility] Comment on above: Result Comment: 5-50 0-1 WEEK 40-300 1-2 WEEKS 100-1,000 2-3 WEEKS 500-6,000 3-4 WEEKS 5,000-200,000 1-2 MONTHS 10,000-100,000 2-3 MONTHS 3,000-50,000 2ND TRIMESTER 1,000-50,000 3RD TRIMESTER Performed By: #### P REGQNT #### [facility] [address] [place] [address] Dr. Amy Whitaker PROTIMEon 08-22-2021 INR Coag (PPP) [Relative time] 1.06 {INR} Normal [facility] Comment on above: Performed By: #### P T, PTT #### [facility] [address] [place] [address] Dr. Amy Whitaker INR GUIDELINES SEE BELOW Normal [facility] Comment on above: Result Comment: DIVINA RED INR: 2.0 - 3.0 CONDITIONS NOT LISTED BELOW 2.5 - 3.5 FOR PROSTHETIC HEART VALVE REPLACEMENT 2.5 - 3.5 RECURRENT THROMBOSIS Performed By: #### P T, PTT #### [facility] [address] [place] [address] Dr. Amy Whitaker PT Coag (PPP) [Time] 11.4 s Normal 9.0-11.6 [facility] Comment on above: Performed By: #### P T, PTT #### [facility] [address] [place] [address] Dr. Amy Whitaker PTTon 08-22-2021 aPTT Coag (Bld) [Time] 25.6 s Normal 22.3-36.2 [facility] Comment on above: Performed By: #### P T, PTT #### [facility] [address] [place] [address] Dr. Amy Whitaker [facility] SARS-CoV-2 (COVID-19) RNA SHANNON+probe Ql (Unsp spec) Not detected Normal NOT DETECTED [facility] Comment on above: Result Comment: When diagnostic [...] for this test is supported by the [employer] of Health and Human Service's declaration that [...] Performed By: #### P T, PTT #### [facility] [address] [place] [address] Dr. Amy Whitaker US PREG TVon 08-19-2021 [...] at the time of imaging by the clerical secretary. Electronically authenticated by: PATRICK KRAUSE Date: 2021-08-19 17:18 Normal [facility] HEP B SURFACE ANTIGEN SCREEN on 08-08-2021 HBsAg Screen Negative Normal Negative [facility] Comment on above: Performed By: #### P T, PTT #### [facility] [address] [address] [address] Amy Whitaker HEPATITIS C VIRUS AB W/ REFL EX QUANTon 08-08-2021 HCV AB <0.1 Normal 0.0-0.9 [facility] Comment on above: Performed By: #### P T, PTT #### [facility] [address] [address] [address] Amy Whitaker Interpretation: Comment Normal [facility] Comment on above: Result Comment: Nega tive Not infected with HCV, unless recent infection is suspected or other evidence exists to indicate HCV infection. Performed By: #### P T, PTT #### [facility] [address] [address] [address] Amy Whitaker HIV 1 AND 2 WITH REFLEXon HIV Screen 4th Generation wRfx Non-Reactive Normal Non Reactive [facility] Comment on above: Result Comment: HIV Negative HIV-1/HIV-2 antibodies and HIV-1 p24 antigen were NOT detected. There is no laboratory evidence of HIV infection. Performed By: #### P T, PTT #### [facility] [address] [place] [address] Dr. Amy Whitaker RPR QUANTon 08-08-2021 Rapid Plasma Reagin, Quant Non-Reactive Normal NonRea<1:1 [facility] Comment on above: Result Comment: Plea se Note: This test does not meet current guidelines for screening and diagnosis of syphilis. This test is intended for following treatment response in patients being treated for syphilis infection. To screen for syphilis infection, a reflex cascade that includes both RPR and a treponema-specific assay should be utilized, such as Treponema pallidum (Syphilis) Screening [place] (844989) or Rapid Plasma Reagin (RPR) Test With Reflex to Quantitative RPR and Confirmatory Treponema pallidum Antibodies (424534). Performed By: #### P T, PTT #### [facility] [address] [place] [address] Dr. Amy Whitaker RUBELLA AB IGGon 08-08-2021 Rubella Antibodies, IgG 1.68 index Normal Immune >0.99 [facility] Comment on above: Result Comment: Non- immune <0.90 Equivocal 0.90 - 0.99 Immune >0.99 Performed By: #### R UBIGG #### [facility] [address] [place] [address] Dr. Amy Whitaker CBC AUTO DIFFon 08-07-2021 BASO # 0.0 103/ul Normal 0.0-0.1 [facility] Comment on above: Performed By: #### P T, PTT #### [facility] [address] [place] [address] Dr. Amy Whitaker Basophils/100 WBC (Bld) 0.3 % Normal 0.2-2.0 [facility] Comment on above: Performed By: #### P T, PTT #### [facility] [address] [place] [address] Dr. Amy Whitaker EO # 0.0 103/ul Normal 0.0-0.7 [facility] Comment on above: Performed By: #### P T, PTT #### [facility] [address] [place] [address] Dr. Amy Whitaker Eosinophils/100 WBC (Bld) 0.3 % Critically low 0.9-7.0 [facility] Comment on above: Performed By: #### P T, PTT #### [facility] [address] [place] [address] Dr. Amy Whitaker Erythrocyte distribution width (RBC) [Ratio] 12.2 % Normal 11.0-15.0 [facility] Comment on above: Performed By: #### P T, PTT #### [facility] [address] [place] [address] Dr. Amy Whitaker Hematocrit (Bld) [Volume fraction] 38.5 % Normal 36.0-48.0 [facility] Comment on above: Performed By: #### P T, PTT #### [facility] [address] [place] [address] Dr. Amy Whitaker Hemoglobin (Bld) [Mass/Vol] 13.0 g/dL Normal 12.0-16.0 [facility] Comment on above: Performed By: #### P T, PTT #### [facility] [address] [place] [address] Dr. Amy Whitaker IG # 0.02 10e3/ul Normal 0.00-0.03 [facility] Comment on above: Performed By: #### P T, PTT #### [facility] [address] [place] [address] Dr. Amy Whitaker IG % 0.3 % Normal 0.0-0.5 [facility] Comment on above: Performed By: #### P T, PTT #### [facility] [address] [place] [address] Dr. Amy Whitaker LYMPH # 1.6 103/ul Normal 1.2-3.8 [facility] Comment on above: Performed By: #### P T, PTT #### [facility] [address] [place] [address] Dr. Amy Whitaker Lymphocytes/100 WBC (Bld) 20.2 % Critically low 20.5-60.0 [facility] Comment on above: Performed By: #### P T, PTT #### [facility] [address] [place] [address] Dr. Amy Whitaker MANUAL DIFF REQ NO Normal [facility] Comment on above: Performed By: #### P T, PTT #### [facility] [address] [place] [address] Dr. Amy Whitaker MCH (RBC) [Entitic mass] 29.3 pg Normal 26.7-34.0 [facility] Comment on above: Performed By: #### P T, PTT #### [facility] [address] [place] [address] Dr. Amy Whitaker MCHC (RBC) [Mass/Vol] 33.8 g/dL Normal 29.9-35.2 [facility] Comment on above: Performed By: #### P T, PTT #### [facility] [address] [place] [address] Dr. Amy Whitaker MCV (RBC) [Entitic vol] 86.7 fL Normal 81.0-99.0 [facility] Comment on above: Performed By: #### P T, PTT #### [facility] [address] [place] [address] Dr. Amy Whitaker MONO # 0.6 103/ul Normal 0.3-0.8 [facility] Comment on above: Performed By: #### P T, PTT #### [facility] [address] [place] [address] Dr. Amy Whitaker Monocytes/100 WBC (Bld) 8.0 % Normal 1.7-12.0 [facility] Comment on above: Performed By: #### P T, PTT #### [facility] [address] [place] [address] Dr. Amy Whitaker NEUT # 5.5 103/ul Normal 1.4-6.5 [facility] Comment on above: Performed By: #### P T, PTT #### [facility] [address] [place] [address] Dr. Amy Whitaker Neutrophils/100 WBC (Bld) 70.9 % Normal 43.0-75.0 [facility] Comment on above: Performed By: #### P T, PTT #### [facility] [address] [address] [address] Amy Whitaker Platelet mean volume (Bld) [Entitic vol] 10.1 fL Normal 9.5-13.5 [facility] Comment on above: Performed By: #### P T, PTT #### [facility] [address] [address] [address] Amy Whitaker PLT 217 103/ul Normal 150-450 [facility] Comment on above: Performed By: #### P T, PTT #### [facility] [facility] [address] [address] [address] Amy Whitaker RBC 4.44 106/ul Normal 4.20-5.40 [facility] Comment on above: Performed By: #### P T, PTT #### [facility] [address] [place] [address] Dr. Amy Whitaker WBC 7.7 103/ul Normal 4.0-11.0 [facility] Comment on above: Performed By: #### P T, PTT #### [facility] [address] [place] [address] Dr. Amy Whitaker CULTURE URINEon 08-07-2021 CULTURE URINE Culture Observations: MODERATE GROWTH OF MIXED GENITAL DINA. NO POTENTIAL PATHOGENS SEEN. Normal [facility] Comment on above: Performed By: #### R UBIGG #### [facility] [address] [place] [address] Dr. Amy Whitaker GLYCOHEMOGLOBIN A1Con 2021 ADA RECOMMENDATION ADA THERAPEUTIC TARGET 6.0 - 7.0 ACTION SUGGESTED > 7.0 Normal [facility] Comment on above: Performed By: #### C BC #### [facility] [address] [address] [address] Amy Whitaker Glucose [Mass/Vol] 108 mg/dL Normal [facility] Comment on above: Performed By: #### C BC #### [facility] [address] [place] [address] Dr. Amy Whitaker HbA1c (Bld) [Mass fraction] 5.4 % Normal <=6.0 [facility] Comment on above: Performed By: #### C BC #### [facility] [address] [address] [address] Amy Whitaker JONAS BOX TEST PT SEND OUTo n 08-07-2021 SENT TO REF LAB 08/07/2021 Normal [facility] Comment on above: Performed By: #### C BC #### [facility] [address] [address] [address] Amy Whitaker TYPE AND SCREENon 08-07-2021 TYPE AND SCREEN Negative Normal [facility] Comment on above: Performed By: #### T NS #### [facility] [address] [address] [address] Amy Whitaker US PREG TVon 08-01-2021 [...] FORRESTER Date: 2021-08-01 16:12 Normal [facility] Vital Signs Date Time Vital Sign Value Performing Clinician Paul arias 06-15-2023 14:45-0500 Body mass index (BMI) [Ratio] 19.18 kg/m2 SpotFodo DO Work Phone: [facility] 06-15-2023 14:45-0500 Body weight 58.06 kg Jhonny Urban DO Work Phone: [facility] 06-15-2023 14:45-0500 Diastolic blood pressure 68 mm[Hg] Jhonny UrbanPebble Work Phone: [facility] 06-15-2023 14:45-0500 Systolic blood pressure 114 mm[Hg] [facility] Work Phone: [facility] Healthcare Encounters Encounter Date Encounter Type [...] laboratory examination DR JHONNY DUGGAN [facility] Start: 08-22-2021 End: 08-22-[address] [...] Routine [facility] [address] [place] [id number] Elham Murillo PA [address] [place] [address] [facility] Start: 06-15-2023 End: 08-14-2023 Alpha fetoprotein, maternal Alpha fetoprotein, maternal Lab Routine Second trimester Expected: 06/15/2023 (Approximate), Expires: 08/14/2023 [facility] Comment on above: Expected: 06/15/2023 (Approximate), Expires: 08/14/2023 Start: 01-01-2023 Influenza vaccination Influ[facility] in[facility]LAM[facility]DIA TRACHOMATI S (GENITO/STI) CHLAMYDIA TRACHOMATIS (GENITO/STI) Lab Routine STD exposure Ordered: 06/15/2023 [facility] Comment on above: Ordered: 06/15/2023 Cytology Cervical or vaginal smear or scraping study Pap Smear Pathology and Cytology Routine Well woman exam with routine gynecological exam Ordered: 06/15/2023 [facility] Healthcare Work Phone: Comment on above: Ordered: [...] unspecified formulation Jhonny Duggan DO Work Phone: [facility] Healthcare Payers Date Payer Category Payer Unknown BCBS BCBS xxxxxx [id number] 2022-Present [phone] [address] [place] [address] [id number] 2022 Unknown [id number] 2022 Unknown [id number] 2022 Medicaid [employer] [place] [id number] 2022-Present [address] [place] [address] [id number] 2019 Medicaid [id number] 2001 Unknown [id number] 2.16.840.1.029083.3.579.2.593 2001 Unknown [id number] 2.16.840.1.208906.3.579.2.593 2001 Unknown [id number] 2.16.840.1.428621.3.579.2.593 2001 Unknown [id number] 2.16.840.1.719318.3.579.2.593 2001 Unknown [id number] 2.16.840.1.247481.3.579.2.593 2001 Unknown [id number] 2.16.840.1.425623.3.579.2.593 2001 Unknown [id number] 2.16.840.1.705376.3.579.2.593 2001 Unknown [id number] 2.16.840.1.252663.3.579.2.1259 2001 Unknown [id number] 2.16.840.1.909323.3.579.2.1259 2001 Unknown [id number] 2.16.840.1.117685.3.579.2.1259 2001 Unknown [id number] 2.16.840.1.517734.3.579.2.1259 2001 Unknown [id number] 2.16.840.1.313708.3.579.2.1259 2001 Unknown [id number] 2.16.840.1.372028.3.579.2.1259 2001 Unknown [id number] 2.16.840.1.317993.3.579.2.1259 2001 Unknown [id number] 2.16.840.1.707684.3.579.2.1259 2001 Unknown [id number] 2.16.840.1.938905.3.579.2.1259 2001 Unknown [id number] 2.16.840.1.331465.3.579.2.1259 2001 Unknown [id number] 2.16.840.1.222939.3.579.2.1259 2001 Unknown [id number] 2.16.840.1.263813.3.579.2.1259 2001 Unknown [id number] 2.16.840.1.094235.3.579.2.1259 2001 Unknown [id number] 2.16.840.1.266802.3.579.2.1259 1959 Self-pay 1959 Unknown [id number] 1959 Unknown [id number] Unknown [id number] 2.16.840.1.107530.3.579.2.593 Social History Date Type Detail Facility Start: 03-02-2023 Tobacco smoking stat [facility] Never smoked tobacco [facility] Start: 03-02-2023 [...] nursing note reviewed. Exam conducted with a arts therapist present. Vitals: Estimated body mass index is [...] obtained without difficulty and [facility]. Follow Up: [...] 7:00 PM FINDINGS: Intraprocedural images from the [facility] Initial images demonstrate heterogeneous distended appearance of [...] endometrial cavity IMPRESSION: Intraprocedural images from a [facility] Electronically authenticated by: LAZARO FORRESTER Date: 2021-08-26 17:54 [facility] Discharge summary note 08-26-2021 Note Date & [...] pain free and no longer on narcotics. [facility] Signed and Approved by: DR JHONNY DUGGAN . 09/16/2021 10:47:00 [facility] Clinical Note 08-26-2021 Note Date & Type Note Facility 08-26-2021 Note [facility] [place], [place] NAME: MARICARMEN JENNINGS DATE OF : MEDICAL REC#: [id number] TRIAGE CLINICIAN: [id number] [facility], [facility]ANS[facility] DATE: 08/26/2021 11:13:00 MEDIA CLERK DATE: 09/11/2021 21:00 DICTATING PHYSICIAN: JHONNY DUGGAN DICTATION DATE: 09/08/2021 08:00 OPERATIVE NOTE OPERATION DATE: 09/08/2021 PROCEDURE: Suction D AND C. PREOPERATIVE DIAGNOSIS: Vaginal bleeding, status post prior D AND C for missed . POSTOPERATIVE DIAGNOSIS: Vaginal bleeding, status post prior D AND C for missed . ANESTHESIA: General. SURGEON: Jhonny Duggan D.O. ASSISTANT DESIGNER: None. FINDINGS: No products of conception found. [...] and blood products were removed using an 8-Marshallese suction curette. Excellent hemostasis was noted. The [...] JHONNY DUGGAN . 09/16/2021 10:14:00 [facility] Clinical Note 08-22-2021 Note Date & Type Note Facility 08-22-2021 Note OPERATIVE NOTE OPERATION DATE:08/22/2021 PROCEDURE: Suction D AND C. PREOPERATIVE DIAGNOSIS: Missed POSTOPERATIVE DIAGNOSIS: Missed . ANESTHESIA: General. SURGEON: Jhonny Duggan D.O. ASSISTANT DESIGNER: None. BLOOD LOSS: 200 mL. URINE OUTPUT: [...] to the Recovery Room in stable condition. [facility] Signed and Approved by: DR JHONNY DUGGAN . 08/31/2021 19:44:00 [facility] Evaluation note Note Date & Type Note [...] and content) DATE CREATED AUTHOR 03/17/2022 [facility] pital DATE CREATED AUTHOR AUTHOR'S ORGANIZ ATION 12/09/2023 [facility] EPIC Reason for Visit (unrecogniz ed section and content) Reason Comments Routine Visit Care Teams (unrecognized sec tion and content) Mower Mechanic Relationship Specialty Start Date End Date Catrachita Duff MD [address] [place] [address] PCP - General Family Medicine 03/01/23 Mower Mechanic Relationship Specialty Start Date End Date Catrachita Duff MD [address] [place] [address] PCP - General Family Medicine 03/01/23 FOR [...] BE BASED ON THE PRIMARY CLINICAL RECORDS. [employer] [facility]. provides no warranty or guarantee of the accuracy or completeness of information in this document.
[2023-12-09] MEDS: 0.9 % SODIUM CHLORIDE 1,000 ML 1000 ML IV (21:00)
--- OUTSIDE RECORDS SUMMARY | 2023-12-09 21:02 | XMS_ITS | CCD ---
Author Organization [facility] Care Team Providers Care [employer] Chemist Name Role Phone URBAN, DR BARRY Admitting [...] URBAN, DR BARRY Consulting Unavailable ZIEBER, DR PATIRCK Soni Consulting Unavailable URBAN, DR BARRY Admitting [...] Adhesive bandage Drug allergy (disorder) 08-21-2021 [facility] Repository Problems Active Problems Problem Classification [...] Results Test Name Value Interpretation Reference Range [facility] BOX TEST SENT OUTon 06-03 BOX TEST SENT OUT 06/15/23 [facility] Health[facility] e Urinalysis macro (dipstick) panel (U)on 06-15-2023 Bilirubin, UA Negative Negative - 4(70) +++ mg/dL [facility] Blood, UA Negative Negative - 50 Alexander/mcL [facility] Clarity, UA Clear [facility] re Color, UA Yellow [facility] Glucose, UA Negative Negative - 1999(110) ++++ mg/dL [facility] Interpretation and review of laboratory results Abnormal [facility] Ketones, UA Negative Negative - 160(16) ++++ mg/dL [facility] Leukocytes, UA Trace Negative - 500+++ Shawn/mcL [facility] Nitrite, UA Negative Negative - Positive [facility] pH, UA 7.0 5 - 9 [facility] Healthcar e Protein, UA Negative Negative - 1999(20) ++++ mg/dL [facility] Spec Grav, UA 1.015 1 - 1.03 [facility] Urobilinogen, UA 0.2 0.2 - 12 mg/dL [facility] FRESH FROZ PLASMAon 09-02-19 22 FRESH FROZ PLASMA Unit Blood Type A Pos Unit Number [id number] Status Information Transfused Product ID FFP Product Code [id number] Normal [facility] Comment on above: Performed By: #### R UBIGG #### [facility] [address] [place] [address] Dr. Amy Whitaker PRBC LEUKOREDUCEDon 09-02-19 22 ABO and Rh group Nom (Bld) Cross Match Result Compatible Unit Blood Type A Pos Unit Number [id number] Status Information Transfused Product ID Red Blood Cells Product Code [id number] Cross Match Result Compatible Unit Blood Type A Pos Unit Number [id number] Status Information Transfused Product ID Red Blood Cells Product Code [id number] [facility] Comment on above: Performed By: #### P RBC #### [facility] [address] [place] [address] Dr. Amy Whitaker PRBC LEUKOREDUCED Cross Match Result Compatible Unit Blood Type A Pos Unit Number [id number] Status Information Transfused Product ID Red Blood Cells Product Code [id number] [facility] Comment on above: Performed By: #### R UBIGG #### [facility] [address] [place] [address] Dr. Amy Whitaker BUNon 08-29-2021 Urea nitrogen [Mass/Vol] 10.0 mg/dL Normal 7.0-18.0 [facility] Comment on above: Performed By: #### R UBIGG #### [facility] [address] [place] [address] Dr. Amy Whitaker CBC AUTO DIFFon 08-29-2021 BASO # 0.0 103/ul Normal 0.0-0.1 [facility] Comment on above: Performed By: #### P T, PTT #### [facility] [address] [place] [address] Dr. mAy Whitaker Basophils/100 WBC (Bld) 0.6 % Normal 0.2-2.0 [facility] Comment on above: Performed By: #### P T, PTT #### [facility] [address] [place] [address] Dr. Amy Whitaker EO # 0.1 103/ul Normal 0.0-0.7 [facility] Comment on above: Performed By: #### P T, PTT #### [facility] [address] [place] [address] Dr. Amy Whitaker Eosinophils/100 WBC (Bld) 0.8 % Critically low 0.9-7.0 [facility] Comment on above: Performed By: #### P T, PTT #### [facility] [address] [place] [address] Dr. Amy Whitaker Erythrocyte distribution width (RBC) [Ratio] 13.6 % Normal 11.0-15.0 [facility] Comment on above: Performed By: #### P T, PTT #### [facility] [address] [place] [address] Dr. Amy Whitaker Hematocrit (Bld) [Volume fraction] 40.1 % Normal 36.0-48.0 [facility] Comment on above: Performed By: #### P T, PTT #### [facility] [address] [place] [address] Dr. Amy Whitaker Hemoglobin (Bld) [Mass/Vol] 13.0 g/dL Normal 12.0-16.0 [facility] Comment on above: Performed By: #### P T, PTT #### [facility] [address] [place] [address] Dr. Amy Whitaker IG # 0.03 10e3/ul Normal 0.00-0.03 [facility] Comment on above: Performed By: #### P T, PTT #### [facility] [address] [place] [address] Dr. Amy Whitaker IG % 0.4 % Normal 0.0-0.5 [facility] Comment on above: Performed By: #### P T, PTT #### [facility] [address] [place] [address] Dr. Amy Whitaker LYMPH # 1.9 103/ul Normal 1.2-3.8 [facility] Comment on above: Performed By: #### P T, PTT #### [facility] [address] [place] [address] Dr. Amy Whitaker Lymphocytes/100 WBC (Bld) 26.1 % Normal 20.5-60.0 [facility] Comment on above: Performed By: #### P T, PTT #### [facility] [address] [place] [address] Dr. Amy Whitaker MANUAL DIFF REQ NO Normal [facility] Comment on above: Performed By: #### P T, PTT #### [facility] [address] [place] [address] Dr. Amy Whitaker MCH (RBC) [Entitic mass] 29.5 pg Normal 26.7-34.0 [facility] Comment on above: Performed By: #### P T, PTT #### [facility] [address] [place] [address] Dr. Amy Whitaker MCHC (RBC) [Mass/Vol] 32.4 g/dL Normal 29.9-35.2 [facility] Comment on above: Performed By: #### P T, PTT #### [facility] [address] [place] [address] Dr. Amy Whitaker MCV (RBC) [Entitic vol] 90.9 fL Normal 81.0-99.0 [facility] Comment on above: Performed By: #### P T, PTT #### [facility] [address] [place] [address] Dr. Amy Whitaker MONO # 0.7 103/ul Normal 0.3-0.8 [facility] Comment on above: Performed By: #### P T, PTT #### [facility] [address] [place] [address] Dr. Amy Whitaker Monocytes/100 WBC (Bld) 9.4 % Normal 1.7-12.0 [facility] Comment on above: Performed By: #### P T, PTT #### [facility] [address] [place] [address] Dr. Amy Whitaker NEUT # 4.5 103/ul Normal 1.4-6.5 [facility] Comment on above: Performed By: #### P T, PTT #### [facility] [address] [address] [address] Amy Whitaker Neutrophils/100 WBC (Bld) 62.7 % Normal 43.0-75.0 [facility] Comment on above: Performed By: #### P T, PTT #### [facility] [address] [place] [address] Dr. Amy Whitaker Platelet mean volume (Bld) [Entitic vol] 9.7 fL Normal 9.5-13.5 [facility] Comment on above: Performed By: #### P T, PTT #### [facility] [address] [place] [address] Dr. Amy Whitaker PLT 308 103/ul Normal 150-450 [facility] Comment on above: Performed By: #### P T, PTT #### [facility] [address] [place] [address] Dr. Amy Whitaker RBC 4.41 106/ul Normal 4.20-5.40 [facility] Comment on above: Performed By: #### P T, PTT #### [facility] [address] [place] [address] Dr. Amy Whitaker WBC 7.2 103/ul Normal 4.0-11.0 [facility] Comment on above: Performed By: #### P T, PTT #### [facility] [address] [place] [address] Dr. Amy Whitaker CREATININEon 08-29-2021 Creatinine [Mass/Vol] 0.73 mg/dL Normal 0.55-1.02 [facility] Comment on above: Performed By: #### R UBIGG #### [facility] [address] [place] [address] Dr. Amy Whitaker EGFR-AF TONGAN >60 Normal >=60 [facility] Comment on above: Performed By: #### R UBIGG #### [facility] [address] [place] [address] Dr. Amy Whitaker EGFR-NON AF TONGAN >60 Normal >=60 [facility] Comment on above: Performed By: #### R UBIGG #### [facility] [address] [place] [address] Dr. Amy Whitaker SGOTon 08-29-2021 AST [Catalytic activity/Vol] 14 U/L Critically low 15-37 [facility] Comment on above: Performed By: #### R UBIGG #### [facility] [address] [place] [address] Dr. Amy Whitaker SGPTon 08-29-2021 ALT [Catalytic activity/Vol] 20 U/L Normal 14-59 [facility] Comment on above: Performed By: #### R UBIGG #### [facility] [address] [place] [address] Dr. Amy Whitaker CBC AUTO DIFFon 08-27-2021 BASO # 0.0 103/ul Normal 0.0-0.1 [facility] Comment on above: Performed By: #### C BC #### [facility] [address] [place] [address] Dr. Amy Whitaker Basophils/100 WBC (Bld) 0.2 % Normal 0.2-2.0 [facility] Comment on above: Performed By: #### C BC #### [facility] [address] [place] [address] Dr. Amy Whitaker EO # 0.0 103/ul Normal 0.0-0.7 [facility] Comment on above: Performed By: #### C BC #### [facility] [address] [place] [address] Dr. Amy Whitaker Eosinophils/100 WBC (Bld) 0.0 % Critically low 0.9-7.0 [facility] Comment on above: Performed By: #### C BC #### [facility] [address] [place] [address] Dr. Amy Whitaker Erythrocyte distribution width (RBC) [Ratio] 13.9 % Normal 11.0-15.0 [facility] Comment on above: Performed By: #### C BC #### [facility] [address] [place] [address] Dr. Amy Whitaker Hematocrit (Bld) [Volume fraction] 34.3 % Critically low 36.0-48.0 [facility] Comment on above: Performed By: #### C BC #### [facility] [address] [address] [address] Amy Whitaker Hemoglobin (Bld) [Mass/Vol] 11.2 g/dL Critically low 12.0-16.0 [facility] Comment on above: Result Comment: rece ived blood Performed By: #### C BC #### [facility] [address] [place] [address] Dr. Amy Whitaker IG # 0.02 10e3/ul Normal 0.00-0.03 [facility] Comment on above: Performed By: #### C BC #### [facility] [address] [place] [address] Dr. Amy Whtiaker IG % 0.3 % Normal 0.0-0.5 [facility] Comment on above: Performed By: #### C BC #### [facility] [address] [place] [address] Dr. Amy Whitaker LYMPH # 0.8 103/ul Critically low 1.2-3.8 [facility] Comment on above: Performed By: #### C BC #### [facility] [address] [place] [address] Dr. Amy Whitaker Lymphocytes/100 WBC (Bld) 13.5 % Critically low 20.5-60.0 [facility] Comment on above: Performed By: #### C BC #### [facility] [address] [place] [address] Dr. Amy Whitaker MANUAL DIFF REQ NO Normal [facility] Comment on above: Performed By: #### C BC #### [facility] [address] [place] [address] Dr. Amy Whitaker MCH (RBC) [Entitic mass] 29.7 pg Normal 26.7-34.0 [facility] Comment on above: Performed By: #### C BC #### [facility] [address] [place] [address] Dr. Amy Whitaker MCHC (RBC) [Mass/Vol] 32.7 g/dL Normal 29.9-35.2 [facility] Comment on above: Performed By: #### C BC #### [facility] [address] [address] [address] Amy Whitaker MCV (RBC) [Entitic vol] 91.0 fL Normal 81.0-99.0 [facility] Comment on above: Performed By: #### C BC #### [facility] [address] [address] [address] Amy Whitaker MONO # 0.4 103/ul Normal 0.3-0.8 [facility] Comment on above: Performed By: #### C BC #### [facility] [address] [address] [address] Amy Whitaker Monocytes/100 WBC (Bld) 6.9 % Normal 1.7-12.0 [facility] Comment on above: Performed By: #### C BC #### [facility] [address] [address] [address] Amy Whitaker NEUT # 4.6 103/ul Normal 1.4-6.5 [facility] Comment on above: Performed By: #### C BC #### [facility] [address] [address] [address] Amy Whitaker Neutrophils/100 WBC (Bld) 79.1 % Critically high 43.0-75.0 [facility] Comment on above: Performed By: #### C BC #### [facility] [address] [address] [address] Amy Whitaker Platelet mean volume (Bld) [Entitic vol] 10.9 fL Normal 9.5-13.5 [facility] Comment on above: Performed By: #### C BC #### [facility] [address] [address] [address] Amy Whitaker PLT 174 103/ul Normal 150-450 [facility] Comment on above: Performed By: #### C BC #### [facility] [address] [id number] [address] Amy Whitaker RBC 3.77 106/ul Critically low 4.20-5.40 [facility] Comment on above: Performed By: #### C BC #### [facility] [address] [address] [address] Amy Whitaker WBC 5.8 103/ul Normal 4.0-11.0 [facility] Comment on above: Performed By: #### C BC #### [facility] [address] [address] [address] Amy Whitaker CBC AUTO DIFFon 08-26-2021 BASO # 0.0 103/ul Normal 0.0-0.1 [facility] Comment on above: Performed By: #### C BC #### [facility] [address] [place] [address] Dr. Amy Whitaker Basophils/100 WBC (Bld) 0.2 % Normal 0.2-2.0 [facility] Comment on above: Performed By: #### C BC #### [facility] [address] [place] [address] Dr. Amy Whitaker EO # 0.0 103/ul Normal 0.0-0.7 [facility] Comment on above: Performed By: #### C BC #### [facility] [address] [place] [address] Dr. Amy Whitaker Eosinophils/100 WBC (Bld) 0.7 % Critically low 0.9-7.0 [facility] Comment on above: Performed By: #### C BC #### [facility] [address] [place] [address] Dr. Amy Whitaker Erythrocyte distribution width (RBC) [Ratio] 13.2 % Normal 11.0-15.0 [facility] Comment on above: Performed By: #### C BC #### [facility] [address] [place] [address] Dr. Amy Whitaker Hematocrit (Bld) [Volume fraction] 23.5 % Critically low 36.0-48.0 [facility] Comment on above: Performed By: #### C BC #### [facility] [address] [place] [address] Dr. Amy Whitaker Hemoglobin (Bld) [Mass/Vol] 7.7 g/dL Critically low 12.0-16.0 [facility] Comment on above: Performed By: #### C BC #### [facility] [address] [place] [address] Dr. Amy Whitaker IG # 0.02 10e3/ul Normal 0.00-0.03 [facility] Comment on above: Performed By: #### C BC #### [facility] [address] [place] [address] Dr. Amy Whitaker IG % 0.4 % Normal 0.0-0.5 [facility] Comment on above: Performed By: #### C BC #### [facility] [address] [place] [address] Dr. Amy Whitaker LYMPH # 1.0 103/ul Critically low 1.2-3.8 [facility] Comment on above: Performed By: #### C BC #### [facility] [address] [place] [address] Dr. Amy Whitaker Lymphocytes/100 WBC (Bld) 21.6 % Normal 20.5-60.0 [facility] Comment on above: Performed By: #### C BC #### [facility] [address] [place] [address] Dr. Amy Whitaker MANUAL DIFF REQ NO Normal [facility] Comment on above: Performed By: #### C BC #### [facility] [address] [place] [address] Dr. Amy Whitaker MCH (RBC) [Entitic mass] 30.0 pg Normal 26.7-34.0 [facility] Comment on above: Performed By: #### C BC #### [facility] [address] [place] [address] Dr. Amy Whitaker MCHC (RBC) [Mass/Vol] 32.8 g/dL Normal 29.9-35.2 [facility] Comment on above: Performed By: #### C BC #### [facility] [address] [place] [address] Dr. Amy Whitaker MCV (RBC) [Entitic vol] 91.4 fL Normal 81.0-99.0 [facility] Comment on above: Performed By: #### C BC #### [facility] [address] [place] [address] Dr. Amy Whitaker MONO # 0.4 103/ul Normal 0.3-0.8 [facility] Comment on above: Performed By: #### C BC #### [facility] [address] [address] [address] Amy Whitaker Monocytes/100 WBC (Bld) 7.8 % Normal 1.7-12.0 [facility] Comment on above: Performed By: #### C BC #### [facility] [address] [place] [address] Dr. Amy Whitaker NEUT # 3.1 103/ul Normal 1.4-6.5 [facility] Comment on above: Performed By: #### C BC #### [facility] [address] [place] [address] Dr. Amy Whitaker Neutrophils/100 WBC (Bld) 69.3 % Normal 43.0-75.0 [facility] Comment on above: Performed By: #### C BC #### [facility] [address] [place] [address] Dr. Amy Whitaker Platelet mean volume (Bld) [Entitic vol] 9.7 fL Normal 9.5-13.5 [facility] Comment on above: Performed By: #### C BC #### [facility] [address] [place] [address] Dr. Amy Whitaker PLT 154 103/ul Normal 150-450 [facility] Comment on above: Performed By: #### C BC #### [facility] [address] [place] [address] Dr. Amy Whitaker RBC 2.57 106/ul Critically low 4.20-5.40 [facility] Comment on above: Performed By: #### C BC #### [facility] [address] [place] [address] Dr. Amy Whitaker WBC 4.5 103/ul Normal 4.0-11.0 [facility] Comment on above: Performed By: #### C BC #### [facility] [address] [place] [address] Dr. Amy Whitaker CULTURE URINEon 08-26-2021 CULTURE URINE Culture Observations: NO GROWTH. Normal [facility] Comment on above: Performed By: #### U RCX #### [facility] [address] [place] [address] Dr. Amy Whitaker [facility] SARS-CoV-2 (COVID-19) RNA SHANNON+probe Ql (Unsp spec) Not detected Normal NOT DETECTED [facility] Comment on above: Result Comment: When [...] for this test is supported by the [place] of Health and Human Service's declaration that [...] Performed By: #### P T, PTT #### [facility] [address] [place] [address] Dr. Amy Whitaker ER URINE PROFILEon Bilirubin Ql (U) SMALL Abnormal NEGATIVE [facility] Comment on above: Performed By: #### P T, PTT #### [facility] [address] [place] [address] Dr. Amy Whitaker Clarity (U) SL CLOUDY Abnormal CLEAR [facility] Comment on above: Performed By: #### P T, PTT #### [facility] [address] [place] [address] Dr. Amy Whitaker Color (U) RED Abnormal YELLOW [facility] Comment on above: Performed By: #### P T, PTT #### [facility] [address] [place] [address] Dr. Amy SERRATO A micrscopic examination will be performed if indicated. Normal [facility] Comment on above: Performed By: #### P T, PTT #### [facility] [address] [place] [address] Dr. Amy Whitaker Glucose Ql (U) Negative Normal NEGATIVE [facility] Comment on above: Performed By: #### P T, PTT #### [facility] [address] [address] [address] Amy Whitaker Hemoglobin Ql (U) LARGE Abnormal NEGATIVE [facility] Comment on above: Performed By: #### P T, PTT #### [facility] [address] [place] [address] Dr. Amy Whitaker Ketones Ql (U) TRACE Abnormal NEGATIVE [facility] Comment on above: Performed By: #### P T, PTT #### [facility] [address] [place] [address] Dr. Amy Whitaker LEUKOCYTES LARGE Abnormal NEGATIVE [facility] Comment on above: Performed By: #### P T, PTT #### [facility] [address] [place] [address] Dr. Amy Whitaker Nitrite Ql (U) Positive Abnormal NEGATIVE [facility] Comment on above: Performed By: #### P T, PTT #### [facility] [address] [place] [address] Dr. Amy Whitaker pH (U) 8.0 [pH] Normal 5-9 [facility] Comment on above: Performed By: #### P T, PTT #### [facility] [address] [place] [address] Dr. Amy Whitaker Protein (U) [Mass/Vol] 100 mg/dL Abnormal NEGATIVE/ TRACE [facility] Comment on above: Performed By: #### P T, PTT #### [facility] [address] [place] [address] Dr. Amy Whitaker SPEC GRAVITY 1.015 Normal 1.005-<=1.025 [facility] Comment on above: Performed By: #### P T, PTT #### [facility] [address] [place] [address] Dr. Amy Whitaker UR MICRO IND INDICATED Normal [facility] Comment on above: Performed By: #### P T, PTT #### [facility] [address] [place] [address] Dr. Amy Whitaker Urobilinogen Qn (U) 1.0 {Neelima'U}/dL Normal 0.2 - 1. 0 [facility] Comment on above: Performed By: #### P T, PTT #### [facility] [address] [place] [address] Dr. Amy Whitaker PREG HCG QUALon 08-26-2021 , QUAL Positive Abnormal NEGATIVE [facility] Comment on above: Performed By: #### P REG #### [facility] [address] [place] [address] Dr. Amy Whitaker PROF 14(COMP METB)on 022 Albumin [Mass/Vol] 3.4 g/dL Normal 3.4-5.0 [facility] Comment on above: Performed By: #### P T, PTT #### [facility] [address] [place] [address] Dr. Amy Whitaker Albumin/Globulin [Mass ratio] 1.2 {ratio} Normal [facility] Comment on above: Performed By: #### P T, PTT #### [facility] [address] [place] [address] Dr. Amy Whitaker ALP [Catalytic activity/Vol] 47 U/L Normal 46-116 [facility] Comment on above: Performed By: #### P T, PTT #### [facility] [address] [place] [address] Dr. Amy Whitaker ALT [Catalytic activity/Vol] 14 U/L Normal 14-59 [facility] Comment on above: Performed By: #### P T, PTT #### [facility] [address] [place] [address] Dr. Amy Whitaker Anion gap [Moles/Vol] 10.8 mmol/L Normal [facility] Comment on above: Performed By: #### P T, PTT #### [facility] [address] [address] [address] Amy Whitaker AST [Catalytic activity/Vol] 9 U/L Critically low 15-37 [facility] Comment on above: Performed By: #### P T, PTT #### [facility] [address] [address] [address] Amy Whitaker Bilirubin [Mass/Vol] 0.7 mg/dL Normal 0.2-1.0 [facility] Comment on above: Performed By: #### P T, PTT #### [facility] [address] [address] [address] Amy Whitaker Calcium [Mass/Vol] 7.9 mg/dL Critically low 8.5-10.1 [facility] Comment on above: Performed By: #### P T, PTT #### [facility] [address] [place] [address] Dr. Amy Whitaker Chloride [Moles/Vol] 105 mmol/L Normal 98-107 [facility] Comment on above: Performed By: #### P T, PTT #### [facility] [address] [place] [address] Dr. Amy Whitaker CO2 [Moles/Vol] 27.0 mmol/L Normal 21.0-32.0 [facility] Comment on above: Performed By: #### P T, PTT #### [facility] [address] [place] [address] Dr. Amy Whitaker Creatinine [Mass/Vol] 0.51 mg/dL Critically low 0.55-1.02 [facility] Comment on above: Performed By: #### P T, PTT #### [facility] [address] [place] [address] Dr. Amy Whitaker EGFR-AF TONGAN >60 Normal >=60 [facility] Comment on above: Performed By: #### P T, PTT #### [facility] [address] [address] [address] Amy Whitaker EGFR-NON AF TONGAN >60 Normal >=60 [facility] Comment on above: Performed By: #### P T, PTT #### [facility] [address] [address] [address] Amy Whitaker Globulin (S) [Mass/Vol] 2.8 g/dL Normal [facility] Comment on above: Performed By: #### P T, PTT #### [facility] [address] [place] [address] Dr. Amy Whitaker Glucose [Mass/Vol] 98 mg/dL Normal 74-106 [facility] Comment on above: Performed By: #### P T, PTT #### [facility] [address] [place] [address] Dr. Amy Whitaker Potassium [Moles/Vol] 3.8 mmol/L Normal 3.5-5.1 [facility] Comment on above: Performed By: #### P T, PTT #### [facility] [address] [place] [address] Dr. Amy Whitaker Protein [Mass/Vol] 6.2 g/dL Normal 6.1-8.2 [facility] Comment on above: Performed By: #### P T, PTT #### [facility] [address] [place] [address] Dr. Amy Whitaker Sodium [Moles/Vol] 139 mmol/L Normal 136-145 [facility] Comment on above: Performed By: #### P T, PTT #### [facility] [address] [place] [address] Dr. Amy Whitaker Urea nitrogen [Mass/Vol] 7.0 mg/dL Normal 7.0-18.0 [facility] Comment on above: Performed By: #### P T, PTT #### [facility] [address] [place] [address] Dr. Amy Whitaker Urea nitrogen/Creatinine [Mass ratio] 13.7 mg/mg Normal [facility] Comment on above: Performed By: #### P T, PTT #### [facility] [address] [place] [address] Dr. Amy Whitaker PROTIMEon 08-26-2021 INR Coag (PPP) [Relative time] 1.01 {INR} Normal [facility] Comment on above: Performed By: #### P T, PTT #### [facility] [address] [place] [address] Dr. Amy Whitaker INR GUIDELINES SEE BELOW Normal [facility] Comment on above: Result Comment: DIVINA RED INR: 2.0 - 3.0 CONDITIONS NOT LISTED BELOW 2.5 - 3.5 FOR PROSTHETIC HEART VALVE REPLACEMENT 2.5 - 3.5 RECURRENT THROMBOSIS Performed By: #### P T, PTT #### [facility] [address] [place] [address] Dr. Amy Whitaker PT Coag (PPP) [Time] 10.9 s Normal 9.0-11.6 [facility] Comment on above: Performed By: #### P T, PTT #### [facility] [address] [place] [address] Dr. Amy Whitaker PTTon 08-26-2021 aPTT Coag (Bld) [Time] 23.4 s Normal 22.3-36.2 [facility] Comment on above: Performed By: #### P T, PTT #### [facility] [address] [place] [address] Dr. Amy Whitaker TYPE AND SCREENon 08-26-2021 TYPE AND SCREEN Negative Normal [facility] Comment on above: Performed By: #### T NS #### [facility] [address] [place] [address] Dr. Amy Whitaker URINE MICROSCOPIC ONLYon BACTERIA TRACE Abnormal NONE SEEN [facility] Comment on above: Performed By: #### P T, PTT #### [facility] [address] [place] [address] Dr. Amy Whitaker Bacteria identified Cx Nom (U) INDICATED Normal [facility] Comment on above: Performed By: #### P T, PTT #### [facility] [address] [place] [address] Dr. Amy Whitaker CAST NONE SEEN Normal NONE SEEN [facility] Comment on above: Performed By: #### P T, PTT #### [facility] [address] [place] [address] Dr. Amy Whitaker Crystals LM Nom (Urine sed) NONE SEEN Normal NONE SEEN [facility] Comment on above: Performed By: #### P T, PTT #### [facility] [address] [place] [address] Dr. Amy Whitaker Epithelial cells LM Ql (Urine sed) NONE SEEN Normal NONE SEEN /RARE [facility] Comment on above: Performed By: #### P T, PTT #### [facility] [address] [place] [address] Dr. Amy Whitaker MUCOUS NONE SEEN Normal NONE SEEN [facility] Comment on above: Performed By: #### P T, PTT #### [facility] [address] [place] [address] Dr. Amy Whitaker RBC (U) [#/Vol] /uL Abnormal 0-2 [facility] Comment on above: Performed By: #### P T, PTT #### [facility] [address] [place] [address] Dr. Amy Whitaker WBC 0-2 Abnormal NONE SEEN [facility] Comment on above: Performed By: #### P T, PTT #### [facility] [address] [place] [address] Dr. Amy Whitaker US PELVISon 08-26-2021 US [...] LAZARO FORRESTER Date: 2021-08-26 13:18 Normal [facility] US PELVISon 08-23-2021 US PELVIS EXAM: [...] PATRICK VICENTE Date: 2021-08-23 12:13 Normal [facility] CBC AUTO DIFFon 08-22-2021 BASO # 0.0 103/ul Normal 0.0-0.1 [facility] Comment on above: Performed By: #### P T, PTT #### [facility] [address] [address] [address] Amy Whitaker Basophils/100 WBC (Bld) 0.4 % Normal 0.2-2.0 [facility] Comment on above: Performed By: #### P T, PTT #### [facility] [address] [place] [address] Dr. Amy Whitaker EO # 0.1 103/ul Normal 0.0-0.7 [facility] Comment on above: Performed By: #### P T, PTT #### [facility] [address] [place] [address] Dr. Amy Whitaker Eosinophils/100 WBC (Bld) 0.8 % Critically low 0.9-7.0 [facility] Comment on above: Performed By: #### P T, PTT #### [facility] [address] [place] [address] Dr. Amy Whitaker Erythrocyte distribution width (RBC) [Ratio] 12.4 % Normal 11.0-15.0 [facility] Comment on above: Performed By: #### P T, PTT #### [facility] [address] [place] [address] Dr. Amy Whitaker Hematocrit (Bld) [Volume fraction] 37.4 % Normal 36.0-48.0 [facility] Comment on above: Performed By: #### P T, PTT #### [facility] [address] [place] [address] Dr. Amy Whitaker Hemoglobin (Bld) [Mass/Vol] 12.6 g/dL Normal 12.0-16.0 [facility] Comment on above: Performed By: #### P T, PTT #### [facility] [address] [place] [address] Dr. Amy Whitaker IG # 0.04 10e3/ul Critically high 0.00-0.03 [facility] Comment on above: Performed By: #### P T, PTT #### [facility] [address] [place] [address] Dr. Amy Whitaker IG % 0.5 % Normal 0.0-0.5 [facility] Comment on above: Performed By: #### P T, PTT #### [facility] [address] [place] [address] Dr. Amy Whitaker LYMPH # 2.0 103/ul Normal 1.2-3.8 [facility] Comment on above: Performed By: #### P T, PTT #### [facility] [address] [place] [address] Dr. Amy Whitaker Lymphocytes/100 WBC (Bld) 27.2 % Normal 20.5-60.0 [facility] Comment on above: Performed By: #### P T, PTT #### [facility] [address] [place] [address] Dr. Amy Whitaker MANUAL DIFF REQ NO Normal [facility] Comment on above: Performed By: #### P T, PTT #### [facility] [address] [place] [address] Dr. Amy Whitaker MCH (RBC) [Entitic mass] 29.4 pg Normal 26.7-34.0 [facility] Comment on above: Performed By: #### P T, PTT #### [facility] [address] [place] [address] Dr. Amy Whitaker MCHC (RBC) [Mass/Vol] 33.7 g/dL Normal 29.9-35.2 [facility] Comment on above: Performed By: #### P T, PTT #### [facility] [address] [place] [address] Dr. Amy Whitaker MCV (RBC) [Entitic vol] 87.4 fL Normal 81.0-99.0 [facility] Comment on above: Performed By: #### P T, PTT #### [facility] [address] [place] [address] Dr. Amy Whitaker MONO # 0.7 103/ul Normal 0.3-0.8 [facility] Comment on above: Performed By: #### P T, PTT #### [facility] [address] [place] [address] Dr. Amy Whitaker Monocytes/100 WBC (Bld) 9.7 % Normal 1.7-12.0 [facility] Comment on above: Performed By: #### P T, PTT #### [facility] [address] [place] [address] Dr. Amy Whitaker NEUT # 4.6 103/ul Normal 1.4-6.5 [facility] Comment on above: Performed By: #### P T, PTT #### [facility] [address] [place] [address] Dr. Amy Whitaker Neutrophils/100 WBC (Bld) 61.4 % Normal 43.0-75.0 [facility] Comment on above: Performed By: #### P T, PTT #### [facility] [address] [place] [address] Dr. Amy Whitaker Platelet mean volume (Bld) [Entitic vol] 10.1 fL Normal 9.5-13.5 [facility] Comment on above: Performed By: #### P T, PTT #### [facility] [address] [place] [address] Dr. Amy Whitaker PLT 222 103/ul Normal 150-450 [facility] Comment on above: Performed By: #### P T, PTT #### [facility] [address] [address] [address] Amy Whitaker RBC 4.28 106/ul Normal 4.20-5.40 [facility] Comment on above: Performed By: #### P T, PTT #### [facility] [address] [address] [address] Amy Whitaker WBC 7.5 103/ul Normal 4.0-11.0 [facility] Comment on above: Performed By: #### P T, PTT #### [facility] [address] [address] [address] Amy Whitaker FIBRINOGENon 08-22-2021 FIBRINOGEN 261.0 mg/dl Normal 200.0-400.0 [facility] Comment on above: Performed By: #### P T, PTT #### [facility] [address] [place] [address] Dr. Amy Whitaker PREG QUANT HCGon 08-22-2021 HCG QUANT [id number] mIU/mL Normal [facility] Comment on above: Performed By: #### P REGQNT #### [facility] [address] [place] [address] Dr. Amy Whitaker HCG RANGE SEE BELOW Normal [facility] Comment on above: Result Comment: 5-50 0-1 WEEK 40-300 1-2 WEEKS 100-1,000 2-3 WEEKS 500-6,000 3-4 WEEKS 5,000-200,000 1-2 MONTHS 10,000-100,000 2-3 MONTHS 3,000-50,000 2ND TRIMESTER 1,000-50,000 3RD TRIMESTER Performed By: #### P REGQNT #### [facility] [address] [place] [address] Dr. Amy Whitaker PROTIMEon 08-22-2021 INR Coag (PPP) [Relative time] 1.06 {INR} Normal [facility] Comment on above: Performed By: #### P T, PTT #### [facility] [address] [place] [address] Dr. Amy Whitaker INR GUIDELINES SEE BELOW Normal [facility] Comment on above: Result Comment: DIVINA RED INR: 2.0 - 3.0 CONDITIONS NOT LISTED BELOW 2.5 - 3.5 FOR PROSTHETIC HEART VALVE REPLACEMENT 2.5 - 3.5 RECURRENT THROMBOSIS Performed By: #### P T, PTT #### [facility] [address] [place] [address] Dr. Amy Whitaker PT Coag (PPP) [Time] 11.4 s Normal 9.0-11.6 [facility] Comment on above: Performed By: #### P T, PTT #### [facility] [address] [place] [address] Dr. Amy Whitaker PTTon 08-22-2021 aPTT Coag (Bld) [Time] 25.6 s Normal 22.3-36.2 [facility] Comment on above: Performed By: #### P T, PTT #### [facility] [address] [place] [address] Dr. Amy Whitaker [facility] SARS-CoV-2 (COVID-19) RNA SHANNON+probe Ql (Unsp spec) Not detected Normal NOT DETECTED [facility] Comment on above: Result Comment: When [...] for this test is supported by the Division Commander of Health and Human Service's declaration that [...] Performed By: #### P T, PTT #### [facility] [address] [place] [address] Dr. Amy Whitaker US PREG TVon 08-19-2021 [...] at the time of imaging by the secret code expert. Electronically authenticated by: PATRICK KRAUSE Date: 2021-08-19 17:18 Normal [facility] HEP B SURFACE ANTIGEN SCREEN on 08-08-2021 HBsAg Screen Negative Normal Negative [facility] Comment on above: Performed By: #### P T, PTT #### [facility] [address] [address] [address] Amy Whitaker HEPATITIS C VIRUS AB W/ REFL EX QUANTon 08-08-2021 HCV AB <0.1 Normal 0.0-0.9 [facility] Comment on above: Performed By: #### P T, PTT #### [facility] [address] [address] [address] Amy Whitaker Interpretation: Comment Normal [facility] Comment on above: Result Comment: Nega tive Not infected with HCV, unless recent infection is suspected or other evidence exists to indicate HCV infection. Performed By: #### P T, PTT #### [facility] [address] [address] [address] Amy Whitaker HIV 1 AND 2 WITH REFLEXon HIV Screen 4th Generation wRfx Non-Reactive Normal Non Reactive [facility] Comment on above: Result Comment: HIV Negative HIV-1/HIV-2 antibodies and HIV-1 p24 antigen were NOT detected. There is no laboratory evidence of HIV infection. Performed By: #### P T, PTT #### [facility] [address] [place] [address] Dr. Amy Whitaker RPR QUANTon 08-08-2021 Rapid Plasma Reagin, Quant Non-Reactive Normal NonRea<1:1 [facility] Comment on above: Result Comment: Plea se Note: This test does not meet current guidelines for screening and diagnosis of syphilis. This test is intended for following treatment response in patients being treated for syphilis infection. To screen for syphilis infection, a reflex cascade that includes both RPR and a treponema-specific assay should be utilized, such as Treponema pallidum (Syphilis) Screening Mono (456670) or Rapid Plasma Reagin (RPR) Test With Reflex to Quantitative RPR and Confirmatory Treponema pallidum Antibodies (435982). Performed By: #### P T, PTT #### [facility] [address] [place] [address] Dr. Amy Whitaker RUBELLA AB IGGon 08-08-2021 Rubella Antibodies, IgG 1.68 index Normal Immune >0.99 [facility] Comment on above: Result Comment: Non- immune <0.90 Equivocal 0.90 - 0.99 Immune >0.99 Performed By: #### R UBIGG #### [facility] [address] [place] [address] Dr. Amy Whitaker CBC AUTO DIFFon 08-07-2021 BASO # 0.0 103/ul Normal 0.0-0.1 [facility] Comment on above: Performed By: #### P T, PTT #### [facility] [address] [place] [address] Dr. Amy Whitaker Basophils/100 WBC (Bld) 0.3 % Normal 0.2-2.0 [facility] Comment on above: Performed By: #### P T, PTT #### [facility] [address] [place] [address] Dr. Amy Whitaker EO # 0.0 103/ul Normal 0.0-0.7 [facility] Comment on above: Performed By: #### P T, PTT #### [facility] [address] [place] [address] Dr. Amy Whitaker Eosinophils/100 WBC (Bld) 0.3 % Critically low 0.9-7.0 [facility] Comment on above: Performed By: #### P T, PTT #### [facility] [address] [place] [address] Dr. Amy Whitaker Erythrocyte distribution width (RBC) [Ratio] 12.2 % Normal 11.0-15.0 [facility] Comment on above: Performed By: #### P T, PTT #### [facility] [address] [place] [address] Dr. Amy Whitaker Hematocrit (Bld) [Volume fraction] 38.5 % Normal 36.0-48.0 [facility] Comment on above: Performed By: #### P T, PTT #### [facility] [address] [place] [address] Dr. Amy Whitaker Hemoglobin (Bld) [Mass/Vol] 13.0 g/dL Normal 12.0-16.0 [facility] Comment on above: Performed By: #### P T, PTT #### [facility] [address] [place] [address] Dr. Amy Whitaker IG # 0.02 10e3/ul Normal 0.00-0.03 [facility] Comment on above: Performed By: #### P T, PTT #### [facility] [address] [place] [address] Dr. Aym Whitaker IG % 0.3 % Normal 0.0-0.5 [facility] Comment on above: Performed By: #### P T, PTT #### [facility] [address] [place] [address] Dr. Amy Whitaker LYMPH # 1.6 103/ul Normal 1.2-3.8 [facility] Comment on above: Performed By: #### P T, PTT #### [facility] [address] [place] [address] Dr. Amy Whitaker Lymphocytes/100 WBC (Bld) 20.2 % Critically low 20.5-60.0 [facility] Comment on above: Performed By: #### P T, PTT #### [facility] [address] [place] [address] Dr. Amy Whitaker MANUAL DIFF REQ NO Normal [facility] Comment on above: Performed By: #### P T, PTT #### [facility] [address] [place] [address] Dr. Amy Whitaker MCH (RBC) [Entitic mass] 29.3 pg Normal 26.7-34.0 [facility] Comment on above: Performed By: #### P T, PTT #### [facility] [address] [place] [address] Dr. Amy Whitaker MCHC (RBC) [Mass/Vol] 33.8 g/dL Normal 29.9-35.2 [facility] Comment on above: Performed By: #### P T, PTT #### [facility] [address] [place] [address] Dr. Amy Whitaker MCV (RBC) [Entitic vol] 86.7 fL Normal 81.0-99.0 [facility] Comment on above: Performed By: #### P T, PTT #### [facility] [address] [place] [address] Dr. Amy Whitaker MONO # 0.6 103/ul Normal 0.3-0.8 [facility] Comment on above: Performed By: #### P T, PTT #### [facility] [address] [place] [address] Dr. Amy Whitaker Monocytes/100 WBC (Bld) 8.0 % Normal 1.7-12.0 [facility] Comment on above: Performed By: #### P T, PTT #### [facility] [address] [place] [address] Dr. Amy Whitaker NEUT # 5.5 103/ul Normal 1.4-6.5 [facility] Comment on above: Performed By: #### P T, PTT #### [facility] [address] [place] [address] Dr. Amy Whitaker Neutrophils/100 WBC (Bld) 70.9 % Normal 43.0-75.0 [facility] Comment on above: Performed By: #### P T, PTT #### [facility] [address] [address] [address] Amy Whitaker Platelet mean volume (Bld) [Entitic vol] 10.1 fL Normal 9.5-13.5 [facility] Comment on above: Performed By: #### P T, PTT #### [facility] [address] [address] [address] Amy Whitaker PLT 217 103/ul Normal 150-450 [facility] Comment on above: Performed By: #### P T, PTT #### [facility] [address] [address] [address] Amy Whitaker RBC 4.44 106/ul Normal 4.20-5.40 [facility] Comment on above: Performed By: #### P T, PTT #### [facility] [address] [place] [address] Dr. Amy Whitaker WBC 7.7 103/ul Normal 4.0-11.0 [facility] Comment on above: Performed By: #### P T, PTT #### [facility] [address] [place] [address] Dr. Amy Whitaker CULTURE URINEon 08-07-2021 CULTURE URINE Culture Observations: MODERATE GROWTH OF MIXED GENITAL DINA. NO POTENTIAL PATHOGENS SEEN. Normal [facility] Comment on above: Performed By: #### R UBIGG #### [facility] [address] [place] [address] Dr. Amy Whitaker GLYCOHEMOGLOBIN A1Con 2021 ADA RECOMMENDATION ADA THERAPEUTIC TARGET 6.0 - 7.0 ACTION SUGGESTED > 7.0 Normal [facility] Comment on above: Performed By: #### C BC #### [facility] [address] [address] [address] Amy Whitaker Glucose [Mass/Vol] 108 mg/dL Normal [facility] Comment on above: Performed By: #### C BC #### [facility] [address] [place] [address] Dr. Amy Whitaker HbA1c (Bld) [Mass fraction] 5.4 % Normal <=6.0 [facility] Comment on above: Performed By: #### C BC #### [facility] [address] [address] [address] Amy Whitaker JONAS BOX TEST PT SEND OUTo n 08-07-2021 SENT TO REF LAB 08/07/2021 Normal [facility] Comment on above: Performed By: #### C BC #### [facility] [address] [address] [address] Amy Whitaker TYPE AND SCREENon 08-07-2021 TYPE AND SCREEN Negative Normal [facility] Comment on above: Performed By: #### T NS #### [facility] [address] [address] [address] Amy Whitaker US PREG TVon 08-01-2021 [...] by: LAZARO FORRESTER Date: 2021-08-01 16:12 Normal [facility] Vital Signs Date Time Vital Sign Value Performing Clinician Paul arias 06-15-2023 14:45-0500 Body mass index (BMI) [Ratio] 19.18 kg/m2 [employer] DO Work Phone: [facility] 06-15-2023 14:45-0500 Body weight 58.06 kg Jhonny Urban DO Work Phone: [facility] 06-15-2023 14:45-0500 Diastolic blood pressure 68 mm[Hg] Jhonny [employer] Work Phone: [facility] 06-15-2023 14:45-0500 Systolic blood pressure 114 mm[Hg] JhonnyBjond Work Phone: [facility] Healthcare Encounters Encounter Date Encounter Type [...] for preprocedural laboratory examination DR JHONNY DUGGAN [facility] Start: 08-22-2021 End: 08-22-[address] JHONNY [...] Routine [facility] [address] [place] [id number] Elham Murillo PA [address] [place] [id number] [facility] Start: 06-15-2023 End: 08-14-2023 Alpha fetoprotein, maternal Alpha fetoprotein, maternal Lab Routine Second trimester Expected: 06/15/2023 (Approximate), Expires: 08/14/2023 [facility] Comment on above: Expected: 06/15/2023 (Approximate), Expires: 08/14/2023 Start: 01-01-2023 Influenza vaccination Influ[facility]DIA TRACHOMATI S (GENITO/STI) CHLAMYDIA TRACHOMATIS (GENITO/STI) Lab Routine STD exposure Ordered: 06/15/2023 [facility] Comment on above: Ordered: 06/15/2023 Cytology Cervical or vaginal smear or scraping study Pap Smear Pathology and Cytology Routine Well woman exam with routine gynecological exam Ordered: 06/15/2023 [facility] Healthcare Work Phone: Comment on above: Ordered: 06/15/2023 Neisseria gonorrhoea e DNA [Presence] in Unspecified specimen by SHANNON with probe detection Neisseria gonorrhea DNA probe, direct Lab Routine STD exposure Ordered: 06/15/2023 [facility] Comment on above: Ordered: 06/15/2023 SURESWAB(R) ADVANCED VAGINITIS PLUS, TMA SURESWAB(R) ADVANCED VAGINITIS PLUS, TMA Pathology and Cytology Routine Vaginal discharge Ordered: 06/15/2023 [facility] Comment on above: Ordered: 06/15/2023 Immunizations Immunization Date Immunization Notes Care Provider Jen peng 03-08-2020 influenza virus vacc ine, unspecified formulation Jhonny Duggan DO Work Phone: [facility] Healthcare Payers Date Payer Category Payer Unknown BCBS BCBS xxxxxx [id number] 2022-Present [phone] [address] [place] [address] [id number] 2022 Unknown [id number] 2022 Unknown [id number] 2022 Medicaid [employer] [place] [id number] 2022-Present [address] [place] [address] [id number] 2019 Medicaid [id number] 2001 Unknown [id number] 2.16.840.1.961560.3.579.2.593 2001 Unknown [id number] 2.16.840.1.114347.3.579.2.593 2001 Unknown [id number] 2.16.840.1.655568.3.579.2.593 2001 Unknown [id number] 2.16.840.1.969135.3.579.2.593 2001 Unknown [id number] 2.16.840.1.108117.3.579.2.593 2001 Unknown [id number] 2.16.840.1.082419.3.579.2.593 2001 Unknown [id number] 2.16.840.1.174255.3.579.2.593 2001 Unknown [id number] 2.16.840.1.851844.3.579.2.1259 2001 Unknown [id number] 2.16.840.1.532959.3.579.2.1259 2001 Unknown [id number] 2.16.840.1.857159.3.579.2.1259 2001 Unknown [id number] 2.16.840.1.603429.3.579.2.1259 2001 Unknown [id number] 2.16.840.1.868254.3.579.2.1259 2001 Unknown [id number] 2.16.840.1.956622.3.579.2.1259 2001 Unknown [id number] 2.16.840.1.464925.3.579.2.1259 2001 Unknown [id number] 2.16.840.1.092658.3.579.2.1259 2001 Unknown [id number] 2.16.840.1.747645.3.579.2.1259 2001 Unknown [id number] 2.16.840.1.765872.3.579.2.1259 2001 Unknown [id number] 2.16.840.1.148792.3.579.2.1259 2001 Unknown [id number] 2.16.840.1.566281.3.579.2.1259 2001 Unknown [id number] 2.16.840.1.408900.3.579.2.1259 2001 Unknown [id number] 2.16.840.1.005651.3.579.2.1259 1959 Self-pay 1959 Unknown [id number] 1959 Unknown [id number] Unknown [id number] 2.16.840.1.401066.3.579.2.593 Social History Date Type Detail Facility Start: 03-02-2023 Tobacco smoking stat [facility] Never smoked tobacco [facility] [...] nursing note reviewed. Exam conducted with a tax associate attorney present. Vitals: Estimated body mass index is [...] obtained without difficulty and [facility]. Follow Up: Patient is to return to our office in 4 weeks for routine OB appointment Documented by Luna Corrigan LPN on behalf of: Jhonny Duggan DO documented in this encounter [facility] Clinical Note 08-26-2021 Note Date & Type Note Facility 08-26-2021 Note EXAMINATION: US PELV IS HISTORY: Surgical procedure COMPARISON: 08/27/20192009 7:00 PM FINDINGS: Intraprocedural images from the [facility] Initial images demonstrate heterogeneous distended appearance of [...] endometrial cavity IMPRESSION: Intraprocedural images from a [facility] Electronically authenticated by: LAZARO FORRESTER Date: 2021-08-26 17:54 [facility] Discharge summary note 08-26-2021 Note Date [...] pain free and no longer on narcotics. [facility] Signed and Approved by: DR JHONNY DUGGAN . 09/16/2021 10:47:00 [facility] Clinical Note 08-26-2021 Note Date & Type Note Facility 08-26-2021 Note [facility] [place], [place] NAME: MARICARMEN JENNINGS DATE OF : MEDICAL REC#: [id number] FINISHED CLOTH EXAMINER: [address] [facility], TRANSADMIT DATE: 08/26/2021 11:13:00 RESIDENTIAL LIVING ASSISTANT DATE: 09/11/2021 21:00 DICTATING PHYSICIAN: JHONNY DUGGAN DICTATION DATE: 09/08/2021 08:00 OPERATIVE NOTE OPERATION DATE: 09/08/2021 PROCEDURE: Suction D AND C. PREOPERATIVE DIAGNOSIS: Vaginal bleeding, status post prior D AND C for missed . POSTOPERATIVE DIAGNOSIS: Vaginal bleeding, status post prior D AND C for missed . ANESTHESIA: General. SURGEON: Jhonny Duggan D.O. INSPECTOR LINE: None. FINDINGS: No products of conception found. [...] and blood products were removed using an 8-Azerbaijani suction curette. Excellent hemostasis was noted. The [...] by: DR JHONNY DUGGAN . 09/16/2021 10:14:00 [facility] Clinical Note 08-22-2021 Note Date & Type Note Facility 08-22-2021 Note OPERATIVE NOTE OPERATION DATE:08/22/2021 PROCEDURE: Suction D AND C. PREOPERATIVE DIAGNOSIS: Missed POSTOPERATIVE DIAGNOSIS: Missed . ANESTHESIA: General. SURGEON: Jhonny Duggan D.O. INSPECTOR LINE: None. BLOOD LOSS: 200 mL. URINE OUTPUT: [...] to the Recovery Room in stable condition. [facility] Signed and Approved by: DR JHONNY DUGGAN . 08/31/2021 19:44:00 [facility] Evaluation note Note Date & Type [...] and content) DATE CREATED AUTHOR 03/17/2022 [facility] pital DATE CREATED AUTHOR AUTHOR'S ORGANIZ ATION 12/09/2023 [facility] EPIC Reason for Visit (unrecogniz ed section and content) Reason Comments Routine Visit Care Teams (unrecognized sec tion and content) [employer] Relationship Specialty Start Date End Date Catrachita Duff MD [address] [place] [address] PCP - General Family Medicine 03/01/23 [employer] Relationship Specialty Start Date End Date Catrachita Duff MD [address] [place] [address] PCP - General Family Medicine 03/01/23 FOR [...] BE BASED ON THE PRIMARY CLINICAL RECORDS. [facility] [facility]. provides no warranty or guarantee of the accuracy or completeness of information in this document.
[2023-12-09 21:17] LABS: Hematocrit 31.2 % (36.0-48.0); Hemoglobin 10.2 g/dL (12.0-16.0); Mean Corpuscular HGB Conc 32.7 g/dL (29.9-35.2); Mean Corpuscular Hemoglobin 28.3 pg (26.7-34.0); Mean Corpuscular Volume 86.7 fL (81.0-99.0); Mean Platelet Volume 12.1 fL (9.5-13.5); Platelet Count 157 10^3/uL (150-450); Red Cell Distribution Width 12.5 % (11.0-15.0); White Blood Count 10.4 10^3/uL (4.0-11.0)
[2023-12-09 21:19] LABS: Bilirubin Urine NEGATIVE (NEGATIVE); Blood Urine MODERATE (NEGATIVE); Clarity Urine CLEAR (CLEAR); Color Urine LT. YELLOW (YELLOW); Glucose Urine UA NEGATIVE (NEGATIVE); Ketones Urine NEGATIVE (NEGATIVE); Leukocyte Esterase Urine TRACE (NEGATIVE); Nitrite Urine NEGATIVE (NEGATIVE); Protein Urine TRACE mg/dL (NEG/TRACE); pH Urine 7.5 (5.0-9.0)
[2023-12-09 21:21] LABS: Urine Microscopic Indicated YES
[2023-12-09 21:26] LABS: Amorphous Sediment Urine FEW; Bacteria Urine SMALL #/HPF (NONE SEEN); Cast Seen? NONE SEEN #/LPF (NONE SEEN); Crystals Seen? None Seen #/HPF (None Seen); Mucus Urine NONE SEEN (NONE SEEN); RBC Urine 0-2 #/HPF (0-2); Squamous Epithelial Cell Urine MANY #/LPF (NONE/RARE); Urine Culture Indicated YES
[2023-12-09 21:27] LABS: Amphetamine Screen Urine NEGATIVE (NEGATIVE); Barbiturates Screen Urine NEGATIVE (NEGATIVE); Benzodiazepines Screen Urine NEGATIVE (NEGATIVE); Buprenorphine Screen Urine NEGATIVE (NEGATIVE); Cannabinoid Screen Urine NEGATIVE (NEGATIVE); Cocaine Screen Urine NEGATIVE (NEGATIVE); Methadone Screen Urine NEGATIVE (NEGATIVE); Methamphetamines Screen Urine NEGATIVE (NEGATIVE); Opiate Screen Urine NEGATIVE (NEGATIVE); Oxycodone Screen Urine NEGATIVE (NEGATIVE); Phencyclidine Screen Urine NEGATIVE (NEGATIVE); Tricyclic Antidepressant Urine NEGATIVE (NEGATIVE)
[2023-12-09] MEDS: ROPIVACAINE HCL/PF 400 MG/200 ML PREMIX 10 MG EPIDURAL (21:44)
[2023-12-09] MEDS: 0.9 % SODIUM CHLORIDE 1,000 ML 125 ML IV (22:00)
[2023-12-09] MEDS: OXYTOCIN/0.9 % SODIUM CHLORIDE 20 UNITS/1,000 ML PLAST..BAG 125 UNIT IV (23:07)
--- NOTE | 2023-12-09 23:21 | PM.OBPRCVD ---
Procedure Intrapartal events: None Induction method: none Delivery monitor: external FHT and external uterine Route of delivery: Episiotomy Description: none L&D Laceration Description: perineal - 1st degree Delivery repair: Vicryl Estimated blood loss (mL): 300 Anesthesia type: Epidural Disposition: floor Delivery date: 12/09/23 Gender: male presentation: vertex Placental delivery description: Spontaneous cord description: 3 Vessels
[2023-12-10] VITALS (14 sets, daily range): BP systolic 114–135; BP diastolic 57–73; PULSE 69–103; TEMP 35.8–36.7
[2023-12-10] MEDS: IBUPROFEN 600 MG TABLET PO ×3 (03:20→15:43)
[2023-12-10] MEDS: BENZOCAINE/MENTHOL 85 GRAM SPRAY BOTTLE 1 APPLIC TOPICAL (03:30)
[2023-12-10] MEDS: GLYCERIN/WITCH HAZEL PADS 1 PAD TOPICAL (03:30)
[2023-12-10] MEDS: ACETAMINOPHEN 325 MG TABLET 650 MG PO ×2 (06:55→21:42)
--- NOTE | 2023-12-10 07:58 | PM.OBPN ---
OB - PN: Subj Subjective Patient comments: no complaints Roland status: doing well feeding status: exclusively Exam Constitutional Vital Signs, click to edit/add: Last Vital Signs Pulse 70 12/10/23 07:37 Resp 16 12/09/23 23:30 BP 121/64 12/10/23 07:37 O2 Del Method Room Air 12/10/23 03:10 Documenting provider has reviewed patient's vital signs: yes Common normals: no apparent distress, average body habitus, oriented x3, no limitations, healthy appearing, alert and well nourished General appearance: cooperative Orientation/consciousness: Yes awake, Yes oriented to person, Yes oriented to place and Yes oriented to time HENMT Common normals: normocephalic Eye Common normals: EOMs intact bilaterally General eye: normal appearance of both eyes Neck & C-Spine Common normals: full ROM General: normal visual inspection Lymph Lymphatic: no lymphadenopathy noted Chest Common normals: inspection of chest normal Respiratory Common normals: normal respiratory effort Effort & inspection: able to speak in complete sentences Cardio Common normals: regular rate and regular rhythm Rate: regular rate Rhythm: regular rhythm GI Common normals: Normal to inspection, nondistended, normoactive bowel sounds present Palpation: soft Extremity Common normals: normal to inspection and full ROM Neuro Common normals: oriented x3 and moves all extremities Sensorium/orientation: awake, alert, oriented to person, oriented to place and oriented to time Speech: speech normal Psych Common normals: mental status grossly normal, thought process normal and cooperative Attitude: calm Activity/motor behavior: appropriate eye contact Speech: normal speech Thought process: normal thought process Results Labs Labs: Short CBC 12/09/23 Range/Units 20:55 WBC 10.4 (4.0-11.0) 10^3/uL Hgb 10.2 L (12.0-16.0) g/dL Hct 31.2 L (36.0-48.0) % Plt Count 157 (150-450) 10^3/uL Urine 12/09/23 Range/Units 20:20 Urine Color Lt. yellow (YELLOW) Urine Clarity Clear (CLEAR) Urine pH 7.5 (5.0-9.0) Ur Specific [place] 1.020 (1.005-1.025) Urine Protein Trace (NEG/TRACE) mg/dL Urine Glucose (UA) Negative (NEGATIVE) mg/dL OB - PN: A/P Plan - Vaginal Delivery day: 1 Plan: routine care Time Spent with Patient Time: Total time spent is greater than 50% in coordination of care (as documented) at patient's floor/unit and/or counseling patient: Total time spent with greater than 50% in coordination of care (as documented) at patient's floor/unit and/or counseling patient: less than 15 minutes
[2023-12-10] MEDS: DOCUSATE SODIUM 100 MG CAPSULE PO ×2 (10:02→21:42)
[2023-12-11 06:47] LABS: Hematocrit 28.6 % (36.0-48.0); Hemoglobin 9.3 g/dL (12.0-16.0); Mean Corpuscular HGB Conc 32.5 g/dL (29.9-35.2); Mean Corpuscular Hemoglobin 28.4 pg (26.7-34.0); Mean Corpuscular Volume 87.5 fL (81.0-99.0); Mean Platelet Volume 11.7 fL (9.5-13.5); Platelet Count 133 10^3/uL (150-450); Red Blood Count 3.27 10^6/uL (4.20-5.40); Red Cell Distribution Width 12.8 % (11.0-15.0); White Blood Count 6.9 10^3/uL (4.0-11.0)
[2023-12-11 07:35] LABS: Band Neutrophils Absolute 0.1 10^3/uL (0.0-0.3); Lymphocytes Absolute Manual 2.13 10^3/uL (1.20-3.80)
[2023-12-11 07:36] LABS: Monocytes Absolute Manual 0.48 10^3/uL (0.30-0.80)
[2023-12-11 08:59] VITALS: BP 136/83; PULSE 69
[2023-12-11 09:00] VITALS: BP 136/83; PULSE 61; TEMP 36.7
[2023-12-11] MEDS: IBUPROFEN 600 MG TABLET PO (09:04)
[2023-12-11] MEDS: DOCUSATE SODIUM 100 MG CAPSULE PO (09:04)
--- NOTE | 2023-12-11 09:12 | PM.OBPN ---
OB - PN: Subj Subjective Patient comments: no complaints and pain well controlled [place] status: doing well Exam Constitutional Vital Signs, click to edit/add: Last Vital Signs Temp 96.4 F L 12/10/23 23:19 Pulse 69 12/11/23 08:59 Resp 16 12/10/23 23:18 BP 136/83 12/11/23 08:59 O2 Del Method Room Air 12/10/23 23:18 Documenting provider has reviewed patient's vital signs: yes Common normals: no apparent distress Respiratory Common normals: normal respiratory effort and clear to auscultation bilaterally Cardio Common normals: regular rate and regular rhythm GI Common normals: Normal to inspection, nondistended, normoactive bowel sounds present Extremity Common normals: normal to inspection, no clubbing, cyanosis or edema and no calf tenderness Results Labs Labs: Short CBC 12/11/23 Range/Units 06:36 WBC 6.9 (4.0-11.0) 10^3/uL Hgb 9.3 L (12.0-16.0) g/dL Hct 28.6 L (36.0-48.0) % Plt Count 133 L (150-450) 10^3/uL OB - PN: A/P Plan - Vaginal Delivery day: 2 Plan: routine care and follow up 6 weeks Time Spent with Patient Time: Total time spent is greater than 50% in coordination of care (as documented) at patient's floor/unit and/or counseling patient: Total time spent with greater than 50% in coordination of care (as documented) at patient's floor/unit and/or counseling patient: less than 15 minutes
[2023-12-11] MEDS: BENZOCAINE/MENTHOL 85 GRAM SPRAY BOTTLE 1 APPLIC TOPICAL (12:32)
== END 2023-12-11 14:30 | disposition home or self-care (01) | DRG 807 ==
PROVIDERS: Admitting Provider Obstetrics & Gynecology; PCP Student in an Organized Health Care Education/Training Program; Visit Provider Obstetrics & Gynecology
DX: O70.0 First degree perineal laceration during delivery (principal); Z37.0 Single live birth; Z3A.39 39 weeks gestation of pregnancy
CPT/HCPCS: 36415; 59025; 59050; 59410; 80307; 81001; 85007; 85027; 86850; 86900; 86901; 87086; 96374; J2795

== ENCOUNTER 2023-12-14 08:25 | Outpatient (OUT) | payer BC, OTHER, SELFPAY ==
--- NOTE | 2023-12-14 15:59 | PC.NURSE ---
Uziel and 5 day old son, Master arrive for follow up. FOB attentive to couplet. Baby is crying and rooting, mom reports he has been cluster feeding all day . to breast. Mom encouraged to use support pillow, Right nipple noted to have blisters, excoriation and hard engorgement bilaterally noted. Mom reveals breasts became rock hard once she started pumping like a friend suggested, to be able to make milk Latching became more difficult as breasts filled. Assisted with positioning and deeper latching on breast with reverse pressure softening and hand expression of milk to aid in softening breast. Discussed lead feeding and feeding on demand to regulate supply, pumping for comfort only, and when to start pumping prior to returning to work. States would like to breastfeed for at least 1 year and only made it 3 days with 1st child. Reviewed care of breasts and deeper latching for nipple healing. Baby released latch after 20 min of feeding, quiet and content. Uziel with VSS and assessment WNL. No concerns with care of self at this time. Master feeding on demand, 1-3 hours, with 4 wets and 6 stools since midnight. Stools yellow/brown in color. Weight is 5.2 % down from weight. Reviewed expectations for weight gain with parents and both pleased baby is gaining well. Has appointment with PCP tomorrow. MOMs group flyer given and family home without concerns or questions.
[2023-12-14 16:04] VITALS: BP 115/73; PULSE 100; TEMP 36.8; O2SAT 97
== END 2023-12-14 16:11 | disposition home or self-care (01) ==
LOC: FBCO 08:26
PROVIDERS: PCP Student in an Organized Health Care Education/Training Program; Visit Provider Obstetrics & Gynecology
DX: Z39.2 Encounter for routine postpartum follow-up (principal)